=== PATIENT | female | born 1935 ===

== ENCOUNTER 2020-09-02 05:14 | Outpatient (REF) | payer MEDICARE, SELFPAY ==
[2020-09-02 05:39] LABS: Hematocrit 36.5 % (37-47); Mean Corpuscular HGB Conc 32.9 g/dl (31.0-35.0); Mean Corpuscular Hemoglobin 27.6 pg (27.0-33.0); Mean Corpuscular Volume 83.9 fL (80-98); Mean Platelet Volume 10.3 fL (9.4-12.3); Platelet Count 243 X10*3/uL (160-400); Red Blood Count 4.35 X10*6/uL (4.20-5.50); Red Cell Distribution Width 13.4 % (11.0-16.0); White Blood Count 8.1 X10*3/uL (4.8-10.8)
[2020-09-02 05:44] LABS: INTERNATIONAL NORM RATIO 0.9 (0.9-1.1); Prothrombin Time 11.2 SEC (10.8-13.0)
[2020-09-02 06:06] LABS: Alanine Aminotransferase 26 U/L (0-31); Albumin Level 4.1 g/dL (3.5-5.0); Alkaline Phosphatase 122 U/L (39-117); Anion Gap 15 (12-20); Aspartate Amino Transferase 25 U/L (5-31); Bilirubin Total 0.2 mg/dL (0.0-1.0); Blood Urea Nitrogen 28 mg/dL (9-16); Calcium 9.2 mg/dL (8.4-10.2); Carbon Dioxide 23 mmol/L (22-29); Chloride 104 mmol/L (96-108); Estimated Glomerular Filt Rate 33; Glucose Random 159 mg/dL (60-115); Sodium 137 mmol/L (135-145); Total Protein 7.1 g/dL (6.5-8.0)
== END 2020-09-02 05:15 | disposition home or self-care (01) ==
LOC: HO.MMNH1L 05:14
PROVIDERS: Visit Provider Family Medicine
DX: I48.91 Unspecified atrial fibrillation (principal); I25.10 Atherosclerotic heart disease of native coronary artery without angina pectoris; I21.4 Non-ST elevation (NSTEMI) myocardial infarction
CPT/HCPCS: 36415; 80053; 85027; 85610

== ENCOUNTER 2020-09-08 | Outpatient (REF) | payer MEDICARE, SELFPAY ==
[2020-09-08 06:01] LABS: Hematocrit 34.1 % (37-47); Hemoglobin 11.3 g/dl (12.0-16.0); Mean Corpuscular HGB Conc 33.1 g/dl (31.0-35.0); Mean Corpuscular Volume 84.4 fL (80-98); Mean Platelet Volume 10.7 fL (9.4-12.3); Platelet Count 241 X10*3/uL (160-400); Red Blood Count 4.04 X10*6/uL (4.20-5.50); Red Cell Distribution Width 13.5 % (11.0-16.0); White Blood Count 7.4 X10*3/uL (4.8-10.8)
[2020-09-08 06:15] LABS: Anion Gap 15 (12-20); Blood Urea Nitrogen 21 mg/dL (9-16); Calcium 9.3 mg/dL (8.4-10.2); Carbon Dioxide 24 mmol/L (22-29); Chloride 104 mmol/L (96-108); Estimated Glomerular Filt Rate 39; Glucose Random 148 mg/dL (60-115); Potassium 4.5 mmol/l (3.3-5.1); Sodium 138 mmol/L (135-145)
== END 2020-09-08 00:01 | disposition home or self-care (01) ==
LOC: HO.MMNH1L
PROVIDERS: Visit Provider Family Medicine
DX: I48.91 Unspecified atrial fibrillation (principal); I25.10 Atherosclerotic heart disease of native coronary artery without angina pectoris; I21.4 Non-ST elevation (NSTEMI) myocardial infarction
CPT/HCPCS: 36415; 80048; 85027

== ENCOUNTER → 2020-09-12 11:18 | Outpatient (BNVA) | payer MEDICARE, SELFPAY | PROVIDERS: PCP Family Medicine; Visit Provider Nurse Practitioner Family | DX: R07.9 Chest pain, unspecified (principal); I25.10 Atherosclerotic heart disease of native coronary artery without angina pectoris; I11.9 Hypertensive heart disease without heart failure; E78.5 Hyperlipidemia, unspecified; Z95.1 Presence of aortocoronary bypass graft; Z79.82 Long term (current) use of aspirin; Z79.899 Other long term (current) drug therapy | CPT/HCPCS: 99214 ==

== ENCOUNTER 2020-09-15 | Outpatient (REF) | payer MEDICARE, SELFPAY ==
[2020-09-15 08:41] LABS: Hematocrit 35.6 % (37-47); Hemoglobin 11.7 g/dl (12.0-16.0); Mean Corpuscular HGB Conc 32.9 g/dl (31.0-35.0); Mean Corpuscular Hemoglobin 27.7 pg (27.0-33.0); Mean Corpuscular Volume 84.4 fL (80-98); Mean Platelet Volume 10.7 fL (9.4-12.3); Platelet Count 223 X10*3/uL (160-400); Red Blood Count 4.22 X10*6/uL (4.20-5.50); Red Cell Distribution Width 13.5 % (11.0-16.0); White Blood Count 7.5 X10*3/uL (4.8-10.8)
[2020-09-15 10:00] LABS: Anion Gap 16 (12-20); Blood Urea Nitrogen 14 mg/dL (9-16); Calcium 8.9 mg/dL (8.4-10.2); Carbon Dioxide 20 mmol/L (22-29); Chloride 103 mmol/L (96-108); Estimated Glomerular Filt Rate 45; Glucose Random 78 mg/dL (60-115); Potassium 4.3 mmol/l (3.3-5.1); Sodium 135 mmol/L (135-145)
== END 2020-09-15 00:01 | disposition home or self-care (01) ==
LOC: HO.MMNH1L
PROVIDERS: Visit Provider Family Medicine
DX: I48.91 Unspecified atrial fibrillation (principal); I25.10 Atherosclerotic heart disease of native coronary artery without angina pectoris; I21.4 Non-ST elevation (NSTEMI) myocardial infarction
CPT/HCPCS: 36415; 80048; 85027

== ENCOUNTER 2020-09-22 | Outpatient (REF) | payer MEDICARE, SELFPAY ==
[2020-09-22 07:10] LABS: Hematocrit 34.8 % (37-47); Hemoglobin 11.5 g/dl (12.0-16.0); Mean Corpuscular Hemoglobin 28.1 pg (27.0-33.0); Mean Corpuscular Volume 85.1 fL (80-98); Mean Platelet Volume 10.2 fL (9.4-12.3); Platelet Count 218 X10*3/uL (160-400); Red Blood Count 4.09 X10*6/uL (4.20-5.50); Red Cell Distribution Width 13.3 % (11.0-16.0)
[2020-09-22 07:36] LABS: Anion Gap 17 (12-20); Blood Urea Nitrogen 18 mg/dL (9-16); Calcium 8.8 mg/dL (8.4-10.2); Carbon Dioxide 24 mmol/L (22-29); Chloride 104 mmol/L (96-108); Estimated Glomerular Filt Rate 35; Glucose Random 128 mg/dL (60-115); Potassium 4.6 mmol/l (3.3-5.1); Sodium 140 mmol/L (135-145)
== END 2020-09-22 00:01 | disposition home or self-care (01) ==
LOC: HO.MMNH1L
PROVIDERS: Visit Provider Family Medicine
DX: Z20.828 Contact with and (suspected) exposure to other viral communicable diseases (principal)
CPT/HCPCS: 36415; 80048; 85027; U0003

== ENCOUNTER → 2020-10-30 09:08 | Outpatient (BNVA) | payer MEDICARE, SELFPAY | PROVIDERS: PCP Family Medicine; Referring Provider Family Medicine; Visit Provider Nurse Practitioner | DX: K21.9 Gastro-esophageal reflux disease without esophagitis (principal); R19.7 Diarrhea, unspecified; Z79.4 Long term (current) use of insulin; Z79.891 Long term (current) use of opiate analgesic; Z79.899 Other long term (current) drug therapy | CPT/HCPCS: Q3014 ==

== ENCOUNTER → 2020-11-25 13:02 | Outpatient (REF) | payer MEDICARE, SELFPAY ==
--- NOTE | 2020-11-25 13:06 | CA_ITS ---
Transthoracic Echocardiogram Patient (Last, First, Middle): Talita Merino, Gender: Female Date of : 1935 Age: 85 Procedure Date: 11/25/2020 Procedure Type: Transthoracic Echocardiogram Location: OP Height: 157.48 cm Weight: 63.5 kg BSA: 1.64 m2 Heart Rate: bpm BP: 122 / 64 mmHg Freelance Graphic Designer: YANET Referring MD: Dona Bravo [facility] Symptoms: I25.10 - Atherosclerotic heart disease of [place] coronary artery without angina pectoris Study Quality: Fair ECG Rhythm: Sinus Conclusions: - The left ventricular systolic function is normal. The visually estimated ejection fraction is between 60-65%. - The basal inferior and basal inferolateral segments are hypokinetic. - There is moderately decreased right ventricular systolic function. - There is moderate calcification of the aortic valve. - There is mild mitral annular calcification. - There is mild dilatation of the ascending aorta measuring 4.00 cm. Findings Left Ventricle Normal left ventricular cavity size. There is moderately increased left ventricular wall thickness. The left ventricular systolic function is normal. The visually estimated ejection fraction is between 60-65%. E/E prime ratio is between 8 and 15 consistent with indeterminate filling pressures. Evidence suggests grade I (mild) diastolic dysfunction. Wall Motion Rest Echo Findings The basal inferior and basal inferolateral segments are hypokinetic. Right Ventricle Normal right ventricular cavity size. There is moderately decreased right ventricular systolic function. Atria The left atrium is normal in size. The right atrium is normal in size. Aortic Valve There is moderate calcification of the aortic valve. There is no aortic valve stenosis. There is no aortic valve regurgitation. Mitral Valve There is mild mitral annular calcification. There is trace mitral valve regurgitation. There is no mitral valve stenosis. Pulmonic Valve The pulmonic valve was not well visualized. Tricuspid Valve Normal tricuspid valve structure. There is mild tricuspid valve regurgitation. The pulmonary artery systolic pressure is normal. Great Vessels There is mild dilatation of the ascending aorta measuring 4.00 cm. Venous The inferior vena cava is normal in size and collapses greater than 50% with inspiration. Pericardium/Pleural There is no evidence of pericardial effusion. Prior Study Comparison Changes noted compared to prior study dated: 09/20/2017. Ascending aortic size is slightly larger. Measurements 2D Linear Measurements RVIDd: 2.92 RVIDd Index: 1.78 IVSd: 1.67 0.6-0.9/0.6-1.0 cm LVIDd: 3.50 3.9-5.3/4.2-5.9 cm LVIDd Index: 2.13 2.4-3.2/2.2-3.1 cm/m2 LVIDs: 2.53 2.0-3.6 cm LVPWd: 1.34 0.7-1.1 cm Ao Root: 3.20 2.1-3.5 cm LA Diam: 3.70 2.7-3.8/3.0-4.0 cm LAIDs Index: 2.26 1.5-2.3 cm/m2 LV Mass: 242.34 67-162/88-224 g LV Mass Index: 147.77 43-95/49-115 g/m2 LVOT Diam: 2.00 3.0+(-)1.3 cm 2D Systolic Function EF 4C: 68.80 >55% EF 2C: 59.00 >55% EF BiP: 64.50 >55% Mitral Valve MV Pk E: 0.58 MV PK A: 0.73 MV Decel Time: 285.00 E/A: 0.80 E'Lateral: 6.85 E'Medial: 4.03 E/E' Med: 14.30 E/E' Lat: 8.40 Aortic Valve AoV Pk Octaviano: 1.49 AoV Mn Octaviano: 1.07 AoV VTI: 0.27 AoV Pk Grad: 9.00 Aov Mn Grad: 5.00 DALTON Cont.VTI: 1.60 LVOT LVOT Pk Octav[place]: 0.76 LVOT Mn Octaviano: 0.43 LVOT VTI: 0.14 LVOT Pk Grad: 2.00 LVOT Mn Grad: 1.00 LVOT Diam: 2.00 LVOT Area: 3.14 Diastolic Function MV Pk E: 0.58 MV Pk A: 0.73 E/A: 0.80 E'Medial: 4.03 E/E' Med: 14.30 E' Laterial: 6.85 E/E' Lat: 8.40 Tricuspid Valve TR Pk Octaviano: 2.40 TR Pk Grad: 23.00 RA Press: 3.00 RVSP: 26.00 Great Vessels Aorta Ao Root-2D: 3.20 2.0-3.7 cm Ao Asc: 4.00 2.1-3.4 cm Updated in Other Vendor System with Status of Final Yg Rayo MD electronically signed on 11/25/2020 4:47:53 PM with status of Final
== END ==
LOC: HO.CARD 13:02
PROVIDERS: PCP Family Medicine; Visit Provider Nurse Practitioner Family
DX: I25.10 Atherosclerotic heart disease of native coronary artery without angina pectoris (principal)
CPT/HCPCS: 93306

== ENCOUNTER 2020-12-04 08:48 | Outpatient (REF) | payer MEDICARE, SELFPAY | END 2020-12-04 08:49 | disposition home or self-care (01) | LOC: HO.HOSX 08:48 | PROVIDERS: Visit Provider Orthopaedic Surgery | DX: Z13.89 Encounter for screening for other disorder (principal) ==

== ENCOUNTER → 2021-02-03 09:41 | Outpatient (BNVA) | payer MEDICARE, SELFPAY | PROVIDERS: PCP Family Medicine; Visit Provider Nurse Practitioner Gerontology | DX: Z13.89 Encounter for screening for other disorder (principal) | CPT/HCPCS: Q3014 ==

== ENCOUNTER 2021-02-28 17:36 | Emergency (ER) | payer MEDICARE, SELFPAY ==
--- NOTE | ~2021-02-28 | CT_ITS ---
EXAMINATION: CT ABDOMEN AND PELVIS WITHOUT CONTRAST CLINICAL INFORMATION: Abdominal pain nausea and vomiting COMPARISON: CT abdomen pelvis 09/17/2017 TECHNIQUE: Multidetector volumetric imaging was performed from the superior aspect of the liver through the pubic symphysis. Sagittal and coronal reformatted images were obtained on the technologist's workstation. This CT examination was performed using dose optimization techniques as appropriate, variously including the following: *Automated exposure control *Adjustment of mA and/or kV according to patient size (this includes techniques or standardized protocols for targeted exams where dose is matched to indication/reason for exam; i.e. extremities or head) *Use of iterative reconstruction technique DLP: 545 mGy-cm FINDINGS: LUNG BASES: Again seen is a prominent ascending aorta measuring about 4.3 cm. Extensive coronary calcifications are present. Peripheral honeycombing is again seen at the bases suggesting interstitial lung disease. Patient status post median sternotomy. LIVER, GALLBLADDER, AND BILIARY TREE: The liver is normal in size, shape, and attenuation. No focal hepatic lesion or biliary ductal dilatation is present. Status post cholecystectomy. PANCREAS: Unremarkable. SPLEEN: Unremarkable. ADRENAL GLANDS: Mild thickening of both adrenal glands is again seen, right greater than left. KIDNEYS AND URETERS: The kidneys are normal in size, shape, and attenuation. 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 No hydronephrosis, hydroureter, or calculi seen. No perinephric stranding. BLADDER: The bladder is markedly distended. No masses or stones are seen. Tiny foci of air is present within the wall of the bladder (series 3:69). Has this patient been catheterized? GASTROINTESTINAL TRACT: Some colonic diverticula are seen without diverticulitis The small and large bowel are otherwise unremarkable. The appendix is is not seen but there is no evidence of appendicitis. ABDOMINAL WALL: A supraumbilical ventral hernia is present slightly to the right of midline which is unchanged when compared to the 2017 study. Laxity of the lower abdominal/pelvic wall seen with protrusion of bowel loops and a portion of the anterior bladder without obstruction LYMPH NODES: No retroperitoneal lymphadenopathy. VASCULAR: Extensive vascular calcification atherosclerotic changes present. No aneurysms are seen. PELVIC VISCERA: An anteverted uterus is present containing calcifications which may be related to old fibroids. An abnormal adnexal mass or free intraperitoneal fluid is not seen OSSEOUS STRUCTURES: Marked degenerative changes present throughout the spine with scoliosis convex to right. CT/CT abdomen pelvis wo con IMPRESSION: A cause for the patient's acute abdominal pain nausea and vomiting has not been found. Incidental note is made once again of: 1. Dilated ascending aorta at 4.3 cm with extensive coronary disease 2. Cholecystectomy 3. Duplex bilateral renal collecting systems 4. Supraumbilical hernia containing only fat, unchanged with weakness in the lower anterior abdominal/pelvic wall with herniation of a portion of the bladder and bowel contents without evidence of obstruction. 5. Extensive calcific atherosclerotic disease. 6. Extensive degenerative changes in the spine with scoliosis.
--- NOTE | ~2021-02-28 | XR_ITS ---
EXAMINATION: XR CHEST CLINICAL INFORMATION: Nausea and vomiting. COMPARISON: Chest x-ray 09/06/2019 TECHNIQUE: Frontal view of the chest was obtained. FINDINGS: No significant abnormality is noted involving the heart, lungs, mediastinum, bony thorax or soft tissues. There are median sternotomy sutures and mediastinal hillary from previous CABG XR/XR chest 1V IMPRESSION: Unremarkable chest examination.
[2021-02-28 17:45] VITALS: BP 170/87; PULSE 70; RESP 14; TEMP 37; O2SAT 100; BMI 26.4
--- NOTE | 2021-02-28 17:56 | ECG_ITS ---
Test Reason : NAUSEA Blood Pressure : / mmHG Vent. Rate : 078 BPM Atrial Rate : 078 BPM P-R Int : 224 ms QRS Dur : 116 ms QT Int : 416 ms P-R-T Axes : 060 -59 085 degrees QTc Int : 474 ms Sinus rhythm with sinus arrhythmia with 1st degree A-V block Left axis deviation Abnormal ECG When compared with ECG of 07-SEP-2019 07:22, [place] interval has increased Referred By: Generic ED Physician Electronically Signed By:DELANO NASSAR
[2021-02-28 18:10] LABS: MANUAL DIFF FLAG NO
[2021-02-28 18:12] LABS: Basophils Absolute Auto 0.1 X10*3/uL (0.0-0.2); Basophils Percent Auto 0.7 % (0-2); Eosinophils Absolute Auto 0.4 X10*3/uL (0.0-0.4); Eosinophils Percent Auto 4.7 % (0-4); Hematocrit 37.8 % (37-47); Hemoglobin 12.8 g/dl (12.0-16.0); Imm Gran Abs Auto 0.04 X10*3/uL (0.00-0.03); Imm Gran Pct Auto 0.5 % (0.0-0.4); Lymphocytes Absolute Auto 1.6 X10*3/uL (1.2-4.9); Lymphocytes Percent Auto 18.5 % (20-40); Mean Corpuscular HGB Conc 33.9 g/dl (31.0-35.0); Mean Corpuscular Hemoglobin 28.3 pg (27.0-33.0); Mean Corpuscular Volume 83.4 fL (80-98); Mean Platelet Volume 9.6 fL (9.4-12.3); Monocytes Absolute Auto 0.5 X10*3/uL (0.1-1.2); Monocytes Percent Auto 5.9 % (2-11); Neutrophils Percent Auto 69.7 % (45-73); Platelet Count 244 X10*3/uL (160-400); Red Blood Count 4.53 X10*6/uL (4.20-5.50); White Blood Count 8.6 X10*3/uL (4.8-10.8)
[2021-02-28 18:34] LABS: Alanine Aminotransferase 38 U/L (0-31); Albumin Level 4.7 g/dL (3.5-5.0); Alkaline Phosphatase 110 U/L (39-117); Anion Gap 16 (12-20); Aspartate Amino Transferase 27 U/L (5-31); Bilirubin Direct 0.2 mg/dL (0.0-0.5); Bilirubin Total 0.4 mg/dL (0.0-1.0); Blood Urea Nitrogen 24 mg/dL (9-16); Calcium 9.5 mg/dL (8.4-10.2); Carbon Dioxide 23 mmol/L (22-29); Chloride 100 mmol/L (96-108); Creatinine Clr Calc Pharmacy 25.6; Estimated Glomerular Filt Rate 40; Glucose Random 206 mg/dL (60-115); Potassium 4.4 mmol/L (3.3-5.1); Sodium 135 mmol/L (135-145); Total Protein 8.3 g/dL (6.5-8.0)
--- NOTE | 2021-02-28 18:37 | ED_ITS ---
HPI - Nausea/Vomiting/Diarrhea General Chief complaint: Nausea/Vomiting/Diarrhea Stated complaint: N/V 3-4 DAYS Source: patient and EMS Mode of arrival: EMS Limitations: language barrier History of Present Illness HPI Narrative: 85-year-old female with past medical history of coronary artery disease, status post CABG x3, hypertension, hyperlipidemia, type 2 diabetes with polyneuropathy, asthma, history of NSTEMI, and GERD presents with several days of nausea, vomiting, and increased confusion per FINANCE ADMIN report. Patient states that abdominal pain started before nausea and vomiting, and after the nausea and vomiting started she became weak and dizzy for the past few days. Patient is a poor historian, is unable to tell me what medications she takes. She does know that she is in the hospital. MD elicited complaint: nausea, vomiting and abdominal pain Onset (ago): day(s) (4) Description of vomiting: watery Associated nausea: Yes Associated abdominal pain: Yes Location of pain: diffuse Pain consistency: constant Severity: moderate Quality: aching Exacerbating factors: vomiting Relieving factors: none Treatment prior to arrival: fluids and other (Zofran via EMS) Related Data Home Medications Medication Instructions Recorded Confirmed acetaminophen 2 tab PO Q8H PRN 02/28/21 02/28/21 alcohol swabs [Alcohol Prep Pads] 1 ea TOPICAL QID 02/28/21 02/28/21 amlodipine 1 tab PO DAILY 02/28/21 02/28/21 aspirin 1 tab PO DAILY 02/28/21 02/28/21 atorvastatin 1 tab PO DAILY 02/28/21 02/28/21 blood sugar diagnostic [FreeStyle 02/28/21 02/28/21 Lite Strips] blood-glucose meter [FreeStyle 02/28/21 02/28/21 [place] Lite] bupropion HCl 1 tab PO BEDTIME 02/28/21 02/28/21 cetirizine 1 tab PO QAM 02/28/21 02/28/21 docusate sodium [DOK] 1 cap PO BID 02/28/21 02/28/21 donepezil 1 tab PO DAILY 02/28/21 02/28/21 dulaglutide [Trulicity] 0.5 ml SUBCUT QWEEK 02/28/21 02/28/21 gabapentin 100 mg PO TID 02/28/21 02/28/21 insulin degludec [Tresiba 7 unit SUBCUT DAILY 02/28/21 02/28/21 FlexTouch U-100] levothyroxine 1 tab PO DAILY 02/28/21 02/28/21 losartan 1 tab PO DAILY 02/28/21 02/28/21 metformin 2 tab PO BID 02/28/21 02/28/21 metoprolol succinate 3 tab PO QAM 02/28/21 02/28/21 pen needle, diabetic [Pentips] 02/28/21 02/28/21 sennosides [senna] 2 tab PO DAILY 02/28/21 02/28/21 sertraline 1 tab PO QAM 02/28/21 02/28/21 tramadol 1 tab PO Q12H PRN 02/28/21 02/28/21 Allergies Allergy/AdvReac Type Severity Reaction Status Date / Time No Known Allergies Allergy Verified 02/03/21 10:24 [No Known Allergies*] Review of Systems Review of Systems: Constitutional: No Fever, No Chills ENT/Mouth: No sore throat Eyes: No Eye Pain, No Swelling, No Redness Cardiovascular: No Chest Pain, No SOB Respiratory: No Cough, No Sputum, No Wheezing Gastrointestinal: positive Nausea, positive Vomiting, No Diarrhea, positive abdominal pain Genitourinary: No Dysuria, no urinary frequency, no Hematuria, no Flank Pain, no hesitancy Musculoskeletal: No joint pain, No Myalgias Skin: No Skin Lesions, No rash Neuro: No Weakness, No Numbness, No Headache Psych: No Anxiety/Panic, No Depression Heme/Lymph: No Bruising, No Lymphadenopathy Endocrine: No Polyuria, No Polydipsia Yes all other systems are reviewed and are negative Gastrointestinal: Gastrointestinal: Reports nausea PMFSH Past Medical History Attestation statement: The following information was validated with the patient. Source: old records reviewed Medical History CAD (coronary artery disease) Chest pain Depression Diastolic dysfunction HLD (hyperlipidemia) HTN (hypertension) Hypothyroidism Peptic ulcer disease Postoperative atrial fibrillation Tubular adenoma Type 2 diabetes mellitus with polyneuropathy Surgical History History of esophagogastroduodenoscopy (EGD) Hx of colonoscopy S/P CABG x 3 (~09/2013) Family History Family History Father CVD (cardiovascular disease) Mother No problems noted. Social History Social History Household Members: Children Alcohol intake: unknown Smoking Status: Never smoker Smoked in Last 30 Days: No Use of substances other than those prescribed or required for medical reasons: No Advance Directives: No Advance Directives Information Provided: Yes Physical Exam Vital Signs: Vital Signs: Last Vital Signs Temp 97.5 F 02/28/21 20:13 Pulse 74 03/01/21 00:39 Resp 18 03/01/21 00:39 BP 133/71 03/01/21 00:39 Pulse Ox 96 03/01/21 00:39 Body Mass Index 26.4 Appearance: Alert. Oriented X2. No acute distress. Appears fatigued, frail. Eyes: Pupils equal, round and reactive to light. EOMI, sclera nonicteric ENT: Pharynx normal. Dry mucous membranes Neck: Normal inspection. Neck supple. No JVD CVS: Normal heart rate and rhythm. Pulses normal. Respiratory: No respiratory distress. Lung sounds clear to auscultation all lobes Abdomen: Soft and diffusely tender to palpation Skin: Skin warm and dry. Normal skin color. Normal skin turgor. Extremities: No lower extremity edema. Moves all extremities against resistance. Neuro: No motor deficit. No sensory deficit. Cranial nerves 2-12 intact. Course Course Course Narrative: 85-year-old female with past medical history of coronary artery disease, status post CABG x3, hypertension, hyperlipidemia, type 2 diabetes with polyneuropathy, asthma, history of NSTEMI, and GERD presents with several days of nausea, vomiting, and increased confusion per FINANCE ADMIN report. Plan of care to rule out ACS, CT scan of abdomen and pelvis, straight cath urinalysis, CBC, Chem 7, will resuscitate with 500 mL of fluid. 6:50 p.m. troponin elevated at 22.1 will repeat in 3 hours. 10:00 p.m. 2nd troponin 21.9, CT scan shows aortic dilation of 4.3 cm, review of prior CTs from 2017 do not show history of aortic dilation. Discussion with hospitalist, hospitalist states that patient has not get admitted until dilation is about 5 cm, patient can be followed up by outpatient Cardiology or vascular, considering her 2nd troponin is 21.9, and has no significant findings to lab values, she does not meet admission criteria. RN discussed plan with family, family does not feel comfortable taking her home at this time due to weakness. Plan is for Case Management, social media community manager, and PT evaluation. MDM - Nausea/Vomiting/Diarrhea Differential Diagnosis Differential diagnosis: Likely gastroenteritis and dehydration Medical Records Attestation: I reviewed the patient's medical records. Lab Data Attestation: I reviewed the patient's lab results. Result diagrams: 02/28/21 18:03 02/28/21 18:03 Labs: Lab Results 02/28/21 02/28/21 02/28/21 Range/Units 18:03 18:03 18:03 WBC 8.6 (4.8-10.8) X10*3/uL RBC 4.53 (4.20-5.50) X10*6/uL Hgb 12.8 (12.0-16.0) g/dl Hct 37.8 (37-47) % MCV 83.4 (80-98) fL MCH 28.3 (27.0-33.0) pg MCHC 33.9 (31.0-35.0) g/dl RDW 13.0 (11.0-16.0) % Plt Count 244 (160-400) X10*3/uL MPV 9.6 (9.4-12.3) fL Immature Gran % (Auto) 0.5 H (0.0-0.4) % Neut % (Auto) 69.7 (45-73) % Lymph % (Auto) 18.5 L (20-40) % [place] % (Auto) 5.9 (2-11) % Eos % (Auto) 4.7 H (0-4) % Baso % (Auto) 0.7 (0-2) % Lymph # (Auto) 1.6 (1.2-4.9) X10*3/uL [place] # (Auto) 0.5 (0.1-1.2) X10*3/uL Eos # (Auto) 0.4 (0.0-0.4) X10*3/uL Baso # (Auto) 0.1 (0.0-0.2) X10*3/uL Abs Immat Gran (auto) 0.04 H (0.00-0.03) X10*3/uL Absolute Neuts (auto) 6.0 (2.0-8.3) X10*3/uL Absolute Nucleated RBC 0.000 (0.0-0.012) X10*3/uL Nucleated RBC % (auto) 0.0 (0.0-0.2) /100WBC Hold Blue Top SEE NOTE Sodium 135 (135-145) mmol/L Potassium 4.4 (3.3-5.1) mmol/L Chloride 100 (96-108) mmol/L Carbon Dioxide 23 (22-29) mmol/L Anion Gap 16 (12-20) BUN 24 H (9-16) mg/dL Creatinine 1.26 (0.5-1.4) mg/dL Estim Creat Clear Calc 25.6 Estimated GFR 40 Random Glucose 206 H D (60-115) mg/dL Calcium 9.5 D (8.4-10.2) mg/dL Total Bilirubin 0.4 (0.0-1.0) mg/dL Direct Bilirubin 0.2 (0.0-0.5) mg/dL AST 27 (5-31) U/L ALT 38 H (0-31) U/L Alkaline Phosphatase 110 (39-117) U/L Troponin I High Sens (<3.5-17.0) ng/L Total Protein 8.3 H (6.5-8.0) g/dL Albumin 4.7 (3.5-5.0) g/dL Urine Color Urine Appearance Urine pH (5.0-8.0) Ur Specific [place] (1.005-1.025) Urine Protein (NEG-TRACE) MG/DL Urine Glucose (UA) (NEG) MG/DL Urine Ketones (NEG) MG/DL Urine Blood (NEG) Urine Nitrite (NEG) Ur Leukocyte Esterase (NEG) Coronavirus (PCR) (Negative) Influenza Type A (PCR) (Negative) Influenza Type B (PCR) (Negative) RSV RNA Qual (PCR) (Negative) 02/28/21 02/28/21 02/28/21 Range/Units 18:03 19:09 19:10 WBC (4.8-10.8) X10*3/uL RBC (4.20-5.50) X10*6/uL Hgb (12.0-16.0) g/dl Hct (37-47) % MCV (80-98) fL MCH (27.0-33.0) pg MCHC (31.0-35.0) g/dl RDW (11.0-16.0) % Plt Count (160-400) X10*3/uL MPV (9.4-12.3) fL Immature Gran % (Auto) (0.0-0.4) % Neut % (Auto) (45-73) % Lymph % (Auto) (20-40) % [place] % (Auto) (2-11) % Eos % (Auto) (0-4) % Baso % (Auto) (0-2) % Lymph # (Auto) (1.2-4.9) X10*3/uL [place] # (Auto) (0.1-1.2) X10*3/uL Eos # (Auto) (0.0-0.4) X10*3/uL Baso # (Auto) (0.0-0.2) X10*3/uL Abs Immat Gran (auto) (0.00-0.03) X10*3/uL Absolute Neuts (auto) (2.0-8.3) X10*3/uL Absolute Nucleated RBC (0.0-0.012) X10*3/uL Nucleated RBC % (auto) (0.0-0.2) /100WBC Hold Blue Top Sodium (135-145) mmol/L Potassium (3.3-5.1) mmol/L Chloride (96-108) mmol/L Carbon Dioxide (22-29) mmol/L Anion Gap (12-20) BUN (9-16) mg/dL Creatinine (0.5-1.4) mg/dL Estim Creat Clear Calc Estimated GFR Random Glucose (60-115) mg/dL Calcium (8.4-10.2) mg/dL Total Bilirubin (0.0-1.0) mg/dL Direct Bilirubin (0.0-0.5) mg/dL AST (5-31) U/L ALT (0-31) U/L Alkaline Phosphatase (39-117) U/L Troponin I High Sens 22.1 H (<3.5-17.0) ng/L Total Protein (6.5-8.0) g/dL Albumin (3.5-5.0) g/dL Urine Color STRAW Urine Appearance CLEAR Urine pH 6.5 (5.0-8.0) Ur Specific [place] 1.020 (1.005-1.025) Urine Protein NEG (NEG-TRACE) MG/DL Urine Glucose (UA) 100 H (NEG) MG/DL Urine Ketones NEG (NEG) MG/DL Urine Blood NEG (NEG) Urine Nitrite NEG (NEG) Ur Leukocyte Esterase NEG (NEG) Coronavirus (PCR) NEGATIVE (Negative) Influenza Type A (PCR) NEGATIVE (Negative) Influenza Type B (PCR) NEGATIVE (Negative) RSV RNA Qual (PCR) NEGATIVE (Negative) 02/28/21 03/01/21 Range/Units 20:51 01:44 WBC (4.8-10.8) X10*3/uL RBC (4.20-5.50) X10*6/uL Hgb (12.0-16.0) g/dl Hct (37-47) % MCV (80-98) fL MCH (27.0-33.0) pg MCHC (31.0-35.0) g/dl RDW (11.0-16.0) % Plt Count (160-400) X10*3/uL MPV (9.4-12.3) fL Immature Gran % (Auto) (0.0-0.4) % Neut % (Auto) (45-73) % Lymph % (Auto) (20-40) % [place] % (Auto) (2-11) % Eos % (Auto) (0-4) % Baso % (Auto) (0-2) % Lymph # (Auto) (1.2-4.9) X10*3/uL [place] # (Auto) (0.1-1.2) X10*3/uL Eos # (Auto) (0.0-0.4) X10*3/uL Baso # (Auto) (0.0-0.2) X10*3/uL Abs Immat Gran (auto) (0.00-0.03) X10*3/uL Absolute Neuts (auto) (2.0-8.3) X10*3/uL Absolute Nucleated RBC (0.0-0.012) X10*3/uL Nucleated RBC % (auto) (0.0-0.2) /100WBC Hold Blue Top Sodium (135-145) mmol/L Potassium (3.3-5.1) mmol/L Chloride (96-108) mmol/L Carbon Dioxide (22-29) mmol/L Anion Gap (12-20) BUN (9-16) mg/dL Creatinine (0.5-1.4) mg/dL Estim Creat Clear Calc Estimated GFR Random Glucose (60-115) mg/dL Calcium (8.4-10.2) mg/dL Total Bilirubin (0.0-1.0) mg/dL Direct Bilirubin (0.0-0.5) mg/dL AST (5-31) U/L ALT (0-31) U/L Alkaline Phosphatase (39-117) U/L Troponin I High Sens 21.9 H 21.8 H (<3.5-17.0) ng/L Total Protein (6.5-8.0) g/dL Albumin (3.5-5.0) g/dL Urine Color Urine Appearance Urine pH (5.0-8.0) Ur Specific [place] (1.005-1.025) Urine Protein (NEG-TRACE) MG/DL Urine Glucose (UA) (NEG) MG/DL Urine Ketones (NEG) MG/DL Urine Blood (NEG) Urine Nitrite (NEG) Ur Leukocyte Esterase (NEG) Coronavirus (PCR) (Negative) Influenza Type A (PCR) (Negative) Influenza Type B (PCR) (Negative) RSV RNA Qual (PCR) (Negative) Imaging Data Chest x-ray: Attestation: I personally reviewed and interpreted this imaging study as follows: Radiologist's impression: EXAMINATION: XR CHEST CLINICAL INFORMATION: Nausea and vomiting. COMPARISON: Chest x-ray 09/06/2019 TECHNIQUE: Frontal view of the chest was obtained. FINDINGS: No significant abnormality is noted involving the heart, lungs, mediastinum, bony thorax or soft tissues. There are median sternotomy sutures and mediastinal hillary from previous CABG XR/XR chest 1V IMPRESSION: Unremarkable chest examination. CT abdomen pelvis: Attestation: I personally reviewed and interpreted this imaging study as follows: Radiologist's impression: EXAMINATION: CT ABDOMEN AND PELVIS WITHOUT CONTRAST CLINICAL INFORMATION: Abdominal pain nausea and vomiting COMPARISON: CT abdomen pelvis 09/17/2017 TECHNIQUE: Multidetector volumetric imaging was performed from the superior aspect of the liver through the pubic symphysis. Sagittal and coronal reformatted images were obtained on the technologist's workstation. This CT examination was performed using dose optimization techniques as appropriate, variously including the following: *Automated exposure control *Adjustment of mA and/or kV according to patient size (this includes techniques or standardized protocols for targeted exams where dose is matched to indication/reason for exam; i.e. extremities or head) *Use of iterative reconstruction technique DLP: 545 mGy-cm FINDINGS: LUNG BASES: Again seen is a prominent ascending aorta measuring about 4.3 cm. Extensive coronary calcifications are present. Peripheral honeycombing is again seen at the bases suggesting interstitial lung disease. Patient status post median sternotomy. LIVER, GALLBLADDER, AND BILIARY TREE: The liver is normal in size, shape, and attenuation. No focal hepatic lesion or biliary ductal dilatation is present. Status post cholecystectomy. PANCREAS: Unremarkable. SPLEEN: Unremarkable. ADRENAL GLANDS: Mild thickening of both adrenal glands is again seen, right greater than left. KIDNEYS AND URETERS: The kidneys are normal in size, shape, and attenuation. 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 No hydronephrosis, hydroureter, or calculi seen. No perinephric stranding. BLADDER: The bladder is markedly distended. No masses or stones are seen. Tiny foci of air is present within the wall of the bladder (series 3:69). Has this patient been catheterized? GASTROINTESTINAL TRACT: Some colonic diverticula are seen without diverticulitis The small and large bowel are otherwise unremarkable. The appendix is is not seen but there is no evidence of appendicitis. ABDOMINAL WALL: A supraumbilical ventral hernia is present slightly to the right of midline which is unchanged when compared to the 2017 study. Laxity of the lower abdominal/pelvic wall seen with protrusion of bowel loops and a portion of the anterior bladder without obstruction LYMPH NODES: No retroperitoneal lymphadenopathy. VASCULAR: Extensive vascular calcification atherosclerotic changes present. No aneurysms are seen. PELVIC VISCERA: An anteverted uterus is present containing calcifications which may be related to old fibroids. An abnormal adnexal mass or free intraperitoneal fluid is not seen OSSEOUS STRUCTURES: Marked degenerative changes present throughout the spine with scoliosis convex to right. CT/CT abdomen pelvis wo con IMPRESSION: A cause for the patient's acute abdominal pain nausea and vomiting has not been found. Incidental note is made once again of: 1. Dilated ascending aorta at 4.3 cm with extensive coronary disease 2. Cholecystectomy 3. Duplex bilateral renal collecting systems 4. Supraumbilical hernia containing only fat, unchanged with weakness in the lower anterior abdominal/pelvic wall with herniation of a portion of the bladder and bowel contents without evidence of obstruction. 5. Extensive calcific atherosclerotic disease. 6. Extensive degenerative changes in the spine with scoliosis. ECG Data Attestation: I personally reviewed and interpreted this ECG as follows: ECG interpretation date: 02/28/21 ECG interpretation time: 18:41 Prior ECG tracings: available for review Interpretation: Vent. rate 78 BPM TX interval 224 ms QRS duration 116 ms QT/QTc 416/474 ms P-R-T axes 60 -59 85 Sinus rhythm with sinus arrhythmia with 1st de gree A-V block Left axis deviation Abnormal ECG When compared with ECG of 07-SEP-2019 07:22, [place] interval has increased Discharge Plan Discharge Clinical Impression: Weakness, Ascending aorta dilatation Prescriptions: No Action metformin 500 mg tablet 2 tab PO BID RF: 0 sennosides [senna] 8.6 mg tablet 2 tab PO DAILY RF: 0 acetaminophen 325 mg tablet 2 tab PO Q8H PRN (Reason: Pain) RF: 0 atorvastatin 20 mg tablet 1 tab PO DAILY RF: 0 cetirizine 10 mg tablet 1 tab PO QAM RF: 0 metoprolol succinate 50 mg tablet extended release 24 hr 3 tab PO QAM RF: 0 donepezil 10 mg tablet 1 tab PO DAILY RF: 0 (DME) FreeStyle Lite Strips Strip MISCELLANEOUS RF: 0 aspirin 81 mg tablet,delayed release (DR/EC) 1 tab PO DAILY RF: 0 tramadol 50 mg tablet 1 tab PO Q12H PRN (Reason: severe pain) RF: 0 (DME) blood-glucose meter [FreeStyle [place] Lite] Kit MISCELLANEOUS BID RF: 0 amlodipine 10 mg tablet 1 tab PO DAILY RF: 0 levothyroxine 150 mcg tablet 1 tab PO DAILY RF: 0 docusate sodium [DOK] 100 mg capsule 1 cap PO BID RF: 0 alcohol swabs [Alcohol Prep Pads] Pads, Medicated 1 ea topical QID RF: 0 gabapentin 100 mg capsule 100 mg PO TID RF: 0 losartan 100 mg tablet 1 tab PO DAILY RF: 0 sertraline 50 mg tablet 1 tab PO QAM RF: 0 bupropion HCl 300 mg tablet extended release 24 hr 1 tab PO BEDTIME RF: 0 (DME) pen needle, diabetic [Pentips] 32 gauge x 5/32 needle MISCELLANEOUS RF: 0 Tresiba FlexTouch U-100 100 unit/mL (3 mL) insulin pen 7 unit subcut DAILY RF: 0 Trulicity 1.5 mg/0.5 mL pen injector 0.5 ml subcut QWEEK RF: 0
[2021-02-28 18:55] LABS: Troponin-I High Sensitivity 22.1 ng/L (<3.5-17.0)
[2021-02-28 19:08] VITALS: RESP 18
[2021-02-28 19:25] LABS: Glucose Urine UA 100 MG/DL (NEG); Leukocyte Esterase Urine NEG (NEG); Nitrite Urine NEG (NEG); PH 6.5 (5.0-8.0); Urine Blood NEG (NEG); Urine Ketones NEG (NEG); Urine Protein NEG (NEG-TRACE)
[2021-02-28 19:26] LABS: Appearance Urine CLEAR; Color Urine STRAW
--- NOTE | 2021-02-28 19:29 | PC.NURSE ---
Unable to document IVF 500ml NS due to error in system. 500ml bolus given iv in rt 20ac
[2021-02-28 20:00] LABS: Influenza A PCR NEGATIVE (Negative); Influenza B PCR NEGATIVE (Negative); Resp Syncy Virus RNA Qual PCR NEGATIVE (Negative); SARS COV2 PCR INHOUSE NEGATIVE (Negative)
[2021-02-28 20:13] VITALS: BP 149/74; PULSE 69; RESP 18; TEMP 36.4; O2SAT 97
[2021-02-28 21:29] LABS: Troponin-I High Sensitivity 21.9 ng/L (<3.5-17.0)
--- NOTE | 2021-02-28 21:39 | PC.NURSE ---
contact made to kaela bourgeois and family .they are in agreement with plan to refer to pt case management.
[2021-03-01 00:39] VITALS: BP 133/71; PULSE 74; RESP 18; O2SAT 96
[2021-03-01] MEDS: Gabapentin 100 MG CAPSULE PO ×2 (00:41→09:06)
[2021-03-01] MEDS: Docusate Sodium 100 MG CAPSULE PO ×2 (00:41→09:05)
[2021-03-01] MEDS: buPROPion HCl XL 300 MG TAB.ER.24H PO (00:41)
[2021-03-01] MEDS: Donepezil HCl 10 MG TABLET PO (00:42)
[2021-03-01 02:21] LABS: Troponin-I High Sensitivity 21.8 ng/L (<3.5-17.0)
[2021-03-01 06:00] VITALS: RESP 16
[2021-03-01 07:16] VITALS: BP 141/94; PULSE 66; RESP 16; TEMP 36.6; O2SAT 95
[2021-03-01 07:18] LABS: Glucose, Whole Blood 148 mg/dL (60-115)
--- NOTE | 2021-03-01 07:18 | PC.NURSE ---
REPORT RECEIVED, VS UPDATED, POC 148, PT REQUESTING TO EAT. WAITING ON CASE MANAGEMENT CONSULT THIS MORNING.
[2021-03-01] MEDS: ondansetron HCL 4 MG/2 ML VIAL IVPUSH (07:56)
[2021-03-01] MEDS: Insulin Glargine,Hum.rec.anlog 100 UNIT/ML 10 ML VIAL SUBCUT (09:03)
[2021-03-01 09:04] VITALS: BP 141/80; PULSE 68
[2021-03-01] MEDS: Levothyroxine Sodium 150 MCG TABLET PO (09:04)
[2021-03-01] MEDS: Losartan Potassium 50 MG TABLET 100 MG PO (09:04)
[2021-03-01] MEDS: Metoprolol Succinate ER 50 MG TAB.ER.24H 150 MG PO (09:04)
[2021-03-01] MEDS: Atorvastatin Calcium 20 MG TABLET PO (09:05)
[2021-03-01] MEDS: Sennosides 8.6 MG TABLET 17.2 MG PO (09:05)
[2021-03-01] MEDS: Sertraline HCL 50 MG TABLET PO (09:05)
[2021-03-01 09:06] VITALS: BP 141/80; PULSE 68
[2021-03-01] MEDS: Aspirin Enteric Coated 81 MG TABLET.DR PO (09:06)
[2021-03-01] MEDS: Loratadine 10 MG TABLET PO (09:06)
[2021-03-01] MEDS: amLODIPine Besylate 10 MG TABLET PO (09:06)
--- NOTE | 2021-03-01 10:28 | PC.NURSE ---
PT AMBULATED IN ROOM WITH WALKER WHICH SHE USES AT BASELINE. SPOKE WITH ELECTRICITY TRADER. PT HAS HOME SERVICES, PLAN WILL BE D/C HOME. PT NO LONGER FEELING NAUSEOUS/VOMITING.
--- NOTE | 2021-03-01 11:10 | PC.NURSE ---
patient tolerating PO, no further vomiting.
--- NOTE | 2021-03-01 11:10 | PC.NURSE ---
per PA, no additional lab work needed for patient today.
--- NOTE | 2021-03-01 11:19 | MHC.CM.PN ---
Addendum entered by Eri Arguelles 03/01/21 16:24: Pt was d/c'd to home with existing CLEANER TOUCH UP WORKER and supportive family. Clemencia, pt's compensated CLEANER TOUCH UP WORKER, provided transportation. Original Note: Received ED consult for assessment of d/c needs: Pt presents to ED with c/o N/V/D for several days: review of EMR does not support admission. Pt treated with antiemetics and is reported improvement and tolerating po intake. Pt reports that she resides with her son, Ed and has a CLEANER TOUCH UP WORKER, Clemencia who assists with ADL's and transportation. Ed is present almost 13/06 and can assist pt if needed. Pt uses a walker, cane and w/c. Call placed to Clemencia to inquire on pt's functional ability: per Clemencia, pt has had some physical decline but is overall very functional. Pt has a hx of declining services - recently at [facility] last fall but left early because she felt she was healed Met with pt to discuss options: pt feels she is well managed at home: has several children in the area who visit/check in. Son Ed is helpful and available and Clemencia (compensated CLEANER TOUCH UP WORKER) assists her 4 hours per day with 2 hours at night 7 days/week. Declined needing skilled services or [facility]. ED RN to walk pt to ensure mobility. Clemencia can transport pt to home when she is d/c'd.
== END 2021-03-01 12:38 | disposition home or self-care (01) ==
PROVIDERS: Nurse Practitioner Family; Emergency Provider Internal Medicine; PCP Family Medicine
DX: I77.810 Thoracic aortic ectasia (principal); R11.2 Nausea with vomiting, unspecified; R53.1 Weakness; Z20.822 Contact with and (suspected) exposure to COVID-19; K43.9 Ventral hernia without obstruction or gangrene; I10 Essential (primary) hypertension; E78.5 Hyperlipidemia, unspecified; E11.9 Type 2 diabetes mellitus without complications; J45.909 Unspecified asthma, uncomplicated; Z79.899 Other long term (current) drug therapy
CPT/HCPCS: 0241U; 36415; 51701; 71045; 74176; 80053; 80076; 81003; 82248; 82947; 84484; 85025; 93005; 96361; 96374; 99284; 99285; J2405

== ENCOUNTER → 2021-05-12 09:21 | Outpatient (BNVA) | payer MEDICARE, SELFPAY | PROVIDERS: PCP Family Medicine; Visit Provider Nurse Practitioner Gerontology | CPT/HCPCS: Q3014 ==

== ENCOUNTER → 2021-05-19 11:03 | Outpatient (BNVA) | payer MEDICARE, SELFPAY | PROVIDERS: PCP Family Medicine; Visit Provider Internal Medicine ==

== ENCOUNTER 2021-05-21 10:40 | Outpatient (REF) | payer MEDICARE, SELFPAY ==
--- NOTE | ~2021-05-21 | XR_ITS ---
EXAMINATION: XR CERVICAL SPINE CLINICAL INFORMATION: Pain. COMPARISON: None TECHNIQUE: 6 views submitted. FINDINGS: Degeneration at all levels. Loss of disc height with bony spurring from C3-C4 to C6-C7. The posterior facets show moderate to marked facet arthropathy bilaterally. The oblique imaging demonstrating mild neural foraminal encroachment at C4-C5 and C5-C6 on the right. Moderate encroachment at C3-C4. On the left there is more moderate encroachment of the neural foramen at C3-C4 and C4-C5. XR/XR cervical spine min 6V IMPRESSION: Moderate to marked degenerative changes. There is however no listhesis or compression injury seen.
[2021-05-21 12:56] LABS: Hematocrit 34.6 % (37-47); Hemoglobin 11.5 g/dl (12.0-16.0); Mean Corpuscular HGB Conc 33.2 g/dl (31.0-35.0); Mean Corpuscular Hemoglobin 27.8 pg (27.0-33.0); Mean Corpuscular Volume 83.8 fL (80-98); Mean Platelet Volume 10.1 fL (9.4-12.3); Platelet Count 252 X10*3/uL (160-400); Red Blood Count 4.13 X10*6/uL (4.20-5.50); Red Cell Distribution Width 13.3 % (11.0-16.0); White Blood Count 7.2 X10*3/uL (4.8-10.8)
[2021-05-21 13:38] LABS: Alanine Aminotransferase 21 U/L (0-31); Alkaline Phosphatase 141 U/L (39-117); Anion Gap 14 (12-20); Aspartate Amino Transferase 20 U/L (5-31); Bilirubin Direct < 0.2 mg/dL (0.0-0.5); Bilirubin Total 0.3 mg/dL (0.0-1.0); Blood Urea Nitrogen 32 mg/dL (9-16); Calcium 9.5 mg/dL (8.4-10.2); Carbon Dioxide 21 mmol/L (22-29); Chloride 107 mmol/L (96-108); Cholesterol 200 mg/dL; Estimated Glomerular Filt Rate 31; Glucose Random 155 mg/dL (60-115); HDL Cholesterol 30 mg/dL; LDL Cholesterol Calculated 111 mg/dl; Potassium 5.3 mmol/L (3.3-5.1); Sodium 137 mmol/L (135-145); Total Protein 7.3 g/dL (6.5-8.0); Triglycerides 297 mg/dL
[2021-05-21 14:00] LABS: Free T4 (Free Thyroxine) 1.26 ng/dL (0.71-1.85); Thyroid Stimulating Hormone 1.25 uIU/mL (0.32-4.0); Vitamin D 25-OH Total 53.3 ng/mL (>30)
[2021-05-21 14:20] LABS: Creatinine Urine 88.09 mg/dL
[2021-05-21 14:36] LABS: Estimated Average Glucose 192 mg/dL; Hemoglobin A1c % 8.3 %
== END 2021-05-21 10:41 | disposition home or self-care (01) ==
LOC: HO.XRAY 10:40
PROVIDERS: Absent Provider Nurse Practitioner Gerontology; PCP Family Medicine; Referring Provider Family Medicine; Visit Provider Internal Medicine
DX: I25.10 Atherosclerotic heart disease of native coronary artery without angina pectoris (principal); I77.810 Thoracic aortic ectasia; E11.8 Type 2 diabetes mellitus with unspecified complications; I10 Essential (primary) hypertension; Z79.4 Long term (current) use of insulin; Z79.899 Other long term (current) drug therapy
CPT/HCPCS: 36415; 72052; 80048; 80061; 80076; 82043; 82306; 83036; 84439; 84443; 85027; 99212

== ENCOUNTER → 2021-05-29 08:25 | Outpatient (BNVA) | payer MEDICARE, SELFPAY | PROVIDERS: PCP Family Medicine; Visit Provider Nurse Practitioner | DX: K21.9 Gastro-esophageal reflux disease without esophagitis (principal) | CPT/HCPCS: Q3014 ==

== ENCOUNTER 2021-07-25 02:47 | Emergency (ER) | payer MEDICARE, SELFPAY ==
--- NOTE | 2021-07-25 | ECG_ITS ---
Test Reason : CHEST PAIN Blood Pressure : / mmHG Vent. Rate : 066 BPM Atrial Rate : 066 BPM P-R Int : 228 ms QRS Dur : 154 ms QT Int : 474 ms P-R-T Axes : 092 -81 048 degrees QTc Int : 496 ms Sinus rhythm with 1st degree A-V block Left axis deviation Right bundle branch block Abnormal ECG When compared with ECG of 28-FEB-2021 18:14, Right bundle branch block is now Present Referred By: Generic ED Physician Electronically Signed By:YUDI KAUFMAN
--- NOTE | ~2021-07-25 | XR_ITS ---
EXAMINATION: XR CHEST CLINICAL INFORMATION: Chest pain COMPARISON: Chest x-ray February 28, 2021 TECHNIQUE: Frontal portable view of the chest was obtained. 2:58 AM FINDINGS: Status post median sternotomy. Cardiac and mediastinal contours are normal. There are vascular calcifications of aorta. Lung volume is low. No acute airspace disease. There is no pleural effusion or pneumothorax. XR/XR chest 1V IMPRESSION: No acute abnormality of chest.
--- NOTE | 2021-07-25 03:01 | PC.NURSE ---
PATIENT CAME IN VIA [facility] ,PATIENT EKG WAS OBTAIN AND RED BY MD HENDRIX, PATIENT WAS FOCUSING MACHINE OPERATOR INTO HOSPITAL ATTIRE ,PAUL HERNÁNDEZ AT BEDSIDE TRIAGING PATIENT .
[2021-07-25 03:07] VITALS: BP 160/79; BP 90/62; PULSE 64; PULSE 75; RESP 18; TEMP 36.6; O2SAT 94; O2SAT 99; BMI 24.0
--- NOTE | 2021-07-25 03:27 | PC.NURSE ---
patient labs was obtain by this pct and send to the lab .
[2021-07-25 03:29] LABS: Basophils Absolute Auto 0.1 X10*3/uL (0.0-0.2); Basophils Percent Auto 0.6 % (0-2); Eosinophils Absolute Auto 0.5 X10*3/uL (0.0-0.4); Eosinophils Percent Auto 6.2 % (0-4); Hematocrit 36.9 % (37-47); Hemoglobin 12.6 g/dl (12.0-16.0); Imm Gran Abs Auto 0.05 X10*3/uL (0.00-0.03); Imm Gran Pct Auto 0.6 % (0.0-0.4); Lymphocytes Absolute Auto 2.7 X10*3/uL (1.2-4.9); Lymphocytes Percent Auto 34.7 % (20-40); MANUAL DIFF FLAG NO; Mean Corpuscular HGB Conc 34.1 g/dl (31.0-35.0); Mean Corpuscular Hemoglobin 27.7 pg (27.0-33.0); Mean Corpuscular Volume 81.1 fL (80-98); Mean Platelet Volume 9.7 fL (9.4-12.3); Monocytes Absolute Auto 0.5 X10*3/uL (0.1-1.2); Monocytes Percent Auto 6.3 % (2-11); Neutrophils Percent Auto 51.6 % (45-73); Platelet Count 255 X10*3/uL (160-400); Red Blood Count 4.55 X10*6/uL (4.20-5.50); Red Cell Distribution Width 12.9 % (11.0-16.0); White Blood Count 7.8 X10*3/uL (4.8-10.8)
[2021-07-25 03:41] LABS: Anion Gap 17 (12-20); Blood Urea Nitrogen 19 mg/dL (9-16); Calcium 9.6 mg/dL (8.4-10.2); Carbon Dioxide 23 mmol/L (22-29); Chloride 98 mmol/L (96-108); Creatinine Clr Calc Pharmacy 20.8; Estimated Glomerular Filt Rate 32; Glucose Random 349 mg/dL (60-115); Potassium 5.3 mmol/L (3.3-5.1); Sodium 133 mmol/L (135-145)
[2021-07-25 03:48] LABS: B Type Natriuretic Peptide 76 pg/mL (<100)
[2021-07-25 04:59] VITALS: BP 126/77; PULSE 63; RESP 16; TEMP 36.6; O2SAT 95
--- NOTE | 2021-07-25 05:36 | ED_ITS ---
HPI - Chest Pain General Chief Complaint: Chest Pain Stated Complaint: chest pain Time Seen by Provider: 07/25/21 05:26 Source: patient and EMS Mode of arrival: EMS Limitations: no limitations History of Present Illness HPI narrative: Patient comes emergency room complaining of left-sided chest pain for 3 days. EMS gave the patient nitro tablet prior to arrival. Patient states that she feels well, has no chest pain, no shortness of breath. Patient states that she came because her primary care physician recommended her to come to the emergency room. Patient denies coughing, no vomiting or diarrhea. Related Data Home Medications Medication Instructions Recorded Confirmed acetaminophen 325 mg tablet 2 tab PO Q8H PRN 02/28/21 05/21/21 alcohol swabs (Alcohol Prep Pads) 1 ea TOPICAL QID 02/28/21 05/21/21 blood sugar diagnostic (FreeStyle 02/28/21 05/21/21 Lite Strips) blood-glucose meter (FreeStyle 02/28/21 05/21/21 [place] Lite) bupropion HCl 300 mg 24 hr tablet, 1 tab PO BEDTIME 02/28/21 05/21/21 extended release cetirizine 10 mg tablet 1 tab PO QAM 02/28/21 05/21/21 docusate sodium 100 mg capsule 1 cap PO BID 02/28/21 05/21/21 (DOK) gabapentin 100 mg capsule 100 mg PO TID 02/28/21 05/21/21 insulin degludec 100 unit/mL (3 7 unit SUBCUT DAILY 02/28/21 05/21/21 mL) subcutaneous pen (Tresiba FlexTouch U-100 insulin) pen needle, diabetic 32 gauge x 02/28/21 05/21/21 5/32 (Pentips) sennosides 8.6 mg tablet (senna) 2 tab PO DAILY 02/28/21 05/21/21 amlodipine 10 mg tablet 10 mg PO DAILY 05/21/21 05/21/21 aspirin 81 mg tablet,delayed 81 mg PO DAILY 05/21/21 05/21/21 release atorvastatin 20 mg tablet 20 mg PO DAILY 05/21/21 05/21/21 donepezil 10 mg tablet 10 mg PO DAILY 05/21/21 05/21/21 levothyroxine 150 mcg tablet 150 mcg PO DAILY 05/21/21 05/21/21 metoprolol succinate 50 mg 150 mg PO QAM 05/21/21 05/21/21 tablet,extended release 24 hr sertraline 50 mg tablet 50 mg PO QAM 05/21/21 05/21/21 tramadol 50 mg tablet 50 mg PO Q12H PRN 05/21/21 05/21/21 Previous Rx's Medication Instructions Recorded ondansetron HCl 4 mg tablet 4 mg PO Q8H PRN #10 tab 03/01/21 (Zofran) losartan 100 mg tablet 100 mg PO DAILY 90 Days #90 tab 05/04/21 nitroglycerin 0.4 mg sublingual 0.4 mg SUBLINGUAL Q5M PRN 30 Days 05/07/21 tablet #25 tab dulaglutide 1.5 mg/0.5 mL 1.5 mg SUBCUT QWEEK #6 ml 05/12/21 subcutaneous pen injector (Trulicity) Allergies Allergy/AdvReac Type Severity Reaction Status Date / Time No Known Allergies Allergy Verified 05/29/21 08:28 [No Known Allergies*] Review of Systems Review of Systems: Constitutional : No Weight loss, No Fever, No Chills, No Night Sweats, No Fatigue, No Malaise ENT/Mouth : No Hearing loss, No Ear Pain, No Nasal Congestion, No Sinus Pain, No Hoarseness, No sore throat, No Rhinorrhea, No Swallowing Difficulty Eyes: No Eye Pain, No Swelling, No Redness, No Foreign Body, No Discharge, No Vision Changes Cardiovascular : Finding of Chest Pain, No SOB, No Dyspnea on Exertion, No Orthopnea, No Edema, No Palpitations Respiratory : No Cough, No Sputum, No Wheezing, No Smoke Exposure, No Dyspnea Gastrointestinal : No Nausea, No Vomiting, No Diarrhea, No Constipation, No abdominal Pain, No Hematochezia, No Melena Genitourinary : no irregular bleeding, No Dysuria, No Urinary Frequency, No Hematuria, No Urinary Incontinence, No Urgency, No Flank Pain, No Urinary Flow Changes, No Hesitancy Musculoskeletal : No joint pain, No Myalgias, No Joint Swelling Skin : No Skin Lesions, No rash Neuro : No Weakness, No Numbness, No Paresthesias, No Loss of Consciousness, No Dizziness, No Headache Psych : No Anxiety/Panic, No Depression, No SI/HI/AH/VH, No Social Issues, Heme/Lymph: No Bruising, No Bleeding,No Lymphadenopathy Endocrine : No Polyuria, No Polydipsia, No Temperature Intolerance [facility] Past Medical History Medical History CAD (coronary artery disease) Chest pain Depression Diastolic dysfunction HLD (hyperlipidemia) HTN (hypertension) Hypothyroidism Peptic ulcer disease Postoperative atrial fibrillation Tubular adenoma Type 2 diabetes mellitus with polyneuropathy Surgical History History of esophagogastroduodenoscopy (EGD) Hx of colonoscopy S/P CABG x 3 (~09/2013) Family History Family History Father CVD (cardiovascular disease) Mother No problems noted. Social History Social History Household Members: Children Alcohol intake: unknown Patient Tobacco Use Status: Never used Tobacco Advance Directives: No Advance Directives Information Provided: No Physical Exam Vital Signs: Vital Signs: Last Vital Signs Temp 97.8 F 07/25/21 05:46 Pulse 62 07/25/21 05:46 Resp 20 07/25/21 05:46 BP 129/72 07/25/21 05:46 Pulse Ox 97 07/25/21 05:46 Body Mass Index 24.0 Const: Other: Appearance: Alert. Oriented X3. No acute distress. Eyes: Pupils equal, round and reactive to light. ENT: Pharynx normal. Neck: Normal inspection. Neck supple. No lymph nodes noted. No crepitus CVS: Normal heart rate and rhythm. Pulses normal. Normal S1 and S2 Respiratory: No respiratory distress. Breath sounds normal. No Wheezing. No rales Abdomen: Soft and nontender. No rigidity. No distention. Skin: Skin warm and dry. Normal skin color. Normal skin turgor. Extremities: No lower extremity edema. No Lacerations. No Rash Neuro: Oriented X 3. No motor deficit. No sensory deficit. Moving all extermi ties. No slurred speech. Course Course Course Narrative: I discussed the labs with the patient, troponin is chronically elevated. I discussed with the patient that she should ideally stay for a tropo cornelius at 06:30 morning. Patient states that she does not want to wait until then for a 2nd troponin. However, she agrees to get a 2nd troponin now which is 05:50 patient states that she is asymptomatic, feeling at baseline and would like to be discharged after she gets her blood drawn Patient's troponin stable. Patient is asymptomatic, requesting to be discharged MDM - Chest Pain Lab Data Result diagrams: 07/25/21 03:24 07/25/21 03:24 Labs: Lab Results 07/25/21 07/25/21 07/25/21 Range/Units 03:24 03:24 03:24 WBC 7.8 (4.8-10.8) X10*3/uL RBC 4.55 (4.20-5.50) X10*6/uL Hgb 12.6 (12.0-16.0) g/dl Hct 36.9 L (37-47) % MCV 81.1 (80-98) fL MCH 27.7 (27.0-33.0) pg MCHC 34.1 (31.0-35.0) g/dl RDW 12.9 (11.0-16.0) % Plt Count 255 (160-400) X10*3/uL MPV 9.7 (9.4-12.3) fL Immature Gran % (Auto) 0.6 H (0.0-0.4) % Neut % (Auto) 51.6 (45-73) % Lymph % (Auto) 34.7 (20-40) % [place] % (Auto) 6.3 (2-11) % Eos % (Auto) 6.2 H (0-4) % Baso % (Auto) 0.6 (0-2) % Lymph # (Auto) 2.7 (1.2-4.9) X10*3/uL [place] # (Auto) 0.5 (0.1-1.2) X10*3/uL Eos # (Auto) 0.5 H (0.0-0.4) X10*3/uL Baso # (Auto) 0.1 (0.0-0.2) X10*3/uL Abs Immat Gran (auto) 0.05 H (0.00-0.03) X10*3/uL Absolute Neuts (auto) 4.0 (2.0-8.3) X10*3/uL Absolute Nucleated RBC 0.000 (0.0-0.012) X10*3/uL Nucleated RBC % (auto) 0.0 (0.0-0.2) /100WBC Sodium 133 L (135-145) mmol/L Potassium 5.3 H (3.3-5.1) mmol/L Chloride 98 (96-108) mmol/L Carbon Dioxide 23 (22-29) mmol/L Anion Gap 17 (12-20) BUN 19 H (9-16) mg/dL Creatinine 1.53 H (0.5-1.4) mg/dL Estim Creat Clear Calc 20.8 Estimated GFR 32 Random Glucose 349 H D (60-115) mg/dL Calcium 9.6 (8.4-10.2) mg/dL Troponin I High Sens 16.0 (<3.5-17.0) ng/L B-Natriuretic Peptide 76 (<100) pg/mL 07/25/21 Range/Units 05:50 WBC (4.8-10.8) X10*3/uL RBC (4.20-5.50) X10*6/uL Hgb (12.0-16.0) g/dl Hct (37-47) % MCV (80-98) fL MCH (27.0-33.0) pg MCHC (31.0-35.0) g/dl RDW (11.0-16.0) % Plt Count (160-400) X10*3/uL MPV (9.4-12.3) fL Immature Gran % (Auto) (0.0-0.4) % Neut % (Auto) (45-73) % Lymph % (Auto) (20-40) % [place] % (Auto) (2-11) % Eos % (Auto) (0-4) % Baso % (Auto) (0-2) % Lymph # (Auto) (1.2-4.9) X10*3/uL [place] # (Auto) (0.1-1.2) X10*3/uL Eos # (Auto) (0.0-0.4) X10*3/uL Baso # (Auto) (0.0-0.2) X10*3/uL Abs Immat Gran (auto) (0.00-0.03) X10*3/uL Absolute Neuts (auto) (2.0-8.3) X10*3/uL Absolute Nucleated RBC (0.0-0.012) X10*3/uL Nucleated RBC % (auto) (0.0-0.2) /100WBC Sodium (135-145) mmol/L Potassium (3.3-5.1) mmol/L Chloride (96-108) mmol/L Carbon Dioxide (22-29) mmol/L Anion Gap (12-20) BUN (9-16) mg/dL Creatinine (0.5-1.4) mg/dL Estim Creat Clear Calc Estimated GFR Random Glucose (60-115) mg/dL Calcium (8.4-10.2) mg/dL Troponin I High Sens 16.7 (<3.5-17.0) ng/L B-Natriuretic Peptide (<100) pg/mL Discharge Plan Discharge Clinical Impression: Atypical chest pain Patient Disposition: Home, Self-Care Instructions: Chest Pain (ED) Additional Instructions: Please follow-up with your primary care physician tomorrow. If you have any worsening or new symptoms, please return to the emergency room or call 911 Prescriptions: No [facility] losartan 100 mg tablet 100 mg PO DAILY 90 Days Qty: 90 RF: 1 nitroglycerin 0.4 mg tablet, sublingual 0.4 mg sublingual Q5M PRN (Reason: chest pain) 30 Days Qty: 25 RF: 1 sennosides [senna] 8.6 mg tablet 2 tab PO DAILY RF: 0 acetaminophen 325 mg tablet 2 tab PO Q8H PRN (Reason: Pain) RF: 0 cetirizine 10 mg tablet 1 tab PO QAM RF: 0 (DME) FreeStyle Lite Strips Strip MISCELLANEOUS RF: 0 (DME) blood-glucose meter [FreeStyle [place] Lite] Kit MISCELLANEOUS BID RF: 0 docusate sodium [DOK] 100 mg capsule 1 cap PO BID RF: 0 alcohol swabs [Alcohol Prep Pads] Pads, Medicated 1 ea topical QID RF: 0 gabapentin 100 mg capsule 100 mg PO TID RF: 0 bupropion HCl 300 mg tablet extended release 24 hr 1 tab PO BEDTIME RF: 0 (DME) pen needle, diabetic [Pentips] 32 gauge x 5/32 needle MISCELLANEOUS RF: 0 Tresiba FlexTouch U-100 100 unit/mL (3 mL) insulin pen 7 unit subcut DAILY RF: 0 ondansetron HCl [Zofran] 4 mg tablet 4 mg PO Q8H PRN (Reason: nausea and vomiting) Qty: 10 RF: 0 amlodipine 10 mg tablet 10 mg PO DAILY RF: 0 aspirin 81 mg tablet,delayed release (DR/EC) 81 mg PO DAILY RF: 0 atorvastatin 20 mg tablet 20 mg PO DAILY RF: 0 metoprolol succinate 50 mg tablet extended release 24 hr 150 mg PO QAM RF: 0 tramadol 50 mg tablet 50 mg PO Q12H PRN (Reason: severe pain) RF: 0 sertraline 50 mg tablet 50 mg PO QAM RF: 0 levothyroxine 150 mcg tablet 150 mcg PO DAILY RF: 0 donepezil 10 mg tablet 10 mg PO DAILY RF: 0 Trulicity 1.5 mg/0.5 mL pen injector 1.5 mg subcut QWEEK Qty: 6 RF: 3
[2021-07-25 05:46] VITALS: BP 129/72; PULSE 62; RESP 20; TEMP 36.6; O2SAT 97
--- NOTE | 2021-07-25 05:47 | PC.NURSE ---
PATIENT WAS ASSISTED TO USE BED [place]VED[place] BY THIS PCT .
[2021-07-25 06:19] LABS: Troponin-I High Sensitivity 16.7 ng/L (<3.5-17.0)
[2021-07-25 08:04] VITALS: BP 128/78; PULSE 88; RESP 16; TEMP 36.9; O2SAT 97
--- NOTE | 2021-07-25 08:05 | PC.NURSE ---
pt has called her TUBING TESTER to come get her from hospital. Pt dressed and ambulatory with assistance to wheelchair. She has been instructed to follow with her PCP for further eval if needed. She denies pain, denies dizziness or shortness of breath.
== END 2021-07-25 08:07 | disposition home or self-care (01) ==
PROVIDERS: Emergency Provider Emergency Medicine; PCP Family Medicine
DX: R07.89 Other chest pain (principal); I10 Essential (primary) hypertension; E11.9 Type 2 diabetes mellitus without complications; E78.5 Hyperlipidemia, unspecified; Z79.4 Long term (current) use of insulin; Z79.82 Long term (current) use of aspirin; Z79.899 Other long term (current) drug therapy
CPT/HCPCS: 36415; 71045; 80048; 83880; 84484; 85025; 93005; 99285

== ENCOUNTER → 2021-09-14 11:09 | Outpatient (BNVA) | payer MEDICARE, SELFPAY | PROVIDERS: PCP Family Medicine; Visit Provider Nurse Practitioner Gerontology | DX: E11.42 Type 2 diabetes mellitus with diabetic polyneuropathy (principal); E78.5 Hyperlipidemia, unspecified; I10 Essential (primary) hypertension | CPT/HCPCS: 82947; 83036; 99212 ==

== ENCOUNTER → 2021-09-29 13:41 | Outpatient (BNVA) | payer MEDICARE, SELFPAY | PROVIDERS: PCP Family Medicine; Visit Provider Nurse Practitioner Gerontology | DX: E11.42 Type 2 diabetes mellitus with diabetic polyneuropathy (principal); E78.5 Hyperlipidemia, unspecified; I10 Essential (primary) hypertension | CPT/HCPCS: 82947; 99212 ==

== ENCOUNTER → 2021-10-14 07:56 | Outpatient (BNVA) | payer MEDICARE, SELFPAY | PROVIDERS: PCP Family Medicine; Visit Provider Nurse Practitioner Gerontology | CPT/HCPCS: Q3014 ==

== ENCOUNTER 2021-10-22 11:51 | Emergency (ER) | payer MEDICARE, SELFPAY ==
--- NOTE | ~2021-10-22 | CT_ITS ---
EXAMINATION: CT ABDOMEN AND PELVIS WITHOUT CONTRAST CLINICAL INFORMATION: Abdominal pain COMPARISON: CT abdomen and pelvis 02/28/2021 TECHNIQUE: Multidetector volumetric imaging was performed from the superior aspect of the liver through the pubic symphysis. Sagittal and coronal reformatted images were obtained on the technologist's workstation. This CT examination was performed using dose optimization techniques as appropriate, variously including the following: *Automated exposure control *Adjustment of mA and/or kV according to patient size (this includes techniques or standardized protocols for targeted exams where dose is matched to indication/reason for exam; i.e. extremities or head) *Use of iterative reconstruction technique DLP: 446 mGy-cm. FINDINGS: LUNG BASES: There is bibasilar atelectasis. The heart size is normal. The borderline dilatation of ascending aorta measuring 4.4 x 4.3 cm on axial image 6/3. LIVER, GALLBLADDER, AND BILIARY TREE: The liver is normal in size, shape, and attenuation. No focal hepatic lesion or biliary ductal dilatation is present. The gallbladder has been surgically removed PANCREAS: Unremarkable. SPLEEN: There is dystrophic calcification in the seen in the spleen. The spleen is normal size. ADRENAL GLANDS: Unremarkable. KIDNEYS AND URETERS: The kidneys are normal size, shape and position. No radiopaque calculi or hydronephrosis seen. 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 BLADDER: Bladder is enlarged and irregular shaped. Question neurogenic bladder GASTROINTESTINAL TRACT: There is scattered stool and gas seen throughout the colon without distention. There are scattered diverticulum as well. No evidence of diverticulitis or obstruction. The small bowel loops are normal caliber. Appendix is normal caliber. No inflammatory process seen in the abdomen. ABDOMINAL WALL: No significant hernia is appreciated. LYMPH NODES: No abnormal lymph nodes seen. VASCULAR: There is mild atherosclerotic changes of the abdominal aorta without dilation. PELVIC VISCERA: The uterus is anteverted and appears unremarkable. OSSEOUS STRUCTURES: There are degenerative disc changes with vacuum disc phenomena and spondylosis lower dorsal and lumbar spine. No lytic process. CT/CT abdomen pelvis wo con IMPRESSION: No acute intra-abdominal process seen. Distended urinary bladder question neurogenic bladder. Similar findings were seen on the previous study. Colonic diverticulosis without diverticulitis. Disc changes there are degenerative disc changes with vacuum disc phenomena lower dorsal and upper lumbar spine with spondylosis. No major change compared to previous exam 02/28/2021
[2021-10-22 12:03] VITALS: BP 122/57; PULSE 68; RESP 18; TEMP 37.1; O2SAT 97; BMI 25.6
--- NOTE | 2021-10-22 12:08 | ECG_ITS ---
Test Reason : CHEST PAIN Blood Pressure : / mmHG Vent. Rate : 067 BPM Atrial Rate : 067 BPM P-R Int : 234 ms QRS Dur : 158 ms QT Int : 454 ms P-R-T Axes : 065 -76 026 degrees QTc Int : 479 ms Sinus rhythm with 1st degree A-V block Left axis deviation Right bundle branch block Abnormal ECG When compared with ECG of 25-JUL-2021 02:59, No significant change was found Referred By: Kitty Ho Electronically Signed By:DELANO NASSAR
--- NOTE | 2021-10-22 12:16 | ED_ITS ---
HPI - General Adult General Chief complaint: Abdominal Pain Stated complaint: CONSTIPATION Time Seen by Provider: 10/22/21 12:16 Source: patient, EMS and neurology manager Mode of arrival: ambulatory Limitations: language barrier History of Present Illness HPI narrative: 86-year-old female with past medical history of diabetes, atherosclerotic cardiovascular disease, GERD, hyperlipidemia, hypertension CAD, is here today for complaining of abdominal discomfort. Patient reports that she has not had a bowel movement in 5 days. Patient usually has diarrhea after she had cholecystectomy that is being treated with sucralfate. Patient has p.r.n. docusate sodium and she should be on Senokot, however she reports she has not moved her bowels in a few days. Patient denies nausea, vomiting, melena, hematochezia, unintentional weight loss or ribbon like stools. Patient denies dyspepsia, dysphagia or odynophagia. Related Data Home Medications Medication Instructions Recorded Confirmed acetaminophen 325 mg tablet 2 tab PO Q8H PRN 02/28/21 10/14/21 alcohol swabs (Alcohol Prep Pads) 1 ea TOPICAL QID 02/28/21 10/14/21 bupropion HCl 300 mg 24 hr tablet, 1 tab PO BEDTIME 02/28/21 10/14/21 extended release cetirizine 10 mg tablet 1 tab PO QAM 02/28/21 10/14/21 docusate sodium 100 mg capsule 1 cap PO BID 02/28/21 10/14/21 (DOK) gabapentin 100 mg capsule 100 mg PO TID 02/28/21 10/14/21 pen needle, diabetic 32 gauge x 02/28/21 10/14/21 5/32 (Pentips) sennosides 8.6 mg tablet (senna) 2 tab PO DAILY 02/28/21 10/14/21 amlodipine 10 mg tablet 10 mg PO DAILY 05/21/21 10/14/21 aspirin 81 mg tablet,delayed 81 mg PO DAILY 05/21/21 10/14/21 release atorvastatin 20 mg tablet 20 mg PO DAILY 05/21/21 10/14/21 donepezil 10 mg tablet 10 mg PO DAILY 05/21/21 10/14/21 levothyroxine 150 mcg tablet 150 mcg PO DAILY 05/21/21 10/14/21 metoprolol succinate 50 mg 150 mg PO QAM 05/21/21 10/14/21 tablet,extended release 24 hr sertraline 50 mg tablet 50 mg PO QAM 05/21/21 10/14/21 tramadol 50 mg tablet 50 mg PO Q12H PRN 05/21/21 10/14/21 blood sugar diagnostic (FreeStyle 09/14/21 10/14/21 Lite Strips) blood-glucose meter (FreeStyle 09/14/21 10/14/21 [place] Lite) Previous Rx's Medication Instructions Recorded ondansetron HCl 4 mg tablet 4 mg PO Q8H PRN #10 tab 03/01/21 (Zofran) nitroglycerin 0.4 mg sublingual 0.4 mg SUBLINGUAL Q5M PRN 30 Days 05/07/21 tablet #25 tab insulin degludec 100 unit/mL (3 15 unit (0.15 mL) SUBCUT DAILY #15 09/29/21 mL) subcutaneous pen (Tresiba ml FlexTouch U-100 insulin) dulaglutide 3 mg/0.5 mL 3 mg (0.5 mL) SUBCUT QWEEK 28 Days 10/14/21 subcutaneous pen injector #2 ml (Truliceasyfolio) docusate sodium 100 mg capsule 100 mg PO BID #60 cap 10/22/21 magnesium hydroxide 400 mg/5 mL 5 ml PO DAILY PRN #355 ml 10/22/21 oral suspension (Milk of Magnesia) sennosides 8.6 mg tablet (Senokot) 17.2 mg PO BEDTIME #60 tab 10/22/21 Allergies Allergy/AdvReac Type Severity Reaction Status Date / Time No Known Allergies Allergy Verified 10/22/21 12:03 [No Known Allergies*] [facility], [facility] Past Medical History Medical History CAD (coronary artery disease) Chest pain Depression Diastolic dysfunction HLD (hyperlipidemia) HTN (hypertension) Hypothyroidism Peptic ulcer disease Postoperative atrial fibrillation Tubular adenoma Type 2 diabetes mellitus with polyneuropathy Surgical History History of esophagogastroduodenoscopy (EGD) Hx of colonoscopy S/P CABG x 3 (~09/2013) Family History Family History Father CVD (cardiovascular disease) Mother No problems noted. Social History Social History Household Members: Children Alcohol intake: never Patient Tobacco Use Status: Never used Tobacco Use of substances other than those prescribed or required for medical reasons: No Advance Directives: No Advance Directives Information Provided: No Physical Exam Vital Signs: Vital Signs: Last Vital Signs Temp 98.7 F 10/22/21 12:03 Pulse 67 10/22/21 16:00 Resp 18 10/22/21 16:00 BP 114/81 10/22/21 16:00 Pulse Ox 96 10/22/21 16:00 BMI result Body Mass Index 25.6 Course Course Course Narrative: 86-year-old female with past medical history of GERD, diabetes, hyperlipidemia, CAD, hypertension is here today for complaining of abdominal discomfort. Patient reports that her abdomen feels like there is something calling EMS. Patient denies any nausea, vomiting, diarrhea, melena, hematochezia, unintentional weight loss or ribbon like stools. We will do a CT scan of abdomen, lab work. Patient has been seen by [facility] in GI for postprandial diarrhea and is on sucralfate. No BM for 5 days will give her milk of magnesia and Dulcolax suppository Reevaluation(s) Reevaluation #1: CT scan shows no acute intra-abdominal process, diverticulosis without diverticulitis, scattered stool and gas seen throughout the colon without distension. Patient had small affect from milk of magnesia and Dulcolax suppository. Will order Fleet enema. Reevaluation #2: Good results from Fleet enema patient will be sent home to follow-up with GI. Medical Decision Making Lab Data Result diagrams: 10/22/21 12:48 10/22/21 12:48 Labs: Lab Results 10/22/21 10/22/21 Range/Units 12:48 12:48 WBC 6.0 (4.8-10.8) X10*3/uL RBC 4.39 (4.20-5.50) X10*6/uL Hgb 12.0 (12.0-16.0) g/dl Hct 36.1 L (37.0-47.0) % MCV 82.2 (80.0-98.0) fL MCH 27.3 (27.0-33.0) pg MCHC 33.2 (31.0-35.0) g/dl RDW 13.2 (11.0-16.0) % Plt Count 215 (160-400) X10*3/uL MPV 9.4 (9.4-12.3) fL Immature Gran % (Auto) 0.3 (0.0-0.4) % Neut % (Auto) 48.8 (45-73) % Lymph % (Auto) 38.3 (20-40) % [place] % (Auto) 7.2 (2-11) % Eos % (Auto) 4.7 H (0-4) % Baso % (Auto) 0.7 (0-2) % Lymph # (Auto) 2.3 (1.2-4.9) X10*3/uL [place] # (Auto) 0.4 (0.1-1.2) X10*3/uL Eos # (Auto) 0.3 (0.0-0.4) X10*3/uL Baso # (Auto) 0.0 (0.0-0.2) X10*3/uL Abs Immat Gran (auto) 0.02 (0.00-0.03) X10*3/uL Absolute Neuts (auto) 2.9 (2.0-8.3) x10*3/uL Absolute Nucleated RBC 0.000 (0.0-0.012) X10*3/uL Nucleated RBC % (auto) 0.0 (0.0-0.2) /100WBC Sodium 137 (135-145) mmol/L Potassium 4.5 (3.3-5.1) mmol/L Chloride 105 (96-108) mmol/L Carbon Dioxide 24 (22-29) mmol/L Anion Gap 13 (12-20) BUN 25 H (9-16) mg/dL Creatinine 1.52 H (0.5-1.4) mg/dL Estim Creat Clear Calc 23.2 Estimated GFR 32 Random Glucose 159 H (60-115) mg/dL Calcium 9.5 (8.4-10.2) mg/dL Total Bilirubin 0.3 (0.0-1.0) mg/dL AST 44 H D (5-31) U/L ALT 51 H (0-31) U/L Alkaline Phosphatase 104 D (39-117) U/L Total Protein 6.9 (6.5-8.0) g/dL Albumin 3.8 (3.5-5.0) g/dL Imaging Data CT scan - abdomen: Attestation: I personally reviewed and interpreted this imaging study as follows: Radiologist's impression: FINDINGS: LUNG BASES: There is bibasilar atelectasis. The heart size is normal. The borderline dilatation of ascending aorta measuring 4.4 x 4.3 cm on axial image /.? LIVER, GALLBLADDER, AND BILIARY TREE: The liver is normal in size, shape, and attenuation. No focal hepatic lesion or biliary ductal dilatation is present. The gallbladder has been surgically removed? PANCREAS: Unremarkable.? SPLEEN: There is dystrophic calcification in the seen in the spleen. The spleen is normal size. ADRENAL GLANDS: Unremarkable.? KIDNEYS AND URETERS: The kidneys are normal size, shape and position. No radiopaque calculi or hydronephrosis seen. 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 BLADDER: Bladder is enlarged and irregular shaped. Question neurogenic bladder? GASTROINTESTINAL TRACT: There is scattered stool and gas seen throughout the colon without distention. There are scattered diverticulum as well. No evidence of diverticulitis or obstruction. The small bowel loops are normal caliber. Appendix is normal caliber. No inflammatory process seen in the abdomen. ABDOMINAL WALL: No significant hernia is appreciated.? LYMPH NODES: No abnormal lymph nodes seen. VASCULAR: There is mild atherosclerotic changes of the abdominal aorta without dilation. PELVIC VISCERA: The uterus is anteverted and appears unremarkable.? OSSEOUS STRUCTURES: There are degenerative disc changes with vacuum disc phenomena and spondylosis lower dorsal and lumbar spine. No lytic process.? Discharge Plan Discharge Clinical Impression: Constipation Qualifiers: Constipation type: drug induced constipation Qualified Code(s): K59.03 - Drug induced constipation Abdominal pain Qualifiers: Abdominal location: generalized Qualified Code(s): R10.84 - Generalized abdominal pain Patient Disposition: Home, Self-Care Instructions: Constipation (ED), Abdominal Pain (ED) Additional Instructions: Lo vieron aqu? hoy por dolor abdominal. Jaimes estado estre?aubrey raoul los ?ltimos d?as. La tomograf?a computarizada no mostr? chika?n proceso efren. Le dieron medicamentos para ayudarlo a evacuar. [place] comprimidos de Senokot todas las noches y c?psulas de docusato s?dic. Reyna un seguimiento con samson proveedor de atenci?n primaria y con samson gastroenter?logo. Puede regresar al departamento de emergencias si john s?ntomas empeoran o si experimenta alg?n s?ntoma adicional preocupante. Prescriptions: New docusate sodium 100 mg capsule 100 mg PO BID Qty: 60 RF: 0 sennosides [Senokot] 8.6 mg tablet 17.2 mg PO BEDTIME Qty: 60 RF: 0 magnesium hydroxide [Milk of Magnesia] 400 mg/5 mL suspension 5 ml PO DAILY PRN (Reason: constipation) Qty: 355 RF: 0 No Action nitroglycerin 0.4 mg tablet, sublingual 0.4 mg sublingual Q5M PRN (Reason: chest pain) 30 Days Qty: 25 RF: 1 sennosides [senna] 8.6 mg tablet 2 tab PO DAILY RF: 0 acetaminophen 325 mg tablet 2 tab PO Q8H PRN (Reason: Pain) RF: 0 cetirizine 10 mg tablet 1 tab PO QAM RF: 0 docusate sodium [DOK] 100 mg capsule 1 cap PO BID RF: 0 alcohol swabs [Alcohol Prep Pads] Pads, Medicated 1 ea topical QID RF: 0 gabapentin 100 mg capsule 100 mg PO TID RF: 0 bupropion HCl 300 mg tablet extended release 24 hr 1 tab PO BEDTIME RF: 0 (DME) pen needle, diabetic [Pentips] 32 gauge x 5/32 needle MISCELLANEOUS RF: 0 ondansetron HCl [Zofran] 4 mg tablet 4 mg PO Q8H PRN (Reason: nausea and vomiting) Qty: 10 RF: 0 amlodipine 10 mg tablet 10 mg PO DAILY RF: 0 aspirin 81 mg tablet,delayed release (DR/EC) 81 mg PO DAILY RF: 0 atorvastatin 20 mg tablet 20 mg PO DAILY RF: 0 metoprolol succinate 50 mg tablet extended release 24 hr 150 mg PO QAM RF: 0 tramadol 50 mg tablet 50 mg PO Q12H PRN (Reason: severe pain) RF: 0 sertraline 50 mg tablet 50 mg PO QAM RF: 0 levothyroxine 150 mcg tablet 150 mcg PO DAILY RF: 0 donepezil 10 mg tablet 10 mg PO DAILY RF: 0 (DME) FreeStyle Lite Strips Strip See Rx Instructions strip MISCELLANEOUS RF: 0 (DME) blood-glucose meter [FreeStyle [place] Lite] Kit See Rx Instructions ea MISCELLANEOUS BID RF: 0 Trulicity 3 mg/0.5 mL pen injector 3 mg subcut QWEEK 28 Days Qty: 2 RF: 6 Tresiba FlexTouch U-100 100 unit/mL (3 mL) insulin pen 15 unit subcut DAILY Qty: 15 RF: 5 Referrals: Cortney Cheatham ANP-C [Nurse Practitioner] - 2 weeks (Constipation) Nae Jackson DO [Primary Care Provider] - 2 days
[2021-10-22 12:54] LABS: Basophils Percent Auto 0.7 % (0-2); Eosinophils Absolute Auto 0.3 X10*3/uL (0.0-0.4); Eosinophils Percent Auto 4.7 % (0-4); Hematocrit 36.1 % (37.0-47.0); Imm Gran Abs Auto 0.02 X10*3/uL (0.00-0.03); Imm Gran Pct Auto 0.3 % (0.0-0.4); Lymphocytes Absolute Auto 2.3 X10*3/uL (1.2-4.9); Lymphocytes Percent Auto 38.3 % (20-40); MANUAL DIFF FLAG NO; Mean Corpuscular HGB Conc 33.2 g/dl (31.0-35.0); Mean Corpuscular Hemoglobin 27.3 pg (27.0-33.0); Mean Corpuscular Volume 82.2 fL (80.0-98.0); Mean Platelet Volume 9.4 fL (9.4-12.3); Monocytes Absolute Auto 0.4 X10*3/uL (0.1-1.2); Monocytes Percent Auto 7.2 % (2-11); Neutrophils Absolute Auto 2.9 x10*3/uL (2.0-8.3); Neutrophils Percent Auto 48.8 % (45-73); Platelet Count 215 X10*3/uL (160-400); Red Blood Count 4.39 X10*6/uL (4.20-5.50); Red Cell Distribution Width 13.2 % (11.0-16.0)
[2021-10-22 13:20] LABS: Alanine Aminotransferase 51 U/L (0-31); Albumin Level 3.8 g/dL (3.5-5.0); Alkaline Phosphatase 104 U/L (39-117); Anion Gap 13 (12-20); Aspartate Amino Transferase 44 U/L (5-31); Bilirubin Total 0.3 mg/dL (0.0-1.0); Blood Urea Nitrogen 25 mg/dL (9-16); Calcium 9.5 mg/dL (8.4-10.2); Carbon Dioxide 24 mmol/L (22-29); Chloride 105 mmol/L (96-108); Creatinine Clr Calc Pharmacy 23.2; Estimated Glomerular Filt Rate 32; Glucose Random 159 mg/dL (60-115); Potassium 4.5 mmol/L (3.3-5.1); Sodium 137 mmol/L (135-145); Total Protein 6.9 g/dL (6.5-8.0)
[2021-10-22] MEDS: bisacodyL 10 MG SUPP.RECT PR (13:30)
[2021-10-22] MEDS: Milk of Magnesia 30 ML ORAL.SUSP PO (13:30)
[2021-10-22 14:02] VITALS: BP 135/72; PULSE 65; RESP 19; O2SAT 94
--- NOTE | 2021-10-22 14:53 | PC.NURSE ---
pt does not want to get up to commode.
--- NOTE | 2021-10-22 15:36 | PC.NURSE ---
moderate amount of soft stool in commode. pt insists there is firm stool still. none noted during wiping. fleets held.
[2021-10-22 16:00] VITALS: BP 114/81; PULSE 67; RESP 18; O2SAT 96
--- NOTE | 2021-10-22 16:09 | PC.NURSE ---
pt insisting on fleets despite moderate soft BM.
== END 2021-10-22 18:17 | disposition home or self-care (01) ==
PROVIDERS: Nurse Practitioner Family; Emergency Provider Emergency Medicine Emergency Medical Services; PCP Family Medicine
DX: K59.03 Drug induced constipation (principal); R10.84 Generalized abdominal pain; E11.9 Type 2 diabetes mellitus without complications; E78.5 Hyperlipidemia, unspecified; I10 Essential (primary) hypertension; Z79.82 Long term (current) use of aspirin; Z79.02 Long term (current) use of antithrombotics/antiplatelets; Z79.899 Other long term (current) drug therapy; Z79.4 Long term (current) use of insulin
CPT/HCPCS: 36415; 74176; 80053; 85025; 93005; 99284

== ENCOUNTER 2021-11-19 09:58 | Emergency (ER) | payer MEDICARE, SELFPAY ==
--- NOTE | ~2021-11-19 | US_ITS ---
EXAMINATION: US VENOUS ULTRASOUND WITH DOPPLER LOWER EXTREMITY, LEFT CLINICAL INFORMATION: Engorged veins and swelling COMPARISON: None TECHNIQUE: Ultrasound of the deep veins is performed from the hip to the calf with compression sonography and color and pulse Doppler assessment. Spectral analysis with color-flow imaging is performed. FINDINGS: There is normal venous compression and respiratory variation and augmented flow. The visualized common femoral vein, superficial femoral vein, profunda femoral vein, popliteal vein, and the trifurcation region shows no evidence of deep venous thrombosis. There is no significant popliteal fossa cyst. If the patient's symptoms persist, followup ultrasound in 5 days 7 days might be of value to exclude proximal propagation from a non-visualized calf vein. US/US venous duplex LE LT IMPRESSION: No DVT demonstrated in the left lower extremity.
--- NOTE | ~2021-11-19 | XR_ITS ---
EXAMINATION: XR CHEST CLINICAL INFORMATION: Chest pain. COMPARISON: Chest radiograph dated from 07/25/2021. TECHNIQUE: AP view of the chest was obtained. FINDINGS: Unchanged appearance of the cardiomediastinal silhouette with sternotomy wires and mediastinal clips. Similar asymmetric elevation of the right hemidiaphragm with subsegmental atelectasis versus parenchymal scarring in the right greater than left lung bases. No new focal airspace opacities, pleural effusions or pneumothorax. No acute osseous abnormalities. XR/XR chest 1V IMPRESSION: No acute cardiopulmonary findings.
--- NOTE | 2021-11-19 10:06 | ECG_ITS ---
Test Reason : cp Blood Pressure : / mmHG Vent. Rate : 065 BPM Atrial Rate : 065 BPM P-R Int : 220 ms QRS Dur : 162 ms QT Int : 458 ms P-R-T Axes : 054 -69 005 degrees QTc Int : 476 ms Sinus rhythm with 1st degree A-V block Left axis deviation Right bundle branch block Abnormal ECG When compared with ECG of 22-OCT-2021 12:38, No significant change was found Referred By: Generic ED Physician Electronically Signed By:Mark Polanco
[2021-11-19 10:08] VITALS: BP 127/65; BP 148/70; PULSE 66; PULSE 69; RESP 18; TEMP 36.4; O2SAT 96; O2SAT 98; BMI 26.5
--- NOTE | 2021-11-19 10:08 | ED_ITS ---
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 Mode of arrival: EMS Limitations: no limitations History of Present Illness MD complaint: chest pain Pertinent past history: coronary artery disease, prior [place] and CABG Onset (ago): day(s) (yesterday then resolved with nitro, early this AM resolved with nitro) Timing of current episode: now resolved Prior episodes: Yes Onset: during rest Pain location: left chest Pain radiation: none Severity: moderate Quality: other ( pain ) Relieving factors: nitroglycerin Exacerbating factors: nothing Associated symptoms: other (denies any other symptoms) Treatment prior to arrival: aspirin Related Data Home Medications Medication Instructions Recorded Confirmed acetaminophen 325 mg tablet 2 tab PO Q8H PRN 02/28/21 10/14/21 alcohol swabs (Alcohol Prep Pads) 1 ea TOPICAL QID 02/28/21 10/14/21 bupropion HCl 300 mg 24 hr tablet, 1 tab PO BEDTIME 02/28/21 10/14/21 extended release cetirizine 10 mg tablet 1 tab PO QAM 02/28/21 10/14/21 docusate sodium 100 mg capsule 1 cap PO BID 02/28/21 10/14/21 (DOK) gabapentin 100 mg capsule 100 mg PO TID 02/28/21 10/14/21 pen needle, diabetic 32 gauge x 02/28/21 10/14/21 5/32 (Pentips) sennosides 8.6 mg tablet (senna) 2 tab PO DAILY 02/28/21 10/14/21 amlodipine 10 mg tablet 10 mg PO DAILY 05/21/21 10/14/21 aspirin 81 mg tablet,delayed 81 mg PO DAILY 05/21/21 10/14/21 release atorvastatin 20 mg tablet 20 mg PO DAILY 05/21/21 10/14/21 donepezil 10 mg tablet 10 mg PO DAILY 05/21/21 10/14/21 levothyroxine 150 mcg tablet 150 mcg PO DAILY 05/21/21 10/14/21 metoprolol succinate 50 mg 150 mg PO QAM 05/21/21 10/14/21 tablet,extended release 24 hr sertraline 50 mg tablet 50 mg PO QAM 05/21/21 10/14/21 tramadol 50 mg tablet 50 mg PO Q12H PRN 05/21/21 10/14/21 blood sugar diagnostic (FreeStyle 09/14/21 10/14/21 Lite Strips) blood-glucose meter (FreeStyle 09/14/21 10/14/21 [place] Lite) Previous Rx's Medication Instructions Recorded ondansetron HCl 4 mg tablet 4 mg PO Q8H PRN #10 tab 03/01/21 (Zofran) insulin degludec 100 unit/mL (3 15 unit (0.15 mL) SUBCUT DAILY #15 09/29/21 mL) subcutaneous pen (Tresiba ml FlexTouch U-100 insulin) dulaglutide 3 mg/0.5 mL 3 mg (0.5 mL) SUBCUT QWEEK 28 Days 10/14/21 subcutaneous pen injector #2 ml (Trulicity) docusate sodium 100 mg capsule 100 mg PO BID #60 cap 10/22/21 magnesium hydroxide 400 mg/5 mL 5 ml PO DAILY PRN #355 ml 10/22/21 oral suspension (Milk of Magnesia) sennosides 8.6 mg tablet (Senokot) 17.2 mg PO BEDTIME #60 tab 10/22/21 nitroglycerin 0.4 mg sublingual 0.4 mg SUBLINGUAL Q5M PRN 30 Days 11/02/21 tablet #25 tab Allergies Allergy/AdvReac Type Severity Reaction Status Date / Time No Known Allergies Allergy Verified 11/19/21 10:08 [No Known Allergies*] Review of Systems Review of Systems: Constitutional : No Weight loss, No Fever, No Chills ENT/Mouth : No sore throat, No Rhinorrhea Eyes: No Eye Pain, No Swelling Cardiovascular : pos Chest Pain, no SOB, no Dyspnea on Exertion, No Orthopnea, No Edema, No Palpitations Respiratory : No Cough, No Sputum Gastrointestinal : no Nausea, No Vomiting, No Diarrhea, No abdominal Pain, No Hematochezia, No Melena Genitourinary : No Dysuria, No Urinary Frequency Musculoskeletal : No joint pain, No Myalgias, No Joint Swelling Skin : No Skin Lesions, No rash Neuro : No Weakness, No Numbness, No Dizziness, No Headache Psych : No Anxiety/Panic, No Depression Heme/Lymph: No Bruising, No Lymphadenopathy Endocrine : No Polyuria, No Polydipsia All other systems reviewed and are negative PMFSH Past Medical History Medical History CAD (coronary artery disease) Chest pain Depression Diastolic dysfunction HLD (hyperlipidemia) HTN (hypertension) Hypothyroidism Peptic ulcer disease Postoperative atrial fibrillation Tubular adenoma Type 2 diabetes mellitus with polyneuropathy Surgical History History of esophagogastroduodenoscopy (EGD) Hx of colonoscopy S/P CABG x 3 (~09/2013) Family History Family History Father CVD (cardiovascular disease) Mother No problems noted. Social History Social History Household Members: Children Alcohol intake: never Patient Tobacco Use Status: Never used Tobacco Use of substances other than those prescribed or required for medical reasons: No Advance Directives: Yes Advance Directives Information Provided: Yes Advance Directives on File: No Physical Exam Vital Signs: Vital Signs: Last Vital Signs Temp 97.8 F 11/19/21 13:56 Pulse 69 11/19/21 13:56 Resp 18 11/19/21 13:56 BP 109/64 11/19/21 13:56 Pulse Ox 96 11/19/21 13:56 BMI result Body Mass Index 26.5 Appearance: Alert. Oriented X3. No acute distress. Eyes: Pupils equal, round and reactive to light. ENT: Pharynx normal. Neck: Normal inspection. Neck supple. CVS: Normal heart rate and rhythm. Pulses normal. Chest: ttp along L chest wall that reproduces pain Respiratory: No respiratory distress. Breath sounds normal. Abdomen: Soft and nontender. Skin: Skin warm and dry. Normal skin color. Normal skin turgor. Extremities: No lower extremity edema. L calf engorged veins noted mild swelling no erythema no ttp Neuro: Oriented X 3. No motor deficit. No sensory deficit. 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 Pain atypical and in no distress distal pulses intact doubt dissection Differential Diagnosis Differential diagnosis: Likely stable angina, atypical chest pain and chest pain Lab Data Result diagrams: 11/19/21 10:35 11/19/21 10:35 Labs: Lab Results 11/19/21 11/19/21 11/19/21 Range/Units 10:35 10:35 10:35 WBC 6.7 (4.8-10.8) X10*3/uL RBC 4.77 (4.20-5.50) X10*6/uL Hgb 12.8 (12.0-16.0) g/dl Hct 38.6 (37.0-47.0) % MCV 80.9 (80.0-98.0) fL MCH 26.8 L (27.0-33.0) pg MCHC 33.2 (31.0-35.0) g/dl RDW 13.5 (11.0-16.0) % Plt Count 219 (160-400) X10*3/uL MPV 9.6 (9.4-12.3) fL Immature Gran % (Auto) 0.4 (0.0-0.4) % Neut % (Auto) 46.4 (45-73) % Lymph % (Auto) 38.0 (20-40) % [place] % (Auto) 9.3 (2-11) % Eos % (Auto) 5.0 H (0-4) % Baso % (Auto) 0.9 (0-2) % Lymph # (Auto) 2.6 (1.2-4.9) X10*3/uL [place] # (Auto) 0.6 (0.1-1.2) X10*3/uL Eos # (Auto) 0.3 (0.0-0.4) X10*3/uL Baso # (Auto) 0.1 (0.0-0.2) X10*3/uL Abs Immat Gran (auto) 0.03 (0.00-0.03) X10*3/uL Absolute Neuts (auto) 3.1 (2.0-8.3) x10*3/uL Absolute Nucleated RBC 0.000 (0.0-0.012) X10*3/uL Nucleated RBC % (auto) 0.0 (0.0-0.2) /100WBC PT (9.9-13.0) SEC INR (0.9-1.1) APTT (24.1-38.0) SEC Sodium 135 (135-145) mmol/L Potassium 5.3 H (3.3-5.1) mmol/L Chloride 102 (96-108) mmol/L Carbon Dioxide 27 (22-29) mmol/L Anion Gap 11 L (12-20) BUN 23 H (9-16) mg/dL Creatinine 1.46 H (0.5-1.4) mg/dL Estim Creat Clear Calc 24.6 Estimated GFR 34 Random Glucose 92 (60-115) mg/dL Calcium 9.4 (8.4-10.2) mg/dL Magnesium 2.3 (1.6-2.6) mg/dL Total Bilirubin 0.5 (0.0-1.0) mg/dL Direct Bilirubin < 0.2 (0.0-0.5) mg/dL AST 31 (5-31) U/L ALT 36 H (0-31) U/L Alkaline Phosphatase 107 (39-117) U/L Troponin I High Sens (<3.5-17.0) ng/L Total Protein 7.5 (6.5-8.0) g/dL Albumin 4.0 (3.5-5.0) g/dL Lipase 21 (8-78) U/L COVID-19 (TEDDY) Negative (Negative) COVID-19 Clin Com See Note 11/19/21 11/19/21 11/19/21 Range/Units 10:35 10:35 13:54 WBC (4.8-10.8) X10*3/uL RBC (4.20-5.50) X10*6/uL Hgb (12.0-16.0) g/dl Hct (37.0-47.0) % MCV (80.0-98.0) fL MCH (27.0-33.0) pg MCHC (31.0-35.0) g/dl RDW (11.0-16.0) % Plt Count (160-400) X10*3/uL MPV (9.4-12.3) fL Immature Gran % (Auto) (0.0-0.4) % Neut % (Auto) (45-73) % Lymph % (Auto) (20-40) % [place] % (Auto) (2-11) % Eos % (Auto) (0-4) % Baso % (Auto) (0-2) % Lymph # (Auto) (1.2-4.9) X10*3/uL [place] # (Auto) (0.1-1.2) X10*3/uL Eos # (Auto) (0.0-0.4) X10*3/uL Baso # (Auto) (0.0-0.2) X10*3/uL Abs Immat Gran (auto) (0.00-0.03) X10*3/uL Absolute Neuts (auto) (2.0-8.3) x10*3/uL Absolute Nucleated RBC (0.0-0.012) X10*3/uL Nucleated RBC % (auto) (0.0-0.2) /100WBC PT 11.3 (9.9-13.0) SEC INR 1.0 (0.9-1.1) APTT 33.4 (24.1-38.0) SEC Sodium (135-145) mmol/L Potassium (3.3-5.1) mmol/L Chloride (96-108) mmol/L Carbon Dioxide (22-29) mmol/L Anion Gap (12-20) BUN (9-16) mg/dL Creatinine (0.5-1.4) mg/dL Estim Creat Clear Calc Estimated GFR Random Glucose (60-115) mg/dL Calcium (8.4-10.2) mg/dL Magnesium (1.6-2.6) mg/dL Total Bilirubin (0.0-1.0) mg/dL Direct Bilirubin (0.0-0.5) mg/dL AST (5-31) U/L ALT (0-31) U/L Alkaline Phosphatase (39-117) U/L Troponin I High Sens 22.7 H 22.8 H (<3.5-17.0) ng/L Total Protein (6.5-8.0) g/dL Albumin (3.5-5.0) g/dL Lipase (8-78) U/L COVID-19 (TEDDY) (Negative) COVID-19 Clin Com ECG Data ECG #1: Attestation: I personally reviewed and interpreted this ECG as follows: ECG interpretation date: 11/19/21 ECG interpretation time: 10:12 Interpretation: Rate: 65 Rhythm: NSR with 1st degree AVB [place]: left Normal P waves. 1st degree AVB RBBB ST T wave : nonspecific, no DELORIS qTC: normal prior studies: no change from prior The study has been interpreted contemporaneously by me. . 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 given your reports of chest pain Prescriptions: No Action nitroglycerin 0.4 mg tablet, sublingual 0.4 mg sublingual Q5M PRN (Reason: chest pain) 30 Days Qty: 25 RF: 1 sennosides [senna] 8.6 mg tablet 2 tab PO DAILY RF: 0 acetaminophen 325 mg tablet 2 tab PO Q8H PRN (Reason: Pain) RF: 0 cetirizine 10 mg tablet 1 tab PO QAM RF: 0 docusate sodium [DOK] 100 mg capsule 1 cap PO BID RF: 0 alcohol swabs [Alcohol Prep Pads] Pads, Medicated 1 ea topical QID RF: 0 gabapentin 100 mg capsule 100 mg PO TID RF: 0 bupropion HCl 300 mg tablet extended release 24 hr 1 tab PO BEDTIME RF: 0 (DME) pen needle, diabetic [Pentips] 32 gauge x 5/32 needle MISCELLANEOUS RF: 0 ondansetron HCl [Zofran] 4 mg tablet 4 mg PO Q8H PRN (Reason: nausea and vomiting) Qty: 10 RF: 0 amlodipine 10 mg tablet 10 mg PO DAILY RF: 0 aspirin 81 mg tablet,delayed release (DR/EC) 81 mg PO DAILY RF: 0 atorvastatin 20 mg tablet 20 mg PO DAILY RF: 0 metoprolol succinate 50 mg tablet extended release 24 hr 150 mg PO QAM RF: 0 tramadol 50 mg tablet 50 mg PO Q12H PRN (Reason: severe pain) RF: 0 sertraline 50 mg tablet 50 mg PO QAM RF: 0 levothyroxine 150 mcg tablet 150 mcg PO DAILY RF: 0 donepezil 10 mg tablet 10 mg PO DAILY RF: 0 (DME) FreeStyle Lite Strips Strip See Rx Instructions strip MISCELLANEOUS RF: 0 (DME) blood-glucose meter [FreeStyle [place] Lite] Kit See Rx Instructions ea MISCELLANEOUS BID RF: 0 docusate sodium 100 mg capsule 100 mg PO BID Qty: 60 RF: 0 sennosides [Senokot] 8.6 mg tablet 17.2 mg PO BEDTIME Qty: 60 RF: 0 magnesium hydroxide [Milk of Magnesia] 400 mg/5 mL suspension 5 ml PO DAILY PRN (Reason: constipation) Qty: 355 RF: 0 Trulicity 3 mg/0.5 mL pen injector 3 mg subcut QWEEK 28 Days Qty: 2 RF: 6 Tresiba FlexTouch U-100 100 unit/mL (3 mL) insulin pen 15 unit subcut DAILY Qty: 15 RF: 5 Print Language: Japanese
[2021-11-19 10:42] LABS: MANUAL DIFF FLAG NO
[2021-11-19 10:44] LABS: Basophils Absolute Auto 0.1 X10*3/uL (0.0-0.2); Basophils Percent Auto 0.9 % (0-2); Eosinophils Absolute Auto 0.3 X10*3/uL (0.0-0.4); Hematocrit 38.6 % (37.0-47.0); Hemoglobin 12.8 g/dl (12.0-16.0); Imm Gran Abs Auto 0.03 X10*3/uL (0.00-0.03); Imm Gran Pct Auto 0.4 % (0.0-0.4); Lymphocytes Absolute Auto 2.6 X10*3/uL (1.2-4.9); Mean Corpuscular HGB Conc 33.2 g/dl (31.0-35.0); Mean Corpuscular Hemoglobin 26.8 pg (27.0-33.0); Mean Corpuscular Volume 80.9 fL (80.0-98.0); Mean Platelet Volume 9.6 fL (9.4-12.3); Monocytes Absolute Auto 0.6 X10*3/uL (0.1-1.2); Monocytes Percent Auto 9.3 % (2-11); Neutrophils Absolute Auto 3.1 x10*3/uL (2.0-8.3); Neutrophils Percent Auto 46.4 % (45-73); Platelet Count 219 X10*3/uL (160-400); Red Blood Count 4.77 X10*6/uL (4.20-5.50); Red Cell Distribution Width 13.5 % (11.0-16.0); White Blood Count 6.7 X10*3/uL (4.8-10.8)
[2021-11-19 10:49] LABS: Prothrombin Time 11.3 SEC (9.9-13.0)
[2021-11-19 10:52] LABS: Partial Thromboplastin Time 33.4 SEC (24.1-38.0)
[2021-11-19 11:01] LABS: COVID-19 Test Negative (Negative)
[2021-11-19 11:06] LABS: Alanine Aminotransferase 36 U/L (0-31); Alkaline Phosphatase 107 U/L (39-117); Anion Gap 11 (12-20); Aspartate Amino Transferase 31 U/L (5-31); Bilirubin Direct < 0.2 mg/dL (0.0-0.5); Bilirubin Total 0.5 mg/dL (0.0-1.0); Blood Urea Nitrogen 23 mg/dL (9-16); Calcium 9.4 mg/dL (8.4-10.2); Carbon Dioxide 27 mmol/L (22-29); Chloride 102 mmol/L (96-108); Creatinine Clr Calc Pharmacy 24.6; Estimated Glomerular Filt Rate 34; Glucose Random 92 mg/dL (60-115); Lipase 21 U/L (8-78); Magnesium 2.3 mg/dL (1.6-2.6); Potassium 5.3 mmol/L (3.3-5.1); Sodium 135 mmol/L (135-145); Total Protein 7.5 g/dL (6.5-8.0); Troponin-I High Sensitivity 22.7 ng/L (<3.5-17.0)
--- NOTE | 2021-11-19 11:17 | PC.NURSE ---
no change in assessment. resting quietly. NAD.
[2021-11-19 11:41] VITALS: BP 152/74; PULSE 65; RESP 19; TEMP 36.4; O2SAT 95
[2021-11-19 13:26] VITALS: BP 143/71; PULSE 68; RESP 26; TEMP 36.4; O2SAT 96
[2021-11-19 13:56] VITALS: BP 109/64; PULSE 69; RESP 18; TEMP 36.6; O2SAT 96
[2021-11-19 14:18] LABS: Troponin-I High Sensitivity 22.8 ng/L (<3.5-17.0)
== END 2021-11-19 15:14 | disposition home or self-care (01) ==
PROVIDERS: Emergency Provider Emergency Medicine
DX: R07.9 Chest pain, unspecified (principal); R60.0 Localized edema; I25.10 Atherosclerotic heart disease of native coronary artery without angina pectoris; I10 Essential (primary) hypertension; E11.9 Type 2 diabetes mellitus without complications; Z20.822 Contact with and (suspected) exposure to COVID-19; Z79.899 Other long term (current) drug therapy
CPT/HCPCS: 36415; 71045; 80048; 80076; 83690; 83735; 84484; 85025; 85610; 85730; 87635; 93005; 93971; 99284

== ENCOUNTER 2021-12-08 10:39 | Emergency (ER) | payer MEDICARE, SELFPAY ==
--- NOTE | ~2021-12-08 | CT_ITS ---
EXAMINATION: CT HEAD WITHOUT CONTRAST CLINICAL INFORMATION: Acute mental status change COMPARISON: Head CT June 2013 and brain MRI October 2018 TECHNIQUE: Contiguous axial imaging was performed from the skull base to vertex without intravenous administration of contrast. This CT examination was performed using dose optimization techniques as appropriate, variously including the following: *Automated exposure control *Adjustment of mA and/or kV according to patient size (this includes techniques or standardized protocols for targeted exams where dose is matched to indication/reason for exam; i.e. extremities or head) *Use of iterative reconstruction technique DLP: 684 mGy-cm FINDINGS: There is no evidence of an extra-axial collection. There is no evidence of intra-axial or extra-axial hemorrhage. The ventricles and extra-axial CSF spaces are prominent suggestive of mild generalized atrophy. There is nonspecific periventricular white matter disease. There is question of a right basal ganglia lacunar infarct. No mass, mass effect or acute infarct is seen. There is evidence of atherosclerotic disease. Review of bone windows is normal. Visualized paranasal sinuses, mastoid air cells and middle ears are clear. CT/CT head/brain wo con IMPRESSION: No acute findings. Mild generalized atrophy and nonspecific periventricular white matter disease.
--- NOTE | ~2021-12-08 | XR_ITS ---
EXAMINATION: XR CHEST CLINICAL INFORMATION: Weakness COMPARISON: Previous chest x-ray most recent October 2021 TECHNIQUE: Frontal view of the chest was obtained. FINDINGS: The cardiac and mediastinal contours are stable. There are are post-CABG changes. There is slight elevation of the right hemidiaphragm. The lungs are clear. There is no pleural effusion or pneumothorax. There are degenerative changes of the spine. XR/XR chest 1V IMPRESSION: No evidence for acute disease in the chest.
[2021-12-08 10:58] VITALS: BP 127/77; PULSE 75; O2SAT 99
[2021-12-08 11:00] VITALS: BP 108/60; PULSE 70; RESP 15; TEMP 36.4; O2SAT 94; BMI 23.1
--- NOTE | 2021-12-08 11:07 | ECG_ITS ---
Test Reason : weakness Blood Pressure : / mmHG Vent. Rate : 068 BPM Atrial Rate : 081 BPM P-R Int : 304 ms QRS Dur : 110 ms QT Int : 418 ms P-R-T Axes : 036 -68 050 degrees QTc Int : 444 ms Sinus rhythm with 1st degree A-V block and intermittent RBBB Left axis deviation Minimal voltage criteria for LVH, may be normal variant ( [place]uleman product ) Abnormal ECG When compared with ECG of 19-NOV-2021 10:05, Intermittent RBBB present now Referred By: Dali Rodriguez Electronically Signed By:Mark Polanco
--- NOTE | 2021-12-08 11:08 | ED_ITS ---
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 Mode of arrival: EMS Limitations: other (confused) History of Present Illness MD Complaint: generalized weakness (shaking) Onset (ago): day(s) (states started this morning) Duration: intermittent Location: generalized Migration: none Severity: moderate Quality: dull Relieving factors: none Exacerbating factors: movement Context: other (?unsure states she was shaking this morning more than usual ) Associated symptoms: denies other symptoms Related Data Home Medications Medication Instructions Recorded Confirmed acetaminophen 325 mg tablet 2 tab PO Q8H PRN 02/28/21 10/14/21 alcohol swabs (Alcohol Prep Pads) 1 ea TOPICAL QID 02/28/21 10/14/21 bupropion HCl 300 mg 24 hr tablet, 1 tab PO BEDTIME 02/28/21 10/14/21 extended release cetirizine 10 mg tablet 1 tab PO QAM 02/28/21 10/14/21 docusate sodium 100 mg capsule 1 cap PO BID 02/28/21 10/14/21 (DOK) gabapentin 100 mg capsule 100 mg PO TID 02/28/21 10/14/21 pen needle, diabetic 32 gauge x 02/28/21 10/14/21 (Pentips) sennosides 8.6 mg tablet (senna) 2 tab PO DAILY 02/28/21 10/14/21 amlodipine 10 mg tablet 10 mg PO DAILY 05/21/21 10/14/21 aspirin 81 mg tablet,delayed 81 mg PO DAILY 05/21/21 10/14/21 release atorvastatin 20 mg tablet 20 mg PO DAILY 05/21/21 10/14/21 donepezil 10 mg tablet 10 mg PO DAILY 05/21/21 10/14/21 levothyroxine 150 mcg tablet 150 mcg PO DAILY 05/21/21 10/14/21 metoprolol succinate 50 mg 150 mg PO QAM 05/21/21 10/14/21 tablet,extended release 24 hr sertraline 50 mg tablet 50 mg PO QAM 05/21/21 10/14/21 tramadol 50 mg tablet 50 mg PO Q12H PRN 05/21/21 10/14/21 blood sugar diagnostic (FreeStyle 09/14/21 10/14/21 Lite Strips) blood-glucose meter (FreeStyle 09/14/21 10/14/21 [place] Lite) Previous Rx's Medication Instructions Recorded ondansetron HCl 4 mg tablet 4 mg PO Q8H PRN #10 tab 03/01/21 (Zofran) insulin degludec 100 unit/mL (3 15 unit (0.15 mL) SUBCUT DAILY #15 09/29/21 mL) subcutaneous pen (Tresiba ml FlexTouch U-100 insulin) dulaglutide 3 mg/0.5 mL 3 mg (0.5 mL) SUBCUT QWEEK 28 Days 10/14/21 subcutaneous pen injector #2 ml (Trulicity) docusate sodium 100 mg capsule 100 mg PO BID #60 cap 10/22/21 magnesium hydroxide 400 mg/5 mL 5 ml PO DAILY PRN #355 ml 10/22/21 oral suspension (Milk of Magnesia) sennosides 8.6 mg tablet (Senokot) 17.2 mg PO BEDTIME #60 tab 10/22/21 nitroglycerin 0.4 mg sublingual 0.4 mg SUBLINGUAL Q5M PRN 30 Days 11/02/21 tablet #25 tab Allergies Allergy/AdvReac Type Severity Reaction Status Date / Time No Known Allergies Allergy Verified 11/19/21 10:08 [No Known Allergies*] Review of Systems Review of Systems: Constitutional : No Weight loss, No Fever, No Chills, pos Fatigue, pos Malaise ENT/Mouth : No sore throat, No Rhinorrhea Eyes: No Eye Pain, No Swelling, No Redness Cardiovascular : No Chest Pain, No SOB, No Dyspnea on Exertion, No Orthopnea, No Edema, No Palpitations Respiratory : No Cough, No Sputum, No Wheezing Gastrointestinal : No Nausea, No Vomiting, No Diarrhea, No Constipation, No abdominal Pain, No Hematochezia, No Melena Genitourinary : No Dysuria, No Urinary Frequency, No Hematuria, Musculoskeletal : No joint pain, No Myalgias, No Joint Swelling Skin : No Skin Lesions, No rash Neuro : No Weakness, No Numbness, No Dizziness, No Headache, pos tremors Psych : No Anxiety/Panic, No Depression Heme/Lymph: No Bruising, No Bleeding,No Lymphadenopathy Endocrine : No Polyuria, No Polydipsia All other systems reviewed and are negative [facility] Past Medical History Attestation statement: The following information was validated with the patient. Medical History CAD (coronary artery disease) Chest pain Depression Diastolic dysfunction HLD (hyperlipidemia) HTN (hypertension) Hypothyroidism Peptic ulcer disease Postoperative atrial fibrillation Tubular adenoma Type 2 diabetes mellitus with polyneuropathy Surgical History History of esophagogastroduodenoscopy (EGD) Hx of colonoscopy S/P CABG x 3 (~09/2013) Family History Family History Father CVD (cardiovascular disease) Mother No problems noted. Social History Social History Household Members: Children Alcohol intake: never Patient Tobacco Use Status: Never used Tobacco Advance Directives: No Advance Directives Information Provided: No Physical Exam Vital Signs: Vital Signs: Last Vital Signs Temp 97.7 F 12/08/21 13:06 Pulse 69 12/08/21 16:21 Resp 20 12/08/21 16:21 BP 129/67 12/08/21 16:21 Pulse Ox 95 12/08/21 16:21 BMI result Body Mass Index 23.1 Appearance: Alert. Oriented X2 (place/person) No acute distress. Eyes: Pupils equal, round and reactive to light. ENT: Pharynx normal. Neck: Normal inspection. Neck supple. CVS: Normal heart rate and rhythm. Pulses normal. Respiratory: No respiratory distress. Breath sounds normal. Abdomen: Soft and non-tender. Skin: Skin warm and dry. Normal skin color. Normal skin turgor. Extremities: No lower extremity edema. No calf ttp Neuro: Oriented X 2. No motor deficit. No sensory deficit. Course Course Course Narrative: repeat trop flat has no CP, CM involved attempting to reach family as well patient otherwise no pneumonia no UTI unable to reach any family members we do not know the patient's baseline she is not oriented to time unsure if this is baseline she is on aricept attempts to reach son José Antonio [phone] son notes that she felt shaky and last night she had chills. has some mild baseline confusion at baseline. at this time patient at baseline. son feels she is safe for DC. discussed EKG findings with Cardiology - not cause of her shakiness, follow up outpatient MDM - Weakness MDM Narrative Medical decision making narrative: 86 yo female hx of CAD s/p CABG, aortic dilation, DM, HTN, GERD, HTN, HLD, on donepezil ?memory issues but no mention of cognitive impairment in notes - she is not oriented to time today she comes in to our ED with c/o body weakness and shaking she has no focal deficits at this time. Will obtain labs, CXR, UA and EKG to look for infection. Denies trauma or headache doubt stroke. Dispo per results and findings. Lab Data Result diagrams: 12/08/21 11:22 12/08/21 11:22 Labs: Lab Results 12/08/21 12/08/21 12/08/21 Range/Units 11:02 11:15 11:22 WBC 6.6 (4.8-10.8) X10*3/uL RBC 4.82 (4.20-5.50) X10*6/uL Hgb 12.9 (12.0-16.0) g/dl Hct 38.9 (37.0-47.0) % MCV 80.7 (80.0-98.0) fL MCH 26.8 L (27.0-33.0) pg MCHC 33.2 (31.0-35.0) g/dl RDW 13.4 (11.0-16.0) % Plt Count 269 (160-400) X10*3/uL MPV 9.3 L (9.4-12.3) fL Immature Gran % (Auto) 0.5 H (0.0-0.4) % Neut % (Auto) 52.4 (45-73) % Lymph % (Auto) 33.0 (20-40) % Gonzales % (Auto) 8.5 (2-11) % Eos % (Auto) 4.7 H (0-4) % Baso % (Auto) 0.9 (0-2) % Lymph # (Auto) 2.2 (1.2-4.9) X10*3/uL Gonzales # (Auto) 0.6 (0.1-1.2) X10*3/uL Eos # (Auto) 0.3 (0.0-0.4) X10*3/uL Baso # (Auto) 0.1 (0.0-0.2) X10*3/uL Abs Immat Gran (auto) 0.03 (0.00-0.03) X10*3/uL Absolute Neuts (auto) 3.5 (2.0-8.3) x10*3/uL Absolute Nucleated RBC 0.000 (0.0-0.012) X10*3/uL Nucleated RBC % (auto) 0.0 (0.0-0.2) /100WBC Sodium (135-145) mmol/L Potassium (3.3-5.1) mmol/L Chloride (96-108) mmol/L Carbon Dioxide (22-29) mmol/L Anion Gap (12-20) BUN (9-16) mg/dL Creatinine (0.5-1.4) mg/dL Estim Creat Clear Calc Estimated GFR POC Glucose 124 H (60-115) mg/dL Random Glucose (60-115) mg/dL Lactic Acid (0.5-2.0) mmol/L Calcium (8.4-10.2) mg/dL Magnesium (1.6-2.6) mg/dL Total Bilirubin (0.0-1.0) mg/dL Direct Bilirubin (0.0-0.5) mg/dL AST (5-31) U/L ALT (0-31) U/L Alkaline Phosphatase (39-117) U/L Troponin I High Sens (<3.5-17.0) ng/L Total Protein (6.5-8.0) g/dL Albumin (3.5-5.0) g/dL Lipase (8-78) U/L TSH (0.32-4.0) uIU/mL Urine Color Urine Appearance Urine pH (5.0-8.0) Ur Specific [place] (1.005-1.025) Urine Protein (NEG-TRACE) MG/DL Urine Glucose (UA) (NEG) MG/DL Urine Ketones (NEG) MG/DL Urine Blood (NEG) Urine Nitrite (NEG) Ur Leukocyte Esterase (NEG) COVID-19 (TEDDY) Negative (Negative) COVID-19 Clin Com See Note 01/12/08/21 12/08/21 Range/Units 11:22 11:22 11:22 WBC (4.8-10.8) X10*3/uL RBC (4.20-5.50) X10*6/uL Hgb (12.0-16.0) g/dl Hct (37.0-47.0) % MCV (80.0-98.0) fL MCH (27.0-33.0) pg MCHC (31.0-35.0) g/dl RDW (11.0-16.0) % Plt Count (160-400) X10*3/uL MPV (9.4-12.3) fL Immature Gran % (Auto) (0.0-0.4) % Neut % (Auto) (45-73) % Lymph % (Auto) (20-40) % Gonzales % (Auto) (2-11) % Eos % (Auto) (0-4) % Baso % (Auto) (0-2) % Lymph # (Auto) (1.2-4.9) X10*3/uL Gonzales # (Auto) (0.1-1.2) X10*3/uL Eos # (Auto) (0.0-0.4) X10*3/uL Baso # (Auto) (0.0-0.2) X10*3/uL Abs Immat Gran (auto) (0.00-0.03) X10*3/uL Absolute Neuts (auto) (2.0-8.3) x10*3/uL Absolute Nucleated RBC (0.0-0.012) X10*3/uL Nucleated RBC % (auto) (0.0-0.2) /100WBC Sodium 139 (135-145) mmol/L Potassium 4.5 (3.3-5.1) mmol/L Chloride 105 (96-108) mmol/L Carbon Dioxide 25 (22-29) mmol/L Anion Gap 14 (12-20) BUN 26 H (9-16) mg/dL Creatinine 1.34 (0.5-1.4) mg/dL Estim Creat Clear Calc 27.1 Estimated GFR 38 POC Glucose (60-115) mg/dL Random Glucose 141 H (60-115) mg/dL Lactic Acid 1.7 (0.5-2.0) mmol/L Calcium 9.8 (8.4-10.2) mg/dL Magnesium 1.9 (1.6-2.6) mg/dL Total Bilirubin 0.4 (0.0-1.0) mg/dL Direct Bilirubin 0.2 (0.0-0.5) mg/dL AST 30 (5-31) U/L ALT 35 H (0-31) U/L Alkaline Phosphatase 133 H D (39-117) U/L Troponin I High Sens 30.6 H (<3.5-17.0) ng/L Total Protein 7.2 (6.5-8.0) g/dL Albumin 3.8 (3.5-5.0) g/dL Lipase 25 (8-78) U/L TSH (0.32-4.0) uIU/mL Urine Color Urine Appearance Urine pH (5.0-8.0) Ur Specific [place] (1.005-1.025) Urine Protein (NEG-TRACE) MG/DL Urine Glucose (UA) (NEG) MG/DL Urine Ketones (NEG) MG/DL Urine Blood (NEG) Urine Nitrite (NEG) Ur Leukocyte Esterase (NEG) COVID-19 (TEDDY) (Negative) COVID-19 Clin Com 12/08/21 12/08/21 12/08/21 Range/Units 11:22 13:08 14:04 WBC (4.8-10.8) X10*3/uL RBC (4.20-5.50) X10*6/uL Hgb (12.0-16.0) g/dl Hct (37.0-47.0) % MCV (80.0-98.0) fL MCH (27.0-33.0) pg MCHC (31.0-35.0) g/dl RDW (11.0-16.0) % Plt Count (160-400) X10*3/uL MPV (9.4-12.3) fL Immature Gran % (Auto) (0.0-0.4) % Neut % (Auto) (45-73) % Lymph % (Auto) (20-40) % Gonzales % (Auto) (2-11) % Eos % (Auto) (0-4) % Baso % (Auto) (0-2) % Lymph # (Auto) (1.2-4.9) X10*3/uL [place] # (Auto) (0.1-1.2) X10*3/uL Eos # (Auto) (0.0-0.4) X10*3/uL Baso # (Auto) (0.0-0.2) X10*3/uL Abs Immat Gran (auto) (0.00-0.03) X10*3/uL Absolute Neuts (auto) (2.0-8.3) x10*3/uL Absolute Nucleated RBC (0.0-0.012) X10*3/uL Nucleated RBC % (auto) (0.0-0.2) /100WBC Sodium (135-145) mmol/L Potassium (3.3-5.1) mmol/L Chloride (96-108) mmol/L Carbon Dioxide (22-29) mmol/L Anion Gap (12-20) BUN (9-16) mg/dL Creatinine (0.5-1.4) mg/dL Estim Creat Clear Calc Estimated GFR POC Glucose (60-115) mg/dL Random Glucose (60-115) mg/dL Lactic Acid (0.5-2.0) mmol/L Calcium (8.4-10.2) mg/dL Magnesium (1.6-2.6) mg/dL Total Bilirubin (0.0-1.0) mg/dL Direct Bilirubin (0.0-0.5) mg/dL AST (5-31) U/L ALT (0-31) U/L Alkaline Phosphatase (39-117) U/L Troponin I High Sens 32.0 H (<3.5-17.0) ng/L Total Protein (6.5-8.0) g/dL Albumin (3.5-5.0) g/dL Lipase (8-78) U/L TSH 0.83 (0.32-4.0) uIU/mL Urine Color YELLOW Urine Appearance CLEAR Urine pH 5.5 (5.0-8.0) Ur Specific [place] 1.020 (1.005-1.025) Urine Protein NEG (NEG-TRACE) MG/DL Urine Glucose (UA) 250 H (NEG) MG/DL Urine Ketones NEG (NEG) MG/DL Urine Blood NEG (NEG) Urine Nitrite NEG (NEG) Ur Leukocyte Esterase NEG (NEG) COVID-19 (TEDDY) (Negative) COVID-19 Clin Com 12/08/21 Range/Units 16:57 WBC (4.8-10.8) X10*3/uL RBC (4.20-5.50) X10*6/uL Hgb (12.0-16.0) g/dl Hct (37.0-47.0) % MCV (80.0-98.0) fL MCH (27.0-33.0) pg MCHC (31.0-35.0) g/dl RDW (11.0-16.0) % Plt Count (160-400) X10*3/uL MPV (9.4-12.3) fL Immature Gran % (Auto) (0.0-0.4) % Neut % (Auto) (45-73) % Lymph % (Auto) (20-40) % Gonzales % (Auto) (2-11) % Eos % (Auto) (0-4) % Baso % (Auto) (0-2) % Lymph # (Auto) (1.2-4.9) X10*3/uL Gonzales # (Auto) (0.1-1.2) X10*3/uL Eos # (Auto) (0.0-0.4) X10*3/uL Baso # (Auto) (0.0-0.2) X10*3/uL Abs Immat Gran (auto) (0.00-0.03) X10*3/uL Absolute Neuts (auto) (2.0-8.3) x10*3/uL Absolute Nucleated RBC (0.0-0.012) X10*3/uL Nucleated RBC % (auto) (0.0-0.2) /100WBC Sodium (135-145) mmol/L Potassium (3.3-5.1) mmol/L Chloride (96-108) mmol/L Carbon Dioxide (22-29) mmol/L Anion Gap (12-20) BUN (9-16) mg/dL Creatinine (0.5-1.4) mg/dL Estim Creat Clear Calc Estimated GFR POC Glucose 106 (60-115) mg/dL Random Glucose (60-115) mg/dL Lactic Acid (0.5-2.0) mmol/L Calcium (8.4-10.2) mg/dL Magnesium (1.6-2.6) mg/dL Total Bilirubin (0.0-1.0) mg/dL Direct Bilirubin (0.0-0.5) mg/dL AST (5-31) U/L ALT (0-31) U/L Alkaline Phosphatase (39-117) U/L Troponin I High Sens (<3.5-17.0) ng/L Total Protein (6.5-8.0) g/dL Albumin (3.5-5.0) g/dL Lipase (8-78) U/L TSH (0.32-4.0) uIU/mL Urine Color Urine Appearance Urine pH (5.0-8.0) Ur Specific [place] (1.005-1.025) Urine Protein (NEG-TRACE) MG/DL Urine Glucose (UA) (NEG) MG/DL Urine Ketones (NEG) MG/DL Urine Blood (NEG) Urine Nitrite (NEG) Ur Leukocyte Esterase (NEG) COVID-19 (TEDDY) (Negative) COVID-19 Clin Com ECG Data Attestation: I personally reviewed and interpreted this ECG as follows: ECG interpretation date: 12/08/21 ECG interpretation time: 11:17 Interpretation: Rate:68 Rhythm: sinus wenkebach? varying erick [place]: left RBBB ST T wave : nonspecific, no DELORIS qTC: normal prior studies: prior was sinus with 1st degree AVB The study has been interpreted contemporaneously by me. . Discharge Plan Discharge Clinical Impression: Weakness, Wenckebach Patient Disposition: Home, Self-Care Instructions: Weakness (ED) Additional Instructions: return to ED for any worsening symptoms or concerns labs, urine, chest xray, EKG, CT of head all within normal limits EKG showed some issues with heart conduction this is not the cause of your symptoms - you need to follow up with your heart doctor, cardiology was spoken to while you were in the emergency department. Prescriptions: No Action nitroglycerin 0.4 mg tablet, sublingual 0.4 mg sublingual Q5M PRN (Reason: chest pain) 30 Days Qty: 25 RF: 1 sennosides [senna] 8.6 mg tablet 2 tab PO DAILY RF: 0 acetaminophen 325 mg tablet 2 tab PO Q8H PRN (Reason: Pain) RF: 0 cetirizine 10 mg tablet 1 tab PO QAM RF: 0 docusate sodium [DOK] 100 mg capsule 1 cap PO BID RF: 0 alcohol swabs [Alcohol Prep Pads] Pads, Medicated 1 ea topical QID RF: 0 gabapentin 100 mg capsule 100 mg PO TID RF: 0 bupropion HCl 300 mg tablet extended release 24 hr 1 tab PO BEDTIME RF: 0 (DME) pen needle, diabetic [Pentips] 32 gauge x 5/32 needle MISCELLANEOUS RF: 0 ondansetron HCl [Zofran] 4 mg tablet 4 mg PO Q8H PRN (Reason: nausea and vomiting) Qty: 10 RF: 0 amlodipine 10 mg tablet 10 mg PO DAILY RF: 0 aspirin 81 mg tablet,delayed release (DR/EC) 81 mg PO DAILY RF: 0 atorvastatin 20 mg tablet 20 mg PO DAILY RF: 0 metoprolol succinate 50 mg tablet extended release 24 hr 150 mg PO QAM RF: 0 tramadol 50 mg tablet 50 mg PO Q12H PRN (Reason: severe pain) RF: 0 sertraline 50 mg tablet 50 mg PO QAM RF: 0 levothyroxine 150 mcg tablet 150 mcg PO DAILY RF: 0 donepezil 10 mg tablet 10 mg PO DAILY RF: 0 (DME) FreeStyle Lite Strips Strip See Rx Instructions strip MISCELLANEOUS RF: 0 (DME) blood-glucose meter [FreeStyle [place] Lite] Kit See Rx Instructions ea MISCELLANEOUS BID RF: 0 docusate sodium 100 mg capsule 100 mg PO BID Qty: 60 RF: 0 sennosides [Senokot] 8.6 mg tablet 17.2 mg PO BEDTIME Qty: 60 RF: 0 magnesium hydroxide [Milk of Magnesia] 400 mg/5 mL suspension 5 ml PO DAILY PRN (Reason: constipation) Qty: 355 RF: 0 Trulicity 3 mg/0.5 mL pen injector 3 mg subcut QWEEK 28 Days Qty: 2 RF: 6 Tresiba FlexTouch U-100 100 unit/mL (3 mL) insulin pen 15 unit subcut DAILY Qty: 15 RF: 5 Referrals: Physician,Unknown J [Primary Care Provider] - 2 days (if not better) Print Language: Urdu
[2021-12-08 11:28] LABS: MANUAL DIFF FLAG NO
[2021-12-08 11:32] LABS: Basophils Absolute Auto 0.1 X10*3/uL (0.0-0.2); Basophils Percent Auto 0.9 % (0-2); Eosinophils Absolute Auto 0.3 X10*3/uL (0.0-0.4); Eosinophils Percent Auto 4.7 % (0-4); Hematocrit 38.9 % (37.0-47.0); Hemoglobin 12.9 g/dl (12.0-16.0); Imm Gran Abs Auto 0.03 X10*3/uL (0.00-0.03); Imm Gran Pct Auto 0.5 % (0.0-0.4); Lymphocytes Absolute Auto 2.2 X10*3/uL (1.2-4.9); Mean Corpuscular HGB Conc 33.2 g/dl (31.0-35.0); Mean Corpuscular Hemoglobin 26.8 pg (27.0-33.0); Mean Corpuscular Volume 80.7 fL (80.0-98.0); Mean Platelet Volume 9.3 fL (9.4-12.3); Monocytes Absolute Auto 0.6 X10*3/uL (0.1-1.2); Monocytes Percent Auto 8.5 % (2-11); Neutrophils Absolute Auto 3.5 x10*3/uL (2.0-8.3); Neutrophils Percent Auto 52.4 % (45-73); Platelet Count 269 X10*3/uL (160-400); Red Blood Count 4.82 X10*6/uL (4.20-5.50); Red Cell Distribution Width 13.4 % (11.0-16.0); White Blood Count 6.6 X10*3/uL (4.8-10.8)
[2021-12-08 11:42] LABS: Lactic Acid 1.7 mmol/L (0.5-2.0)
[2021-12-08 11:49] LABS: Alanine Aminotransferase 35 U/L (0-31); Albumin Level 3.8 g/dL (3.5-5.0); Alkaline Phosphatase 133 U/L (39-117); Anion Gap 14 (12-20); Aspartate Amino Transferase 30 U/L (5-31); Bilirubin Direct 0.2 mg/dL (0.0-0.5); Bilirubin Total 0.4 mg/dL (0.0-1.0); Blood Urea Nitrogen 26 mg/dL (9-16); Calcium 9.8 mg/dL (8.4-10.2); Carbon Dioxide 25 mmol/L (22-29); Chloride 105 mmol/L (96-108); Creatinine Clr Calc Pharmacy 27.1; Estimated Glomerular Filt Rate 38; Glucose Random 141 mg/dL (60-115); Lipase 25 U/L (8-78); Magnesium 1.9 mg/dL (1.6-2.6); Potassium 4.5 mmol/L (3.3-5.1); Sodium 139 mmol/L (135-145); Total Protein 7.2 g/dL (6.5-8.0)
[2021-12-08 11:52] LABS: Troponin-I High Sensitivity 30.6 ng/L (<3.5-17.0)
[2021-12-08 11:53] LABS: COVID-19 Test Negative (Negative)
[2021-12-08 12:06] LABS: TSH reflex Free T4 0.83 uIU/mL (0.32-4.0)
[2021-12-08 13:06] VITALS: BP 107/64; PULSE 68; RESP 16; TEMP 36.5; O2SAT 96
[2021-12-08 13:17] LABS: Appearance Urine CLEAR; Color Urine YELLOW; Glucose Urine UA 250 MG/DL (NEG); Leukocyte Esterase Urine NEG (NEG); Nitrite Urine NEG (NEG); PH 5.5 (5.0-8.0); Urine Blood NEG (NEG); Urine Ketones NEG (NEG); Urine Protein NEG (NEG-TRACE)
--- NOTE | 2021-12-08 15:06 | MHC.CM.ED ---
Received request from Dr Rodriguez to gather info on patient. Patient came to ER due to tremers from parkinsons . Patient has no documentation of history of Parkinson's disease. PCP is Nae Zaman. Copy of HCP and PCP note obtained. PCP has documentation of neuropathy but no Parkinsons. Patient is on Aricept but no mention of dementia in the chart. HCP is Shawna Cantrell. T/W attempted to contact her via telephone at [phone]. Left message requesting return telephone call. Patient is active with [facility]. T/W spoke with Cheryl at [facility]. Emergency contact with them listed as Bev Nicole. T/W attempted to reach her via telephone at [phone]. Left message requesting return telephone call. Dr Rodriguez aware. Continue to monitor for d/c needs.
[2021-12-08 16:21] VITALS: BP 129/67; PULSE 69; RESP 20; O2SAT 95
[2021-12-08 16:55] LABS: Glucose, Whole Blood 124 mg/dL (60-115)
[2021-12-08 17:14] LABS: Glucose, Whole Blood 106 mg/dL (60-115)
--- NOTE | 2021-12-08 18:23 | PHA.MEDREC ---
Pharmacy Consult ? Medication Reconciliation Pharmacy has completed the medication reconciliation.
== END 2021-12-08 19:10 | disposition home or self-care (01) ==
PROVIDERS: Emergency Provider Emergency Medicine; PCP Family Medicine
DX: R53.1 Weakness (principal); I44.1 Atrioventricular block, second degree; Z20.822 Contact with and (suspected) exposure to COVID-19; I11.0 Hypertensive heart disease with heart failure; I50.9 Heart failure, unspecified; E11.9 Type 2 diabetes mellitus without complications; E78.5 Hyperlipidemia, unspecified; Z79.82 Long term (current) use of aspirin; Z79.899 Other long term (current) drug therapy; Z79.02 Long term (current) use of antithrombotics/antiplatelets; Z79.4 Long term (current) use of insulin
CPT/HCPCS: 36415; 70450; 71045; 80048; 80076; 81003; 82947; 83605; 83690; 83735; 84443; 84484; 85025; 87040; 87635; 93005; 99284

== ENCOUNTER 2022-01-28 12:43 | Emergency (ER) | payer MEDICARE, SELFPAY ==
--- NOTE | ~2022-01-28 | CT_ITS ---
EXAMINATION: CT CHEST WITHOUT CONTRAST CLINICAL INFORMATION: Right posterior rib pain s/p fall COMPARISON: 12/08/2021 TECHNIQUE: Multidetector volumetric CT imaging of the chest was done. Axial MIP volume rendering provided. Sagittal and coronal reformatted images were obtained. This CT examination was performed using dose optimization techniques as appropriate, variously including the following: *Automated exposure control *Adjustment of mA and/or kV according to patient size (this includes techniques or standardized protocols for targeted exams where dose is matched to indication/reason for exam; i.e. extremities or head) *Use of iterative reconstruction technique DLP: 1327 mGy-cm in conjunction with head/C-spine CT . FINDINGS: LUNGS: The central airways are patent. Dependent atelectasis bilaterally. No dense consolidation. Linear atelectasis of the right middle lobe and lingula. Right upper lobe 0.5 cm pulmonary nodule on series 26 image 187. This is near the major fissure. Additional smaller nodules are seen in this area. Pneumothorax. MEDIASTINUM: Normal heart size. Coronary artery calcifications. No pericardial effusion. PLEURA: There is no pleural effusion. No pleural mass or thickening. AXILLA: No lymphadenopathy. UPPER ABDOMEN: Cholecystectomy. OSSEOUS STRUCTURES: Median sternotomy. No acute sternal fracture. Degenerative changes throughout the spine. Vertebral body height and alignment maintained. No acute rib fracture visualized. CT/CT chest wo con IMPRESSION: No acute traumatic finding of the chest. No rib fractures are seen. 0.5 cm right upper lobe pulmonary nodule. According to the UPDATED 2017 Fleischner Society recommendations, the advised follow-up imaging for solid nodules < 6 mm is: LOW RISK PATIENT: No routine follow-up. HIGH RISK PATIENT: Optional CT at 12 months. Fleischner guidelines were followed.
--- NOTE | ~2022-01-28 | CT_ITS ---
EXAMINATION: NONCONTRAST HEAD CT NONCONTRAST CERVICAL SPINE CT INDICATION INFORMATION: Posterior headache. Fall with head strike. COMPARISON: 12/08/2021 TECHNIQUE: Separate noncontrast CT examinations of the head and cervical spine were performed. Coronal and sagittal images were created for each examination at the technologist workstation. This CT examination was performed using dose optimization techniques as appropriate, variously including the following: *Automated exposure control *Adjustment of mA and/or kV according to patient size (this includes techniques or standardized protocols for targeted exams where dose is matched to indication/reason for exam; i.e. extremities or head) *Use of iterative reconstruction technique DLP: 1327 mGy-cm, in conjunction with chest CT. FINDINGS: Head: There is no evidence of acute intracranial hemorrhage or territorial infarction. No abnormal mass effect or midline shift is seen. Benjamin to white matter differentiation is well preserved. No extra-axial fluid collections are identified. No hydrocephalus. Proportional prominence of the ventricles and sulcal spaces is consistent with mild volume loss. Patchy periventricular and deep white matter hypoattenuation is consistent with mild small vessel ischemic changes. No acute osseous or soft tissue abnormality. The mastoid air cells and visualized portions of the paranasal sinuses are well aerated. Cervical spine: There is anatomic alignment of the vertebral bodies and posterior elements. The atlantoaxial and atlantooccipital articulations are intact. Vertebral body heights are maintained. There is multilevel intervertebral disc space narrowing with endplate osteophyte formation and facet arthropathy. Calcific pannus surrounds the dens. No evidence of acute fracture. No prevertebral soft tissue swelling. Visualized portions of the lung apices are unremarkable. The thyroid gland is unremarkable. CT/CT cervical spine wo con IMPRESSION: 1. No acute intracranial finding. Chronic volume loss with small vessel ischemic change. 2. No fracture or malalignment of the cervical spine. Moderate degenerative changes.
--- NOTE | ~2022-01-28 | CT_ITS ---
EXAMINATION: CT ABDOMEN AND PELVIS WITHOUT CONTRAST CLINICAL INFORMATION: Urinary retention and constipation. COMPARISON: Previous CT of the abdomen and pelvis October 2021 TECHNIQUE: Multidetector volumetric imaging was performed from the superior aspect of the liver through the pubic symphysis. Sagittal and coronal reformatted images were obtained on the technologist's workstation. This CT examination was performed using dose optimization techniques as appropriate, variously including the following: *Automated exposure control *Adjustment of mA and/or kV according to patient size (this includes techniques or standardized protocols for targeted exams where dose is matched to indication/reason for exam; i.e. extremities or head) *Use of iterative reconstruction technique DLP: 433 mGy-cm FINDINGS: LUNG BASES: There is coronary artery and aortic valve calcification. The visualized ascending thoracic aorta is not dilated measuring 4.4 cm. The lung bases are clear. LIVER, GALLBLADDER, AND BILIARY TREE: The liver is normal in size, shape, and attenuation. No focal hepatic lesion. The gallbladder has been removed. There is no intrahepatic biliary duct dilatation. There is mild dilatation of the common bile duct down to the head of the pancreas measuring up to 1.3 cm. This appears increased from previous exam October 2021. PANCREAS: There are atrophic changes of the pancreas. No pancreatic mass is appreciated. SPLEEN: Unremarkable. ADRENAL GLANDS: Unremarkable. KIDNEYS AND URETERS: The kidneys are normal in size, shape, and attenuation. No hydronephrosis, hydroureter, or calculi seen. No perinephric stranding. BLADDER: Unremarkable. GASTROINTESTINAL TRACT: There is diverticulosis of the colon. No evidence of diverticulitis is seen. Stool throughout the colon suggestive of constipation. Large hernia containing small and large bowel without evidence of obstruction. The small and large bowel are otherwise unremarkable. The appendix is unremarkable. ABDOMINAL WALL: There is a small upper midline 3 cm ventral hernia containing fat. There is a tiny hernia containing fat measuring less than 1 cm slightly to the right of midline. There is evidence of previous ventral hernia repair. There is a large broad-based abdominal wall hernia or bulge containing small and large bowel and bladder. There is no evidence of obstruction. There is a small esophageal hernia. LYMPH NODES: Normal. VASCULAR: There is evidence of atherosclerotic disease. No aneurysm is seen. PELVIC VISCERA: Unremarkable. OSSEOUS STRUCTURES: Degenerative changes of the spine and hip joints. Scoliosis. CT/CT abdomen pelvis wo con IMPRESSION: Diverticulosis. Constipation. Large abdominal wall hernia or broad-based bulge containing small and large bowel in some of the bladder. No evidence of obstruction. Small ventral hernias containing fat. Post cholecystectomy. Slightly dilated common bile duct down to the head of the pancreas increased from prior exam. Fleischner guidelines were followed.
[2022-01-28 12:50] VITALS: BP 132/72; BP 148/86; PULSE 73; PULSE 74; RESP 16; TEMP 36.6; O2SAT 97; BMI 24.0
--- NOTE | 2022-01-28 13:00 | ECG_ITS ---
Test Reason : FALL Blood Pressure : / mmHG Vent. Rate : 066 BPM Atrial Rate : 066 BPM P-R Int : 214 ms QRS Dur : 164 ms QT Int : 454 ms P-R-T Axes : 057 -78 028 degrees QTc Int : 475 ms Sinus rhythm with 1st degree A-V block Left axis deviation Right bundle branch block Abnormal ECG When compared with ECG of 08-DEC-2021 11:09, Right bundle branch block has replaced Incomplete right bundle branch block Borderline criteria for Lateral infarct are no longer Present Referred By: Elif Avila Electronically Signed By:HUSEYIN NG MD
--- NOTE | 2022-01-28 13:03 | ED.FALL ---
HPI - Fall General Chief Complaint: Fall Stated Complaint: RUIZ,CP,L HIP PAIN S/P FALL LAST NIGHT,+CCOLLAR Time Seen by Provider: 01/28/22 12:57 Source: patient, EMS and old records reviewed Mode of arrival: EMS Limitations: no limitations History of Present Illness HPI Narrative: 86 y/o female with history for HTN, DM2, GERD, HLD, CAD s/p CABG x3, HFpEF, who presents to the ER from home EMS with headache after she fell and hit her head last night at 10pm. She reports she was watching TV and got up with her walker to go to the bathroom when her walker got caught on the door frame and she was too weak to move it. She fell backward and hit her head on the door and then on the TV stand. She did not lose consciousness. She is not on anticoagulation. She states she was too weak to get up and she was on the floor for about an hour. Her son helped her get up into bed and she convinced him not call 911 last night. She not want to come to the hospital without getting cleaned up 1st. This morning she states her weakness continued. Her sister came over to give her a sponge bath and then she was in agreement to come to the ER for evaluation of her weakness. She states she has been in bed much of the last 3-4 days because she is too weak to get up. Denies fever, chills, N/V/D, abdominal pain or urinary symptoms. MD complaint: fall Onset (ago): hour(s) (15) Fall from: standing Fall witnessed: no Place fall occurred: home Loss of consciousness: none Prolonged down time: no Symptoms prior to fall: none Context: tripped/slipped Location of injury: head Severity: moderate Severity scale (1-10): 5 Quality: aching Associated symptoms (after fall): headache, weakness and unable to walk Related Data Home Medications Medication Instructions Recorded Confirmed bupropion HCl 300 mg 24 hr tablet, 1 tab PO BEDTIME 02/28/21 12/08/21 extended release cetirizine 10 mg tablet 1 tab PO DAILY 02/28/21 12/08/21 gabapentin 100 mg capsule 200 mg PO TID 02/28/21 12/08/21 pen needle, diabetic 32 gauge x 02/28/21 10/14/21 (Pentips) sennosides 8.6 mg tablet (senna) 1 tab PO DAILY 02/28/21 12/08/21 amlodipine 10 mg tablet 10 mg PO DAILY 05/21/21 12/08/21 aspirin 81 mg tablet,delayed 81 mg PO DAILY 05/21/21 12/08/21 release atorvastatin 20 mg tablet 20 mg PO DAILY 05/21/21 12/08/21 donepezil 10 mg tablet 10 mg PO DAILY 05/21/21 12/08/21 levothyroxine 150 mcg tablet 150 mcg PO DAILY 05/21/21 12/08/21 metoprolol succinate 50 mg 150 mg PO DAILY 05/21/21 12/08/21 tablet,extended release 24 hr sertraline 50 mg tablet 50 mg PO DAILY 05/21/21 12/08/21 tramadol 50 mg tablet 50 mg PO Q12H PRN 05/21/21 12/08/21 blood sugar diagnostic (FreeStyle 09/14/21 10/14/21 Lite Strips) blood-glucose meter (FreeStyle 09/14/21 10/14/21 [place] Lite) acetaminophen 650 mg 1 tab PO Q8H PRN 12/08/21 12/08/21 tablet,extended release (Pain Relief (acetaminophen)) amitriptyline 10 mg tablet 0.5 tab PO BEDTIME 12/08/21 12/08/21 cholecalciferol (vitamin D3) 50 1 tab PO DAILY 12/08/21 12/08/21 mcg (2,000 unit) tablet docusate sodium 100 mg capsule 100 mg PO BID PRN 12/08/21 12/08/21 dulaglutide 3 mg/0.5 mL 3 mg SUBCUT QWEEK 12/08/21 12/08/21 subcutaneous pen injector ([facility]) fluticasone propionate 50 2 spray INTRANASAL DAILY 12/08/21 12/08/21 mcg/actuation nasal spray,suspension Previous Rx's Medication Instructions Recorded insulin degludec 100 unit/mL (3 15 unit (0.15 mL) SUBCUT DAILY #15 09/29/21 mL) subcutaneous pen (Tresiba ml FlexTouch U-100 insulin) magnesium hydroxide 400 mg/5 mL 5 ml PO DAILY PRN #355 ml 10/22/21 oral suspension (Milk of Magnesia) nitroglycerin 0.4 mg sublingual 0.4 mg SUBLINGUAL Q5M PRN 30 Days 11/02/21 tablet #25 tab Allergies Allergy/AdvReac Type Severity Reaction Status Date / Time No Known Allergies Allergy Verified 11/19/21 10:08 [No Known Allergies*] Review of Systems Review of Systems: Constitutional: No Fever, No Chills ENT/Mouth: No sore throat, No Rhinorrhea, No Swallowing Difficulty Cardiovascular: No Chest Pain, No SOB, No Orthopnea, No Edema Respiratory: No Cough, No Sputum, No Wheezing, No dyspnea Gastrointestinal: No Nausea, No Vomiting, No Diarrhea, No abdominal Pain, No Hematochezia, No Melena Genitourinary: No Dysuria, No Urinary Frequency, No Hematuria Musculoskeletal: No joint pain, + Myalgias Skin: No Skin Lesions, No rash Neuro:+ Weakness, No Numbness, No Dizziness, + Headache Psych: No Anxiety/Panic, No Depression Heme/Lymph: No Bruising, No Lymphadenopathy Endocrine: No Polyuria, No Polydipsia PMFSH Past Medical History Medical History CAD (coronary artery disease) Chest pain Depression Diastolic dysfunction HLD (hyperlipidemia) HTN (hypertension) Hypothyroidism Peptic ulcer disease Postoperative atrial fibrillation Tubular adenoma Type 2 diabetes mellitus with polyneuropathy Surgical History History of esophagogastroduodenoscopy (EGD) Hx of colonoscopy S/P CABG x 3 (~09/2013) Family History Family History Father CVD (cardiovascular disease) Mother No problems noted. Social History Social History Household Members: Children Alcohol intake: never Patient Tobacco Use Status: Never used Tobacco Advance Directives: No Advance Directives Information Provided: Yes Physical Exam Vital Signs: Vital Signs: Last Vital Signs Temp 98.1 F 01/28/22 15:05 Pulse 68 01/28/22 15:05 Resp 16 01/28/22 15:05 BP 136/74 01/28/22 15:05 Pulse Ox 98 01/28/22 15:05 BMI result Body Mass Index 24.0 Appearance: Alert. Oriented X3. No acute distress. Head: normocephalic, small occipital hematoma palpable, tender, no palpable skull fracture. Eyes: Pupils equal, round and reactive to light. ENT: Pharynx normal. No dentition present Neck: Normal inspection. Neck supple. No midline tenderness. CVS: Normal heart rate and rhythm. Pulses normal. Respiratory: No respiratory distress. Breath sounds normal. Abdomen: Soft and nontender. +BS x4 Skin: Skin warm and dry. Normal skin color. Normal skin turgor. No rashes. Extremities: Atraumatic x4, nontender with normal passive ROM Neuro: Oriented X 3. No motor deficit. No sensory deficit. Generalized weakness noted, strength symmetrical and equal throughout. Course Course Course Narrative: 86 y/o female with history of HTN, HLD, heart failure with preserved EF, GERD, diabetes presents to the ER with generalized weakness for the last 3 or 4 days as well as a mechanical fall last night at 22:00. She fell and hit her head but did not lose consciousness. She was on the ground for about 1 hour. She refused transport to the ER at that time. Her weakness persisted so she came to the ER today. She denies any infectious complaints. She states her appetite has been poor. Will check CT head, cervical spine to look for traumatic injuries. She is alert and oriented with nonfocal neuro exam. Reevaluation(s) Reevaluation #1: Labs show no leukocytosis. Chemistry shows baseline CKD. Mild hyperglycemia. CT head and neck without any focal abnormalities or traumatic injuries. Cervical collar was removed. Troponin is mildly elevated at 23 but no shortness of breath or chest pain. Will trend. Urinalysis is still pending. Straight cath ordered. She may have a UTI which is contributing to global weakness. She is in agreement with such physical therapy evaluation, she does not feel safe going home given her inability to safely ambulate around due to her weakness. Reevaluation #2: Urinalysis is very weakly positive for urine tract infection with trace leukocyte esterase, 1-4 wbc's and 2+ bacteria. There is also trace squamous cells concerning for possible contamination. Given patient's generalized weakness however will empirically start treatment with oral Ceftin until urine culture is resulted. If negative will plan to stop abx. She is pending physical therapy evaluation and consult from case management for possible placement. Physician observation started at 16:32. Patient placed in physician observation because patient is awaiting [facility] evaluation for the possible need of inpatient psych admission. At the time observation was started patient's vital signs were stable. Patient is alert and oriented. Neuro exam is non-focal. CV: RRR and lungs are clear. Will continue to monitor. - Fall Lab Data Result diagrams: 01/28/22 13:31 01/28/22 13:31 Labs: Lab Results 01/28/22 01/28/22 01/28/22 Range/Units 13:23 13:31 13:31 WBC 7.7 (4.8-10.8) X10*3/uL RBC 4.62 (4.20-5.50) X10*6/uL Hgb 12.7 (12.0-16.0) g/dl Hct 37.8 (37.0-47.0) % MCV 81.8 (80.0-98.0) fL MCH 27.5 (27.0-33.0) pg MCHC 33.6 (31.0-35.0) g/dl RDW 13.9 (11.0-16.0) % Plt Count 244 (160-400) X10*3/uL MPV 10.0 (9.4-12.3) fL Immature Gran % (Auto) 0.3 (0.0-0.4) % Neut % (Auto) 62.7 (45-73) % Lymph % (Auto) 26.0 (20-40) % King % (Auto) 7.4 (2-11) % Eos % (Auto) 3.0 (0-4) % Baso % (Auto) 0.6 (0-2) % Lymph # (Auto) 2.0 (1.2-4.9) X10*3/uL King # (Auto) 0.6 (0.1-1.2) X10*3/uL Eos # (Auto) 0.2 (0.0-0.4) X10*3/uL Baso # (Auto) 0.1 (0.0-0.2) X10*3/uL Abs Immat Gran (auto) 0.02 (0.00-0.03) X10*3/uL Absolute Neuts (auto) 4.9 (2.0-8.3) x10*3/uL Absolute Nucleated RBC 0.000 (0.0-0.012) X10*3/uL Nucleated RBC % (auto) 0.0 (0.0-0.2) /100WBC PT 12.2 (9.9-13.0) SEC INR 1.1 (0.9-1.1) APTT 31.4 (24.1-38.0) SEC Sodium (135-145) mmol/L Potassium (3.3-5.1) mmol/L Chloride (96-108) mmol/L Carbon Dioxide (22-29) mmol/L Anion Gap (12-20) BUN (9-16) mg/dL Creatinine (0.5-1.4) mg/dL Estim Creat Clear Calc Estimated GFR Random Glucose (60-115) mg/dL Calcium (8.4-10.2) mg/dL Magnesium (1.6-2.6) mg/dL Total Bilirubin (0.0-1.0) mg/dL Direct Bilirubin (0.0-0.5) mg/dL AST (5-31) U/L ALT (0-31) U/L Alkaline Phosphatase (39-117) U/L Total Creatine Kinase (26-140) U/L Troponin I High Sens (<3.5-17.0) ng/L Total Protein (6.5-8.0) g/dL Albumin (3.5-5.0) g/dL TSH (0.32-4.0) uIU/mL Urine Color Urine Appearance Urine pH (5.0-8.0) Ur Specific [place] (1.005-1.025) Urine Protein (NEG-TRACE) MG/DL Urine Glucose (UA) (NEG) MG/DL Urine Ketones (NEG) MG/DL Urine Blood (NEG) Urine Nitrite (NEG) Ur Leukocyte Esterase (NEG) Urine RBC (0) /HPF Urine WBC (0-4) /HPF Ur Squamous Epith Cells /LPF Urine Bacteria /LPF COVID-19 (TEDDY) Negative (Negative) COVID-19 Clin Com See Note 01/28/22 01/28/22 01/28/22 Range/Units 13:31 13:31 13:31 WBC (4.8-10.8) X10*3/uL RBC (4.20-5.50) X10*6/uL Hgb (12.0-16.0) g/dl Hct (37.0-47.0) % MCV (80.0-98.0) fL MCH (27.0-33.0) pg MCHC (31.0-35.0) g/dl RDW (11.0-16.0) % Plt Count (160-400) X10*3/uL MPV (9.4-12.3) fL Immature Gran % (Auto) (0.0-0.4) % Neut % (Auto) (45-73) % Lymph % (Auto) (20-40) % King % (Auto) (2-11) % Eos % (Auto) (0-4) % Baso % (Auto) (0-2) % Lymph # (Auto) (1.2-4.9) X10*3/uL King # (Auto) (0.1-1.2) X10*3/uL Eos # (Auto) (0.0-0.4) X10*3/uL Baso # (Auto) (0.0-0.2) X10*3/uL Abs Immat Gran (auto) (0.00-0.03) X10*3/uL Absolute Neuts (auto) (2.0-8.3) x10*3/uL Absolute Nucleated RBC (0.0-0.012) X10*3/uL Nucleated RBC % (auto) (0.0-0.2) /100WBC PT (9.9-13.0) SEC INR (0.9-1.1) APTT (24.1-38.0) SEC Sodium 134 L (135-145) mmol/L Potassium 4.9 (3.3-5.1) mmol/L Chloride 98 (96-108) mmol/L Carbon Dioxide 27 (22-29) mmol/L Anion Gap 14 (12-20) BUN 24 H (9-16) mg/dL Creatinine 1.54 H (0.5-1.4) mg/dL Estim Creat Clear Calc 22.6 Estimated GFR 32 Random Glucose 281 H (60-115) mg/dL Calcium 10.0 (8.4-10.2) mg/dL Magnesium 2.0 (1.6-2.6) mg/dL Total Bilirubin 0.4 (0.0-1.0) mg/dL Direct Bilirubin < 0.2 (0.0-0.5) mg/dL AST 51 H (5-31) U/L ALT 52 H (0-31) U/L Alkaline Phosphatase 133 H (39-117) U/L Total Creatine Kinase 71 (26-140) U/L Troponin I High Sens 25.3 H (<3.5-17.0) ng/L Total Protein 7.6 (6.5-8.0) g/dL Albumin 4.1 (3.5-5.0) g/dL TSH 1.47 Cancelled (0.32-4.0) uIU/mL Urine Color Urine Appearance Urine pH (5.0-8.0) Ur Specific [place] (1.005-1.025) Urine Protein (NEG-TRACE) MG/DL Urine Glucose (UA) (NEG) MG/DL Urine Ketones (NEG) MG/DL Urine Blood (NEG) Urine Nitrite (NEG) Ur Leukocyte Esterase (NEG) Urine RBC (0) /HPF Urine WBC (0-4) /HPF Ur Squamous Epith Cells /LPF Urine Bacteria /LPF COVID-19 (TEDDY) (Negative) COVID-19 Clin Com 01/28/22 Range/Units 15:40 WBC (4.8-10.8) X10*3/uL RBC (4.20-5.50) X10*6/uL Hgb (12.0-16.0) g/dl Hct (37.0-47.0) % MCV (80.0-98.0) fL MCH (27.0-33.0) pg MCHC (31.0-35.0) g/dl RDW (11.0-16.0) % Plt Count (160-400) X10*3/uL MPV (9.4-12.3) fL Immature Gran % (Auto) (0.0-0.4) % Neut % (Auto) (45-73) % Lymph % (Auto) (20-40) % King % (Auto) (2-11) % Eos % (Auto) (0-4) % Baso % (Auto) (0-2) % Lymph # (Auto) (1.2-4.9) X10*3/uL King # (Auto) (0.1-1.2) X10*3/uL Eos # (Auto) (0.0-0.4) X10*3/uL Baso # (Auto) (0.0-0.2) X10*3/uL Abs Immat Gran (auto) (0.00-0.03) X10*3/uL Absolute Neuts (auto) (2.0-8.3) x10*3/uL Absolute Nucleated RBC (0.0-0.012) X10*3/uL Nucleated RBC % (auto) (0.0-0.2) /100WBC PT (9.9-13.0) SEC INR (0.9-1.1) APTT (24.1-38.0) SEC Sodium (135-145) mmol/L Potassium (3.3-5.1) mmol/L Chloride (96-108) mmol/L Carbon Dioxide (22-29) mmol/L Anion Gap (12-20) BUN (9-16) mg/dL Creatinine (0.5-1.4) mg/dL Estim Creat Clear Calc Estimated GFR Random Glucose (60-115) mg/dL Calcium (8.4-10.2) mg/dL Magnesium (1.6-2.6) mg/dL Total Bilirubin (0.0-1.0) mg/dL Direct Bilirubin (0.0-0.5) mg/dL AST (5-31) U/L ALT (0-31) U/L Alkaline Phosphatase (39-117) U/L Total Creatine Kinase (26-140) U/L Troponin I High Sens (<3.5-17.0) ng/L Total Protein (6.5-8.0) g/dL Albumin (3.5-5.0) g/dL TSH (0.32-4.0) uIU/mL Urine Color YELLOW Urine Appearance CLEAR Urine pH 6.0 (5.0-8.0) Ur Specific [place] 1.010 (1.005-1.025) Urine Protein NEG (NEG-TRACE) MG/DL Urine Glucose (UA) 250 H (NEG) MG/DL Urine Ketones NEG (NEG) MG/DL Urine Blood NEG (NEG) Urine Nitrite NEG (NEG) Ur Leukocyte Esterase TRACE H (NEG) Urine RBC 0-2 (0) /HPF Urine WBC 1-4 (0-4) /HPF Ur Squamous Epith Cells TRACE /LPF Urine Bacteria 2+ /LPF COVID-19 (TEDDY) (Negative) COVID-19 Clin Com Discharge Plan Discharge Clinical Impression: Generalized weakness, Fall Patient Disposition: Still a Patient Prescriptions: No Action nitroglycerin 0.4 mg tablet, sublingual 0.4 mg sublingual Q5M PRN (Reason: chest pain) 30 Days Qty: 25 1RF Rx Instructions: do not exceed 3 doses per episode sennosides [senna] 8.6 mg tablet 1 tab PO DAILY 0RF cetirizine 10 mg tablet 1 tab PO DAILY 0RF gabapentin 100 mg capsule 200 mg PO TID 0RF bupropion HCl 300 mg tablet extended release 24 hr 1 tab PO BEDTIME 0RF (DME) pen needle, diabetic [Pentips] 32 gauge x 5/32 needle MISCELLANEOUS 0RF amlodipine 10 mg tablet 10 mg PO DAILY 0RF aspirin 81 mg tablet,delayed release (DR/EC) 81 mg PO DAILY 0RF atorvastatin 20 mg tablet 20 mg PO DAILY 0RF metoprolol succinate 50 mg tablet extended release 24 hr 150 mg PO DAILY 0RF tramadol 50 mg tablet 50 mg PO Q12H PRN (Reason: severe pain) 0RF sertraline 50 mg tablet 50 mg PO DAILY 0RF levothyroxine 150 mcg tablet 150 mcg PO DAILY 0RF donepezil 10 mg tablet 10 mg PO DAILY 0RF (DME) FreeStyle Lite Strips Strip See Rx Instructions strip MISCELLANEOUS 0RF Rx Instructions: once daily (DME) blood-glucose meter [FreeStyle [place] Lite] Kit See Rx Instructions ea MISCELLANEOUS BID 0RF Rx Instructions: once daily acetaminophen [Pain Relief (acetaminophen)] 650 mg tablet extended release 1 tab PO Q8H PRN (Reason: fever) 0RF amitriptyline 10 mg tablet 0.5 tab PO BEDTIME 0RF fluticasone propionate 50 mcg/actuation spray,suspension 2 spray intranasal DAILY 0RF cholecalciferol (vitamin D3) 50 mcg (2,000 unit) tablet 1 tab PO DAILY 0RF Trulicity 3 mg/0.5 mL pen injector 3 mg subcut QWEEK 0RF docusate sodium 100 mg capsule 100 mg PO BID PRN (Reason: Constipation) 0RF magnesium hydroxide [Milk of Magnesia] 400 mg/5 mL suspension 5 ml PO DAILY PRN (Reason: constipation) Qty: 355 0RF Tresiba FlexTouch U-100 100 unit/mL (3 mL) insulin pen 15 unit subcut DAILY Qty: 15 5RF
[2022-01-28 13:34] LABS: MANUAL DIFF FLAG NO
[2022-01-28 13:37] LABS: Basophils Absolute Auto 0.1 X10*3/uL (0.0-0.2); Basophils Percent Auto 0.6 % (0-2); Eosinophils Absolute Auto 0.2 X10*3/uL (0.0-0.4); Hematocrit 37.8 % (37.0-47.0); Hemoglobin 12.7 g/dl (12.0-16.0); Imm Gran Abs Auto 0.02 X10*3/uL (0.00-0.03); Imm Gran Pct Auto 0.3 % (0.0-0.4); Mean Corpuscular HGB Conc 33.6 g/dl (31.0-35.0); Mean Corpuscular Hemoglobin 27.5 pg (27.0-33.0); Mean Corpuscular Volume 81.8 fL (80.0-98.0); Monocytes Absolute Auto 0.6 X10*3/uL (0.1-1.2); Monocytes Percent Auto 7.4 % (2-11); Neutrophils Absolute Auto 4.9 x10*3/uL (2.0-8.3); Neutrophils Percent Auto 62.7 % (45-73); Platelet Count 244 X10*3/uL (160-400); Red Blood Count 4.62 X10*6/uL (4.20-5.50); Red Cell Distribution Width 13.9 % (11.0-16.0); White Blood Count 7.7 X10*3/uL (4.8-10.8)
[2022-01-28 13:47] LABS: INTERNATIONAL NORM RATIO 1.1 (0.9-1.1); Prothrombin Time 12.2 SEC (9.9-13.0)
[2022-01-28 13:49] LABS: Partial Thromboplastin Time 31.4 SEC (24.1-38.0)
[2022-01-28 13:52] LABS: COVID-19 Test Negative (Negative); IDNOW Serial# 16C4AD1C
[2022-01-28 13:56] LABS: Alanine Aminotransferase 52 U/L (0-31); Albumin Level 4.1 g/dL (3.5-5.0); Alkaline Phosphatase 133 U/L (39-117); Anion Gap 14 (12-20); Aspartate Amino Transferase 51 U/L (5-31); Bilirubin Direct < 0.2 mg/dL (0.0-0.5); Bilirubin Total 0.4 mg/dL (0.0-1.0); Blood Urea Nitrogen 24 mg/dL (9-16); Carbon Dioxide 27 mmol/L (22-29); Chloride 98 mmol/L (96-108); Creatinine Clr Calc Pharmacy 22.6; Estimated Glomerular Filt Rate 32; Glucose Random 281 mg/dL (60-115); Potassium 4.9 mmol/L (3.3-5.1); Sodium 134 mmol/L (135-145); Total Protein 7.6 g/dL (6.5-8.0)
[2022-01-28 13:59] LABS: Troponin-I High Sensitivity 25.3 ng/L (<3.5-17.0)
[2022-01-28 14:16] LABS: TSH reflex Free T4 1.47 uIU/mL (0.32-4.0)
[2022-01-28 15:05] VITALS: BP 136/74; PULSE 68; RESP 16; TEMP 36.7; O2SAT 98
--- NOTE | 2022-01-28 15:41 | PC.NURSE ---
smalll skin breakdown and redness noted to pts L groin area. photograph sent via [employer] to Elif PIMENTEL
[2022-01-28 15:49] LABS: Appearance Urine CLEAR; Color Urine YELLOW; Glucose Urine UA 250 MG/DL (NEG); Leukocyte Esterase Urine TRACE (NEG); Nitrite Urine NEG (NEG); UACC Culture Trigger YES; Urine Blood NEG (NEG); Urine Ketones NEG (NEG); Urine Protein NEG (NEG-TRACE)
[2022-01-28 15:56] LABS: Bacteria Urine 2+ /LPF; RBC Urine 0-2 /HPF (0); Squamous Epithelial Cell Urine TRACE /LPF
--- NOTE | 2022-01-28 16:57 | PC.NURSE ---
Jori Merino ([facility] [facility]) [phone]
[2022-01-28 17:18] LABS: Troponin-I High Sensitivity 23.4 ng/L (<3.5-17.0)
--- NOTE | 2022-01-28 18:33 | PHA.MEDREC ---
Pharmacy Consult ? Medication Reconciliation Pharmacy has completed the medication reconciliation.
[2022-01-28 21:32] VITALS: BP 135/62; PULSE 76; RESP 16; TEMP 36.7; O2SAT 97
--- NOTE | 2022-01-28 21:35 | PC.NURSE ---
nystatin not available in the pyxis and pharmacy called and will bring.
[2022-01-28] MEDS: Nystatin Powder 15 GM BOTTLE 1 APPL TOPICAL (21:58)
[2022-01-29 00:15] VITALS: BP 132/62; PULSE 68; RESP 16; TEMP 36.7; O2SAT 96
[2022-01-29 07:38] LABS: Glucose, Whole Blood 150 mg/dL (60-115)
--- NOTE | 2022-01-29 08:31 | ED_ITS ---
HPI - Fall General Chief Complaint: Fall Stated Complaint: RUIZ,CP,L HIP PAIN S/P FALL LAST NIGHT,+CCOLLAR Time Seen by Provider: 01/28/22 12:57 Source: patient, EMS and old records reviewed Mode of arrival: EMS History of Present Illness Place fall occurred: home Context: tripped/slipped Associated symptoms (after fall): headache, weakness and unable to walk Related Data Home Medications Medication Instructions Recorded Confirmed bupropion HCl 300 mg 24 hr tablet, 1 tab PO DAILY 02/28/21 01/28/22 extended release cetirizine 10 mg tablet 1 tab PO DAILY 02/28/21 01/28/22 gabapentin 100 mg capsule 200 mg PO TID 02/28/21 01/28/22 pen needle, diabetic 32 gauge x 02/28/21 10/14/21 (Pentips) sennosides 8.6 mg tablet (senna) 2 tab PO BEDTIME 02/28/21 01/28/22 aspirin 81 mg tablet,delayed 81 mg PO DAILY 05/21/21 01/28/22 release atorvastatin 20 mg tablet 20 mg PO BEDTIME 05/21/21 01/28/22 donepezil 10 mg tablet 10 mg PO DAILY 05/21/21 01/28/22 levothyroxine 150 mcg tablet 150 mcg PO DAILY@0630 05/21/21 01/28/22 metoprolol succinate 50 mg 150 mg PO DAILY 05/21/21 01/28/22 tablet,extended release 24 hr sertraline 50 mg tablet 50 mg PO DAILY 05/21/21 01/28/22 tramadol 50 mg tablet 50 mg PO Q12H PRN 05/21/21 01/28/22 blood sugar diagnostic (FreeStyle 09/14/21 10/14/21 Lite Strips) blood-glucose meter (FreeStyle 09/14/21 10/14/21 Chantilly Lite) acetaminophen 650 mg 1 tab PO Q8H PRN 12/08/21 01/28/22 tablet,extended release (Pain Relief (acetaminophen)) amitriptyline 10 mg tablet 0.5 tab PO BEDTIME 12/08/21 01/28/22 cholecalciferol (vitamin D3) 50 1 tab PO DAILY 12/08/21 01/28/22 mcg (2,000 unit) tablet docusate sodium 100 mg capsule 100 mg PO BID PRN 12/08/21 01/28/22 dulaglutide 3 mg/0.5 mL 3 mg SUBCUT QWEEK 12/08/21 01/28/22 subcutaneous pen injector (Trulicity) fluticasone propionate 50 2 spray INTRANASAL DAILY 12/08/21 01/28/22 mcg/actuation nasal spray,suspension diclofenac sodium 1 % topical gel 1 ea TOPICAL BID PRN 01/28/22 01/28/22 Previous Rx's Medication Instructions Recorded insulin degludec 100 unit/mL (3 15 unit (0.15 mL) SUBCUT DAILY #15 09/29/21 mL) subcutaneous pen (Tresiba ml FlexTouch U-100 insulin) magnesium hydroxide 400 mg/5 mL 5 ml PO DAILY PRN #355 ml 10/22/21 oral suspension (Milk of Magnesia) nitroglycerin 0.4 mg sublingual 0.4 mg SUBLINGUAL Q5M PRN 30 Days 11/02/21 tablet #25 tab amlodipine 10 mg tablet 10 mg PO DAILY #90 tab 01/29/22 Allergies Allergy/AdvReac Type Severity Reaction Status Date / Time No Known Allergies Allergy Verified 11/19/21 10:08 [No Known Allergies*] [facility] Past Medical History Medical History CAD (coronary artery disease) Chest pain Depression Diastolic dysfunction HLD (hyperlipidemia) HTN (hypertension) Hypothyroidism Peptic ulcer disease Postoperative atrial fibrillation Tubular adenoma Type 2 diabetes mellitus with polyneuropathy Surgical History History of esophagogastroduodenoscopy (EGD) Hx of colonoscopy S/P CABG x 3 (~09/2013) Family History Family History Father CVD (cardiovascular disease) Mother No problems noted. Social History Social History Household Members: Children Alcohol intake: never Patient Tobacco Use Status: Never used Tobacco Advance Directives: Yes Advance Directives on File: Yes Advance Directives Date on File: 01/29/22 Physical Exam Vital Signs: Vital Signs: Last Vital Signs Temp 98.1 F 01/29/22 00:15 Pulse 74 01/29/22 12:00 Resp 17 01/29/22 12:00 BP 120/74 01/29/22 12:00 Pulse Ox 98 01/29/22 12:00 BMI result Body Mass Index 24.0 fall Lab Data Result diagrams: 01/28/22 13:31 01/28/22 13:31 Labs: Lab Results 01/28/22 01/28/22 01/28/22 Range/Units 13:23 13:31 13:31 WBC 7.7 (4.8-10.8) X10*3/uL RBC 4.62 (4.20-5.50) X10*6/uL Hgb 12.7 (12.0-16.0) g/dl Hct 37.8 (37.0-47.0) % MCV 81.8 (80.0-98.0) fL MCH 27.5 (27.0-33.0) pg MCHC 33.6 (31.0-35.0) g/dl RDW 13.9 (11.0-16.0) % Plt Count 244 (160-400) X10*3/uL MPV 10.0 (9.4-12.3) fL Immature Gran % (Auto) 0.3 (0.0-0.4) % Neut % (Auto) 62.7 (45-73) % Lymph % (Auto) 26.0 (20-40) % [place] % (Auto) 7.4 (2-11) % Eos % (Auto) 3.0 (0-4) % Baso % (Auto) 0.6 (0-2) % Lymph # (Auto) 2.0 (1.2-4.9) X10*3/uL [place] # (Auto) 0.6 (0.1-1.2) X10*3/uL Eos # (Auto) 0.2 (0.0-0.4) X10*3/uL Baso # (Auto) 0.1 (0.0-0.2) X10*3/uL Abs Immat Gran (auto) 0.02 (0.00-0.03) X10*3/uL Absolute Neuts (auto) 4.9 (2.0-8.3) x10*3/uL Absolute Nucleated RBC 0.000 (0.0-0.012) X10*3/uL Nucleated RBC % (auto) 0.0 (0.0-0.2) /100WBC PT 12.2 (9.9-13.0) SEC INR 1.1 (0.9-1.1) APTT 31.4 (24.1-38.0) SEC Sodium (135-145) mmol/L Potassium (3.3-5.1) mmol/L Chloride (96-108) mmol/L Carbon Dioxide (22-29) mmol/L Anion Gap (12-20) BUN (9-16) mg/dL Creatinine (0.5-1.4) mg/dL Estim Creat Clear Calc Estimated GFR POC Glucose (60-115) mg/dL Random Glucose (60-115) mg/dL Calcium (8.4-10.2) mg/dL Magnesium (1.6-2.6) mg/dL Total Bilirubin (0.0-1.0) mg/dL Direct Bilirubin (0.0-0.5) mg/dL AST (5-31) U/L ALT (0-31) U/L Alkaline Phosphatase (39-117) U/L Total Creatine Kinase (26-140) U/L Troponin I High Sens (<3.5-17.0) ng/L Total Protein (6.5-8.0) g/dL Albumin (3.5-5.0) g/dL TSH (0.32-4.0) uIU/mL Urine Color Urine Appearance Urine pH (5.0-8.0) Ur Specific [place] (1.005-1.025) Urine Protein (NEG-TRACE) MG/DL Urine Glucose (UA) (NEG) MG/DL Urine Ketones (NEG) MG/DL Urine Blood (NEG) Urine Nitrite (NEG) Ur Leukocyte Esterase (NEG) Urine RBC (0) /HPF Urine WBC (0-4) /HPF Ur Squamous Epith Cells /LPF Urine Bacteria /LPF COVID-19 (TEDDY) Negative (Negative) COVID-19 Clin Com See Note 01/28/22 01/28/22 01/28/22 Range/Units 13:31 13:31 13:31 WBC (4.8-10.8) X10*3/uL RBC (4.20-5.50) X10*6/uL Hgb (12.0-16.0) g/dl Hct (37.0-47.0) % MCV (80.0-98.0) fL MCH (27.0-33.0) pg MCHC (31.0-35.0) g/dl RDW (11.0-16.0) % Plt Count (160-400) X10*3/uL MPV (9.4-12.3) fL Immature Gran % (Auto) (0.0-0.4) % Neut % (Auto) (45-73) % Lymph % (Auto) (20-40) % [place] % (Auto) (2-11) % Eos % (Auto) (0-4) % Baso % (Auto) (0-2) % Lymph # (Auto) (1.2-4.9) X10*3/uL [place] # (Auto) (0.1-1.2) X10*3/uL Eos # (Auto) (0.0-0.4) X10*3/uL Baso # (Auto) (0.0-0.2) X10*3/uL Abs Immat Gran (auto) (0.00-0.03) X10*3/uL Absolute Neuts (auto) (2.0-8.3) x10*3/uL Absolute Nucleated RBC (0.0-0.012) X10*3/uL Nucleated RBC % (auto) (0.0-0.2) /100WBC PT (9.9-13.0) SEC INR (0.9-1.1) APTT (24.1-38.0) SEC Sodium 134 L (135-145) mmol/L Potassium 4.9 (3.3-5.1) mmol/L Chloride 98 (96-108) mmol/L Carbon Dioxide 27 (22-29) mmol/L Anion Gap 14 (12-20) BUN 24 H (9-16) mg/dL Creatinine 1.54 H (0.5-1.4) mg/dL Estim Creat Clear Calc 22.6 Estimated GFR 32 POC Glucose (60-115) mg/dL Random Glucose 281 H (60-115) mg/dL Calcium 10.0 (8.4-10.2) mg/dL Magnesium 2.0 (1.6-2.6) mg/dL Total Bilirubin 0.4 (0.0-1.0) mg/dL Direct Bilirubin < 0.2 (0.0-0.5) mg/dL AST 51 H (5-31) U/L ALT 52 H (0-31) U/L Alkaline Phosphatase 133 H (39-117) U/L Total Creatine Kinase 71 (26-140) U/L Troponin I High Sens 25.3 H (<3.5-17.0) ng/L Total Protein 7.6 (6.5-8.0) g/dL Albumin 4.1 (3.5-5.0) g/dL TSH 1.47 Cancelled (0.32-4.0) uIU/mL Urine Color Urine Appearance Urine pH (5.0-8.0) Ur Specific [place] (1.005-1.025) Urine Protein (NEG-TRACE) MG/DL Urine Glucose (UA) (NEG) MG/DL Urine Ketones (NEG) MG/DL Urine Blood (NEG) Urine Nitrite (NEG) Ur Leukocyte Esterase (NEG) Urine RBC (0) /HPF Urine WBC (0-4) /HPF Ur Squamous Epith Cells /LPF Urine Bacteria /LPF COVID-19 (TEDDY) (Negative) COVID-19 Clin Com 01/28/22 01/28/22 01/29/22 Range/Units 15:40 16:37 07:32 WBC (4.8-10.8) X10*3/uL RBC (4.20-5.50) X10*6/uL Hgb (12.0-16.0) g/dl Hct (37.0-47.0) % MCV (80.0-98.0) fL MCH (27.0-33.0) pg MCHC (31.0-35.0) g/dl RDW (11.0-16.0) % Plt Count (160-400) X10*3/uL MPV (9.4-12.3) fL Immature Gran % (Auto) (0.0-0.4) % Neut % (Auto) (45-73) % Lymph % (Auto) (20-40) % [place] % (Auto) (2-11) % Eos % (Auto) (0-4) % Baso % (Auto) (0-2) % Lymph # (Auto) (1.2-4.9) X10*3/uL [place] # (Auto) (0.1-1.2) X10*3/uL Eos # (Auto) (0.0-0.4) X10*3/uL Baso # (Auto) (0.0-0.2) X10*3/uL Abs Immat Gran (auto) (0.00-0.03) X10*3/uL Absolute Neuts (auto) (2.0-8.3) x10*3/uL Absolute Nucleated RBC (0.0-0.012) X10*3/uL Nucleated RBC % (auto) (0.0-0.2) /100WBC PT (9.9-13.0) SEC INR (0.9-1.1) APTT (24.1-38.0) SEC Sodium (135-145) mmol/L Potassium (3.3-5.1) mmol/L Chloride (96-108) mmol/L Carbon Dioxide (22-29) mmol/L Anion Gap (12-20) BUN (9-16) mg/dL Creatinine (0.5-1.4) mg/dL Estim Creat Clear Calc Estimated GFR POC Glucose 150 H (60-115) mg/dL Random Glucose (60-115) mg/dL Calcium (8.4-10.2) mg/dL Magnesium (1.6-2.6) mg/dL Total Bilirubin (0.0-1.0) mg/dL Direct Bilirubin (0.0-0.5) mg/dL AST (5-31) U/L ALT (0-31) U/L Alkaline Phosphatase (39-117) U/L Total Creatine Kinase (26-140) U/L Troponin I High Sens 23.4 H (<3.5-17.0) ng/L Total Protein (6.5-8.0) g/dL Albumin (3.5-5.0) g/dL TSH (0.32-4.0) uIU/mL Urine Color YELLOW Urine Appearance CLEAR Urine pH 6.0 (5.0-8.0) Ur Specific [place] 1.010 (1.005-1.025) Urine Protein NEG (NEG-TRACE) MG/DL Urine Glucose (UA) 250 H (NEG) MG/DL Urine Ketones NEG (NEG) MG/DL Urine Blood NEG (NEG) Urine Nitrite NEG (NEG) Ur Leukocyte Esterase TRACE H (NEG) Urine RBC 0-2 (0) /HPF Urine WBC 1-4 (0-4) /HPF Ur Squamous Epith Cells TRACE /LPF Urine Bacteria 2+ /LPF COVID-19 (TEDDY) (Negative) COVID-19 Clin Com 01/29/22 Range/Units 13:46 WBC (4.8-10.8) X10*3/uL RBC (4.20-5.50) X10*6/uL Hgb (12.0-16.0) g/dl Hct (37.0-47.0) % MCV (80.0-98.0) fL MCH (27.0-33.0) pg MCHC (31.0-35.0) g/dl RDW (11.0-16.0) % Plt Count (160-400) X10*3/uL MPV (9.4-12.3) fL Immature Gran % (Auto) (0.0-0.4) % Neut % (Auto) (45-73) % Lymph % (Auto) (20-40) % [place] % (Auto) (2-11) % Eos % (Auto) (0-4) % Baso % (Auto) (0-2) % Lymph # (Auto) (1.2-4.9) X10*3/uL [place] # (Auto) (0.1-1.2) X10*3/uL Eos # (Auto) (0.0-0.4) X10*3/uL Baso # (Auto) (0.0-0.2) X10*3/uL Abs Immat Gran (auto) (0.00-0.03) X10*3/uL Absolute Neuts (auto) (2.0-8.3) x10*3/uL Absolute Nucleated RBC (0.0-0.012) X10*3/uL Nucleated RBC % (auto) (0.0-0.2) /100WBC PT (9.9-13.0) SEC INR (0.9-1.1) APTT (24.1-38.0) SEC Sodium (135-145) mmol/L Potassium (3.3-5.1) mmol/L Chloride (96-108) mmol/L Carbon Dioxide (22-29) mmol/L Anion Gap (12-20) BUN (9-16) mg/dL Creatinine (0.5-1.4) mg/dL Estim Creat Clear Calc Estimated GFR POC Glucose 153 H (60-115) mg/dL Random Glucose (60-115) mg/dL Calcium (8.4-10.2) mg/dL Magnesium (1.6-2.6) mg/dL Total Bilirubin (0.0-1.0) mg/dL Direct Bilirubin (0.0-0.5) mg/dL AST (5-31) U/L ALT (0-31) U/L Alkaline Phosphatase (39-117) U/L Total Creatine Kinase (26-140) U/L Troponin I High Sens (<3.5-17.0) ng/L Total Protein (6.5-8.0) g/dL Albumin (3.5-5.0) g/dL TSH (0.32-4.0) uIU/mL Urine Color Urine Appearance Urine pH (5.0-8.0) Ur Specific [place] (1.005-1.025) Urine Protein (NEG-TRACE) MG/DL Urine Glucose (UA) (NEG) MG/DL Urine Ketones (NEG) MG/DL Urine Blood (NEG) Urine Nitrite (NEG) Ur Leukocyte Esterase (NEG) Urine RBC (0) /HPF Urine WBC (0-4) /HPF Ur Squamous Epith Cells /LPF Urine Bacteria /LPF COVID-19 (TEDDY) (Negative) COVID-19 Clin Com Discharge Plan Discharge Clinical Impression: Generalized weakness, Fall Patient Disposition: Home, Self-Care Prescriptions: No [facility] nitroglycerin 0.4 mg tablet, sublingual 0.4 mg sublingual Q5M PRN (Reason: chest pain) 30 Days Qty: 25 1RF Rx Instructions: do not exceed 3 doses per episode amlodipine 10 mg tablet 10 mg PO DAILY Qty: 90 0RF Rx Instructions: Must call cardiology for follow-up. sennosides [senna] 8.6 mg tablet 2 tab PO BEDTIME 0RF cetirizine 10 mg tablet 1 tab PO DAILY 0RF gabapentin 100 mg capsule 200 mg PO TID 0RF bupropion HCl 300 mg tablet extended release 24 hr 1 tab PO DAILY 0RF (DME) pen needle, diabetic [Pentips] 32 gauge x 5/32 needle MISCELLANEOUS 0RF aspirin 81 mg tablet,delayed release (DR/EC) 81 mg PO DAILY 0RF atorvastatin 20 mg tablet 20 mg PO BEDTIME 0RF metoprolol succinate 50 mg tablet extended release 24 hr 150 mg PO DAILY 0RF tramadol 50 mg tablet 50 mg PO Q12H PRN (Reason: severe pain) 0RF sertraline 50 mg tablet 50 mg PO DAILY 0RF levothyroxine 150 mcg tablet 150 mcg PO DAILY@0630 0RF donepezil 10 mg tablet 10 mg PO DAILY 0RF (DME) FreeStyle Lite Strips Strip See Rx Instructions strip MISCELLANEOUS 0RF Rx Instructions: once daily (DME) blood-glucose meter [FreeStyle Chantilly Lite] Kit See Rx Instructions ea MISCELLANEOUS BID 0RF Rx Instructions: once daily acetaminophen [Pain Relief (acetaminophen)] 650 mg tablet extended release 1 tab PO Q8H PRN (Reason: Pain) 0RF amitriptyline 10 mg tablet 0.5 tab PO BEDTIME 0RF fluticasone propionate 50 mcg/actuation spray,suspension 2 spray intranasal DAILY 0RF cholecalciferol (vitamin D3) 50 mcg (2,000 unit) tablet 1 tab PO DAILY 0RF Trulicity 3 mg/0.5 mL pen injector 3 mg subcut QWEEK 0RF docusate sodium 100 mg capsule 100 mg PO BID PRN (Reason: Constipation) 0RF magnesium hydroxide [Milk of Magnesia] 400 mg/5 mL suspension 5 ml PO DAILY PRN (Reason: constipation) Qty: 355 0RF diclofenac sodium 1 % gel 1 ea topical BID PRN (Reason: Pain (Scale Score 1-3)) 0RF Tresiba FlexTouch U-100 100 unit/mL (3 mL) insulin pen 15 unit subcut DAILY Qty: 15 5RF Referrals: [facility] [Outside] - 2 days Print Language: Romanian
[2022-01-29 08:56] VITALS: BP 132/62; PULSE 68; O2SAT 96
[2022-01-29] MEDS: Nystatin Powder 15 GM BOTTLE 1 APPL TOPICAL ×2 (09:02→21:05)
[2022-01-29 09:43] VITALS: BP 133/75; PULSE 90; O2SAT 97
[2022-01-29] MEDS: Gabapentin 100 MG CAPSULE 200 MG PO ×3 (09:44→21:02)
[2022-01-29] MEDS: Cholecalciferol (Vitamin D3) 25 MCG TABLET 50 MCG PO (09:44)
[2022-01-29] MEDS: Insulin Glargine,Hum.rec.anlog 100 UNIT/ML 10 ML VIAL 12 UNIT SUBCUT (09:44)
[2022-01-29] MEDS: Donepezil HCl 10 MG TABLET PO (09:45)
[2022-01-29] MEDS: Aspirin Enteric Coated 81 MG TABLET.DR PO (09:45)
[2022-01-29] MEDS: Sertraline HCL 50 MG TABLET PO (09:45)
[2022-01-29] MEDS: Loratadine 10 MG TABLET PO (09:45)
[2022-01-29] MEDS: amLODIPine Besylate 10 MG TABLET PO (09:45)
[2022-01-29] MEDS: Levothyroxine Sodium 150 MCG TABLET PO (09:45)
[2022-01-29] MEDS: Metoprolol Succinate ER 50 MG TAB.ER.24H PO (09:45)
[2022-01-29] MEDS: Fluticasone Propionate Nasal 16 GM SPRAY 2 SPRAY NOSTRIL-B (09:46)
[2022-01-29] MEDS: buPROPion HCl XL 300 MG TAB.ER.24H PO (09:48)
--- NOTE | 2022-01-29 09:58 | PC.NURSE ---
pt requesting to use bedpan. stayed on bed quinones for about 20 min per pts request. she reported not being able to urinate. reported pain in her lower abdomen. pt able to urinate a small amount in bedpan however still reporting bladder discomfort, LOREN Maza made aware, informed we will bladder scan. bladder scan >999. order for straight cath and CT abdomen to determine retention..
[2022-01-29] MEDS: Docusate Sodium 100 MG CAPSULE PO (10:00)
[2022-01-29] MEDS: Milk of Magnesia 30 ML ORAL.SUSP 5 ML PO (10:00)
[2022-01-29] MEDS: 0.9 % Sodium Chloride 1,000 ML 999 ML IVCONT (10:01)
--- NOTE | 2022-01-29 10:17 | PC.NURSE ---
straight cath removed with 900cc urine pt reports feeling relief at this time.
[2022-01-29 12:00] VITALS: BP 120/74; PULSE 74; RESP 17; O2SAT 98
--- NOTE | 2022-01-29 12:12 | MHC.CM.ED ---
Addendum entered by Senia Reyes 01/29/22 12:57: [facility] is able to offer a bed. Patient accepts bed. [facility] will go for ins auth. Original Note: Received case management consult from Elif PIMENTEL. Patient came to the ER after a fall. Work up essentially negative. Physical therapy eval compelted. Short term rehab is recommended. PCP verified. Patient received 2 Moderna vaccines. Patient has been to [facility] in the past and does not want to return there. Patient wants to stay local and requesting referral to [facility]. Referral made but facility doesn't have a bed at this time. Referral sent to [facility], [facility] and [facility]. [facility] does not have a bed.[facility] has a bed at their [facility]. Still waiting to hear from [facility]. Continue to monitor for d/c needs.
[2022-01-29 13:53] LABS: Glucose, Whole Blood 153 mg/dL (60-115)
--- NOTE | 2022-01-29 15:16 | MHC.CM.ED ---
Insurance auth has been obtained by [facility]. Patient can leave at 6pm. [facility] booked. Med nec with chart. Patient, Joann MILLER and Compa PIMENTEL aware. Continue to monitor for d/c needs.
--- NOTE | 2022-01-29 18:40 | PC.NURSE ---
report called to [facility]
[2022-01-29 19:59] VITALS: BP 147/73; PULSE 73; RESP 16; O2SAT 96
--- NOTE | 2022-01-29 20:08 | PC.NURSE ---
small abraision to posterior head noted. pt states no pain
[2022-01-29] MEDS: Atorvastatin Calcium 20 MG TABLET PO (21:02)
[2022-01-29] MEDS: Sennosides 8.6 MG TABLET 17.2 MG PO (21:02)
[2022-01-29 21:17] VITALS: BP 142/75; PULSE 73; RESP 16; TEMP 36.7; O2SAT 97
== END 2022-01-29 21:37 | disposition home or self-care (01) ==
PROVIDERS: Physician Assistant; Emergency Provider Emergency Medicine; PCP Family Medicine
DX: R53.1 Weakness (principal); E11.65 Type 2 diabetes mellitus with hyperglycemia; I11.0 Hypertensive heart disease with heart failure; I50.30 Unspecified diastolic (congestive) heart failure; Z91.81 History of falling; Z20.822 Contact with and (suspected) exposure to COVID-19
CPT/HCPCS: 36415; 70450; 71250; 72125; 74176; 80048; 80076; 81001; 82550; 82947; 83735; 84443; 84484; 85025; 85610; 85730; 87086; 87147; 87635; 93005; 96360; 97162; 99285

== ENCOUNTER 2022-02-26 10:18 | Emergency (ER) | payer OTHER, SELFPAY ==
[2022-02-26 10:28] VITALS: BP 138/72; BP 97/56; PULSE 70; PULSE 72; RESP 16; TEMP 36.9; O2SAT 95; O2SAT 96; BMI 234.6
--- NOTE | 2022-02-26 11:18 | ED_ITS ---
HPI - Female Genitourinary General Chief complaint: Urogenital-Female Stated complaint: ?uti Time Seen by Provider: 02/26/22 11:11 Source: patient Mode of arrival: ambulatory Limitations: no limitations History of Present Illness HPI Narrative: Patient comes to emergency room complaining of Woo catheter dysfunction. Patient states that her Woo catheter that was inserted 4 days ago, stop working yesterday. Patient states her abdomen in the suprapubic area is distended and painful. Patient denies hematuria, no flank pain, no fever chills Related Data Home Medications Medication Instructions Recorded Confirmed bupropion HCl 300 mg 24 hr tablet, 1 tab PO DAILY 02/28/21 01/28/22 extended release cetirizine 10 mg tablet 1 tab PO DAILY 02/28/21 01/28/22 gabapentin 100 mg capsule 200 mg PO TID 02/28/21 01/28/22 pen needle, diabetic 32 gauge x 02/28/21 10/14/21 5/32 (Pentips) sennosides 8.6 mg tablet (senna) 2 tab PO BEDTIME 02/28/21 01/28/22 aspirin 81 mg tablet,delayed 81 mg PO DAILY 05/21/21 01/28/22 release atorvastatin 20 mg tablet 20 mg PO BEDTIME 05/21/21 01/28/22 donepezil 10 mg tablet 10 mg PO DAILY 05/21/21 01/28/22 levothyroxine 150 mcg tablet 150 mcg PO DAILY@0630 05/21/21 01/28/22 metoprolol succinate 50 mg 150 mg PO DAILY 05/21/21 01/28/22 tablet,extended release 24 hr sertraline 50 mg tablet 50 mg PO DAILY 05/21/21 01/28/22 tramadol 50 mg tablet 50 mg PO Q12H PRN 05/21/21 01/28/22 blood sugar diagnostic (FreeStyle 09/14/21 10/14/21 Lite Strips) blood-glucose meter (FreeStyle 09/14/21 10/14/21 [place] Lite) acetaminophen 650 mg 1 tab PO Q8H PRN 12/08/21 01/28/22 tablet,extended release (Pain Relief (acetaminophen)) amitriptyline 10 mg tablet 0.5 tab PO BEDTIME 12/08/21 01/28/22 cholecalciferol (vitamin D3) 50 1 tab PO DAILY 12/08/21 01/28/22 mcg (2,000 unit) tablet docusate sodium 100 mg capsule 100 mg PO BID PRN 12/08/21 01/28/22 dulaglutide 3 mg/0.5 mL 3 mg SUBCUT QWEEK 12/08/21 01/28/22 subcutaneous pen injector (Trulicity) fluticasone propionate 50 2 spray INTRANASAL DAILY 12/08/21 01/28/22 mcg/actuation nasal spray,suspension diclofenac sodium 1 % topical gel 1 ea TOPICAL BID PRN 01/28/22 01/28/22 Previous Rx's Medication Instructions Recorded insulin degludec 100 unit/mL (3 15 unit (0.15 mL) SUBCUT DAILY #15 09/29/21 mL) subcutaneous pen (Tresiba ml FlexTouch U-100 insulin) magnesium hydroxide 400 mg/5 mL 5 ml PO DAILY PRN #355 ml 10/22/21 oral suspension (Milk of Magnesia) nitroglycerin 0.4 mg sublingual 0.4 mg SUBLINGUAL Q5M PRN 30 Days 11/02/21 tablet #25 tab amlodipine 10 mg tablet 10 mg PO DAILY #90 tab 01/29/22 cefuroxime axetil 250 mg tablet 250 mg PO BID 7 Days #14 tab 01/29/22 gabapentin 100 mg capsule 200 mg PO TID #60 cap 01/29/22 tramadol 50 mg tablet 50 mg PO Q12H PRN #60 tab 01/29/22 cefuroxime axetil 500 mg tablet 500 mg PO BID #14 tab 02/26/22 Allergies Allergy/AdvReac Type Severity Reaction Status Date / Time No Known Allergies Allergy Verified 11/19/21 10:08 [No Known Allergies*] Review of Systems Review of Systems: Constitutional : No Weight loss, No Fever, No Chills, No Night Sweats, No Fatigue, No Malaise ENT/Mouth : No Hearing loss, No Ear Pain, No Nasal Congestion, No Sinus Pain, No Hoarseness, No sore throat, No Rhinorrhea, No Swallowing Difficulty Eyes: No Eye Pain, No Swelling, No Redness, No Foreign Body, No Discharge, No Vision Changes Cardiovascular : No Chest Pain, No SOB, No Dyspnea on Exertion, No Orthopnea, No Edema, No Palpitations Respiratory : No Cough, No Sputum, No Wheezing, No Smoke Exposure, No Dyspnea Gastrointestinal : No Nausea, No Vomiting, No Diarrhea, No Constipation, No abdominal Pain, No Hematochezia, No Melena Genitourinary : Complaining of Woo catheter malfunction, not draining, complaining of suprapubic distension Musculoskeletal : No joint pain, No Myalgias, No Joint Swelling Skin : No Skin Lesions, No rash Neuro : No Weakness, No Numbness, No Paresthesias, No Loss of Consciousness, No Dizziness, No Headache Psych : No Anxiety/Panic, No Depression, No SI/HI/AH/VH, No Social Issues, Heme/Lymph: No Bruising, No Bleeding,No Lymphadenopathy Endocrine : No Polyuria, No Polydipsia, No Temperature Intolerance [facility] Past Medical History Medical History CAD (coronary artery disease) Chest pain Depression Diastolic dysfunction HLD (hyperlipidemia) HTN (hypertension) Hypothyroidism Peptic ulcer disease Postoperative atrial fibrillation Tubular adenoma Type 2 diabetes mellitus with polyneuropathy Surgical History History of esophagogastroduodenoscopy (EGD) Hx of colonoscopy S/P CABG x 3 (~09/2013) Family History Family History Father CVD (cardiovascular disease) Mother No problems noted. Social History Social History Household Members: Children Alcohol intake: never Patient Tobacco Use Status: Never used Tobacco Advance Directives: Yes Advance Directives on File: Yes Advance Directives Date on File: 01/29/22 Physical Exam Vital Signs: Vital Signs: Last Vital Signs Temp 98.5 F 02/26/22 10:28 Pulse 66 02/26/22 12:24 Resp 16 02/26/22 12:24 BP 133/64 02/26/22 12:24 Pulse Ox 97 02/26/22 12:24 BMI result Body Mass Index 234.6 Const: Other: Appearance: Alert. Oriented X3. No acute distress. Eyes: Pupils equal, round and reactive to light. ENT: Pharynx normal. Neck: Normal inspection. Neck supple. No lymph nodes noted. No crepitus CVS: Normal heart rate and rhythm. Pulses normal. Normal S1 and S2 Respiratory: No respiratory distress. Breath sounds normal. No Wheezing. No rales Abdomen: Soft , discomfort to palpation in suprapubic area, bladder scan shows over 900 mL of urine Skin: Skin warm and dry. Normal skin color. Normal skin turgor. Extremities: No lower extremity edema. No Lacerations. No Rash Neuro: Oriented X 3. No motor deficit. No sensory deficit. Moving all extremities. No slurred speech. CN 2 through 12 grossly intact Psych: calm, cooperative, normal affect Course Course Course Narrative: Bladder scan shows Rinne elham retention, greater than 900 mL of urine we will replace the Woo catheter. The Woo catheter was replaced, the urine drained. Patient states she feels much better. UA is positive for UTI. Patient does not have any flank pain, no longer having abdominal pain, no fever chills, vitals are stable. Patient was given 1 dose of IM ceftriaxone, patient will continue with p.o. cephalosporins MDM - Female Genitourinary Lab Data Labs: Lab Results 02/26/22 Range/Units 12:24 Urine Color YELLOW Urine Appearance CLOUDY Urine pH >= 9.0 H (5.0-8.0) Ur Specific [place] 1.010 (1.005-1.025) Urine Protein 1+ H (NEG-TRACE) MG/DL Urine Glucose (UA) NEG (NEG) MG/DL Urine Ketones NEG (NEG) MG/DL Urine Blood NEG (NEG) Urine Nitrite NEG (NEG) Ur Leukocyte Esterase 3+ H (NEG) Urine RBC 0 (0) /HPF Urine WBC 5-9 H (0-4) /HPF Ur Squamous Epith Cells NONE /LPF Triple Phos Crystals 1+ /LPF Amorphous Sediment 1+ /LPF Urine Bacteria 3+ /LPF Discharge Plan Discharge Clinical Impression: Acute urinary retention, Acute UTI Patient Disposition: Home, Self-Care Instructions: Woo Catheter Placement and Care (ED), Chronic Urinary Retention in Women (ED), Urinary Tract Infection in Older Adults (ED) Additional Instructions: Please follow-up with your primary care physician tomorrow. If you have any worsening or new symptoms, please return to the emergency room or call 911 Prescriptions: New cefuroxime axetil 500 mg tablet 500 mg PO BID Qty: 14 0RF No Action nitroglycerin 0.4 mg tablet, sublingual 0.4 mg sublingual Q5M PRN (Reason: chest pain) 30 Days Qty: 25 1RF Rx Instructions: do not exceed 3 doses per episode amlodipine 10 mg tablet 10 mg PO DAILY Qty: 90 0RF Rx Instructions: Must call cardiology for follow-up. sennosides [senna] 8.6 mg tablet 2 tab PO BEDTIME 0RF cetirizine 10 mg tablet 1 tab PO DAILY 0RF gabapentin 100 mg capsule 200 mg PO TID 0RF bupropion HCl 300 mg tablet extended release 24 hr 1 tab PO DAILY 0RF (DME) pen needle, diabetic [Pentips] 32 gauge x 5/32 needle MISCELLANEOUS 0RF aspirin 81 mg tablet,delayed release (DR/EC) 81 mg PO DAILY 0RF atorvastatin 20 mg tablet 20 mg PO BEDTIME 0RF metoprolol succinate 50 mg tablet extended release 24 hr 150 mg PO DAILY 0RF tramadol 50 mg tablet 50 mg PO Q12H PRN (Reason: severe pain) 0RF sertraline 50 mg tablet 50 mg PO DAILY 0RF levothyroxine 150 mcg tablet 150 mcg PO DAILY@0630 0RF donepezil 10 mg tablet 10 mg PO DAILY 0RF (DME) FreeStyle Lite Strips Strip See Rx Instructions strip MISCELLANEOUS 0RF Rx Instructions: once daily (DME) blood-glucose meter [FreeStyle [place] Lite] Kit See Rx Instructions ea MISCELLANEOUS BID 0RF Rx Instructions: once daily acetaminophen [Pain Relief (acetaminophen)] 650 mg tablet extended release 1 tab PO Q8H PRN (Reason: Pain) 0RF amitriptyline 10 mg tablet 0.5 tab PO BEDTIME 0RF fluticasone propionate 50 mcg/actuation spray,suspension 2 spray intranasal DAILY 0RF cholecalciferol (vitamin D3) 50 mcg (2,000 unit) tablet 1 tab PO DAILY 0RF Trulicity 3 mg/0.5 mL pen injector 3 mg subcut QWEEK 0RF docusate sodium 100 mg capsule 100 mg PO BID PRN (Reason: Constipation) 0RF magnesium hydroxide [Milk of Magnesia] 400 mg/5 mL suspension 5 ml PO DAILY PRN (Reason: constipation) Qty: 355 0RF diclofenac sodium 1 % gel 1 ea topical BID PRN (Reason: Pain (Scale Score 1-3)) 0RF cefuroxime axetil 250 mg tablet 250 mg PO BID 7 Days Qty: 14 0RF gabapentin 100 mg capsule 200 mg PO TID Qty: 60 0RF tramadol 50 mg tablet 50 mg PO Q12H PRN (Reason: pain) Qty: 60 0RF Tresiba FlexTouch U-100 100 unit/mL (3 mL) insulin pen 15 unit subcut DAILY Qty: 15 5RF
[2022-02-26 12:24] VITALS: BP 133/64; PULSE 66; RESP 16; O2SAT 97
[2022-02-26 12:39] LABS: Appearance Urine CLOUDY; Color Urine YELLOW; Glucose Urine UA NEG (NEG); Leukocyte Esterase Urine 3+ (NEG); Nitrite Urine NEG (NEG); PH >= 9.0 (5.0-8.0); UACC Culture Trigger YES; Urine Blood NEG (NEG); Urine Ketones NEG (NEG)
[2022-02-26 12:41] LABS: Urine Protein 1+ MG/DL (NEG-TRACE)
[2022-02-26 13:00] LABS: Bacteria Urine 3+ /LPF; RBC Urine 0 /HPF (0)
[2022-02-26 13:01] LABS: Amorphous Sediment Urine 1+ /LPF; Triple Phosphate Crystal Urine 1+ /LPF
[2022-02-26 14:43] VITALS: BP 142/66; PULSE 67; RESP 15; TEMP 36.4; O2SAT 96
== END 2022-02-26 15:35 | disposition home or self-care (01) ==
PROVIDERS: Emergency Provider Emergency Medicine; PCP Family Medicine
DX: R33.9 Retention of urine, unspecified (principal); N39.0 Urinary tract infection, site not specified; Z79.899 Other long term (current) drug therapy
CPT/HCPCS: 51798; 81001; 87086; 87088; 87186; 96372; 99284; J0696

== ENCOUNTER → 2022-03-12 10:38 | Outpatient (BNVA) | payer OTHER, SELFPAY | PROVIDERS: PCP Family Medicine; Visit Provider Urology | DX: R33.9 Retention of urine, unspecified (principal) | CPT/HCPCS: 51700; 51798 ==

== ENCOUNTER 2022-03-29 07:29 | Emergency (ER) | payer OTHER, SELFPAY ==
--- NOTE | ~2022-03-29 | XR_ITS ---
EXAMINATION: XR CHEST CLINICAL INFORMATION: Cough and change in mental status. COMPARISON: Chest done on 12/08/2021 and 10/28/2007. TECHNIQUE: Frontal view of the chest was obtained. FINDINGS: Asymmetric elevation of the right hemidiaphragm and low lung volume is noted within the right hemithorax, unchanged. The aerated lung [place]ol[place] bilaterally appear clear. Postop changes of sternotomy is noted. The heart size is within normal limits. No evidence of any pleural effusion or pneumothorax. Visualized upper abdomen is unremarkable. XR/XR chest 1V IMPRESSION: No radiographic evidence of any acute cardiopulmonary disease, unchanged since 12/08/2021.
[2022-03-29 07:37] VITALS: BP 130/70; BP 133/79; PULSE 80; PULSE 82; RESP 16; TEMP 36.4; O2SAT 95; O2SAT 96; BMI 24.5
[2022-03-29 07:56] VITALS: BP 136/70; PULSE 79; RESP 16; TEMP 37.8; O2SAT 93
[2022-03-29 08:06] LABS: Anion Gap 15 (12-20); Blood Urea Nitrogen 22 mg/dL (9-16); Calcium 9.4 mg/dL (8.4-10.2); Carbon Dioxide 22 mmol/L (22-29); Chloride 103 mmol/L (96-108); Creatinine Clr Calc Pharmacy 22.1; Estimated Glomerular Filt Rate 30; Glucose Random 208 mg/dL (60-115); Hematocrit 36.1 % (37.0-47.0); Hemoglobin 12.2 g/dl (12.0-16.0); Mean Corpuscular HGB Conc 33.8 g/dl (31.0-35.0); Mean Corpuscular Hemoglobin 27.9 pg (27.0-33.0); Mean Corpuscular Volume 82.6 fL (80.0-98.0); Mean Platelet Volume 9.8 fL (9.4-12.3); Platelet Count 200 X10*3/uL (160-400); Potassium 4.7 mmol/L (3.3-5.1); Red Blood Count 4.37 X10*6/uL (4.20-5.50); Red Cell Distribution Width 13.2 % (11.0-16.0); Sodium 135 mmol/L (135-145); White Blood Count 13.3 X10*3/uL (4.8-10.8)
--- NOTE | 2022-03-29 08:33 | ED_ITS ---
HPI - General Adult General Chief complaint: General Medical Stated complaint: ? UTI PER EMS Time Seen by Provider: 03/29/22 07:59 Source: patient, EMS and diplomatic interpreter Mode of arrival: EMS Limitations: no limitations History of Present Illness HPI narrative: 87 years old female came in for evaluation off possible UTI and increased visual hallucination. Patient with history of hypertension, diabetes type 2, CABG, coronary artery disease, HFpEF, patient brought in by ambulance for evaluation of possible UTI, patient has been having visual hallucination (sees spirits only on the dark talking to her telling her to do bad stuff) patient has been waking her son up for seen spirits, son called the ambulance to bring her to the hospital for further evaluation, patient in hospital is calm no visual hallucination now, patient declined any headache, no blurry vision, no chest pain, no abdominal pain, no urinary symptoms. Related Data Home Medications Medication Instructions Recorded Confirmed bupropion HCl 300 mg 24 hr tablet, 1 tab PO DAILY 02/28/21 01/28/22 extended release cetirizine 10 mg tablet 1 tab PO DAILY 02/28/21 01/28/22 gabapentin 100 mg capsule 200 mg PO TID 02/28/21 01/28/22 pen needle, diabetic 32 gauge x 02/28/21 10/14/21 5/32 (Pentips) sennosides 8.6 mg tablet (senna) 2 tab PO BEDTIME 02/28/21 01/28/22 aspirin 81 mg tablet,delayed 81 mg PO DAILY 05/21/21 01/28/22 release atorvastatin 20 mg tablet 20 mg PO BEDTIME 05/21/21 01/28/22 donepezil 10 mg tablet 10 mg PO DAILY 05/21/21 01/28/22 levothyroxine 150 mcg tablet 150 mcg PO DAILY@0630 05/21/21 01/28/22 metoprolol succinate 50 mg 150 mg PO DAILY 05/21/21 01/28/22 tablet,extended release 24 hr sertraline 50 mg tablet 50 mg PO DAILY 05/21/21 01/28/22 tramadol 50 mg tablet 50 mg PO Q12H PRN 05/21/21 01/28/22 blood sugar diagnostic (FreeStyle 09/14/21 10/14/21 Lite Strips) blood-glucose meter (FreeStyle 09/14/21 10/14/21 [place] Lite) acetaminophen 650 mg 1 tab PO Q8H PRN 12/08/21 01/28/22 tablet,extended release (Pain Relief (acetaminophen)) amitriptyline 10 mg tablet 0.5 tab PO BEDTIME 12/08/21 01/28/22 cholecalciferol (vitamin D3) 50 1 tab PO DAILY 12/08/21 01/28/22 mcg (2,000 unit) tablet docusate sodium 100 mg capsule 100 mg PO BID PRN 12/08/21 01/28/22 dulaglutide 3 mg/0.5 mL 3 mg SUBCUT QWEEK 12/08/21 01/28/22 subcutaneous pen injector (Trulicity) fluticasone propionate 50 2 spray INTRANASAL DAILY 12/08/21 01/28/22 mcg/actuation nasal spray,suspension diclofenac sodium 1 % topical gel 1 ea TOPICAL BID PRN 01/28/22 01/28/22 Previous Rx's Medication Instructions Recorded insulin degludec 100 unit/mL (3 15 unit (0.15 mL) SUBCUT DAILY #15 09/29/21 mL) subcutaneous pen (Tresiba ml FlexTouch U-100 insulin) magnesium hydroxide 400 mg/5 mL 5 ml PO DAILY PRN #355 ml 10/22/21 oral suspension (Milk of Magnesia) nitroglycerin 0.4 mg sublingual 0.4 mg SUBLINGUAL Q5M PRN 30 Days 11/02/21 tablet #25 tab amlodipine 10 mg tablet 10 mg PO DAILY #90 tab 01/29/22 cefuroxime axetil 250 mg tablet 250 mg PO BID 7 Days #14 tab 01/29/22 gabapentin 100 mg capsule 200 mg PO TID #60 cap 01/29/22 tramadol 50 mg tablet 50 mg PO Q12H PRN #60 tab 01/29/22 cefuroxime axetil 500 mg tablet 500 mg PO BID #14 tab 02/26/22 cefuroxime axetil 500 mg tablet 500 mg PO Q12H #14 tab 03/29/22 Allergies Allergy/AdvReac Type Severity Reaction Status Date / Time No Known Allergies Allergy Verified 11/19/21 10:08 [No Known Allergies*] Review of Systems Review of Systems: All other systems are reviewed and are negative Constitutional: Reports as per HPI and Reports no additional constitutional complaints Eyes: Reports as per HPI and Reports no additional eye complaints Reports system reviewed and no additional complaints, except as documented Cardiovascular: Reports as per HPI and Reports no additional cardiovascular complaints Respiratory: Reports as per HPI and Reports no additional respiratory complaints Gastrointestinal: Reports as per HPI and Reports no additional gastrointestinal complaints Genitourinary: Reports no additional female genitourinary complaints Musculoskeletal: Reports no additional musculoskeletal complaints Skin/Breast: Reports system reviewed and no additional complaints, except as docu Psychiatric: Reports no additional psychiatric complaints Endocrine: Reports no additional endocrine complaints Hematologic/Lymphatic: Reports no additional hematologic/lymphatic complaints Allergic/Immunologic: Reports no additional allergic/immunologic complaints Reports system reviewed and no additional complaints, except as documented and Reports Abnormal speech present [facility] Past Medical History Medical History CAD (coronary artery disease) Chest pain Depression Diastolic dysfunction HLD (hyperlipidemia) HTN (hypertension) Hypothyroidism Peptic ulcer disease Postoperative atrial fibrillation Tubular adenoma Type 2 diabetes mellitus with polyneuropathy Surgical History History of esophagogastroduodenoscopy (EGD) Hx of colonoscopy S/P CABG x 3 (~09/2013) Family History Family History Father CVD (cardiovascular disease) Mother No problems noted. Social History Social History Household Members: Children Alcohol intake: never Patient Tobacco Use Status: Never used Tobacco Advance Directives: Yes Advance Directives on File: Yes Advance Directives Date on File: 01/29/22 Physical Exam ED Vital Signs: Vital Signs - 24 hr 03/29/22 07:37 03/29/22 07:56 03/29/22 12:06 Temperature 97.5 F 100.0 F 98.7 F Pulse Rate 82 79 78 Respiratory Rate 16 16 15 Blood Pressure 133/79 136/70 133/69 Pulse Oximetry 95 93 95 BMI result Body Mass Index 24.5 Vital signs have been reviewed as appeared to be correct. Blood pressure normal. Heart rate normal. Respiration rate normal. Temperature normal. Oxygen saturation normal. Appearance: Alert. Oriented X3. No acute distress. Head: Normal external exam. Normocephalic. Atraumatic. No Lopez signs noted. No raccoon eyes noted Eyes: PERRLA. EOMI. Conjunctiva and sclera normal. Eyelids normal. ENT: TM's Normal. Pharynx normal. Uvula midline. Moist mucous membranes. No trismus noted. No drooling noted. No muffled voice noted. Neck: Normal inspection. Neck supple. FROM. No adenopathy. Thyroid Normal. No meningeal signs. No neck mass noted. CVS: Normal heart rate and rhythm. Heart sound normal. No murmurs noted. Pulses normal throughout. Respiratory: No respiratory distress. Painless inspiration. Breath sounds normal. No wheezes/rales/rhonchi noted. Chest nontender. No accessory muscle usage noted or decreased air movement noted. Abdomen: Soft and nontender. Bowel sounds normal in all 4 quadrants. No distention noted. No organomegaly noted. No visible injury noted. Back: No CVA tenderness. Full range of motion noted. Skin: Skin warm and dry. Normal skin color. Normal skin turgor. No rashes/lesions/lacerations noted. Extremities: No lower extremity edema. Extremities exhibit normal range of motion. Extremities nontender. Neuro: Oriented X 3. Cranial nerve exam: II-XII are grossly intact No motor deficit. No sensory deficit. Reflexes normal. Patient Orientation: Person, Place, Time and Situation Level of Consciousness: Awake, Appropriate and Alert Patient Behavior: Appropriate, Guarded, Cooperative and Anxious Mood Description: Constricted, Blunted and Apprehensive Affect Description: Constricted, Blunted and Apprehensive Patient Cognition Impaired: No Ability to Follow Directions: Good Speech Pattern: Clear, Appropriate and Spontaneous Speech Memory Description: Intact, Immediate Intact and Short Term Intact Hallucinations: None Delusions: Not Present Thought Process: Intact Thought Content: positive for Intact, positive for Logical, denies Suicidal Ideation and denies Homicidal Ideation. Depressive Symptoms: Feelings of Guilt (relating to incident at work) Judgement: Good Judgement and Insight: Intact Course Course Course Narrative: Assessment and plan. 87-year-old female came in from for increased visual hallucination, patient in the emergency department is calm, no signs of disorganized psychosis, patient declined SI or HI. UA revealed UTI will start the patient on cefuroxime, patient was seen and evaluated by care team patient do not need acute psych hospitalization. 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 Start the patient on cefuroxime. Medical Decision Making Lab Data Lab results reviewed: Yes I reviewed the patient's lab results. Result diagrams: 03/29/22 07:50 03/29/22 07:50 Labs: Lab Results 03/29/22 03/29/22 03/29/22 Range/Units 07:50 07:50 09:37 WBC 13.3 H (4.8-10.8) X10*3/uL RBC 4.37 (4.20-5.50) X10*6/uL Hgb 12.2 (12.0-16.0) g/dl Hct 36.1 L (37.0-47.0) % MCV 82.6 (80.0-98.0) fL MCH 27.9 (27.0-33.0) pg MCHC 33.8 (31.0-35.0) g/dl RDW 13.2 (11.0-16.0) % Plt Count 200 (160-400) X10*3/uL MPV 9.8 (9.4-12.3) fL Absolute Nucleated RBC 0.000 (0.0-0.012) X10*3/uL Nucleated RBC % (auto) 0.0 (0.0-0.2) /100WBC Sodium 135 (135-145) mmol/L Potassium 4.7 (3.3-5.1) mmol/L Chloride 103 (96-108) mmol/L Carbon Dioxide 22 (22-29) mmol/L Anion Gap 15 (12-20) BUN 22 H (9-16) mg/dL Creatinine 1.60 H (0.5-1.4) mg/dL Estim Creat Clear Calc 22.1 Estimated GFR 30 Random Glucose 208 H (60-115) mg/dL Calcium 9.4 (8.4-10.2) mg/dL Urine Color YELLOW Urine Appearance HAZY Urine pH 6.5 (5.0-8.0) Ur Specific [place] 1.010 (1.005-1.025) Urine Protein NEG (NEG-TRACE) MG/DL Urine Glucose (UA) 100 H (NEG) MG/DL Urine Ketones NEG (NEG) MG/DL Urine Blood NEG (NEG) Urine Nitrite NEG (NEG) Ur Leukocyte Esterase 3+ H (NEG) Urine RBC 0-2 (0) /HPF Urine WBC 30-49 H (0-4) /HPF Ur Squamous Epith Cells 2+ /LPF Urine Bacteria 1+ /LPF Imaging Data Chest x-ray: Attestation: I personally reviewed and interpreted this imaging study as follows: Radiologist's impression: No radiographic evidence of acute cardiopulmonary disease. Discharge Plan Discharge Clinical Impression: Acute UTI, Hallucinations Patient Disposition: Home, Self-Care Instructions: Urinary Tract Infection in Women (ED) Prescriptions: New cefuroxime axetil 500 mg tablet 500 mg PO Q12H Qty: 14 0RF No Action nitroglycerin 0.4 mg tablet, sublingual 0.4 mg sublingual Q5M PRN (Reason: chest pain) 30 Days Qty: 25 1RF Rx Instructions: do not exceed 3 doses per episode amlodipine 10 mg tablet 10 mg PO DAILY Qty: 90 0RF Rx Instructions: Must call cardiology for follow-up. sennosides [senna] 8.6 mg tablet 2 tab PO BEDTIME 0RF cetirizine 10 mg tablet 1 tab PO DAILY 0RF gabapentin 100 mg capsule 200 mg PO TID 0RF bupropion HCl 300 mg tablet extended release 24 hr 1 tab PO DAILY 0RF (DME) pen needle, diabetic [Pentips] 32 gauge x 5/32 needle MISCELLANEOUS 0RF aspirin 81 mg tablet,delayed release (DR/EC) 81 mg PO DAILY 0RF atorvastatin 20 mg tablet 20 mg PO BEDTIME 0RF metoprolol succinate 50 mg tablet extended release 24 hr 150 mg PO DAILY 0RF tramadol 50 mg tablet 50 mg PO Q12H PRN (Reason: severe pain) 0RF sertraline 50 mg tablet 50 mg PO DAILY 0RF levothyroxine 150 mcg tablet 150 mcg PO DAILY@0630 0RF donepezil 10 mg tablet 10 mg PO DAILY 0RF (DME) FreeStyle Lite Strips Strip See Rx Instructions strip MISCELLANEOUS 0RF Rx Instructions: once daily (DME) blood-glucose meter [FreeStyle [place]] Kit See Rx Instructions ea MISCELLANEOUS BID 0RF Rx Instructions: once daily acetaminophen [Pain Relief (acetaminophen)] 650 mg tablet extended release 1 tab PO Q8H PRN (Reason: Pain) 0RF amitriptyline 10 mg tablet 0.5 tab PO BEDTIME 0RF fluticasone propionate 50 mcg/actuation spray,suspension 2 spray intranasal DAILY 0RF cholecalciferol (vitamin D3) 50 mcg (2,000 unit) tablet 1 tab PO DAILY 0RF Trulicity 3 mg/0.5 mL pen injector 3 mg subcut QWEEK 0RF docusate sodium 100 mg capsule 100 mg PO BID PRN (Reason: Constipation) 0RF magnesium hydroxide [Milk of Magnesia] 400 mg/5 mL suspension 5 ml PO DAILY PRN (Reason: constipation) Qty: 355 0RF diclofenac sodium 1 % gel 1 ea topical BID PRN (Reason: Pain (Scale Score 1-3)) 0RF cefuroxime axetil 250 mg tablet 250 mg PO BID 7 Days Qty: 14 0RF gabapentin 100 mg capsule 200 mg PO TID Qty: 60 0RF tramadol 50 mg tablet 50 mg PO Q12H PRN (Reason: pain) Qty: 60 0RF cefuroxime axetil 500 mg tablet 500 mg PO BID Qty: 14 0RF Tresiba FlexTouch U-100 100 unit/mL (3 mL) insulin pen 15 unit subcut DAILY Qty: 15 5RF Referrals: Physician,Unknown J [Primary Care Provider] -
[2022-03-29 09:42] LABS: Appearance Urine HAZY; Color Urine YELLOW; Glucose Urine UA 100 MG/DL (NEG); Leukocyte Esterase Urine 3+ (NEG); Nitrite Urine NEG (NEG); PH 6.5 (5.0-8.0); UACC Culture Trigger YES; Urine Blood NEG (NEG); Urine Ketones NEG (NEG); Urine Protein NEG (NEG-TRACE)
[2022-03-29 09:54] LABS: RBC Urine 0-2 /HPF (0)
[2022-03-29 09:55] LABS: Bacteria Urine 1+ /LPF; Squamous Epithelial Cell Urine 2+ /LPF; WBC Urine 30-49 /HPF (0-4)
[2022-03-29 12:06] VITALS: BP 133/69; PULSE 78; RESP 15; TEMP 37.1; O2SAT 95
--- NOTE | 2022-03-29 12:07 | PC.NURSE ---
Smart sheet submitted to [facility].
--- NOTE | 2022-03-29 13:58 | MHC.CARE ---
Pt denies SI/HI. She reports that she has been experiencing AVH, but denies that this is new. She reports that she has been feeling happy and has been doing well. She reports that she is taking a psychiatric medication which has been helpful. She says that her hinduism has helped her a lot and that she hopes to resume going to christianity at least once a month now that it has resumed in person. Pt feels safe to return home. Pt's son, José Antonio, reports that though his mom has experienced AVH for some time, last night was the worst that he has ever witnessed because it continued for the entire night which prevented pt and her son from sleeping. He reports that he feels safe bringing her home with antibiotics at this time. CARE Team provided psychoeducation about how psychiatric symptoms can worsen/appear secondary to UTIs in older adults and encouraged pt's son to keep a close eye on pt for the next few days. Pt's son reports that he would like to know what options there are for additional support for pt in her home so pt will be referred to CM. CARE Team will follow up with pt and her son in a few days to check in.
--- NOTE | 2022-03-29 14:58 | MHC.CM.ED ---
Received case management consult from Dr Mckeon. Patient came to the ER due to hallucinations. Patient found to have an UTI. Patient cleared by care team. Family requested additional services at home. Patient is active with [facility]. Spoke with Hannah at [facility]. Patient is active with [facility] for long term. 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 [facility]ulk[facility]ir has been aware of ER visit. Patient will return home with same services. Action GURDEEP booked. Med [facility] with chart. Patient's son, Igor was made aware by PAUL Flores. Continue to monitor for d/c needs.
[2022-03-29 15:36] VITALS: BP 139/71; PULSE 78; RESP 16; TEMP 36.5; O2SAT 93
== END 2022-03-29 16:15 | disposition home or self-care (01) ==
PROVIDERS: Emergency Provider Emergency Medicine; PCP Family Medicine
DX: N39.0 Urinary tract infection, site not specified (principal); R44.1 Visual hallucinations; E11.9 Type 2 diabetes mellitus without complications; I11.0 Hypertensive heart disease with heart failure; I50.30 Unspecified diastolic (congestive) heart failure; I25.10 Atherosclerotic heart disease of native coronary artery without angina pectoris; Z95.1 Presence of aortocoronary bypass graft
CPT/HCPCS: 36415; 71045; 80048; 81001; 85027; 87086; 87088; 87186; 99284

== ENCOUNTER 2022-05-06 15:12 | Outpatient (REF) | payer OTHER, SELFPAY ==
--- NOTE | ~2022-05-06 | MR_ITS ---
EXAMINATION: MR BRAIN WITHOUT CONTRAST CLINICAL INFORMATION: Hallucinations. COMPARISON: Brain MRI dated 10/26/2018. TECHNIQUE: Multiplanar, multisequence imaging of the brain was performed without contrast. FINDINGS: No diffusion abnormalities are identified to suggest an acute infarct. No mass effect or midline shift is seen. Moderate diffuse parenchymal volume loss and concordant ex vacuo prominence of the ventricles is unchanged. Minimal chronic white matter microangiopathic changes are stable. No extra-axial fluid collections are seen. The cerebellum is normal. The gradient refocused acquisition is normal. The craniovertebral junction, marrow signal, and midline structures are normal. The major intracranial flow voids at the level of the [place] of [place] are preserved. The dural venous sinus flow voids are maintained. The mastoid air cells and paranasal sinuses are well aerated. MR/MR head/brain wo con IMPRESSION: No acute intracranial process. Moderate diffuse parenchymal volume loss and mild chronic white matter microangiopathy.
== END 2022-05-06 15:13 | disposition home or self-care (01) ==
LOC: HO.MRI 15:12
PROVIDERS: Visit Provider Family Medicine
DX: R44.3 Hallucinations, unspecified (principal)
CPT/HCPCS: 70551

== ENCOUNTER → 2022-06-10 11:04 | Outpatient (BNVA) | payer OTHER, SELFPAY | PROVIDERS: PCP Family Medicine | DX: R33.9 Retention of urine, unspecified (principal) | CPT/HCPCS: 99202 ==

== ENCOUNTER 2022-06-18 12:56 | Emergency (ER) | payer OTHER, SELFPAY ==
--- NOTE | ~2022-06-18 | CT_ITS ---
EXAMINATION: CT HEAD WITHOUT CONTRAST CLINICAL INFORMATION: Weakness COMPARISON: CT head 01/28/2022, selected images of the brain MRI of 05/06/2022 TECHNIQUE: Contiguous axial imaging was performed from the skull base to vertex without intravenous administration of contrast. This CT examination was performed using dose optimization techniques as appropriate, variously including the following: *Automated exposure control *Adjustment of mA and/or kV according to patient size (this includes techniques or standardized protocols for targeted exams where dose is matched to indication/reason for exam; i.e. extremities or head) *Use of iterative reconstruction technique DLP: 646 mGy-cm FINDINGS: There is no evidence of acute intracranial hemorrhage or territorial infarction. No abnormal mass effect or midline shift is seen. Benjamin to white matter differentiation is well preserved. No extra-axial fluid collections are identified. Moderate global volume loss with proportionate dilatation of the ventricles and cortical sulci. No significant abnormal parenchymal attenuation is noted. The osseous structures and soft tissues are normal. The mastoid air cells and visualized portions of the paranasal sinuses are well aerated. CT/CT head/brain wo con IMPRESSION: No acute intracranial pathology.
--- NOTE | ~2022-06-18 | CT_ITS ---
EXAMINATION: CT CHEST, ABDOMEN AND PELVIS WITHOUT CONTRAST CLINICAL INFORMATION: Evaluate for pneumonia or colitis COMPARISON: CT abdomen 01/29/2022, chest CT 01/28/2022 TECHNIQUE: Multidetector volumetric imaging was performed from the thoracic inlet through the pubic symphysis. Sagittal and coronal reformatted images were obtained on the technologist's workstation. Axial MIP volume rendering provided. This CT examination was performed using dose optimization techniques as appropriate, variously including the following: *Automated exposure control *Adjustment of mA and/or kV according to patient size (this includes techniques or standardized protocols for targeted exams where dose is matched to indication/reason for exam; i.e. extremities or head) *Use of iterative reconstruction technique DLP: 1006 mGy-cm FINDINGS: CHEST: Lungs: Mild bibasilar atelectasis right greater than left. Mild elevation right hemidiaphragm. No airspace consolidation. No pulmonary nodules identified. Previously reported 0.5 cm right upper lobe pulmonary nodule is not identified. Central airways are clear. Mediastinum: No cardiomegaly. Ascending thoracic aorta is mildly dilated measuring approximate 4.2 cm in AP diameter, unchanged. Mild calcifications of the aortic valve. Three-vessel coronary calcifications and/or stents. Status post median sternotomy and coronary artery bypass grafting. Nondilated central pulmonary trunk. No mediastinal or hilar lymphadenopathy. Pericardium/Pleura: There is no significant effusion. No pleural mass or thickening. Chest Wall/Axilla: Unremarkable. ABDOMEN/PELVIS: Liver, Gallbladder, Biliary Tree: Normal hepatic attenuation. No liver lesion. Status post cholecystectomy with surgical clips in the gallbladder fossa. Dilation of the extra hepatic bile duct up to approximately 1.5 cm, previously 1 cm. Slight prominence of right-sided intrahepatic bile duct, unchanged. Pancreas: Atrophic. No pancreatic lesion or peripancreatic inflammatory change. Spleen: Unremarkable. Adrenal Glands: Unremarkable. Kidneys and Ureters: Duplicated bilateral renal collecting systems. Mild to moderate bilateral hydroureteronephrosis, new since prior. Small subcentimeter exophytic cyst in the posterior left midpole. No other renal lesions. No renal calculi Bladder: Markedly dilated. No bladder wall thickening. Gastrointestinal Tract: No dilated bowel loops. No bowel wall thickening. Sigmoid diverticulosis. No evidence of acute diverticulitis. Normal appendix. Prominent duodenal diverticulum redemonstrated. No ascites or free air. Abdominal Wall: Fat-containing ventral upper abdominal wall hernia redemonstrated. Lymphovascular Structures: Lymph nodes: No lymphadenopathy. Vascular: Extensive vascular calcifications. Mildly tortuous normal caliber abdominal aorta. Pelvic Viscera: Prominent periuterine vascular calcifications. Gynecologic structures otherwise grossly unremarkable. No free pelvic fluid. OSSEOUS STRUCTURES: No acute fracture or suspicious osseous lesion. Advanced multilevel degenerative disc disease. Mild levoconvex curvature of the lumbar spine. Sacralized L5 vertebral body. Healed sternotomy. CT/CT abdomen pelvis wo con IMPRESSION: 1. No airspace consolidation to suggest pneumonia. No pleural effusions. 2. No evidence of acute colitis. 3. Markedly distended urinary bladder with mild to moderate bilateral hydroureteronephrosis, which may be on basis of vesicoureteral reflux as opposed to bilateral obstruction. If the patient is unable to void, consider Woo catheter decompression. 4. Status post cholecystectomy. Extra hepatic bile duct measures approximately 1.5 cm in diameter, previously 1 cm. No significant intrahepatic biliary ductal dilation. Correlate with LFTs for clinical significance. 5. Dilation of the ascending thoracic aorta measuring 4.2 cm, unchanged. 6. Multiple additional ancillary findings, as described.
[2022-06-18 13:00] VITALS: BP 122/68; PULSE 55; O2SAT 97
[2022-06-18 13:05] VITALS: BP 134/69; PULSE 72; RESP 16; TEMP 36.2; O2SAT 97; BMI 24.0
--- NOTE | 2022-06-18 13:41 | ECG_ITS ---
Test Reason : WEAKNESS Blood Pressure : / mmHG Vent. Rate : 075 BPM Atrial Rate : 075 BPM P-R Int : 266 ms QRS Dur : 168 ms QT Int : 462 ms P-R-T Axes : 051 -83 022 degrees QTc Int : 515 ms Artifact in tracing Sinus rhythm with 1st degree A-V block Left axis deviation Right bundle branch block Abnormal ECG When compared with ECG of 28-JAN-2022 13:13, No significant changes seen Referred By: Bob Davila Electronically Signed By:DELANO NASSAR
--- NOTE | 2022-06-18 13:53 | ED_ITS ---
HPI - General Adult General Chief complaint: General Medical <LOREN Mccray - Last Filed: 06/18/22 18:28> Stated complaint: lower body weakness <LOREN Mccray - Last Filed: 06/18/22 18:28> Time Seen by Provider: 06/18/22 13:02 <LOREN Mccray - Last Filed: 06/18/22 18:28> Source: patient <LOREN Mccray - Last Filed: 06/18/22 18:28> Mode of arrival: ambulatory <LOREN Mccray - Last Filed: 06/18/22 18:28> Limitations: no limitations <LOREN Mccray Last Filed: 06/18/22 18:28> History of Present Illness HPI narrative: 87 yold female with pmh of GERD, DM, HTN, CAD presents to the ED for weakness occurring for over multiple weaks days. Patient states getting weaker ( especially lower extremities) and not now being able to ambulate with walker. patient denies any slurred speech, facial droop, dizziness, nausea, headache, AMS, or any focal deficits. . <LOREN Mccray - Last Filed: 06/18/22 18:28> Related Data Home medications: Home Medications Medication Instructions Recorded Confirmed alcohol swabs (Alcohol Prep Pads) 1 tab PO TID PRN Wound Care 06/18/22 06/18/22 amlodipine 10 mg tablet 1 tab PO QAM 06/18/22 06/18/22 aspirin 81 mg tablet,delayed 1 tab PO DAILY 06/18/22 06/18/22 release atorvastatin 20 mg tablet 1 tab PO BEDTIME 06/18/22 06/18/22 blood sugar diagnostic (FreeStyle 06/18/22 06/18/22 Lite Strips) bupropion HCl 300 mg 24 hr tablet, 1 tab PO QAM 06/18/22 06/18/22 extended release cetirizine 10 mg tablet 1 tab PO QAM 06/18/22 06/18/22 cholecalciferol (vitamin D3) 50 1 tab PO QAM 06/18/22 06/18/22 mcg (2,000 unit) tablet donepezil 10 mg tablet 1 tab PO DAILY 06/18/22 06/18/22 dulaglutide 3 mg/0.5 mL 1 ea subcut QWEEK 06/18/22 06/18/22 [facility] fluticasone propionate 50 2 spray intranasal DAILY 06/18/22 06/18/22 mcg/actuation nasal spray,suspension gabapentin 100 mg capsule 2 cap PO TID 06/18/22 06/18/22 lancets 33 gauge (TRUEplus Lancets) 06/18/22 06/18/22 levothyroxine 150 mcg tablet 1 tab PO QAM 06/18/22 06/18/22 metoprolol succinate 50 mg 3 tab PO QAM 06/18/22 06/18/22 tablet,extended release 24 hr quetiapine 50 mg tablet 1 tab PO QPM 06/18/22 06/18/22 sertraline 50 mg tablet 1 tab PO QAM 06/18/22 06/18/22 <LOREN Mccray - Last Filed: 06/18/22 18:28> Allergies/adverse reactions: Allergies Allergy/AdvReac Type Severity Reaction Status Date / Time No Known Allergies Allergy Verified 06/10/22 11:13 [No Known Allergies*] <LOREN Mccray - Last Filed: 06/18/22 18:28> [facility] Past Medical History Medical History: Medical History CAD (coronary artery disease) Chest pain Depression Diastolic dysfunction HLD (hyperlipidemia) HTN (hypertension) Hypothyroidism Peptic ulcer disease Postoperative atrial fibrillation Tubular adenoma Type 2 diabetes mellitus with polyneuropathy <LOREN Mccray - Last Filed: 06/18/22 18:28> Surgical History: Surgical History History of esophagogastroduodenoscopy (EGD) Hx of colonoscopy S/P CABG x 3 (~09/2013) <LOREN Mccray - Last Filed: 06/18/22 18:28> Family History Family History: Family History Father CVD (cardiovascular disease) Mother No problems noted. <LOREN Mccray - Last Filed: 06/18/22 18:28> Social History Social History: Social History Household Members: Children Alcohol intake: never Patient Tobacco Use Status: Never used Tobacco Advance Directives: Yes Advance Directives on File: Yes Advance Directives Date on File: 01/29/22 <LOREN Mccray - Last Filed: 06/18/22 18:28> Physical Exam ED Vital Signs: Vital Signs - 24 hr 06/18/22 13:05 06/18/22 20:00 06/19/22 00:00 Temperature 97.2 F Pulse Rate 72 73 65 Respiratory Rate 16 13 Blood Pressure 134/69 119/83 159/78 H Pulse Oximetry 97 96 96 Oxygen Delivery Method Room Air Room Air Room Air BMI result Body Mass Index 24.0 <LOREN Mccray - Last Filed: 06/18/22 18:28> Vital Signs - 24 hr 06/18/22 13:05 06/18/22 20:00 06/19/22 00:00 Temperature 97.2 F Pulse Rate 72 73 65 Respiratory Rate 16 13 Blood Pressure 134/69 119/83 159/78 H Pulse Oximetry 97 96 96 Oxygen Delivery Method Room Air Room Air Room Air BMI result Body Mass Index 24.0 <LOREN Guerrero - Last Filed: 06/18/22 21:28> Vital Signs - 24 hr 06/18/22 13:05 06/18/22 20:00 06/19/22 00:00 Temperature 97.2 F Pulse Rate 72 73 65 Respiratory Rate 16 13 Blood Pressure 134/69 119/83 159/78 H Pulse Oximetry 97 96 96 Oxygen Delivery Method Room Air Room Air Room Air BMI result Body Mass Index 24.0 <Giacomo Cohen MD - Last Filed: 06/19/22 00:31> Const General: cooperative, healthy appearing, comfortable, no acute distress, well developed, alert and awake <LOREN Mccray Last Filed: 06/18/22 18:28> HENMT Head: Yes normal to inspection, Yes No palpable skull fracture present, Yes normocephalic, Yes atraumatic and No abrasion <LOREN Mccray Last Filed: 06/18/22 18:28> Eyes General: appearance normal, both eyes and all related structures <LOREN Mccray Last Filed: 06/18/22 18:28> Neck Neck: Yes normal visual inspection, Yes full ROM, Yes no lymphadenopathy, Yes no meningeal signs, Yes trachea midline, Yes supple, No anterior neck swelling and No tender <Bob Giovanni, PA Roberta Last Filed: 06/18/22 18:28> Chest Chest palpation & inspection: normal inspection of the chest and normal palpation of entire chest wall <Bob GiovanniLOREN Roberta Last Filed: 06/18/22 18:28> Resp Effort & Inspection: normal respiratory effort and able to speak in complete sentences <Bob Giovanni, PA Roberta Last Filed: 06/18/22 18:28> Auscultation: clear to auscultation bilaterally <Bob Giovanni, PA Roberta Last Filed: 06/18/22 18:28> Cardio Jugular venous distension: no JVD <Bob Giovanni, PA Roberta Last Filed: 06/18/22 18:28> Heart sounds: S1 normal heart sound present and S2 normal heart sound present <Bob Giovanni, PA Roberta Last Filed: 06/18/22 18:28> GI Inspection: Yes normal to inspection and No abdominal wall ecchymosis <Bob Giovanni, PA Roberta Last Filed: 06/18/22 18:28> Palpation (GI): Soft to palpation, not firm, nontender, no guarding and not rigid <Bob Giovanni, PA Roberta Last Filed: 06/18/22 18:28> General: No CVA tenderness and Yes no CVA tenderness <Bob Giovanni, PA Roberta Last Filed: 06/18/22 18:28> Back/Spine/Pelvis Back: no CVA tenderness, No CVA tenderness and No back tenderness <Bob Giovanni, PA Roberta Last Filed: 06/18/22 18:28> Skin General skin exam: no rashes or lesions noted and elasticity normal <Bob Giovanni, PA Roberta Last Filed: 06/18/22 18:28> Neuro Other: Negative facial droop, negative slurred speech. negative pronator drift. Upper extremties equal strenght 5+. Lower extremmities are equal strength 4+. Patiient able to move all extremities. rapid hand movement intact. Negative for any focal deficit <LOREN Mccray Roberta Last Filed: 06/18/22 18:28> General: no meningeal signs <LOREN Mccray Last Filed: 06/18/22 18:28> Extrem Other: Bilateral Lower extremities: motor, neuro, and vascular exam is intact <LOREN Mccray Last Filed: 06/18/22 18:28> General: Yes normal to inspection and Yes full ROM <LOREN Mccray - Last Filed: 06/18/22 18:28> Psych Appearance: grossly normal, well kempt and not disheveled <LOREN Mccray - Last Filed: 06/18/22 18:28> Course Course Course Narrative: Chronic weakness. Will have labs ordered. Head CT. EkG, UA. Will look for infection, metabolic defiency. If patient had a stroke she is out windowm all though weakness sound chronic. Patient states last time this occurred she was sent to [facility]. <LOREN Mccray - Last Filed: 06/18/22 18:28> Reevaluation(s) Reevaluation #1: EKG negative STEMI. First troponin elevated 1 trended patient has a history of elevated troponin due to kidney function. Spoke with son who states actually patient's weakness has been deteriorating since discharge from [facility] in February. Son states in March patient had some ambulation with walker but then eventually was not able to walk since April. He states patient was admitted before to nursing short-term rehab for weakness. Son states he can no longer take care of mother and due to weakness recommends mother be sent to short-term rehab or long-term skilled nursing placement. Son denies patient having any signs of any infection, neuro deficit, or any recent falls. labs are at [facility] [place]. UA shows leukocyte esterase but no white blood cells or bacteria. pending images. <LOREN Mccray - Last Filed: 06/18/22 18:28> Time: 17:45 <LOREN Mccray Last Filed: 06/18/22 18:28> Reevaluation #2: SIgned out to LOREN Rodriguez to follow images. PT and Case Management ordered <LOREN Mccray Last Filed: 06/18/22 18:28> Time: 18:26 <LOREN Mccray Last Filed: 06/18/22 18:28> Reevaluation #3: Patient had oates catheter placed secondary to urinary retention of >900ml. Patient's urine is pending. Patient will be a PT eval tomorrow. Signed out to Dr. Cohen. <LOREN Guerrero - Last Filed: 06/18/22 21:28> Time: 21:28 <LOREN Guerrero - Last Filed: 06/18/22 21:28> Additional Reevaluation(s): 0027: Start physician observation: I assumed care of this patient from my colleague, physician assistant editor Rosangela Arvizu'dianelys at 21:00 hours. Urinalysis was positive for glucose and 1+ leukocyte esterase. Microscopic revealed 0 RBCs, 1-4 WBCs, 1+ squamous cells and 1+ bacteria. This is not the source of the patient's weakness. The patient will be placed in physician observation. Patient's medications have been reconciled and they were ordered by me. The patient will be kept in the emergency department until she can have a physical therapy in case management evaluation. Her exam is unchanged. <Giacomo Cohen MD - Last Filed: 06/19/22 00:31> Medical Decision Making MDM Narrative Medical decision making narrative: Chronic lower extremity weakness. <LOREN Mccray - Last Filed: 06/18/22 18:28> Lab Data Result diagrams: : 06/18/22 14:40 06/18/22 14:40 <LOREN Mccray - Last Filed: 06/18/22 18:28> Labs: Lab Results 06/18/22 06/18/22 06/18/22 Range/Units 14:40 14:40 14:40 WBC 7.8 (4.8-10.8) X10*3/uL RBC 4.66 (4.20-5.50) X10*6/uL Hgb 12.7 (12.0-16.0) g/dl Hct 37.6 (37.0-47.0) % MCV 80.7 (80.0-98.0) fL MCH 27.3 (27.0-33.0) pg MCHC 33.8 (31.0-35.0) g/dl RDW 13.0 (11.0-16.0) % Plt Count 204 (160-400) X10*3/uL MPV 9.1 L (9.4-12.3) fL Immature Gran % (Auto) 0.4 (0.0-0.4) % Neut % (Auto) 55.4 (45-73) % Lymph % (Auto) 31.0 (20-40) % [place] % (Auto) 7.8 (2-11) % Eos % (Auto) 4.8 H (0-4) % Baso % (Auto) 0.6 (0-2) % Lymph # (Auto) 2.4 (1.2-4.9) X10*3/uL [place] # (Auto) 0.6 (0.1-1.2) X10*3/uL Eos # (Auto) 0.4 (0.0-0.4) X10*3/uL Baso # (Auto) 0.1 (0.0-0.2) X10*3/uL Abs Immat Gran (auto) 0.03 (0.00-0.03) X10*3/uL Absolute Neuts (auto) 4.3 (2.0-8.3) x10*3/uL Absolute Nucleated RBC 0.000 (0.0-0.012) X10*3/uL Nucleated RBC % (auto) 0.0 (0.0-0.2) /100WBC PT (10.0-13.1) SEC INR (0.9-1.1) APTT (26.0-36.4) SEC Sodium 138 (135-145) mmol/L Potassium 4.4 (3.3-5.1) mmol/L Chloride 101 (96-108) mmol/L Carbon Dioxide 26 (22-29) mmol/L Anion Gap 15 (12-20) BUN 26 H (9-16) mg/dL Creatinine 1.48 H (0.5-1.4) mg/dL Estim Creat Clear Calc 23.1 Estimated GFR 33 Random Glucose 200 H (60-115) mg/dL Calcium 9.7 (8.4-10.2) mg/dL Magnesium 1.9 (1.6-2.6) mg/dL Total Bilirubin 0.2 (0.0-1.0) mg/dL AST 58 H (5-31) U/L ALT 85 H (0-31) U/L Alkaline Phosphatase 137 H (39-117) U/L Total Creatine Kinase 67 (26-140) U/L Troponin I High Sens (<3.5-17.0) ng/L Total Protein 7.5 (6.5-8.0) g/dL Albumin 4.1 (3.5-5.0) g/dL Urine Color Urine Appearance Urine pH (5.0-8.0) Ur Specific [place] (1.005-1.025) Urine Protein (NEG-TRACE) MG/DL Urine Glucose (UA) (NEG) MG/DL Urine Ketones (NEG) MG/DL Urine Blood (NEG) Urine Nitrite (NEG) Ur Leukocyte Esterase (NEG) Urine RBC (0) /HPF Urine WBC (0-4) /HPF Ur Squamous Epith Cells /LPF Urine Bacteria /LPF COVID-19 (TEDDY) Negative (Negative) COVID-19 Clin Com See Note 06/18/22 06/18/22 06/18/22 Range/Units 14:40 14:40 16:50 WBC (4.8-10.8) X10*3/uL RBC (4.20-5.50) X10*6/uL Hgb (12.0-16.0) g/dl Hct (37.0-47.0) % MCV (80.0-98.0) fL MCH (27.0-33.0) pg MCHC (31.0-35.0) g/dl RDW (11.0-16.0) % Plt Count (160-400) X10*3/uL MPV (9.4-12.3) fL Immature Gran % (Auto) (0.0-0.4) % Neut % (Auto) (45-73) % Lymph % (Auto) (20-40) % [place] % (Auto) (2-11) % Eos % (Auto) (0-4) % Baso % (Auto) (0-2) % Lymph # (Auto) (1.2-4.9) X10*3/uL [place] # (Auto) (0.1-1.2) X10*3/uL Eos # (Auto) (0.0-0.4) X10*3/uL Baso # (Auto) (0.0-0.2) X10*3/uL Abs Immat Gran (auto) (0.00-0.03) X10*3/uL Absolute Neuts (auto) (2.0-8.3) x10*3/uL Absolute Nucleated RBC (0.0-0.012) X10*3/uL Nucleated RBC % (auto) (0.0-0.2) /100WBC PT 11.5 (10.0-13.1) SEC INR 1.0 (0.9-1.1) APTT 30.3 (26.0-36.4) SEC Sodium (135-145) mmol/L Potassium (3.3-5.1) mmol/L Chloride (96-108) mmol/L Carbon Dioxide (22-29) mmol/L Anion Gap (12-20) BUN (9-16) mg/dL Creatinine (0.5-1.4) mg/dL Estim Creat Clear Calc Estimated GFR Random Glucose (60-115) mg/dL Calcium (8.4-10.2) mg/dL Magnesium (1.6-2.6) mg/dL Total Bilirubin (0.0-1.0) mg/dL AST (5-31) U/L ALT (0-31) U/L Alkaline Phosphatase (39-117) U/L Total Creatine Kinase (26-140) U/L Troponin I High Sens 22.5 H (<3.5-17.0) ng/L Total Protein (6.5-8.0) g/dL Albumin (3.5-5.0) g/dL Urine Color YELLOW Urine Appearance HAZY Urine pH 6.0 (5.0-8.0) Ur Specific [place] 1.010 (1.005-1.025) Urine Protein NEG (NEG-TRACE) MG/DL Urine Glucose (UA) 250 H (NEG) MG/DL Urine Ketones NEG (NEG) MG/DL Urine Blood NEG (NEG) Urine Nitrite NEG (NEG) Ur Leukocyte Esterase 1+ H (NEG) Urine RBC 0 (0) /HPF Urine WBC 1-4 (0-4) /HPF Ur Squamous Epith Cells 1+ /LPF Urine Bacteria 1+ /LPF COVID-19 (TEDDY) (Negative) COVID-19 Clin Com 07/29/22 Range/Units 20:41 WBC (4.8-10.8) X10*3/uL RBC (4.20-5.50) X10*6/uL Hgb (12.0-16.0) g/dl Hct (37.0-47.0) % MCV (80.0-98.0) fL MCH (27.0-33.0) pg MCHC (31.0-35.0) g/dl RDW (11.0-16.0) % Plt Count (160-400) X10*3/uL MPV (9.4-12.3) fL Immature Gran % (Auto) (0.0-0.4) % Neut % (Auto) (45-73) % Lymph % (Auto) (20-40) % [place] % (Auto) (2-11) % Eos % (Auto) (0-4) % Baso % (Auto) (0-2) % Lymph # (Auto) (1.2-4.9) X10*3/uL [place] # (Auto) (0.1-1.2) X10*3/uL Eos # (Auto) (0.0-0.4) X10*3/uL Baso # (Auto) (0.0-0.2) X10*3/uL Abs Immat Gran (auto) (0.00-0.03) X10*3/uL Absolute Neuts (auto) (2.0-8.3) x10*3/uL Absolute Nucleated RBC (0.0-0.012) X10*3/uL Nucleated RBC % (auto) (0.0-0.2) /100WBC PT (10.0-13.1) SEC INR (0.9-1.1) APTT (26.0-36.4) SEC Sodium (135-145) mmol/L Potassium (3.3-5.1) mmol/L Chloride (96-108) mmol/L Carbon Dioxide (22-29) mmol/L Anion Gap (12-20) BUN (9-16) mg/dL Creatinine (0.5-1.4) mg/dL Estim Creat Clear Calc Estimated GFR Random Glucose (60-115) mg/dL Calcium (8.4-10.2) mg/dL Magnesium (1.6-2.6) mg/dL Total Bilirubin (0.0-1.0) mg/dL AST (5-31) U/L ALT (0-31) U/L Alkaline Phosphatase (39-117) U/L Total Creatine Kinase (26-140) U/L Troponin I High Sens 22.2 H (<3.5-17.0) ng/L Total Protein (6.5-8.0) g/dL Albumin (3.5-5.0) g/dL Urine Color Urine Appearance Urine pH (5.0-8.0) Ur Specific [place] (1.005-1.025) Urine Protein (NEG-TRACE) MG/DL Urine Glucose (UA) (NEG) MG/DL Urine Ketones (NEG) MG/DL Urine Blood (NEG) Urine Nitrite (NEG) Ur Leukocyte Esterase (NEG) Urine RBC (0) /HPF Urine WBC (0-4) /HPF Ur Squamous Epith Cells /LPF Urine Bacteria /LPF COVID-19 (TEDDY) (Negative) COVID-19 Clin Com <LOREN Mccray - Last Filed: 06/18/22 18:28> Lab Results 06/18/22 06/18/22 06/18/22 Range/Units 14:40 14:40 14:40 WBC 7.8 (4.8-10.8) X10*3/uL RBC 4.66 (4.20-5.50) X10*6/uL Hgb 12.7 (12.0-16.0) g/dl Hct 37.6 (37.0-47.0) % MCV 80.7 (80.0-98.0) fL MCH 27.3 (27.0-33.0) pg MCHC 33.8 (31.0-35.0) g/dl RDW 13.0 (11.0-16.0) % Plt Count 204 (160-400) X10*3/uL MPV 9.1 L (9.4-12.3) fL Immature Gran % (Auto) 0.4 (0.0-0.4) % Neut % (Auto) 55.4 (45-73) % Lymph % (Auto) 31.0 (20-40) % [place] % (Auto) 7.8 (2-11) % Eos % (Auto) 4.8 H (0-4) % Baso % (Auto) 0.6 (0-2) % Lymph # (Auto) 2.4 (1.2-4.9) X10*3/uL [place] # (Auto) 0.6 (0.1-1.2) X10*3/uL Eos # (Auto) 0.4 (0.0-0.4) X10*3/uL Baso # (Auto) 0.1 (0.0-0.2) X10*3/uL Abs Immat Gran (auto) 0.03 (0.00-0.03) X10*3/uL Absolute Neuts (auto) 4.3 (2.0-8.3) x10*3/uL Absolute Nucleated RBC 0.000 (0.0-0.012) X10*3/uL Nucleated RBC % (auto) 0.0 (0.0-0.2) /100WBC PT (10.0-13.1) SEC INR (0.9-1.1) APTT (26.0-36.4) SEC Sodium 138 (135-145) mmol/L Potassium 4.4 (3.3-5.1) mmol/L Chloride 101 (96-108) mmol/L Carbon Dioxide 26 (22-29) mmol/L Anion Gap 15 (12-20) BUN 26 H (9-16) mg/dL Creatinine 1.48 H (0.5-1.4) mg/dL Estim Creat Clear Calc 23.1 Estimated GFR 33 Random Glucose 200 H (60-115) mg/dL Calcium 9.7 (8.4-10.2) mg/dL Magnesium 1.9 (1.6-2.6) mg/dL Total Bilirubin 0.2 (0.0-1.0) mg/dL AST 58 H (5-31) U/L ALT 85 H (0-31) U/L Alkaline Phosphatase 137 H (39-117) U/L Total Creatine Kinase 67 (26-140) U/L Troponin I High Sens (<3.5-17.0) ng/L Total Protein 7.5 (6.5-8.0) g/dL Albumin 4.1 (3.5-5.0) g/dL Urine Color Urine Appearance Urine pH (5.0-8.0) Ur Specific [place] (1.005-1.025) Urine Protein (NEG-TRACE) MG/DL Urine Glucose (UA) (NEG) MG/DL Urine Ketones (NEG) MG/DL Urine Blood (NEG) Urine Nitrite (NEG) Ur Leukocyte Esterase (NEG) Urine RBC (0) /HPF Urine WBC (0-4) /HPF Ur Squamous Epith Cells /LPF Urine Bacteria /LPF COVID-19 (TEDDY) Negative (Negative) COVID-19 Clin Com See Note 06/18/22 06/18/22 06/18/22 Range/Units 14:40 14:40 16:50 WBC (4.8-10.8) X10*3/uL RBC (4.20-5.50) X10*6/uL Hgb (12.0-16.0) g/dl Hct (37.0-47.0) % MCV (80.0-98.0) fL MCH (27.0-33.0) pg MCHC (31.0-35.0) g/dl RDW (11.0-16.0) % Plt Count (160-400) X10*3/uL MPV (9.4-12.3) fL Immature Gran % (Auto) (0.0-0.4) % Neut % (Auto) (45-73) % Lymph % (Auto) (20-40) % [place] % (Auto) (2-11) % Eos % (Auto) (0-4) % Baso % (Auto) (0-2) % Lymph # (Auto) (1.2-4.9) X10*3/uL [place] # (Auto) (0.1-1.2) X10*3/uL Eos # (Auto) (0.0-0.4) X10*3/uL Baso # (Auto) (0.0-0.2) X10*3/uL Abs Immat Gran (auto) (0.00-0.03) X10*3/uL Absolute Neuts (auto) (2.0-8.3) x10*3/uL Absolute Nucleated RBC (0.0-0.012) X10*3/uL Nucleated RBC % (auto) (0.0-0.2) /100WBC PT 11.5 (10.0-13.1) SEC INR 1.0 (0.9-1.1) APTT 30.3 (26.0-36.4) SEC Sodium (135-145) mmol/L Potassium (3.3-5.1) mmol/L Chloride (96-108) mmol/L Carbon Dioxide (22-29) mmol/L Anion Gap (12-20) BUN (9-16) mg/dL Creatinine (0.5-1.4) mg/dL Estim Creat Clear Calc Estimated GFR Random Glucose (60-115) mg/dL Calcium (8.4-10.2) mg/dL Magnesium (1.6-2.6) mg/dL Total Bilirubin (0.0-1.0) mg/dL AST (5-31) U/L ALT (0-31) U/L Alkaline Phosphatase (39-117) U/L Total Creatine Kinase (26-140) U/L Troponin I High Sens 22.5 H (<3.5-17.0) ng/L Total Protein (6.5-8.0) g/dL Albumin (3.5-5.0) g/dL Urine Color YELLOW Urine Appearance HAZY Urine pH 6.0 (5.0-8.0) Ur Specific [place] 1.010 (1.005-1.025) Urine Protein NEG (NEG-TRACE) MG/DL Urine Glucose (UA) 250 H (NEG) MG/DL Urine Ketones NEG (NEG) MG/DL Urine Blood NEG (NEG) Urine Nitrite NEG (NEG) Ur Leukocyte Esterase 1+ H (NEG) Urine RBC 0 (0) /HPF Urine WBC 1-4 (0-4) /HPF Ur Squamous Epith Cells 1+ /LPF Urine Bacteria 1+ /LPF COVID-19 (TEDDY) (Negative) COVID-19 Clin Com 06/18/22 Range/Units 20:41 WBC (4.8-10.8) X10*3/uL RBC (4.20-5.50) X10*6/uL Hgb (12.0-16.0) g/dl Hct (37.0-47.0) % MCV (80.0-98.0) fL MCH (27.0-33.0) pg MCHC (31.0-35.0) g/dl RDW (11.0-16.0) % Plt Count (160-400) X10*3/uL MPV (9.4-12.3) fL Immature Gran % (Auto) (0.0-0.4) % Neut % (Auto) (45-73) % Lymph % (Auto) (20-40) % [place] % (Auto) (2-11) % Eos % (Auto) (0-4) % Baso % (Auto) (0-2) % Lymph # (Auto) (1.2-4.9) X10*3/uL [place] # (Auto) (0.1-1.2) X10*3/uL Eos # (Auto) (0.0-0.4) X10*3/uL Baso # (Auto) (0.0-0.2) X10*3/uL Abs Immat Gran (auto) (0.00-0.03) X10*3/uL Absolute Neuts (auto) (2.0-8.3) x10*3/uL Absolute Nucleated RBC (0.0-0.012) X10*3/uL Nucleated RBC % (auto) (0.0-0.2) /100WBC PT (10.0-13.1) SEC INR (0.9-1.1) APTT (26.0-36.4) SEC Sodium (135-145) mmol/L Potassium (3.3-5.1) mmol/L Chloride (96-108) mmol/L Carbon Dioxide (22-29) mmol/L Anion Gap (12-20) BUN (9-16) mg/dL Creatinine (0.5-1.4) mg/dL Estim Creat Clear Calc Estimated GFR Random Glucose (60-115) mg/dL Calcium (8.4-10.2) mg/dL Magnesium (1.6-2.6) mg/dL Total Bilirubin (0.0-1.0) mg/dL AST (5-31) U/L ALT (0-31) U/L Alkaline Phosphatase (39-117) U/L Total Creatine Kinase (26-140) U/L Troponin I High Sens 22.2 H (<3.5-17.0) ng/L Total Protein (6.5-8.0) g/dL Albumin (3.5-5.0) g/dL Urine Color Urine Appearance Urine pH (5.0-8.0) Ur Specific [place] (1.005-1.025) Urine Protein (NEG-TRACE) MG/DL Urine Glucose (UA) (NEG) MG/DL Urine Ketones (NEG) MG/DL Urine Blood (NEG) Urine Nitrite (NEG) Ur Leukocyte Esterase (NEG) Urine RBC (0) /HPF Urine WBC (0-4) /HPF Ur Squamous Epith Cells /LPF Urine Bacteria /LPF COVID-19 ([facility]) (Negative) COVID-19 Clin Com <LOREN Guerrero - Last Filed: 06/18/22 21:28> Lab Results 06/18/22 06/18/22 06/18/22 Range/Units 14:40 14:40 14:40 WBC 7.8 (4.8-10.8) X10*3/uL RBC 4.66 (4.20-5.50) X10*6/uL Hgb 12.7 (12.0-16.0) g/dl Hct 37.6 (37.0-47.0) % MCV 80.7 (80.0-98.0) fL MCH 27.3 (27.0-33.0) pg MCHC 33.8 (31.0-35.0) g/dl RDW 13.0 (11.0-16.0) % Plt Count 204 (160-400) X10*3/uL MPV 9.1 L (9.4-12.3) fL Immature Gran % (Auto) 0.4 (0.0-0.4) % Neut % (Auto) 55.4 (45-73) % Lymph % (Auto) 31.0 (20-40) % [place] % (Auto) 7.8 (2-11) % Eos % (Auto) 4.8 H (0-4) % Baso % (Auto) 0.6 (0-2) % Lymph # (Auto) 2.4 (1.2-4.9) X10*3/uL [place] # (Auto) 0.6 (0.1-1.2) X10*3/uL Eos # (Auto) 0.4 (0.0-0.4) X10*3/uL Baso # (Auto) 0.1 (0.0-0.2) X10*3/uL Abs Immat Gran (auto) 0.03 (0.00-0.03) X10*3/uL Absolute Neuts (auto) 4.3 (2.0-8.3) x10*3/uL Absolute Nucleated RBC 0.000 (0.0-0.012) X10*3/uL Nucleated RBC % (auto) 0.0 (0.0-0.2) /100WBC PT (10.0-13.1) SEC INR (0.9-1.1) APTT (26.0-36.4) SEC Sodium 138 (135-145) mmol/L Potassium 4.4 (3.3-5.1) mmol/L Chloride 101 (96-108) mmol/L Carbon Dioxide 26 (22-29) mmol/L Anion Gap 15 (12-20) BUN 26 H (9-16) mg/dL Creatinine 1.48 H (0.5-1.4) mg/dL Estim Creat Clear Calc 23.1 Estimated GFR 33 Random Glucose 200 H (60-115) mg/dL Calcium 9.7 (8.4-10.2) mg/dL Magnesium 1.9 (1.6-2.6) mg/dL Total Bilirubin 0.2 (0.0-1.0) mg/dL AST 58 H (5-31) U/L ALT 85 H (0-31) U/L Alkaline Phosphatase 137 H (39-117) U/L Total Creatine Kinase 67 (26-140) U/L Troponin I High Sens (<3.5-17.0) ng/L Total Protein 7.5 (6.5-8.0) g/dL Albumin 4.1 (3.5-5.0) g/dL Urine Color Urine Appearance Urine pH (5.0-8.0) Ur Specific [place] (1.005-1.025) Urine Protein (NEG-TRACE) MG/DL Urine Glucose (UA) (NEG) MG/DL Urine Ketones (NEG) MG/DL Urine Blood (NEG) Urine Nitrite (NEG) Ur Leukocyte Esterase (NEG) Urine RBC (0) /HPF Urine WBC (0-4) /HPF Ur Squamous Epith Cells /LPF Urine Bacteria /LPF COVID-19 ([facility]) Negative (Negative) COVID-19 Clin Com See Note 06/18/22 06/18/22 06/18/22 Range/Units 14:40 14:40 16:50 WBC (4.8-10.8) X10*3/uL RBC (4.20-5.50) X10*6/uL Hgb (12.0-16.0) g/dl Hct (37.0-47.0) % MCV (80.0-98.0) fL MCH (27.0-33.0) pg MCHC (31.0-35.0) g/dl RDW (11.0-16.0) % Plt Count (160-400) X10*3/uL MPV (9.4-12.3) fL Immature Gran % (Auto) (0.0-0.4) % Neut % (Auto) (45-73) % Lymph % (Auto) (20-40) % [place] % (Auto) (2-11) % Eos % (Auto) (0-4) % Baso % (Auto) (0-2) % Lymph # (Auto) (1.2-4.9) X10*3/uL [place] # (Auto) (0.1-1.2) X10*3/uL Eos # (Auto) (0.0-0.4) X10*3/uL Baso # (Auto) (0.0-0.2) X10*3/uL Abs Immat Gran (auto) (0.00-0.03) X10*3/uL Absolute Neuts (auto) (2.0-8.3) x10*3/uL Absolute Nucleated RBC (0.0-0.012) X10*3/uL Nucleated RBC % (auto) (0.0-0.2) /100WBC PT 11.5 (10.0-13.1) SEC INR 1.0 (0.9-1.1) APTT 30.3 (26.0-36.4) SEC Sodium (135-145) mmol/L Potassium (3.3-5.1) mmol/L Chloride (96-108) mmol/L Carbon Dioxide (22-29) mmol/L Anion Gap (12-20) BUN (9-16) mg/dL Creatinine (0.5-1.4) mg/dL Estim Creat Clear Calc Estimated GFR Random Glucose (60-115) mg/dL Calcium (8.4-10.2) mg/dL Magnesium (1.6-2.6) mg/dL Total Bilirubin (0.0-1.0) mg/dL AST (5-31) U/L ALT (0-31) U/L Alkaline Phosphatase (39-117) U/L Total Creatine Kinase (26-140) U/L Troponin I High Sens 22.5 H (<3.5-17.0) ng/L Total Protein (6.5-8.0) g/dL Albumin (3.5-5.0) g/dL Urine Color YELLOW Urine Appearance HAZY Urine pH 6.0 (5.0-8.0) Ur Specific [place] 1.010 (1.005-1.025) Urine Protein NEG (NEG-TRACE) MG/DL Urine Glucose (UA) 250 H (NEG) MG/DL Urine Ketones NEG (NEG) MG/DL Urine Blood NEG (NEG) Urine Nitrite NEG (NEG) Ur Leukocyte Esterase 1+ H (NEG) Urine RBC 0 (0) /HPF Urine WBC 1-4 (0-4) /HPF Ur Squamous Epith Cells 1+ /LPF Urine Bacteria 1+ /LPF COVID-19 (TEDDY) (Negative) COVID-19 Clin Com 06/18/22 Range/Units 20:41 WBC (4.8-10.8) X10*3/uL RBC (4.20-5.50) X10*6/uL Hgb (12.0-16.0) g/dl Hct (37.0-47.0) % MCV (80.0-98.0) fL MCH (27.0-33.0) pg MCHC (31.0-35.0) g/dl RDW (11.0-16.0) % Plt Count (160-400) X10*3/uL MPV (9.4-12.3) fL Immature Gran % (Auto) (0.0-0.4) % Neut % (Auto) (45-73) % Lymph % (Auto) (20-40) % [place] % (Auto) (2-11) % Eos % (Auto) (0-4) % Baso % (Auto) (0-2) % Lymph # (Auto) (1.2-4.9) X10*3/uL [place] # (Auto) (0.1-1.2) X10*3/uL Eos # (Auto) (0.0-0.4) X10*3/uL Baso # (Auto) (0.0-0.2) X10*3/uL Abs Immat Gran (auto) (0.00-0.03) X10*3/uL Absolute Neuts (auto) (2.0-8.3) x10*3/uL Absolute Nucleated RBC (0.0-0.012) X10*3/uL Nucleated RBC % (auto) (0.0-0.2) /100WBC PT (10.0-13.1) SEC INR (0.9-1.1) APTT (26.0-36.4) SEC Sodium (135-145) mmol/L Potassium (3.3-5.1) mmol/L Chloride (96-108) mmol/L Carbon Dioxide (22-29) mmol/L Anion Gap (12-20) BUN (9-16) mg/dL Creatinine (0.5-1.4) mg/dL Estim Creat Clear Calc Estimated GFR Random Glucose (60-115) mg/dL Calcium (8.4-10.2) mg/dL Magnesium (1.6-2.6) mg/dL Total Bilirubin (0.0-1.0) mg/dL AST (5-31) U/L ALT (0-31) U/L Alkaline Phosphatase (39-117) U/L Total Creatine Kinase (26-140) U/L Troponin I High Sens 22.2 H (<3.5-17.0) ng/L Total Protein (6.5-8.0) g/dL Albumin (3.5-5.0) g/dL Urine Color Urine Appearance Urine pH (5.0-8.0) Ur Specific [place] (1.005-1.025) Urine Protein (NEG-TRACE) MG/DL Urine Glucose (UA) (NEG) MG/DL Urine Ketones (NEG) MG/DL Urine Blood (NEG) Urine Nitrite (NEG) Ur Leukocyte Esterase (NEG) Urine RBC (0) /HPF Urine WBC (0-4) /HPF Ur Squamous Epith Cells /LPF Urine Bacteria /LPF COVID-19 (TEDDY) (Negative) COVID-19 Clin Com <Giacomo Cohen MD - Last Filed: 06/19/22 00:31> ECG Data Interpretation: reticular rate 75. Peer interval 266. Caris 168. QTC 515. Negative STEMI. <LOREN Mccray - Last Filed: 06/18/22 18:28> Discharge Plan Discharge Clinical Impression: Weakness <LOREN Mccray - Last Filed: 06/18/22 18:28> Patient Disposition: Still a Patient <LOREN Mccray - Last Filed: 06/18/22 18:28> Prescriptions: No Action atorvastatin 20 mg tablet 1 tab PO BEDTIME cetirizine 10 mg tablet 1 tab PO QAM metoprolol succinate 50 mg tablet extended release 24 hr 3 tab PO QAM donepezil 10 mg tablet 1 tab PO DAILY (DME) FreeStyle Lite Strips Strip MISCELLANEOUS TID aspirin 81 mg tablet,delayed release (DR/EC) 1 tab PO DAILY amlodipine 10 mg tablet 1 tab PO QAM levothyroxine 150 mcg tablet 1 tab PO QAM alcohol swabs [Alcohol Prep Pads] Pads, Medicated 1 tab PO TID PRN (Reason: Wound Care) gabapentin 100 mg capsule 2 cap PO TID fluticasone propionate 50 mcg/actuation spray,suspension 2 spray intranasal DAILY sertraline 50 mg tablet 1 tab PO QAM bupropion HCl 300 mg tablet extended release 24 hr 1 tab PO QAM quetiapine 50 mg tablet 1 tab PO QPM cholecalciferol (vitamin D3) 50 mcg (2,000 unit) tablet 1 tab PO QAM (DME) lancets [TRUEplus Lancets] 33 gauge misc MISCELLANEOUS TID Trulicity 3 mg/0.5 mL pen injector 1 ea subcut QWEEK <LOREN Mccray - Last Filed: 06/18/22 18:28>
[2022-06-18] MEDS: 0.9 % Sodium Chloride 1,000 ML 999 ML IV (14:55)
[2022-06-18 14:57] LABS: MANUAL DIFF FLAG NO
[2022-06-18 15:00] LABS: Appearance Urine HAZY; Color Urine YELLOW; Glucose Urine UA 250 MG/DL (NEG); Leukocyte Esterase Urine 1+ (NEG); Nitrite Urine NEG (NEG); UACC Culture Trigger YES; Urine Blood NEG (NEG); Urine Ketones NEG (NEG); Urine Protein NEG (NEG-TRACE)
[2022-06-18 15:03] LABS: Basophils Absolute Auto 0.1 X10*3/uL (0.0-0.2); Basophils Percent Auto 0.6 % (0-2); Eosinophils Absolute Auto 0.4 X10*3/uL (0.0-0.4); Eosinophils Percent Auto 4.8 % (0-4); Hematocrit 37.6 % (37.0-47.0); Hemoglobin 12.7 g/dl (12.0-16.0); Imm Gran Abs Auto 0.03 X10*3/uL (0.00-0.03); Imm Gran Pct Auto 0.4 % (0.0-0.4); Lymphocytes Absolute Auto 2.4 X10*3/uL (1.2-4.9); Mean Corpuscular HGB Conc 33.8 g/dl (31.0-35.0); Mean Corpuscular Hemoglobin 27.3 pg (27.0-33.0); Mean Corpuscular Volume 80.7 fL (80.0-98.0); Mean Platelet Volume 9.1 fL (9.4-12.3); Monocytes Absolute Auto 0.6 X10*3/uL (0.1-1.2); Monocytes Percent Auto 7.8 % (2-11); Neutrophils Absolute Auto 4.3 x10*3/uL (2.0-8.3); Neutrophils Percent Auto 55.4 % (45-73); Platelet Count 204 X10*3/uL (160-400); Red Blood Count 4.66 X10*6/uL (4.20-5.50); White Blood Count 7.8 X10*3/uL (4.8-10.8)
[2022-06-18 15:14] LABS: Alanine Aminotransferase 85 U/L (0-31); Albumin Level 4.1 g/dL (3.5-5.0); Alkaline Phosphatase 137 U/L (39-117); Anion Gap 15 (12-20); Aspartate Amino Transferase 58 U/L (5-31); Bacteria Urine 1+ /LPF; Bilirubin Total 0.2 mg/dL (0.0-1.0); Blood Urea Nitrogen 26 mg/dL (9-16); Calcium 9.7 mg/dL (8.4-10.2); Carbon Dioxide 26 mmol/L (22-29); Chloride 101 mmol/L (96-108); Creatinine Clr Calc Pharmacy 23.1; Estimated Glomerular Filt Rate 33; Glucose Random 200 mg/dL (60-115); Magnesium 1.9 mg/dL (1.6-2.6); Potassium 4.4 mmol/L (3.3-5.1); RBC Urine 0 /HPF (0); Sodium 138 mmol/L (135-145); Squamous Epithelial Cell Urine 1+ /LPF; Total Protein 7.5 g/dL (6.5-8.0)
[2022-06-18 15:17] LABS: COVID-19 Test Negative (Negative); IDNOW Serial# 16C4AD1C
[2022-06-18 15:23] LABS: Prothrombin Time 11.5 SEC (10.0-13.1)
[2022-06-18 15:26] LABS: Partial Thromboplastin Time 30.3 SEC (26.0-36.4)
[2022-06-18 17:38] LABS: Troponin-I High Sensitivity 22.5 ng/L (<3.5-17.0)
[2022-06-18 20:00] VITALS: BP 119/83; PULSE 73; O2SAT 96
[2022-06-18 21:09] LABS: Troponin-I High Sensitivity 22.2 ng/L (<3.5-17.0)
--- NOTE | 2022-06-18 22:02 | MHC.CM.ED ---
CM met with patient at request of provider. Pt is sl confused. 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 Pt also has 21 hours/wk/days [employer]PER[employer]. Pt does spend some time alone and son feels pt needs STR, as she cannot walk and might even need LTC. Pt uses a cane, walker and wheelchair, but hasn't walked much since April. Pt was at [facility] for rehab in February and initially did well when she got home, but has been failing. HCP is on file. Vax/Boosted/Moderna. PT pending in the am. Son requests [facility] as first choice for STR and then [facility] as second. Then local referrals that contract with [facility]. Referrals placed. Will upload PT when available. CM to follow for d/c needs.
[2022-06-19] VITALS (8 sets, daily range): BP systolic 110–159; BP diastolic 56–78; PULSE 63–69; RESP 12–18; TEMP 36.6–36.7; O2SAT 93–96
[2022-06-19 00:47] LABS: Appearance Urine CLEAR; Color Urine STRAW; Glucose Urine UA NEG (NEG); Leukocyte Esterase Urine NEG (NEG); Nitrite Urine NEG (NEG); Urine Blood NEG (NEG); Urine Ketones NEG (NEG); Urine Protein NEG (NEG-TRACE)
[2022-06-19] MEDS: QUEtiapine Fumarate 50 MG TABLET PO ×2 (01:51→20:19)
[2022-06-19] MEDS: Atorvastatin Calcium 20 MG TABLET PO ×2 (01:51→20:19)
[2022-06-19] MEDS: Gabapentin 100 MG CAPSULE 200 MG PO ×4 (01:52→20:19)
[2022-06-19] MEDS: Levothyroxine Sodium 150 MCG TABLET PO (06:18)
--- NOTE | 2022-06-19 07:13 | PC.NURSE ---
pt's son Jori Merino is requesting that pt is not sent to [facility] for rehab anywhere is fine. son also is reporting that pt is on Tresiba and tralicity insulin. poc this morning 123
[2022-06-19 07:16] LABS: Glucose, Whole Blood 125 mg/dL (60-115)
[2022-06-19] MEDS: buPROPion HCl XL 300 MG TAB.ER.24H PO (09:06)
[2022-06-19] MEDS: amLODIPine Besylate 10 MG TABLET PO (09:06)
[2022-06-19] MEDS: Loratadine 10 MG TABLET PO (09:07)
[2022-06-19] MEDS: Cholecalciferol (Vitamin D3) 25 MCG TABLET 50 MCG PO (09:07)
[2022-06-19] MEDS: Aspirin Enteric Coated 81 MG TABLET.DR PO (09:07)
[2022-06-19] MEDS: Sertraline HCL 50 MG TABLET PO (09:07)
[2022-06-19] MEDS: Metoprolol Succinate ER 50 MG TAB.ER.24H 150 MG PO (09:07)
--- NOTE | 2022-06-19 09:07 | PC.NURSE ---
pt sleeping but awakes to voice command, pt will answer that she is in a hospital, knows the month and year and knows her birthday but also appears slightly confused, respiration even and unlabored, pt denies pain but reports feeling tired, oates in place and draining yellow/clear urine, emptied 600ml of urine. vs stable pt awaiting sniff placement.
[2022-06-19] MEDS: Donepezil HCl 10 MG TABLET PO (09:41)
[2022-06-19] MEDS: Fluticasone Propionate Nasal 16 GM SPRAY 2 SPRAY NOSTRIL-B (09:41)
--- NOTE | 2022-06-19 11:09 | MHC.CM.PN ---
Addendum entered by Velia Noguera 06/19/22 14:18: Spoke with Son/HCP, Jori. DP discussed. He reports that [facility] is not 1st choice after researching facility. Jori agreed any bed offers would be presented for choice. [facility] has offered a bed. Confirmation of bed acceptance confirmed with Jori Facility contact info provided. The PT eval rec was for LTC. [facility] has obtained authorization from [facility]. Transportation has been booked to the main ER. Requested time 3pm not available. Anticipate 5-6PM transport. The facility and [facility] are aware. BLS will contact ER with updates. Original Note: Female 87 DX LE weakness The PT eval has been documented. The eval has been added to the referral. The recommendation is LTC. CM will follow for placement.
[2022-06-19 11:27] LABS: Glucose, Whole Blood 171 mg/dL (60-115)
[2022-06-19] MEDS: Insulin Lispro 100 UNIT/ML 3 ML VIAL SUBCUT ×2 (11:31→18:25)
--- NOTE | 2022-06-19 15:10 | PC.NURSE ---
PAUL Orellana informed me that pt will not be leaving today due to insurance reasons.
[2022-06-19] MEDS: polyethylene glycoL 3350 17 GM POWD.PACK PO (15:38)
[2022-06-19 18:26] LABS: Glucose, Whole Blood 177 mg/dL (60-115)
--- NOTE | 2022-06-19 18:38 | PC.NURSE ---
@ 1820 [facility] CALLED TO CHECK ON ETA, THE STATED TIME OF BETWEEN 5-6 PM HAS PASSED. TOBIAS ANSWERS AND SAYS SHE IS HOPING WITHIN THE HOUR, SHE GOES DOWN CREWS @ 7PM.
[2022-06-19 20:16] LABS: Glucose, Whole Blood 144 mg/dL (60-115)
[2022-06-19] MEDS: Docusate Sodium 100 MG CAPSULE PO (20:19)
--- NOTE | 2022-06-19 20:23 | PC.NURSE ---
call out to [facility] @1999 for an updated ETA on transport Marina from [facility] gave me the message of hopefully within the next hour or two.
--- NOTE | 2022-06-19 21:37 | PC.NURSE ---
savannah from [facility] called @2032 with an update, they are unsuccessful on finding an ambulance company to pass on transport
--- NOTE | 2022-06-19 23:38 | PC.NURSE ---
spoke to [facility] @ [phone] for and update for transport. after speaking to lost charge card clerk she agreed to book [facility] for 0900 on TuesdayJUNE 20.
--- NOTE | 2022-06-19 23:40 | PC.NURSE ---
This RN contacting [facility] to make them away of a delay in transport d/t no ambulances available. Transport booked for 9 am with [facility].
--- NOTE | 2022-06-20 04:36 | PC.NURSE ---
Patient moved her bowels into bedpan-large brown stool. Pt's F/C emptied- 550 mL of dark yellow, clear urine, no odor noted.
[2022-06-20] MEDS: Levothyroxine Sodium 150 MCG TABLET PO (06:03)
[2022-06-20 06:10] VITALS: BP 133/69; PULSE 79; RESP 16; TEMP 36.5; O2SAT 96
[2022-06-20 06:21] LABS: Glucose, Whole Blood 169 mg/dL (60-115)
[2022-06-20 07:34] LABS: Glucose, Whole Blood 160 mg/dL (60-115)
[2022-06-20] MEDS: Aspirin Enteric Coated 81 MG TABLET.DR PO (07:45)
[2022-06-20] MEDS: Gabapentin 100 MG CAPSULE 200 MG PO (07:45)
[2022-06-20] MEDS: polyethylene glycoL 3350 17 GM POWD.PACK PO (07:45)
[2022-06-20] MEDS: amLODIPine Besylate 10 MG TABLET PO (07:45)
[2022-06-20] MEDS: Cholecalciferol (Vitamin D3) 25 MCG TABLET 50 MCG PO (07:45)
[2022-06-20] MEDS: Sertraline HCL 50 MG TABLET PO (07:46)
[2022-06-20] MEDS: Fluticasone Propionate Nasal 16 GM SPRAY 2 SPRAY NOSTRIL-B (07:46)
[2022-06-20] MEDS: Insulin Lispro 100 UNIT/ML 3 ML VIAL SUBCUT (07:46)
[2022-06-20] MEDS: Loratadine 10 MG TABLET PO (07:46)
[2022-06-20] MEDS: Metoprolol Succinate ER 50 MG TAB.ER.24H 150 MG PO (07:46)
[2022-06-20] MEDS: Docusate Sodium 100 MG CAPSULE PO (07:46)
--- NOTE | 2022-06-20 07:48 | PC.NURSE ---
@ 8827 [facility] CALLED TO CONFIRM ETA. COLLADO ANSWERS AND GIVE AN ETA OF 8:30AM, NO LATER THAN 9AM, THE CREW COMES IN AT 8AM
[2022-06-20] MEDS: buPROPion HCl XL 300 MG TAB.ER.24H PO (07:51)
[2022-06-20 07:55] VITALS: BP 120/71; PULSE 75; RESP 18; O2SAT 95
[2022-06-20] MEDS: Donepezil HCl 10 MG TABLET PO (08:52)
--- NOTE | 2022-06-20 09:09 | PC.NURSE ---
report to Chivo Saini
== END 2022-06-20 09:12 | disposition skilled nursing facility (03) ==
PROVIDERS: Physician Assistant; Physician Assistant Medical; Emergency Provider Emergency Medicine Emergency Medical Services; PCP Family Medicine
DX: R53.1 Weakness (principal); E11.9 Type 2 diabetes mellitus without complications; I10 Essential (primary) hypertension; E78.5 Hyperlipidemia, unspecified; Z20.822 Contact with and (suspected) exposure to COVID-19; Z79.02 Long term (current) use of antithrombotics/antiplatelets; Z79.82 Long term (current) use of aspirin; Z79.4 Long term (current) use of insulin
CPT/HCPCS: 36415; 51701; 51702; 51798; 70450; 71250; 74176; 80053; 81001; 81003; 82550; 82947; 83735; 84484; 85025; 85610; 85730; 87086; 87635; 93005; 96361; 96374; 97161; 99285

== ENCOUNTER 2022-06-26 01:06 | Emergency (ER) | payer OTHER, SELFPAY ==
[2022-06-26] VITALS (7 sets, daily range): BP systolic 116–135; BP diastolic 57–72; PULSE 62–94; RESP 16–22; TEMP 36.6–36.7; O2SAT 92–96; BMI 24.0
--- NOTE | ~2022-06-26 | XR_ITS ---
EXAMINATION: XR CHEST CLINICAL INFORMATION: Chest pain COMPARISON: 03/29/2022 TECHNIQUE: Frontal view of the chest was obtained. FINDINGS: Normal symmetric lung volumes. No parenchymal consolidation. No pleural effusion. No pneumothorax. Cardiomediastinal silhouette and pulmonary vascularity are within normal limits. Aorta is atherosclerotic. Status post coronary artery bypass grafting. No acute osseous abnormalities. XR/XR chest 1V IMPRESSION: No acute findings.
--- NOTE | 2022-06-26 01:25 | ECG_ITS ---
Test Reason : cp Blood Pressure : / mmHG Vent. Rate : 061 BPM Atrial Rate : 061 BPM P-R Int : 242 ms QRS Dur : 116 ms QT Int : 432 ms P-R-T Axes : 036 -60 043 degrees QTc Int : 434 ms Sinus rhythm with 1st degree A-V block Left axis deviation Right bundle branch block Abnormal ECG When compared with ECG of 18-JUN-2022 15:55, No significant changes seen Referred By: Lay Quinonez Electronically Signed By:DELANO NASSAR
--- NOTE | 2022-06-26 01:35 | ED_ITS ---
HPI - Chest Pain General Chief Complaint: Chest Pain Stated Complaint: cp Time Seen by Provider: 06/26/22 01:25 Source: patient and EMS Mode of arrival: EMS Limitations: no limitations History of Present Illness HPI narrative: Patient comes to the emergency room complaining of chest pain. Patient states that 3 hours ago, patient was watching TV, had a sharp left-sided chest pain that lasted couple of seconds and then self resolved. Since then, patient has not had any chest pain. At this time, patient denies any symptoms, no shortness of breath, otherwise feeling well. Related Data Home Medications Medication Instructions Recorded Confirmed alcohol swabs (Alcohol Prep Pads) 1 tab PO TID PRN Wound Care 06/18/22 06/18/22 amlodipine 10 mg tablet 1 tab PO QAM 06/18/22 06/18/22 aspirin 81 mg tablet,delayed 1 tab PO DAILY 06/18/22 06/18/22 release atorvastatin 20 mg tablet 1 tab PO BEDTIME 06/18/22 06/18/22 blood sugar diagnostic (FreeStyle 06/18/22 06/18/22 Lite Strips) bupropion HCl 300 mg 24 hr tablet, 1 tab PO QAM 06/18/22 06/18/22 extended release cetirizine 10 mg tablet 1 tab PO QAM 06/18/22 06/18/22 cholecalciferol (vitamin D3) 50 1 tab PO QAM 06/18/22 06/18/22 mcg (2,000 unit) tablet donepezil 10 mg tablet 1 tab PO DAILY 06/18/22 06/18/22 dulaglutide 3 mg/0.5 mL 1 ea subcut QWEEK 06/18/22 06/18/22 subcutaneous pen injector (Trulicity) fluticasone propionate 50 2 spray intranasal DAILY 06/18/22 06/18/22 mcg/actuation nasal spray,suspension gabapentin 100 mg capsule 2 cap PO TID 06/18/22 06/18/22 lancets 33 gauge (TRUEplus Lancets) 06/18/22 06/18/22 levothyroxine 150 mcg tablet 1 tab PO QAM 06/18/22 06/18/22 metoprolol succinate 50 mg 3 tab PO QAM 06/18/22 06/18/22 tablet,extended release 24 hr quetiapine 50 mg tablet 1 tab PO QPM 06/18/22 06/18/22 sertraline 50 mg tablet 1 tab PO QAM 06/18/22 06/18/22 Allergies Allergy/AdvReac Type Severity Reaction Status Date / Time No Known Allergies Allergy Verified 06/10/22 11:13 [No Known Allergies*] Review of Systems Review of Systems: Constitutional : No Weight loss, No Fever, No Chills, No Night Sweats, No Fatigue, No Malaise ENT/Mouth : No Hearing loss, No Ear Pain, No Nasal Congestion, No Sinus Pain, No Hoarseness, No sore throat, No Rhinorrhea, No Swallowing Difficulty Eyes: No Eye Pain, No Swelling, No Redness, No Foreign Body, No Discharge, No Vision Changes Cardiovascular : Sharp left-sided chest pain lasting 1-2 seconds self- resolved., No SOB, No Dyspnea on Exertion, No Orthopnea, No Edema, No Palpitations Respiratory : No Cough, No Sputum, No Wheezing, No Smoke Exposure, No Dyspnea Gastrointestinal : No Nausea, No Vomiting, No Diarrhea, No Constipation, No abdominal Pain, No Hematochezia, No Melena Genitourinary : no irregular bleeding, No Dysuria, No Urinary Frequency, No Hematuria, No Urinary Incontinence, No Urgency, No Flank Pain, No Urinary Flow Changes, No Hesitancy Musculoskeletal : No joint pain, No Myalgias, No Joint Swelling Skin : No Skin Lesions, No rash Neuro : No Weakness, No Numbness, No Paresthesias, No Loss of Consciousness, No Dizziness, No Headache Psych : No Anxiety/Panic, No Depression, No SI/HI/AH/VH, No Social Issues, Heme/Lymph: No Bruising, No Bleeding,No Lymphadenopathy Endocrine : No Polyuria, No Polydipsia, No Temperature Intolerance [facility] Past Medical History Medical History CAD (coronary artery disease) Chest pain Depression Diastolic dysfunction HLD (hyperlipidemia) HTN (hypertension) Hypothyroidism Peptic ulcer disease Postoperative atrial fibrillation Tubular adenoma Type 2 diabetes mellitus with polyneuropathy Surgical History History of esophagogastroduodenoscopy (EGD) Hx of colonoscopy S/P CABG x 3 (~09/2013) Family History Family History Father CVD (cardiovascular disease) Mother No problems noted. Social History Social History Household Members: Children Alcohol intake: never Patient Tobacco Use Status: Never used Tobacco Advance Directives: Yes Advance Directives on File: Yes Advance Directives Date on File: 01/29/22 Physical Exam Vital Signs: Vital Signs: Last Vital Signs Temp 97.9 F 06/26/22 01:26 Pulse 66 06/26/22 04:13 Resp 22 H 06/26/22 04:13 BP 116/65 06/26/22 04:13 Pulse Ox 94 06/26/22 04:13 O2 Del Method 06/26/22 04:13 BMI result Body Mass Index 24.0 Const: Other: Appearance: Alert. Oriented X3. No acute distress. Well-appearing Eyes: Pupils equal, round and reactive to light. ENT: Pharynx normal. Neck: Normal inspection. Neck supple. No lymph nodes noted. No crepitus CVS: Normal heart rate and rhythm. Pulses normal. Normal S1 and S2 Respiratory: No respiratory distress. Breath sounds normal. No Wheezing. No rales Abdomen: Soft and nontender. No rigidity. No distention. Skin: Skin warm and dry. Normal skin color. Normal skin turgor. Extremities: No lower extremity edema. No Lacerations. No Rash Neuro: Oriented X 3. No motor deficit. No sensory deficit. Moving all extremities. No slurred speech. CN 2 through 12 grossly intact Psych: calm, cooperative, normal affect Course Course Course Narrative: Patient's labs , EKG and imaging pending. At this time, patient is asymptomatic Patient remains asymptomatic, 2nd troponin flat MDM - Chest Pain Lab Data Result diagrams: 06/26/22 01:39 06/26/22 01:39 Labs: Lab Results 06/26/22 06/26/22 06/26/22 Range/Units 01:39 01:39 01:39 WBC 6.8 (4.8-10.8) X10*3/uL RBC 4.74 (4.20-5.50) X10*6/uL Hgb 12.8 (12.0-16.0) g/dl Hct 37.6 (37.0-47.0) % MCV 79.3 L (80.0-98.0) fL MCH 27.0 (27.0-33.0) pg MCHC 34.0 (31.0-35.0) g/dl RDW 12.6 (11.0-16.0) % Plt Count 242 (160-400) X10*3/uL MPV 9.5 (9.4-12.3) fL Immature Gran % (Auto) 0.6 H (0.0-0.4) % Neut % (Auto) 40.9 L (45-73) % Lymph % (Auto) 42.1 H (20-40) % [place] % (Auto) 9.1 (2-11) % Eos % (Auto) 6.3 H (0-4) % Baso % (Auto) 1.0 (0-2) % Lymph # (Auto) 2.9 (1.2-4.9) X10*3/uL [place] # (Auto) 0.6 (0.1-1.2) X10*3/uL Eos # (Auto) 0.4 (0.0-0.4) X10*3/uL Baso # (Auto) 0.1 (0.0-0.2) X10*3/uL Abs Immat Gran (auto) 0.04 H (0.00-0.03) X10*3/uL Absolute Neuts (auto) 2.8 (2.0-8.3) x10*3/uL Absolute Nucleated RBC 0.000 (0.0-0.012) X10*3/uL Nucleated RBC % (auto) 0.0 (0.0-0.2) /100WBC Sodium 132 L (135-145) mmol/L Potassium 4.7 (3.3-5.1) mmol/L Chloride 98 (96-108) mmol/L Carbon Dioxide 23 (22-29) mmol/L Anion Gap 16 (12-20) BUN 36 H (9-16) mg/dL Creatinine 1.43 H (0.5-1.4) mg/dL Estim Creat Clear Calc 23.9 Estimated GFR 35 Random Glucose 289 H (60-115) mg/dL Calcium 9.4 (8.4-10.2) mg/dL Total Bilirubin 0.4 (0.0-1.0) mg/dL AST 30 D (5-31) U/L ALT 43 H (0-31) U/L Alkaline Phosphatase 176 H D (39-117) U/L Troponin I High Sens 20.5 H (<3.5-17.0) ng/L Total Protein 7.5 (6.5-8.0) g/dL Albumin 4.0 (3.5-5.0) g/dL Lipase 48 (8-78) U/L 06/26/22 Range/Units 04:12 WBC (4.8-10.8) X10*3/uL RBC (4.20-5.50) X10*6/uL Hgb (12.0-16.0) g/dl Hct (37.0-47.0) % MCV (80.0-98.0) fL MCH (27.0-33.0) pg MCHC (31.0-35.0) g/dl RDW (11.0-16.0) % Plt Count (160-400) X10*3/uL MPV (9.4-12.3) fL Immature Gran % (Auto) (0.0-0.4) % Neut % (Auto) (45-73) % Lymph % (Auto) (20-40) % [place] % (Auto) (2-11) % Eos % (Auto) (0-4) % Baso % (Auto) (0-2) % Lymph # (Auto) (1.2-4.9) X10*3/uL [place] # (Auto) (0.1-1.2) X10*3/uL Eos # (Auto) (0.0-0.4) X10*3/uL Baso # (Auto) (0.0-0.2) X10*3/uL Abs Immat Gran (auto) (0.00-0.03) X10*3/uL Absolute Neuts (auto) (2.0-8.3) x10*3/uL Absolute Nucleated RBC (0.0-0.012) X10*3/uL Nucleated RBC % (auto) (0.0-0.2) /100WBC Sodium (135-145) mmol/L Potassium (3.3-5.1) mmol/L Chloride (96-108) mmol/L Carbon Dioxide (22-29) mmol/L Anion Gap (12-20) BUN (9-16) mg/dL Creatinine (0.5-1.4) mg/dL Estim Creat Clear Calc Estimated GFR Random Glucose (60-115) mg/dL Calcium (8.4-10.2) mg/dL Total Bilirubin (0.0-1.0) mg/dL AST (5-31) U/L ALT (0-31) U/L Alkaline Phosphatase (39-117) U/L Troponin I High Sens 23.0 H (<3.5-17.0) ng/L Total Protein (6.5-8.0) g/dL Albumin (3.5-5.0) g/dL Lipase (8-78) U/L Discharge Plan Discharge Clinical Impression: Atypical chest pain Patient Disposition: Home, Self-Care Instructions: Chest Pain (ED) Additional Instructions: Please follow-up with your primary care physician tomorrow. If you have any worsening or new symptoms, please return to the emergency room or call 911 Prescriptions: No [facility] atorvastatin 20 mg tablet 1 tab PO BEDTIME cetirizine 10 mg tablet 1 tab PO QAM metoprolol succinate 50 mg tablet extended release 24 hr 3 tab PO QAM donepezil 10 mg tablet 1 tab PO DAILY (DME) FreeStyle Lite Strips Strip MISCELLANEOUS TID aspirin 81 mg tablet,delayed release (DR/EC) 1 tab PO DAILY amlodipine 10 mg tablet 1 tab PO QAM levothyroxine 150 mcg tablet 1 tab PO QAM alcohol swabs [Alcohol Prep Pads] Pads, Medicated 1 tab PO TID PRN (Reason: Wound Care) gabapentin 100 mg capsule 2 cap PO TID fluticasone propionate 50 mcg/actuation spray,suspension 2 spray intranasal DAILY sertraline 50 mg tablet 1 tab PO QAM bupropion HCl 300 mg tablet extended release 24 hr 1 tab PO QAM quetiapine 50 mg tablet 1 tab PO QPM cholecalciferol (vitamin D3) 50 mcg (2,000 unit) tablet 1 tab PO QAM (DME) lancets [TRUEplus Lancets] 33 gauge misc MISCELLANEOUS TID Trulicity 3 mg/0.5 mL pen injector 1 ea subcut QWEEK
[2022-06-26 01:44] LABS: Basophils Absolute Auto 0.1 X10*3/uL (0.0-0.2); Eosinophils Absolute Auto 0.4 X10*3/uL (0.0-0.4); Eosinophils Percent Auto 6.3 % (0-4); Hematocrit 37.6 % (37.0-47.0); Hemoglobin 12.8 g/dl (12.0-16.0); Imm Gran Abs Auto 0.04 X10*3/uL (0.00-0.03); Imm Gran Pct Auto 0.6 % (0.0-0.4); Lymphocytes Absolute Auto 2.9 X10*3/uL (1.2-4.9); Lymphocytes Percent Auto 42.1 % (20-40); MANUAL DIFF FLAG NO; Mean Corpuscular Volume 79.3 fL (80.0-98.0); Mean Platelet Volume 9.5 fL (9.4-12.3); Monocytes Absolute Auto 0.6 X10*3/uL (0.1-1.2); Monocytes Percent Auto 9.1 % (2-11); Neutrophils Absolute Auto 2.8 x10*3/uL (2.0-8.3); Neutrophils Percent Auto 40.9 % (45-73); Platelet Count 242 X10*3/uL (160-400); Red Blood Count 4.74 X10*6/uL (4.20-5.50); Red Cell Distribution Width 12.6 % (11.0-16.0); White Blood Count 6.8 X10*3/uL (4.8-10.8)
[2022-06-26 02:03] LABS: Troponin-I High Sensitivity 20.5 ng/L (<3.5-17.0)
[2022-06-26 02:04] LABS: Alanine Aminotransferase 43 U/L (0-31); Alkaline Phosphatase 176 U/L (39-117); Anion Gap 16 (12-20); Aspartate Amino Transferase 30 U/L (5-31); Bilirubin Total 0.4 mg/dL (0.0-1.0); Blood Urea Nitrogen 36 mg/dL (9-16); Calcium 9.4 mg/dL (8.4-10.2); Carbon Dioxide 23 mmol/L (22-29); Chloride 98 mmol/L (96-108); Creatinine Clr Calc Pharmacy 23.9; Estimated Glomerular Filt Rate 35; Glucose Random 289 mg/dL (60-115); Lipase 48 U/L (8-78); Potassium 4.7 mmol/L (3.3-5.1); Sodium 132 mmol/L (135-145); Total Protein 7.5 g/dL (6.5-8.0)
[2022-06-26] MEDS: Aspirin Enteric Coated 325 MG TABLET.DR PO (04:04)
--- NOTE | 2022-06-26 05:36 | PC.NURSE ---
This [facility] called [facility] at 05 to book a BLS transfer back to [facility] Per , Spoke to Robbie he stated no transport at this time. EMS booked for 9AM. RN and charger operator aware
== END 2022-06-26 11:47 | disposition home or self-care (01) ==
PROVIDERS: Student in an Organized Health Care Education/Training Program; Emergency Provider Emergency Medicine; PCP Family Medicine
DX: R07.89 Other chest pain (principal); I10 Essential (primary) hypertension; E11.9 Type 2 diabetes mellitus without complications; E78.5 Hyperlipidemia, unspecified; Z79.82 Long term (current) use of aspirin; Z79.02 Long term (current) use of antithrombotics/antiplatelets; Z79.899 Other long term (current) drug therapy; Z79.4 Long term (current) use of insulin
CPT/HCPCS: 36415; 71045; 80053; 83690; 84484; 85025; 93005; 99283; 99284

== ENCOUNTER 2022-08-08 21:42 | Inpatient (IN) | payer OTHER, SELFPAY ==
--- NOTE | ~2022-08-08 | XR_ITS ---
EXAMINATION: XR CHEST CLINICAL INFORMATION: Shortness of breath, bradycardia, rule out pneumothorax. COMPARISON: Chest radiograph dated from 06/26/2022. TECHNIQUE: Frontal view of the chest was obtained. FINDINGS: Stable prominence of the cardiomediastinal silhouette. Redemonstration of sternal wires and mediastinal surgical clips. EKG pads and wires overlie the chest. Right upper quadrant surgical clips are noted. Atherosclerotic disease of the thoracic aorta. Coronary calcifications. Linear-like opacities in the lower lobe seen favored to represent subsegmental atelectasis and a/or scarring. No focal infiltrate. No pleural effusion or pneumothorax. No acute osseous abnormalities. XR/XR chest 1V IMPRESSION: No acute cardiopulmonary findings. No radiographic evidence of pneumothorax.
--- NOTE | ~2022-08-08 | XR_ITS ---
EXAMINATION: XR HIP, LEFT CLINICAL INFORMATION: Left hip pain. COMPARISON: CT abdomen/pelvis 06/18/2022. TECHNIQUE: Two views of the left hip. FINDINGS: No acute fracture or malalignment. The femoral heads are well-seated in their respective acetabula. SI joints are symmetric. Moderate to severe multifocal osteoarthritis manifested by joint space narrowing, subcortical sclerosis and osteophytes. No significant soft tissue abnormality. Atherosclerotic disease. XR/XR hip LT w PEL1V IMPRESSION: No acute fracture or malalignment. Degenerative osteoarthritis.
--- NOTE | ~2022-08-08 | XR_ITS ---
EXAMINATION: XR CHEST CLINICAL INFORMATION: Tachypneic. COMPARISON: Chest radiograph dated from 08/09/2022. TECHNIQUE: Frontal view of the chest was obtained. FINDINGS: A right IJ CVC terminates projecting over the proximal right atrium, unchanged. Sternal wires and mediastinal surgical clips are again noted. EKG wires overlie the chest. Stable prominence of the cardiomediastinal silhouette. Redemonstration of asymmetric elevation of the right hemidiaphragm. There is increased interstitial thickening and new small lateral pleural effusions. No pneumothorax. No acute osseous abnormalities. There are soft tissue calcifications along the insertion site of the supraspinatus tendons bilaterally, indicative of calcific tendinosis. Degenerative osteoarthritis of the shoulders and acromioclavicular joints. XR/XR chest 1V IMPRESSION: Increased interstitial thickening with new small bilateral pleural effusions raising the possibility of pulmonary edema or atypical/viral infection.
--- NOTE | ~2022-08-08 | FL_ITS ---
EXAMINATION: FLUOROSCOPIC ASPIRATION LEFT ELBOW JOINT CLINICAL INFORMATION: Septic joint. COMPARISON: 10/11/2022. TECHNIQUE: Fluoroscopic-guided left elbow aspiration. FINDINGS: Informed consent was obtained from the patient prior to the procedure. During this process, the procedure and potential alternatives were explained, along with the intended outcome and benefits. The risks of the procedure, as well as the risk of not doing the procedure, were discussed. The patient was given the opportunity to ask questions regarding the procedure and appeared competent to make medical decisions. A signed consent form which documents this discussion was placed in the medical record. Using sterile technique and fluoroscopic guidance a 25-gauge hypodermic needle was placed into the left elbow joint. Attempt at aspiration performed with no fluid being aspirated. A small amount of contrast was administered demonstrating intra-articular positioning of the needle. Repeat aspiration gave approximately 1/8 of a CC of sanguinous fluid which did not clot and samples were sent for laboratory studies. FL/FL guided asp or inj med jt IMPRESSION: Aspiration left elbow joint as described. Fluoroscopy time: 1.1 minutes. Images: 4. Dose: 14.116 mGy. DAP: 0.602 garcia cm squared.
--- NOTE | ~2022-08-08 | XR_ITS ---
EXAMINATION: XR ELBOW, LEFT CLINICAL INFORMATION: Acute left elbow pain COMPARISON: None TECHNIQUE: AP, lateral, and oblique views of the left elbow. FINDINGS: There is mild loss of radioulnar joint space with slight irregularity along the articulating humeral surface. There is bilateral medial and lateral elbow calcification. There is small bone fragment lateral elbow likely old injury. Mild joint effusion is suspected. XR/XR elbow LT 2V IMPRESSION: No acute fracture or dislocation. Mild joint effusion. Degenerative arthritic changes radioulnar joint.
--- NOTE | ~2022-08-08 | XR_ITS ---
EXAMINATION: XR CHEST CLINICAL INFORMATION: Right IJ triple-lumen central line placement. COMPARISON: 08/08/2022 TECHNIQUE: Frontal view of the chest was obtained. FINDINGS: Right internal jugular central venous catheter terminates near the cavoatrial junction. Lung volumes are low. No consolidation, edema, or effusion. No pneumothorax. The cardiomediastinal silhouette is within normal limits. Median sternotomy wires appear intact. Cardiac leads overlie the chest. XR/XR chest 1V IMPRESSION: Right internal jugular central venous catheter terminates near the cavoatrial junction. No pneumothorax.
--- NOTE | ~2022-08-08 | CT_ITS ---
EXAMINATION: CT ABDOMEN AND PELVIS WITHOUT CONTRAST CLINICAL INFORMATION: Left lower abdominal pain. Left hip pain. COMPARISON: 06/18/2022 TECHNIQUE: Multidetector volumetric imaging was performed from the superior aspect of the liver through the pubic symphysis. Sagittal and coronal reformatted images were obtained on the technologist's workstation. This CT examination was performed using dose optimization techniques as appropriate, variously including the following: *Automated exposure control *Adjustment of mA and/or kV according to patient size (this includes techniques or standardized protocols for targeted exams where dose is matched to indication/reason for exam; i.e. extremities or head) *Use of iterative reconstruction technique DLP: 621 mGy-cm FINDINGS: LUNG BASES: Bibasilar atelectasis. Enlarged heart with coronary artery calcifications. LIVER, GALLBLADDER, AND BILIARY TREE: The liver is normal in size, shape, and attenuation. No focal hepatic lesion or intrahepatic biliary ductal dilatation is present. Cholecystectomy. Dilatation of the common bile duct without filling defect. PANCREAS: Diffuse pancreatic atrophy with no focal abnormality. SPLEEN: Unremarkable. ADRENAL GLANDS: Unremarkable. KIDNEYS AND URETERS: The kidneys are normal in size, shape, and attenuation. No hydronephrosis, hydroureter, or calculi seen. No perinephric stranding. BLADDER: Significantly distended bladder without wall thickening. GASTROINTESTINAL TRACT: Small hiatal hernia. The stomach is otherwise unremarkable. Normal caliber of the small bowel. No obstruction. Diffuse colonic diverticulosis which is greatest at the sigmoid colon. No diverticulitis. Normal appendix. No free air or free fluid. ABDOMINAL WALL: There is rectus diastases with prominent eventration of the abdominal wall. Fat-containing supraumbilical ventral abdominal wall hernia noted. This is unchanged. LYMPH NODES: Normal. VASCULAR: Normal caliber aorta with moderate atherosclerotic calcification. PELVIC VISCERA: The uterus and adnexa are unremarkable. OSSEOUS STRUCTURES: No acute or suspicious osseous abnormality. Degenerative changes of the spine and hips. CT/CT abdomen pelvis wo IV con IMPRESSION: No acute findings of the abdomen or pelvis. Diffuse vascular calcifications. Significantly distended bladder, though there are no inflammatory changes. Colonic diverticulosis without diverticulitis. Mild degenerative changes of the hips. Fleischner guidelines were followed.
[2022-08-08 21:54] VITALS: BP 98/44; BP 99/48; PULSE 40; PULSE 44; RESP 16; TEMP 36.4; O2SAT 97; O2SAT 98; BMI 20.1; BMI 21.9
--- NOTE | 2022-08-08 21:54 | ECG_ITS ---
Test Reason : BRADYCARDIA Blood Pressure : / mmHG Vent. Rate : 043 BPM Atrial Rate : 000 BPM P-R Int : 000 ms QRS Dur : 098 ms QT Int : 522 ms P-R-T Axes : 000 -59 010 degrees QTc Int : 441 ms Junctional bradycardia Left axis deviation Abnormal ECG When compared with ECG of 26-JUN-2022 01:25, Junctional rhythm has replaced Sinus rhythm Right bundle branch block is no longer Present Criteria for Septal infarct are no longer Present Referred By: Generic ED Physician Electronically Signed By:YUDI KAUFMAN
--- NOTE | 2022-08-08 22:25 | ED_ITS ---
HPI - Arrhythmia/Palpitations General Chief Complaint: Weakness Stated Complaint: weakness pain low heart rate Time Seen by Provider: 08/08/22 21:55 Source: patient, EMS and RN notes reviewed Mode of arrival: EMS Limitations: language barrier ( Patient's 1st language is Albanian, she does speak some Greek.) History of Present Illness HPI narrative: 87-year-old female sent to the emergency department from her [place] [facility] facility, [facility] for evaluation of low heart rate, not eating for 3 days, back pain and left hip pain. The patient states that she has not been able to eat for 3 days secondary to abdominal pain, she states however at this time she has no abdominal pain. She states that she is feeling short of breath and weak. She did have a headache which is resolved. She is complaining of pain in her left hip area that radiates to her left knee. She denies any fall or injury. The patient was noted to have a heart rate in the 30 beats per minute range and an ambulance was called and she was transported to the emergency department. The patient was given atropine by the paramedics with no improvement of her heart rate. In reviewing the patient's medications, she is on metoprolol succinate ER 50 mg 3 tablets by mouth 1 time a day for blood pressure transfer paperwork listed the patient's son , Jori Merino as the patient's primary contact, I called this number and left a message on the voicemail. Related Data Home Medications Medication Instructions Recorded Confirmed alcohol swabs (Alcohol Prep Pads) 1 tab PO TID PRN Wound Care 06/18/22 06/18/22 aspirin 81 mg tablet,delayed 1 tab PO DAILY 06/18/22 06/18/22 release atorvastatin 20 mg tablet 1 tab PO BEDTIME 06/18/22 06/18/22 blood sugar diagnostic (FreeStyle 06/18/22 06/18/22 Lite Strips) bupropion HCl 300 mg 24 hr tablet, 1 tab PO QAM 06/18/22 06/18/22 extended release cetirizine 10 mg tablet 1 tab PO QAM 06/18/22 06/18/22 cholecalciferol (vitamin D3) 50 1 tab PO QAM 06/18/22 06/18/22 mcg (2,000 unit) tablet donepezil 10 mg tablet 1 tab PO DAILY 06/18/22 06/18/22 dulaglutide 3 mg/0.5 mL 1 ea subcut QWEEK 06/18/22 06/18/22 subcutaneous [facility] fluticasone propionate 50 2 spray intranasal DAILY 06/18/22 06/18/22 mcg/actuation nasal spray,suspension gabapentin 100 mg capsule 2 cap PO TID 06/18/22 06/18/22 lancets 33 gauge (TRUEplus Lancets) 06/18/22 06/18/22 levothyroxine 150 mcg tablet 1 tab PO QAM 06/18/22 06/18/22 metoprolol succinate 50 mg 3 tab PO QAM 06/18/22 06/18/22 tablet,extended release 24 hr quetiapine 50 mg tablet 1 tab PO QPM 06/18/22 06/18/22 sertraline 50 mg tablet 1 tab PO QAM 06/18/22 06/18/22 Previous Rx's Medication Instructions Recorded amlodipine 10 mg tablet 10 mg PO QAM 90 days #90 tabs 07/06/22 Allergies Allergy/AdvReac Type Severity Reaction Status Date / Time No Known Allergies Allergy Verified 06/10/22 11:13 [No Known Allergies*] Review of Systems Review of Systems: Yes all other systems are reviewed and are negative [facility] Past Medical History [facility] Narrative: Social history: She denies tobacco, alcohol and drug use. Medical History CAD (coronary artery disease) Chest pain Depression Diastolic dysfunction HLD (hyperlipidemia) HTN (hypertension) Hypothyroidism Peptic ulcer disease Postoperative atrial fibrillation Tubular adenoma Type 2 diabetes mellitus with polyneuropathy Surgical History History of esophagogastroduodenoscopy (EGD) Hx of colonoscopy S/P CABG x 3 (~09/2013) Family History Family History Father CVD (cardiovascular disease) Mother No problems noted. Social History Social History Household Members: Children Alcohol intake: never Patient Tobacco Use Status: Never used Tobacco Use of substances other than those prescribed or required for medical reasons: No Advance Directives: Yes Advance Directives on File: Yes Advance Directives Date on File: 01/29/22 Physical Exam Vital Signs: Vital Signs: Last Vital Signs Temp 97.5 F 08/08/22 21:54 Pulse 42 L 08/09/22 00:10 Resp 20 08/09/22 00:10 BP 91/40 L 08/09/22 00:10 Pulse Ox 97 08/09/22 00:10 O2 Del Method 08/09/22 00:10 BMI result Body Mass Index 20.1 Const: Other: Awake, alert, female patient, she appears to be in distress secondary to her left leg pain, answers questions appropriately in Albanian with the parts interpreter Orientation/consciousness: oriented to person HEENT: Head: Yes normal to inspection, Yes normocephalic and Yes atraumatic Ears: external ears normal General nose exam: Normal external nose present Face and sinus: Yes normal facial exam Mouth: Normal oral and palatal mucosa present Throat: Yes posterior oropharynx normal Eyes: General: appearance normal, both eyes and all related structures Neck: Neck: Yes normal visual inspection, Yes no lymphadenopathy, Yes trachea midline and Yes supple Chest: Chest palpation & inspection: normal inspection of the chest and normal palpation of entire chest wall Resp: Effort & Inspection: normal respiratory effort and able to speak in complete sentences Auscultation: clear to auscultation bilaterally Cardio: Rate: bradycardic Rhythm: regular rhythm Heart sounds: S1 normal heart sound present, S2 normal heart sound present and no murmurs GI: Inspection: Yes normal to inspection Palpation (GI): Soft to palpation, nontender and no guarding Auscultation: normal bowel sounds : General: Yes no CVA tenderness Back/Spine/Pelvis: Back: no CVA tenderness Skin: General skin exam: no rashes or lesions noted Neuro: General: oriented to person Cranial nerves: Yes CN's II-XII intact bilaterally Cognition (Neuro): normal cognition Extrem: Other: the patient does have pain with palpation over her left hip joint and with minimal movement of her left hip, there is no tenderness palpation over her left knee or left femur Psych: Appearance: grossly normal Mental Status: mental status grossly normal Course Course Course Narrative: 87-year-old female who was sent to the emergency department for evaluation weakness, bradycardia, shortness of breath and left lower extremity pain. The patient has not been eating for 3 days. In route to the hospital the patient was given atropine 1 dose for bradycardia with no change in her rate. The she also received normal saline 500 cc bolus. Blood pressure in the ED was 98/44 with a pulse of 44. Patient had no abdominal tenderness but does have pain with movement of her left hip. I ordered a CBC, CMP, troponin, TSH, PT /INR, PTT, l ipase, COVID-19, urinalysis and EKG. I obtain a chest x-ray and left hip/ pelvis x-ray. Patient also ordered to get Toradol 15 mg IV for her left hip pain and a 500 cc lactated Ringer's bolus. 2153: EKG Junctional bradycardia with a rate of [address] segment elevation, no ST segment depression. In reviewing the patient's medications she does take metoprolol succinate ER 150 mg daily. 0124: Patient was treated with atropine 0.5 mg IV x2, glucagon 2 mg IV x2 without any improvement in her bradycardia. The patient did receive 500 cc of lactated Ringer bolus with improvement of her blood pressure. Patient's laboratory evaluation did reveal an elevated glucose of 395 and an elevated t roponin of 49.9 Repeat will be obtained now. CT scan of the abdomen pelvis did not reveal a clear cause for the patient's pain. X-ray of the patient's left hip and pelvis revealed no acute fracture I did discuss patient's presentation with the covering public information specialist, Dr. Osorio and he felt that the patient bradycardia could be secondary to sick sinus syndrome or secondary to metoprolol. He recommended the patient be admitted to [facility] and observed for at least 24 to 48 hours to see if the bradycardia resolves, if not, the patient may require a pacemaker. I will discuss admission with the covering hospitalist. MDM - Arrhythmia/Palpitations Lab Data Result diagrams: 08/08/22 22:38 08/08/22 22:38 Labs: Lab Results 08/08/22 08/08/22 08/08/22 Range/Units 22:20 22:38 22:38 WBC 8.7 (4.8-10.8) X10*3/uL RBC 4.33 (4.20-5.50) X10*6/uL Hgb 11.9 L (12.0-16.0) g/dl Hct 35.4 L (37.0-47.0) % MCV 81.8 (80.0-98.0) fL MCH 27.5 (27.0-33.0) pg MCHC 33.6 (31.0-35.0) g/dl RDW 13.3 (11.0-16.0) % Plt Count 220 (160-400) X10*3/uL MPV 10.0 (9.4-12.3) fL Immature Gran % (Auto) 0.6 H (0.0-0.4) % Neut % (Auto) 66.4 (45-73) % Lymph % (Auto) 22.1 (20-40) % Daniels % (Auto) 8.0 (2-11) % Eos % (Auto) 2.2 (0-4) % Baso % (Auto) 0.7 (0-2) % Lymph # (Auto) 1.9 (1.2-4.9) X10*3/uL Daniels # (Auto) 0.7 (0.1-1.2) X10*3/uL Eos # (Auto) 0.2 (0.0-0.4) X10*3/uL Baso # (Auto) 0.1 (0.0-0.2) X10*3/uL Abs Immat Gran (auto) 0.05 H (0.00-0.03) X10*3/uL Absolute Neuts (auto) 5.8 (2.0-8.3) x10*3/uL Absolute Nucleated RBC 0.000 (0.0-0.012) X10*3/uL Nucleated RBC % (auto) 0.0 (0.0-0.2) /100WBC PT 12.1 (10.0-13.1) SEC INR 1.1 (0.9-1.1) APTT 30.4 (26.0-36.4) SEC Sodium (135-145) mmol/L Potassium (3.3-5.1) mmol/L Chloride (96-108) mmol/L Carbon Dioxide (22-29) mmol/L Anion Gap (12-20) BUN (9-16) mg/dL Creatinine (0.5-1.4) mg/dL Estim Creat Clear Calc Estimated GFR Random Glucose (60-115) mg/dL Lactic Acid (0.5-2.0) mmol/L Calcium (8.4-10.2) mg/dL Total Bilirubin (0.0-1.0) mg/dL AST (5-31) U/L ALT (0-31) U/L Alkaline Phosphatase (39-117) U/L Total Creatine Kinase (26-140) U/L Troponin I High Sens (<3.5-17.0) ng/L Total Protein (6.5-8.0) g/dL Albumin (3.5-5.0) g/dL Lipase (8-78) U/L TSH (0.32-4.0) uIU/mL Ethyl Alcohol mg/dL COVID-19 ([facility]) Negative (Negative) COVID-19 Clin Com See Note 08/08/22 08/08/22 08/08/22 Range/Units 22:38 22:38 22:38 WBC (4.8-10.8) X10*3/uL RBC (4.20-5.50) X10*6/uL Hgb (12.0-16.0) g/dl Hct (37.0-47.0) % MCV (80.0-98.0) fL MCH (27.0-33.0) pg MCHC (31.0-35.0) g/dl RDW (11.0-16.0) % Plt Count (160-400) X10*3/uL MPV (9.4-12.3) fL Immature Gran % (Auto) (0.0-0.4) % Neut % (Auto) (45-73) % Lymph % (Auto) (20-40) % Daniels % (Auto) (2-11) % Eos % (Auto) (0-4) % Baso % (Auto) (0-2) % Lymph # (Auto) (1.2-4.9) X10*3/uL Daniels # (Auto) (0.1-1.2) X10*3/uL Eos # (Auto) (0.0-0.4) X10*3/uL Baso # (Auto) (0.0-0.2) X10*3/uL Abs Immat Gran (auto) (0.00-0.03) X10*3/uL Absolute Neuts (auto) (2.0-8.3) x10*3/uL Absolute Nucleated RBC (0.0-0.012) X10*3/uL Nucleated RBC % (auto) (0.0-0.2) /100WBC PT (10.0-13.1) SEC INR (0.9-1.1) APTT (26.0-36.4) SEC Sodium 134 L (135-145) mmol/L Potassium 5.1 (3.3-5.1) mmol/L Chloride 103 (96-108) mmol/L Carbon Dioxide 18 L (22-29) mmol/L Anion Gap 18 (12-20) BUN 42 H (9-16) mg/dL Creatinine 2.16 H (0.5-1.4) mg/dL Estim Creat Clear Calc 14.5 Estimated GFR 22 Random Glucose 395 H* (60-115) mg/dL Lactic Acid 2.4 H* (0.5-2.0) mmol/L Calcium 8.9 (8.4-10.2) mg/dL Total Bilirubin 0.5 (0.0-1.0) mg/dL AST 17 D (5-31) U/L ALT 20 (0-31) U/L Alkaline Phosphatase 91 D (39-117) U/L Total Creatine Kinase 34 D (26-140) U/L Troponin I High Sens 49.9 H D (<3.5-17.0) ng/L Total Protein 6.6 (6.5-8.0) g/dL Albumin 3.7 (3.5-5.0) g/dL Lipase 37 (8-78) U/L TSH 1.06 (0.32-4.0) uIU/mL Ethyl Alcohol < 10 mg/dL COVID-19 ([facility]) (Negative) COVID-19 Clin Com Discharge Plan Discharge Prescriptions: No Action amlodipine 10 mg tablet 10 mg PO QAM 90 Days Qty: 90 3RF atorvastatin 20 mg tablet 1 tab PO BEDTIME cetirizine 10 mg tablet 1 tab PO QAM metoprolol succinate 50 mg tablet extended release 24 hr 3 tab PO QAM donepezil 10 mg tablet 1 tab PO DAILY (DME) FreeStyle Lite Strips Strip MISCELLANEOUS TID aspirin 81 mg tablet,delayed release (DR/EC) 1 tab PO DAILY levothyroxine 150 mcg tablet 1 tab PO QAM alcohol swabs [Alcohol Prep Pads] Pads, Medicated 1 tab PO TID PRN (Reason: Wound Care) gabapentin 100 mg capsule 2 cap PO TID fluticasone propionate 50 mcg/actuation spray,suspension 2 spray intranasal DAILY sertraline 50 mg tablet 1 tab PO QAM bupropion HCl 300 mg tablet extended release 24 hr 1 tab PO QAM quetiapine 50 mg tablet 1 tab PO QPM cholecalciferol (vitamin D3) 50 mcg (2,000 unit) tablet 1 tab PO QAM (DME) lancets [TRUEplus Lancets] 33 gauge misc MISCELLANEOUS TID Trulicity 3 mg/0.5 mL pen injector 1 ea subcut QWEEK
[2022-08-08] MEDS: Ketorolac Tromethamine 15 MG/ML VIAL IVPUSH (22:30)
[2022-08-08] MEDS: Lactated Ringers 500 ML 1000 ML IV (22:33)
[2022-08-08 22:34] VITALS: PULSE 40
--- NOTE | 2022-08-08 22:36 | PC.NURSE ---
Pt is on [employer] rep, in bradycardia 40. Pacer in place, blood drawn and medicated for pain.
[2022-08-08 22:37] VITALS: BP 97/51; PULSE 41; RESP 26; O2SAT 97
[2022-08-08] MEDS: Atropine Sulfate 1 MG/10 ML SYRINGE 0.5 MG IVPUSH ×2 (22:42→22:48)
[2022-08-08 22:46] LABS: MANUAL DIFF FLAG NO
[2022-08-08 22:47] LABS: Basophils Absolute Auto 0.1 X10*3/uL (0.0-0.2); Basophils Percent Auto 0.7 % (0-2); Eosinophils Absolute Auto 0.2 X10*3/uL (0.0-0.4); Eosinophils Percent Auto 2.2 % (0-4); Hematocrit 35.4 % (37.0-47.0); Hemoglobin 11.9 g/dl (12.0-16.0); Imm Gran Abs Auto 0.05 X10*3/uL (0.00-0.03); Imm Gran Pct Auto 0.6 % (0.0-0.4); Lymphocytes Absolute Auto 1.9 X10*3/uL (1.2-4.9); Lymphocytes Percent Auto 22.1 % (20-40); Mean Corpuscular HGB Conc 33.6 g/dl (31.0-35.0); Mean Corpuscular Hemoglobin 27.5 pg (27.0-33.0); Mean Corpuscular Volume 81.8 fL (80.0-98.0); Monocytes Absolute Auto 0.7 X10*3/uL (0.1-1.2); Neutrophils Absolute Auto 5.8 x10*3/uL (2.0-8.3); Neutrophils Percent Auto 66.4 % (45-73); Platelet Count 220 X10*3/uL (160-400); Red Blood Count 4.33 X10*6/uL (4.20-5.50); Red Cell Distribution Width 13.3 % (11.0-16.0); White Blood Count 8.7 X10*3/uL (4.8-10.8)
[2022-08-08 22:48] VITALS: BP 92/43; PULSE 44; RESP 18
[2022-08-08 22:52] LABS: COVID-19 Test Negative (Negative)
[2022-08-08 22:55] LABS: INTERNATIONAL NORM RATIO 1.1 (0.9-1.1); Prothrombin Time 12.1 SEC (10.0-13.1)
[2022-08-08 22:58] LABS: Partial Thromboplastin Time 30.4 SEC (26.0-36.4)
[2022-08-08 23:03] LABS: Lactic Acid 2.4 mmol/L (0.5-2.0)
[2022-08-08 23:08] LABS: Alanine Aminotransferase 20 U/L (0-31); Albumin Level 3.7 g/dL (3.5-5.0); Alkaline Phosphatase 91 U/L (39-117); Anion Gap 18 (12-20); Aspartate Amino Transferase 17 U/L (5-31); Bilirubin Total 0.5 mg/dL (0.0-1.0); Blood Urea Nitrogen 42 mg/dL (9-16); Calcium 8.9 mg/dL (8.4-10.2); Carbon Dioxide 18 mmol/L (22-29); Chloride 103 mmol/L (96-108); Creatinine Clr Calc Pharmacy 14.5; Estimated Glomerular Filt Rate 22; Ethanol < 10 mg/dL; Glucose Random 395 mg/dL (60-115); Lipase 37 U/L (8-78); Potassium 5.1 mmol/L (3.3-5.1); Sodium 134 mmol/L (135-145); Total Protein 6.6 g/dL (6.5-8.0)
[2022-08-08 23:09] LABS: Troponin-I High Sensitivity 49.9 ng/L (<3.5-17.0)
[2022-08-08 23:25] LABS: TSH reflex Free T4 1.06 uIU/mL (0.32-4.0)
[2022-08-08] MEDS: fentaNYL citrate/PF 100 MCG/2 ML VIAL 12.5 MCG IVPUSH (23:35)
[2022-08-09] VITALS (27 sets, daily range): BP systolic 63–152; BP diastolic 28–80; PULSE 37–74; RESP 14–73; TEMP 36.5–38.2; O2SAT 90–97
[2022-08-09 00:44] LABS: Reflex Lactate? Lactic Acid Added
[2022-08-09 02:13] LABS: ~Lactic Acid-LAB USE ONLY 5.5 mmol/L (0.5-2.0)
[2022-08-09 02:21] LABS: Troponin-I High Sensitivity 51.3 ng/L (<3.5-17.0)
[2022-08-09] MEDS: 0.9 % Sodium Chloride 1,000 ML 999 ML IV (02:25)
[2022-08-09 03:33] LABS: Reflex Lactate? 2 Y
[2022-08-09] MEDS: 0.9 % Sodium Chloride 1,000 ML 50 ML IVCONT (04:04)
[2022-08-09] MEDS: DOPamine HCL/D5W 400 MG/250 ML PLAST..BAG IVCONT (04:04)
--- NOTE | 2022-08-09 04:50 | W.PM.CCCN ---
History of Present Illness Data of Consult Service Date: 08/09/22 Requesting physician: Juancho Cruz Primary Care Provider: Unknown Physician HPI Reason for consult: INTRACTABLE BRADYCARDIA AND HYPOTENSION HPI: ?87-year-old female patient comes from [facility] with complaints of low heart rate, patient has a history of coronary disease post CABG, diastolic dysfunction and CHF, hypertension, hyperlipidemia, hypothyroidism, peptic ulcer disease, postoperative atrial fibrillation, tubular adenoma, type 2 diabetes with polyneuropathy, the patient was reported not to be eating for the past 3 days and complaining of back pain and left hip pain.? According to the ER physician the patient told him that she had abdominal pain this reason which she was not eating however she did not have pain at the time of evaluation.? She reported to feel weak and short of breath, have had a headache but had improved and had complained of pain the left hip radiating into had left knee without any injury or fall reported. ?During my evaluation, the patient is not able to give me the history above obtained, she seems to be confused, somnolent however is cooperative and is aware of her name. ? In the ER, the patient was noted to have a heart rate in the 30s which was also noted by EMS personnel who administered 1 mg of atropine without any improvement of heart rate.? She had received 500 cc of normal saline, her initial blood pressure was 98 over for fee for an initial heart rate of 44.? She was given 2 mg of IV glucagon and given 1 more mg of atropine in 2 different doses of 0.5 mg each along with extra 500 cc of LR.? Her initial EKG shows junctional bradycardia with heart rate 44 beats per minute. ?No ST elevations, noticed depressions. Laboratory workup revealed white count 5.7, hemoglobin 11.9, hematocrit 35.4, platelets 220, sodium 134, potassium 5.1, chloride 103, carbon dioxide 18, BUN 42, creatinine 2.16) her previous baseline 1.5.? Blood sugar 395.? COVID negative.? Initial chest x-ray negative, left hip x-ray shows osteoarthritis, no fracture.? CT abdomen pelvis without contrast shows no acute pathology of the abdomen, diffuse vascular calcifications, significantly distended bladder to without inflammatory changes.? Colonic diverticulosis without diverticulitis.? Mild degenerative changes of the hips. At this point in given the ongoing bradycardia, we were consulted for comanagement of the patient and or possible admission to the ICU. ? ROS:? Unable to obtain ? Past Medical History:? As above ? Past Surgical History: EGD Colonoscopy CABG in 2013 ? Family history:? Father had coronary disease ? Social History:? Patient lives half-way facility, there is no history of tobacco use ever, no alcohol or drugs.? She is full code and the main contact is her son Jori Merino [phone] ? CODE STATUS: FULL CODE ? Allergies: NKDA ? Home Medications: See Med Rec ? PHYSICAL EXAM: VS: ?62/32, 34, 16, 96% 3 L NASAL CANNULA. General:? Alert oriented to person no acute distress.? Speaking full sentences.? Speech is well articulated, thought process is not coherent.? Following basic commands. Skin:? Intact, no lesions, edema, erythema, clubbing or cyanosis.? No ulcers. HEENT:? Head is normocephalic, atraumatic, pupils equal round reactive to light accommodation bilaterally.? Extraocular movements appear intact.? Buccal mucosa isdry., Neck is supple without lymphadenopathy. Cardiac:? Bradicardic 30 to 35 bpm, no m/r/g Pulmonary:? Clear to auscultation, no wheezes, rales or rhonchi. Abdomen:? Protuberant, positive bowel sounds in all 4 quadrants.? Soft, there is no tenderness to percussion, no tenderness to light palpation, there is some tenderness on the bilateral lower quadrants with deep palpation but there is no rebound tenderness or involuntary guarding.? No CVA tenderness. Musculoskeletal:? Moving all 4 extremities upon request a major joints, there is no crepitus or tenderness.? The strength is 5/5 bilaterally and throughout all 4 extremities.? There is no leg edema , no calf tenderness , no leg asymmetry.? Gait not assessed at this point. Neurologic:? As above, No focal deficits noted. Motor strength as above.? Vascular:? 2+ pulses upper and lower extremities distally. ? SIGNIFICANT LABORATORY DATA:? As above ? REVIEW OF IMAGES: ?As above ? EKG REVIEW:? As above ? ASSESSMENT : 1. Intractable junctional bradycardia this could be due to pure beta-deandra toxicity or retention in the setting of acute kidney injury, however the synergistic effect between metoprolol , bupropion and donepezil can also cause significant hypotension, bradycardia and AV blockage; otherwise it could be related to structural disease, sick sinus syndrome, unlikely RCA MS, unlikely infiltrative cardiac disease such as amyloid, sarcoid or hemochromatosis. 2. Hypotension likely due to poor cardiac output 3. Lactic acidosis likely due to bowel ischemia in the setting of poor perfusion 4. Acute kidney injury on chronic kidney disease 5. Clinical dehydration 6. Urinary retention rule out UTI versus chronic issue 7. Normocytic anemia rule out iron deficiency versus microscopic bleeding 8. Hypo smaller hypovolemic hyponatremia 9. Slight troponin abnormality unlikely to represent acute coronary syndrome, likely in the setting of 1. And number 4. 10. Uncontrolled diabetes mellitus type 2 11. Acute hyperkalemia likely due to BEATRIS ? PLAN OF CARE: 1. Not sure if the patient will be placed in the ICU at this time due to logistical issues, for now the patient has been started on dopamine at 2 mcg per kg, will increases by 1 mg every 15 minutes until we reached an adequate heart rate and blood pressure. ?Central line will be placed for administration of vasopressors. 2. I will give the patient 250 cc of fluid gently to avoid CHF.? Will repeat full set of laboratories including lactic acid and troponin, have ordered a UA and folic catheter given the patient's retention as she has approximately 600 cc in the bladder after bladder scanning her. 3. She will need gentle hydration for she did receive Toradol for pain and this should be avoided in patients with renal insufficiency. 4. I discussed on the patient's current clinical scenario with the patient's son Jori Merino who is aware and reiterates the fact the patient is full code, he will be here in the morning to see her. Patient has felt slightly nauseous, will give for renally adjusted Reglan. 5. I have ordered 10 mg of IV insulin, will suggest an insulin sliding scale. 6. I will give her 1 dose of Rocephin given that her urine does have leukocyte esterase and bacteria, urinary retention; her blood sugar was not treated in the ER, ordered 10 units of IV push regular insulin which will help with the potassium and shift into the cells, I have also order a 10 mg albuterol treatment, will order labs to be repeated in [address] Roy will be in to evaluate the patient, patient may need a temporary pacing wire while we await for these to either resolved or continue in which case if it does not improve she will need a permanent pacemaker. 8.After placing her on dopamine her most recent blood pressure is 96/67, heart rate 66, respirations 14, O2 sat 92% on 3 L nasal cannula. ? GI PROPHYLAXIS: ?Head of the bed 30 degree angle, Protonix DVT PROPHYLAXIS: Pneumatic stockings while in bed ? Critical care time used for critical evaluation of this patient, diagnosis, treatment and coordination of care, review her records and documentation TOTAL CRITICAL CARE TIME?90?MIN . discussion and coordination with consultants, completely separate from any procedures performed. Patient's care was discussed in detail with Dr. Roy.? He is aware of all the above as well as the plan of care for this patient. [facility] Past Medical History Medical History CAD (coronary artery disease) Chest pain Depression Diastolic dysfunction HLD (hyperlipidemia) HTN (hypertension) Hypothyroidism Peptic ulcer disease Postoperative atrial fibrillation Tubular adenoma Type 2 diabetes mellitus with polyneuropathy Family History Family History Father CVD (cardiovascular disease) Mother No problems noted. Surgical History Surgical History History of esophagogastroduodenoscopy (EGD) Hx of colonoscopy S/P CABG x 3 (~09/2013) Social History Social History Household Members: Children Housing: Assisted Living Facility Unable to assess alcohol history related to: Unable to respond Alcohol intake: never Patient Tobacco Use Status: Never used Tobacco Use of substances other than those prescribed or required for medical reasons: Unknown Currently Displaying Signs/Symptoms of Drug Intoxication Withdrawal: No Advance Directives: Yes Advance Directives on File: Yes Advance Directives Date on File: 01/29/22 Recently lost weight without trying: Unsure Patient : No : No Poor oral hygiene: No service: No Current occupational status: disabled Meds Allergies Allergy/AdvReac Type Severity Reaction Status Date / Time No Known Allergies Allergy Verified 06/10/22 11:13 [No Known Allergies*] Active Medications: Current Medications Sodium Chloride (Ns) 1,000 mls @ 50 mls/hr IVCONT .Q20H [facility] Last Admin: 08/09/22 04:04 Dose: 50 mls/hr Dopamine HCl/Dextrose (Dopamine Hcl/D5w) 400 mg in 250 mls @ 0 mls/hr IVCONT .Q0M [facility]; Protocol Last Admin: 08/09/22 04:04 Dose: 2 mcg/kg/min, 3.74 mls/hr Home Medications Medication Instructions Recorded Confirmed Last Taken Type aspirin 81 mg tablet,delayed 1 tab PO DAILY 06/18/22 08/09/22 Unknown History release atorvastatin 20 mg tablet 1 tab PO BEDTIME 06/18/22 08/09/22 Unknown History blood sugar diagnostic (FreeStyle 06/18/22 06/18/22 Unknown History Lite Strips) bupropion HCl 300 mg 24 hr tablet, 1 tab PO QAM 06/18/22 08/09/22 Unknown History extended release cetirizine 10 mg tablet 1 tab PO QAM 06/18/22 08/09/22 Unknown History cholecalciferol (vitamin D3) 50 1 tab PO QAM 06/18/22 08/09/22 Unknown History mcg (2,000 unit) tablet donepezil 10 mg tablet 1 tab PO DAILY 06/18/22 08/09/22 Unknown History fluticasone propionate 50 2 spray intranasal DAILY 06/18/22 08/09/22 Unknown History mcg/actuation nasal spray,suspension gabapentin 100 mg capsule 2 cap PO TID 06/18/22 08/09/22 Unknown History lancets 33 gauge (TRUEplus Lancets) 06/18/22 06/18/22 Unknown History levothyroxine 150 mcg tablet 1 tab PO QAM 06/18/22 08/09/22 Unknown History metoprolol succinate 50 mg 150 mg PO DAILY 06/18/22 08/09/22 Unknown History tablet,extended release 24 hr quetiapine 50 mg tablet 1 tab PO QPM 06/18/22 08/09/22 Unknown History sertraline 50 mg tablet 1 tab PO QAM 06/18/22 08/09/22 Unknown History insulin lispro 100 unit/mL 1 sliding scale dose subcut 08/09/22 08/09/22 Unknown History subcutaneous solution (Humalog USEASDIRECTD U-100 Insulin) metformin 500 mg tablet 500 mg PO BID 08/09/22 08/09/22 Unknown History Physical Exam Vital Signs: Vital Signs: Last Vital Signs Temp 97.5 F 08/08/22 21:54 Pulse 37 L 08/09/22 04:34 Resp 16 08/09/22 04:34 BP 63/37 L 08/09/22 04:34 Pulse Ox 96 08/09/22 04:34 O2 Del Method 08/09/22 04:34 O2 Flow Rate 2 08/09/22 04:34 BMI result Body Mass Index 20.1 Results Labs CBC & Chem 7: 08/10/22 08:01 08/10/22 05:08 Labs: Short CBC 08/08/22 Range/Units 22:38 WBC 8.7 (4.8-10.8) X10*3/uL Hgb 11.9 L (12.0-16.0) g/dl Hct 35.4 L (37.0-47.0) % Plt Count 220 (160-400) X10*3/uL BMP 08/08/22 22:38 Sodium 134 L Potassium 5.1 Chloride 103 Carbon Dioxide 18 L BUN 42 H Creatinine 2.16 H Calcium 8.9 Cardiac Enzymes 08/08/22 Range/Units 22:38 Total Creatine Kinase 34 D (26-140) U/L Liver Function 08/08/22 Range/Units 22:38 Total Bilirubin 0.5 (0.0-1.0) mg/dL AST 17 D (5-31) U/L ALT 20 (0-31) U/L Alkaline Phosphatase 91 D (39-117) U/L Albumin 3.7 (3.5-5.0) g/dL Assessment and Plan (1) Symptomatic bradycardia: Status: Acute (2) Cardiogenic shock: Status: Acute (3) Junctional bradycardia: Status: Acute (4) Abdominal pain: Status: Acute (5) Essential hypertension: Status: Acute (6) Type 2 diabetes mellitus with unspecified complications: Status: Acute (7) Atherosclerotic cardiovascular disease: Status: Acute (8) Ascending aorta dilatation: Status: Chronic (9) S/P CABG x 3: Status: Acute (10) Acute renal failure: Status: Acute (11) Lactic acidosis: Status: Acute
--- NOTE | 2022-08-09 04:50 | W.PM.CCHP ---
Procedures Date of Service Date of Service: 08/09/22 Central Line Placement Right IJ: Central Line Comments: Verbal consent was obtained from the patient's son over the phone Jori Merino A quick time-out was made for clarification and proper patient identification, patient was positioned, landmarks were identified, US used to locate a large compressible IJ. The right neck was widely prepped and draped in a full sterile fashion. Ultrasound was used to locate again the right IJ, the vein was cannulated on the 1st pass with an 18 gauge thin needle, dark nonpulsatile blood return was obtained. The wire was threaded, a small incision was made at its base and dilator inserted. A 16cm triple-lumen central venous catheter was advanced into the vein up to the hub without problems, wired was removed. Ports had good blood return and flushed x3. The catheter was secured with 3 sutures at 3 sites, a Biopatch and dry sterile dressing were applied. Post procedure chest x-ray showed the line to be in good position without pneumothorax. No bleeding or complications noted.
[2022-08-09 04:54] LABS: Basophils Percent Auto 0.4 % (0-2); Eosinophils Absolute Auto 0.1 X10*3/uL (0.0-0.4); Eosinophils Percent Auto 0.9 % (0-4); Hematocrit 32.6 % (37.0-47.0); Imm Gran Abs Auto 0.05 X10*3/uL (0.00-0.03); Imm Gran Pct Auto 0.5 % (0.0-0.4); Lymphocytes Absolute Auto 2.7 X10*3/uL (1.2-4.9); MANUAL DIFF FLAG NO; Mean Corpuscular HGB Conc 33.7 g/dl (31.0-35.0); Mean Corpuscular Hemoglobin 27.8 pg (27.0-33.0); Mean Corpuscular Volume 82.5 fL (80.0-98.0); Mean Platelet Volume 10.5 fL (9.4-12.3); Monocytes Absolute Auto 0.8 X10*3/uL (0.1-1.2); Monocytes Percent Auto 7.6 % (2-11); Neutrophils Absolute Auto 6.4 x10*3/uL (2.0-8.3); Neutrophils Percent Auto 63.6 % (45-73); Platelet Count 211 X10*3/uL (160-400); Red Blood Count 3.95 X10*6/uL (4.20-5.50); Red Cell Distribution Width 13.6 % (11.0-16.0); White Blood Count 10.1 X10*3/uL (4.8-10.8)
[2022-08-09 04:55] LABS: Appearance Urine Clear; Color Urine Yellow; Glucose Urine UA 250 mg/dL (Negative); Leukocyte Esterase Urine Small (1+) (Negative); Nitrite Urine Negative (Negative); PH 5.5 (5.0-9.0); Specific Gravity - Urine 1.015 (1.005-1.025); UMIC TRIGGER UACC YES; Urine Blood Negative (Negative); Urine Ketones Negative (Negative); Urine Protein Trace mg/dL (Neg-Trace)
[2022-08-09] MEDS: Piperacillin Sodium/Tazobactam 3.375 GM in 0.9 % Sodium Chloride 50 ML IV (04:57)
--- NOTE | 2022-08-09 05:01 | PC.NURSE ---
I assumed nursing care of Talita at 2300. At that time she was resting in stretcher with a HR in the mid 30's, junctional and a BP of 70-80's/30's-40's. MD Cohen was aware of these vital signs. I obtained additional IV access for a total of 2 large bore peripheral IV S. pt was also placed on pacer pads/Zoll. pt remains alert, intermittently confused to place and time but oriented to person. Pt was given NS and glucagon without change in her vital signs. The decision was made by it applications developer to place a triple lumen central line (placed in R EJ) and initiate a dopamine infusion. Myself and two ER techs assisted Lazaro PIMENTEL to place the central line. After placement it was confirmed by chest x ray and permission was given to use the central line. A 250cc NS bolus was administered and the pt is now getting NS at 50ml/hr as well as Dopamine. The dopamine was initiated at 1mcg/kg/min and is now infusing at a rate of 6mcg/kg/min (estimated weight per Lazaro PIMENTEL is 160lbs). Following TLC placement Woo catheter was placed with clear yellow urine draining at this time. urine spec sent to lab. HR remains 44, junctional. BP is now 88/64. Will continue to monitor.
[2022-08-09 05:04] LABS: Bacteria Urine 1+ (None Seen); Hyaline Casts Urine 0-2 /LPF (0-2); Squamous Epithelial Cell Urine 0-2 /HPF (0-2); UACC Culture Trigger YES; WBC Urine 0-5 /HPF (0-5)
[2022-08-09 05:21] LABS: Glucose, Whole Blood 369 mg/dL (60-115)
[2022-08-09 05:26] LABS: B Type Natriuretic Peptide 360 pg/mL (<100); Lactic Acid 3.6 mmol/L (0.5-2.0); Troponin-I High Sensitivity 88.7 ng/L (<3.5-17.0)
[2022-08-09 05:28] LABS: Alanine Aminotransferase 40 U/L (0-31); Albumin Level 3.2 g/dL (3.5-5.0); Alkaline Phosphatase 82 U/L (39-117); Anion Gap 21 (12-20); Aspartate Amino Transferase 48 U/L (5-31); Bilirubin Total 0.4 mg/dL (0.0-1.0); Blood Urea Nitrogen 46 mg/dL (9-16); Carbon Dioxide 11 mmol/L (22-29); Chloride 105 mmol/L (96-108); Creatinine Clr Calc Pharmacy 11.9; Estimated Glomerular Filt Rate 17; Glucose Random 436 mg/dL (60-115); Magnesium 1.8 mg/dL (1.6-2.6); Phosphorus 5.4 mg/dL (2.7-4.5); Potassium 6.4 mmol/L (3.3-5.1); Sodium 131 mmol/L (135-145); Total Protein 6.1 g/dL (6.5-8.0)
--- NOTE | 2022-08-09 05:31 | PC.NURSE ---
Critical labs reported to Claudia William of k 6.4, glucose of 436, trop of 88.7m Lactic of 3.6. Remi provider notified. Will continue to monitor.
[2022-08-09] MEDS: Insulin Regular, Human 100 UNIT/ML 3 ML VIAL 10 UNIT IVPUSH (05:32)
[2022-08-09] MEDS: Pantoprazole Sodium 40 MG/10 ML VIAL IVPUSH (05:35)
[2022-08-09] MEDS: Albuterol Sulfate 7.5 MG, Albuterol Sulfate (0.083%) 2.5 MG 10 MG INHALE (05:38)
[2022-08-09 06:51] LABS: Reflex Lactate? Lactic Acid Added
[2022-08-09 07:00] LABS: Glucose, Whole Blood 302 mg/dL (60-115)
--- NOTE | 2022-08-09 07:00 | CA_ITS ---
Transthoracic Echocardiogram Patient (Last, First, Middle): Talita Merino, Gender: Female Date of : 1935 Age: 87 Procedure Date: 08/09/2022 Procedure Type: Transthoracic Echocardiogram Location: ICU Height: 157.48 cm Weight: 49.9 kg BSA: 1.48 m2 Heart Rate: bpm BP: 140 / 76 mmHg Lang Interpreter: JUNE Referring MD: Robert Roy MD Symptoms: /CHF Study Quality: Technically Difficult ECG Rhythm: Undetermined Conclusions: - The left ventricular systolic function is hyperdynamic. The visually estimated ejection fraction is between 65-70%. 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 - There is mild dilatation of the ascending aorta measuring 4.20 cm. Findings Left Ventricle Normal left ventricular cavity size. There is mildly increased left ventricular wall thickness. The left ventricular systolic function is hyperdynamic. The visually estimated ejection fraction is between 65-70%. Regional wall motion abnormalities can not be excluded due to suboptimal endocardial definition. Diastolic function is indeterminate on the basis of available data. Right Ventricle The right ventricle was not well visualized. Mildly increased right ventricular cavity size. There is moderately decreased right ventricular systolic function. Atria Severe biatrial enlargement. Aortic Valve The aortic valve was not well visualized. There is moderate calcification of the aortic valve. The mean gradient is 5 mmHg. The aortic valve area is 1.15 cm2. There is no aortic valve regurgitation. Dimensionless index 0.29. Stroke volume index 26ml/m2. 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 Mitral Valve The mitral valve appears normal. There is mild mitral annular calcification. There is trace mitral valve regurgitation. There is no mitral valve stenosis. Pulmonic Valve The pulmonic valve is likely normal. Tricuspid Valve There is mild tricuspid valve regurgitation. There is no evidence of pulmonary hypertension. Great Vessels There is mild dilatation of the ascending aorta measuring 4.20 cm. Venous The inferior vena cava is dilated and collapses less than 50% with inspiration. Pericardium/Pleural There is no evidence of pericardial effusion. Prior Study Comparison Changes noted compared to prior study dated: 11/25/2020. See comments on aortic valve. Measurements 2D Linear Measurements IVSd: 1.19 0.6-0.9/0.6-1.0 cm LVIDd: 3.66 3.9-5.3/4.2-5.9 cm LVIDd Index: 2.47 2.4-3.2/2.2-3.1 cm/m2 LVIDs: 2.16 2.0-3.6 cm LVPWd: 1.29 0.7-1.1 cm LA Diam: 3.30 2.7-3.8/3.0-4.0 cm LAIDs Index: 2.23 1.5-2.3 cm/m2 LV Mass: 189.75 67-162/88-224 g LV Mass Index: 128.21 43-95/49-115 g/m2 LVOT Diam: 2.20 3.0+(-)1.3 cm Mitral Valve MV Pk E: 0.85 MV PK A: 0.34 MV Decel Time: 342.00 E/A: 2.50 E'Lateral: 7.35 E'Medial: 4.95 E/E' Med: 17.10 E/E' Lat: 11.50 PHT: 81.00 MVA PHT: 2.72 Decel Furnas: 3.29 Aortic Valve AoV Pk Octaviano: 1.78 AoV Mn Octaviano: 0.98 AoV VTI: 0.33 AoV Pk Grad: 13.00 Aov Mn Grad: 5.00 DALTON Cont.VTI: 1.15 LVOT LVOT Pk Octaviano: 0.53 LVOT Mn Octaviano: 0.37 LVOT VTI: 0.10 LVOT Pk Grad: 1.00 LVOT Mn Grad: 1.00 LVOT Diam: 2.20 LVOT Area: 3.80 Diastolic Function MV Pk E: 0.85 MV Pk A: 0.34 E/A: 2.50 E'Medial: 4.95 E/E' Med: 17.10 E' Laterial: 7.35 E/E' Lat: 11.50 Tricuspid Valve TR Pk Octaviano: 2.50 TR Pk Grad: 25.00 RA Press: 15.00 RVSP: 40.00 Great Vessels Aorta Sinus of Valsalva: 3.44 2.0-3.[address] Ridge: 2.87 1.7-3.4 cm Ao Asc: 4.20 2.1-3.4 cm Updated in Other Vendor System with Status of Final Yg Rayo MD electronically signed on 08/09/2022 4:44:10 PM with status of Final
[2022-08-09 09:12] LABS: Alanine Aminotransferase 45 U/L (0-31); Albumin Level 3.5 g/dL (3.5-5.0); Alkaline Phosphatase 85 U/L (39-117); Anion Gap 22 (12-20); Aspartate Amino Transferase 54 U/L (5-31); Bilirubin Total 0.5 mg/dL (0.0-1.0); Blood Urea Nitrogen 49 mg/dL (9-16); Calcium 8.4 mg/dL (8.4-10.2); Carbon Dioxide 11 mmol/L (22-29); Chloride 106 mmol/L (96-108); Creatinine Clr Calc Pharmacy 11.4; Estimated Glomerular Filt Rate 16; Glucose Random 393 mg/dL (60-115); Potassium 4.8 mmol/L (3.3-5.1); Sodium 134 mmol/L (135-145); Total Protein 6.4 g/dL (6.5-8.0)
--- NOTE | 2022-08-09 09:19 | PM.CCPN ---
Subjective Subjective Date of Service: 08/09/22 Interval History: 87-year-old female brought in because of altered mental status although at has a bladder it degree of chronic dementia but also because of increased weakness noted to be hypotensive and bradycardic what appears to be either slow atrial fibrillation with rates in the low the 40s verses a junctional escape mechanism and she does take for hypertension metoprolol at 150 mg daily as well as thyroid replacement she had progressively climbing lactic acid intractable hypotension was given for some fluid boluses in the emergency room with no benefit and Woo catheter was placed she clearly had a call periphery and it sounds like the no unequivocally a low-flow state with acute on chronic renal failure as well at this point the concern was for at least a contribution from the metoprolol and symptomatic bradycardia and for that and we treated the elevated beta deandra affect with IV insulin and dextrose I even added Intralipid and it we attempted small dose of glucagon which did not change anything ultimately placed a central line and started on dopamine which at this point this at 5 micrograms/kilogram per minute heart rate did come up to approximately 50 and again there was no evidence of a sinus mechanism and my bedside echo revealed concentric left ventricular hypertrophy with 60% ejection fraction no segmental wall motion abnormality except for the very base of the posterior wall but there is a moderately calcified trileaflet aortic valve and might peak velocities with 2.5 m/sec so I do believe that it is a noncritical stenosis but at least in the moderate to moderately severe range and were awaiting official echo Critical Care Time (minutes): 60 Physical Exam Vital Signs: Vital Signs: Last Vital Signs Temp 97.5 F 08/08/22 21:54 Pulse 45 L 08/09/22 09:06 Resp 20 08/09/22 07:34 BP 85/45 L 08/09/22 09:06 Pulse Ox 93 08/09/22 07:34 O2 Del Method 08/09/22 07:34 O2 Flow Rate 4 08/09/22 07:34 BMI result Body Mass Index 20.1 she is awake can converse but there is an element of some confusion as discussed with the family at the bedside nonfocal neurologic she can only ambulate with assistance and with a walker but does require help for all of her care at the nursing facility abdomen soft no organomegaly chest clear without adventitious sounds skin is cool but there is no livedo no acrocyanosis Objective Data Labs CBC & Chem 7: 08/09/22 09:39 08/09/22 09:39 Labs: Laboratory Results - last 24 hr 08/08/22 08/08/22 08/08/22 22:20 22:38 22:38 WBC 8.7 RBC 4.33 Hgb 11.9 L Hct 35.4 L MCV 81.8 MCH 27.5 MCHC 33.6 RDW 13.3 Plt Count 220 MPV 10.0 Immature Gran % (Auto) 0.6 H Neut % (Auto) 66.4 Lymph % (Auto) 22.1 Wall[place] % (Auto) 8.0 Eos % (Auto) 2.2 Baso % (Auto) 0.7 Lymph # (Auto) 1.9 [place] # (Auto) 0.7 Eos # (Auto) 0.2 Baso # (Auto) 0.1 Abs Immat Gran (auto) 0.05 H Absolute Neuts (auto) 5.8 Absolute Nucleated RBC 0.000 Nucleated RBC % (auto) 0.0 PT 12.1 INR 1.1 APTT 30.4 Sodium Potassium Chloride Carbon Dioxide Anion Gap BUN Creatinine Estim Creat Clear Calc Estimated GFR POC Glucose Random Glucose Lactic Acid Lactic Acid F/U @ 2Hr Calcium Phosphorus Magnesium Total Bilirubin AST ALT Alkaline Phosphatase Total Creatine Kinase Troponin I High Sens B-Natriuretic Peptide Total Protein Albumin Lipase TSH Urine Color Urine Appearance Urine pH Ur Specific [place] Urine Protein Urine Glucose (UA) Urine Ketones Urine Blood Urine Nitrite Ur Leukocyte Esterase Urine RBC Urine WBC Ur Squamous Epith Cells Urine Bacteria Hyaline Casts Ethyl Alcohol COVID-19 ([facility]) Negative COVID-19 Clin Com See Note 08/08/22 08/08/22 08/08/22 22:38 22:38 22:38 WBC RBC Hgb Hct MCV MCH MCHC RDW Plt Count MPV Immature Gran % (Auto) Neut % (Auto) Lymph % (Auto) [place] % (Auto) Eos % (Auto) Baso % (Auto) Lymph # (Auto) [place] # (Auto) Eos # (Auto) Baso # (Auto) Abs Immat Gran (auto) Absolute Neuts (auto) Absolute Nucleated RBC Nucleated RBC % (auto) PT INR APTT Sodium 134 L Potassium 5.1 Chloride 103 Carbon Dioxide 18 L Anion Gap 18 BUN 42 H Creatinine 2.16 H Estim Creat Clear Calc 14.5 Estimated GFR 22 POC Glucose Random Glucose 395 H* Lactic Acid 2.4 H* Lactic Acid F/U @ 2Hr Calcium 8.9 Phosphorus Magnesium Total Bilirubin 0.5 AST 17 D ALT 20 Alkaline Phosphatase 91 D Total Creatine Kinase 34 D Troponin I High Sens 49.9 H D B-Natriuretic Peptide Total Protein 6.6 Albumin 3.7 Lipase 37 TSH 1.06 Urine Color Urine Appearance Urine pH Ur Specific [place] Urine Protein Urine Glucose (UA) Urine Ketones Urine Blood Urine Nitrite Ur Leukocyte Esterase Urine RBC Urine WBC Ur Squamous Epith Cells Urine Bacteria Hyaline Casts Ethyl Alcohol < 10 COVID-19 ([facility]) COVID-19 Clin Com 08/09/22 08/09/22 08/09/22 01:30 01:48 04:45 WBC 10.1 RBC 3.95 L Hgb 11.0 L Hct 32.6 L MCV 82.5 MCH 27.8 MCHC 33.7 RDW 13.6 Plt Count 211 MPV 10.5 Immature Gran % (Auto) 0.5 H Neut % (Auto) 63.6 Lymph % (Auto) 27.0 [place] % (Auto) 7.6 Eos % (Auto) 0.9 Baso % (Auto) 0.4 Lymph # (Auto) 2.7 [place] # (Auto) 0.8 Eos # (Auto) 0.1 Baso # (Auto) 0.0 Abs Immat Gran (auto) 0.05 H Absolute Neuts (auto) 6.4 Absolute Nucleated RBC 0.000 Nucleated RBC % (auto) 0.0 PT INR APTT Sodium Potassium Chloride Carbon Dioxide Anion Gap BUN Creatinine Estim Creat Clear Calc Estimated GFR POC Glucose Random Glucose Lactic Acid Lactic Acid F/U @ 2Hr 5.5 H* Calcium Phosphorus Magnesium Total Bilirubin AST ALT Alkaline Phosphatase Total Creatine Kinase Troponin I High Sens 51.3 H* B-Natriuretic Peptide Total Protein Albumin Lipase TSH Urine Color Urine Appearance Urine pH Ur Specific [place] Urine Protein Urine Glucose (UA) Urine Ketones Urine Blood Urine Nitrite Ur Leukocyte Esterase Urine RBC Urine WBC Ur Squamous Epith Cells Urine Bacteria Hyaline Casts Ethyl Alcohol COVID-19 ([facility]) COVID-19 Clin Com 08/09/22 08/09/22 08/09/22 04:45 04:45 04:45 WBC RBC Hgb Hct MCV MCH MCHC RDW Plt Count MPV Immature Gran % (Auto) Neut % (Auto) Lymph % (Auto) [place] % (Auto) Eos % (Auto) Baso % (Auto) Lymph # (Auto) [place] # (Auto) Eos # (Auto) Baso # (Auto) Abs Immat Gran (auto) Absolute Neuts (auto) Absolute Nucleated RBC Nucleated RBC % (auto) PT INR APTT Sodium 131 L Potassium 6.4 H* D Chloride 105 Carbon Dioxide 11 L Anion Gap 21 H BUN 46 H Creatinine 2.62 H Estim Creat Clear Calc 11.9 Estimated GFR 17 POC Glucose Random Glucose 436 H* Lactic Acid 3.6 H* Lactic Acid F/U @ 2Hr Calcium 8.0 L D Phosphorus 5.4 H Magnesium 1.8 Total Bilirubin 0.4 AST 48 H D ALT 40 H Alkaline Phosphatase 82 Total Creatine Kinase Troponin I High Sens 88.7 H* D B-Natriuretic Peptide 360 H Total Protein 6.1 L Albumin 3.2 L Lipase TSH Urine Color Urine Appearance Urine pH Ur Specific [place] Urine Protein Urine Glucose (UA) Urine Ketones Urine Blood Urine Nitrite Ur Leukocyte Esterase Urine RBC Urine WBC Ur Squamous Epith Cells Urine Bacteria Hyaline Casts Ethyl Alcohol COVID-19 ([facility]) COVID-19 [employer] 08/09/22 08/09/22 08/09/22 04:45 05:13 06:56 WBC RBC Hgb Hct MCV MCH MCHC RDW Plt Count MPV Immature Gran % (Auto) Neut % (Auto) Lymph % (Auto) [place] % (Auto) Eos % (Auto) Baso % (Auto) Lymph # (Auto) [place] # (Auto) Eos # (Auto) Baso # (Auto) Abs Immat Gran (auto) Absolute Neuts (auto) Absolute Nucleated RBC Nucleated RBC % (auto) PT INR APTT Sodium Potassium Chloride Carbon Dioxide Anion Gap BUN Creatinine Estim Creat Clear Calc Estimated GFR POC Glucose 369 H* 302 H Random Glucose Lactic Acid Lactic Acid F/U @ 2Hr Calcium Phosphorus Magnesium Total Bilirubin AST ALT Alkaline Phosphatase Total Creatine Kinase Troponin I High Sens B-Natriuretic Peptide Total Protein Albumin Lipase TSH Urine Color Yellow Urine Appearance Clear Urine pH 5.5 Ur Specific [place] 1.015 Urine Protein Trace Urine Glucose (UA) 250 H Urine Ketones Negative Urine Blood Negative Urine Nitrite Negative Ur Leukocyte Esterase Small (1+) H Urine RBC 3-5 H Urine WBC 0-5 Ur Squamous Epith Cells 0-2 Urine Bacteria 1+ Hyaline Casts 0-2 Ethyl Alcohol COVID-19 ([facility]) COVID-19 [employer] 08/09/22 08/09/22 08:27 08:27 WBC RBC Hgb Hct MCV MCH MCHC RDW Plt Count MPV Immature Gran % (Auto) Neut % (Auto) Lymph % (Auto) [place] % (Auto) Eos % (Auto) Baso % (Auto) Lymph # (Auto) [place] # (Auto) Eos # (Auto) Baso # (Auto) Abs Immat Gran (auto) Absolute Neuts (auto) Absolute Nucleated RBC Nucleated RBC % (auto) PT INR APTT Sodium 134 L Potassium 4.8 D Chloride 106 Carbon Dioxide 11 L Anion Gap 22 H BUN 49 H Creatinine 2.73 H Estim Creat Clear Calc 11.4 Estimated GFR 16 POC Glucose Random Glucose 393 H* Lactic Acid Lactic Acid F/U @ 2Hr 3.0 H* Calcium 8.4 Phosphorus Magnesium Total Bilirubin 0.5 AST 54 H ALT 45 H Alkaline Phosphatase 85 Total Creatine Kinase Troponin I High Sens B-Natriuretic Peptide Total Protein 6.4 L Albumin 3.5 Lipase TSH Urine Color Urine Appearance Urine pH Ur Specific [place] Urine Protein Urine Glucose (UA) Urine Ketones Urine Blood Urine Nitrite Ur Leukocyte Esterase Urine RBC Urine WBC Ur Squamous Epith Cells Urine Bacteria Hyaline Casts Ethyl Alcohol COVID-19 ([facility]) COVID-19 Clin Com Progress Note: A&P Assessment and plan (1) Junctional bradycardia: Status: Acute (2) Abdominal pain: Status: Acute (3) Acute pain of left hip: Status: Acute (4) Urinary retention with incomplete bladder emptying: Status: Acute (5) Essential hypertension: Status: Acute (6) Type 2 diabetes mellitus with unspecified complications: Status: Acute (7) Atherosclerotic cardiovascular disease: Status: Acute (8) Ascending aorta dilatation: Status: Chronic (9) Diarrhea: Status: Acute (10) GERD (gastroesophageal reflux disease): Status: Acute (11) S/P CABG x 3: Status: Acute (12) CAD (coronary artery disease): Status: Acute (13) Cardiogenic shock: Status: Acute (14) Symptomatic bradycardia: Status: Acute Plan the plan is to continue on the dopamine for now and see if over the next 24-48 hours this some reversal of this rhythm issue and have already pre discussed the possibility of permanent pacing with the family for them to decide based on her life quality and as I am dictating on beginning to notice some yazdanism I believe of a sinus mechanism Quality Stroke Does the patient have a stroke diagnosis?: No VTE Prior VTE?: No VTE Risk Level:: Medical - moderate - high VTE Device Contraindication: N/A - Device Ordered VTE Drug Contraindication: N/A - Med Ordered
[2022-08-09 09:51] LABS: MANUAL DIFF FLAG NO
[2022-08-09 09:56] LABS: Basophils Percent Auto 0.2 % (0-2); Eosinophils Percent Auto 0.1 % (0-4); Hemoglobin 10.8 g/dl (12.0-16.0); Imm Gran Abs Auto 0.07 X10*3/uL (0.00-0.03); Imm Gran Pct Auto 0.6 % (0.0-0.4); Lymphocytes Absolute Auto 1.3 X10*3/uL (1.2-4.9); Lymphocytes Percent Auto 11.3 % (20-40); Mean Corpuscular HGB Conc 33.8 g/dl (31.0-35.0); Mean Corpuscular Hemoglobin 27.6 pg (27.0-33.0); Mean Corpuscular Volume 81.8 fL (80.0-98.0); Monocytes Percent Auto 8.5 % (2-11); Neutrophils Absolute Auto 9.4 x10*3/uL (2.0-8.3); Neutrophils Percent Auto 79.3 % (45-73); Platelet Count 188 X10*3/uL (160-400); Red Blood Count 3.91 X10*6/uL (4.20-5.50); Red Cell Distribution Width 13.4 % (11.0-16.0); White Blood Count 11.8 X10*3/uL (4.8-10.8)
[2022-08-09 10:02] LABS: INTERNATIONAL NORM RATIO 1.1 (0.9-1.1); Prothrombin Time 13.2 SEC (10.0-13.1)
[2022-08-09 10:07] LABS: Anion Gap 20 (12-20); Blood Urea Nitrogen 51 mg/dL (9-16); Calcium 8.4 mg/dL (8.4-10.2); Carbon Dioxide 14 mmol/L (22-29); Chloride 105 mmol/L (96-108); Creatinine Clr Calc Pharmacy 10.9; Estimated Glomerular Filt Rate 16; Magnesium 1.6 mg/dL (1.6-2.6); Sodium 134 mmol/L (135-145); Triglycerides 125 mg/dL
[2022-08-09] MEDS: Fat Emulsions 20% 250 ML 40 ML IV (10:15)
[2022-08-09] MEDS: Heparin Sodium,Porcine 5,000 UNIT/ML VIAL 5000 UNIT SUBCUT ×2 (10:15→23:22)
[2022-08-09] MEDS: cefTRIAXone sodium 1 GM in 0.9 % Sodium Chloride 50 ML IV (10:16)
[2022-08-09 10:31] LABS: Reflex Lactate? 2 Y
[2022-08-09 10:37] LABS: Glucose, Whole Blood 358 mg/dL (60-115)
[2022-08-09] MEDS: Insulin Regular/NS 100 UNIT/100 ML PLAST..BAG IVCONT ×2 (10:46→23:17)
[2022-08-09 10:59] LABS: ~Lactic Acid-LAB USE ONLY 1.9 mmol/L (0.5-2.0)
--- NOTE | 2022-08-09 11:26 | PHA.MEDREC ---
Pharmacy Consult ? Medication Reconciliation Pharmacy has completed the medication reconciliation. ORDER SUMMARY FROM [facility]
--- NOTE | 2022-08-09 12:05 | PC.NURSE ---
Spoke with daughter esau for update on patient's plan.
[2022-08-09 12:16] LABS: Glucose, Whole Blood 343 mg/dL (60-115)
[2022-08-09 14:12] LABS: Glucose, Whole Blood 263 mg/dL (60-115)
[2022-08-09 14:22] LABS: Glucose, Whole Blood 322 mg/dL (60-115)
[2022-08-09 15:22] LABS: Glucose, Whole Blood 243 mg/dL (60-115)
[2022-08-09] MEDS: DOPamine HCL/D5W 400 MG/250 ML PLAST..BAG 22.45 MG IVCONT (15:39)
[2022-08-09 16:32] LABS: Glucose, Whole Blood 197 mg/dL (60-115)
[2022-08-09 17:13] LABS: Glucose, Whole Blood 175 mg/dL (60-115)
[2022-08-09] MEDS: Magnesium Sulfate/D5W 1 GM/100 ML PIGGYBACK IV (17:25)
[2022-08-09 18:12] LABS: Anion Gap 25 (12-20); Blood Urea Nitrogen 48 mg/dL (9-16); Calcium 8.3 mg/dL (8.4-10.2); Carbon Dioxide 9 mmol/L (22-29); Chloride 105 mmol/L (96-108); Creatinine Clr Calc Pharmacy 11.5; Estimated Glomerular Filt Rate 17; Glucose Random 201 mg/dL (60-115); Potassium 4.4 mmol/L (3.3-5.1); Sodium 135 mmol/L (135-145)
[2022-08-09 18:19] LABS: Glucose, Whole Blood 200 mg/dL (60-115)
[2022-08-09 18:20] LABS: Appearance Urine Turbid; Color Urine Yellow; Glucose Urine UA 100 mg/dL (Negative); Leukocyte Esterase Urine Large (3+) (Negative); Nitrite Urine Negative (Negative); Specific Gravity - Urine 1.025 (1.005-1.025); UMIC TRIGGER UACC YES; Urine Blood Negative (Negative); Urine Ketones Trace mg/dL (Negative); Urine Protein 30 (1+) mg/dL (Neg-Trace)
[2022-08-09 18:43] LABS: Bacteria Urine 1+ (None Seen); Squamous Epithelial Cell Urine >20 /HPF (0-2); UACC Culture Trigger YES; WBC Urine >50 /HPF (0-5)
[2022-08-09 18:56] LABS: Venous Blood Gas Refer to POC result
[2022-08-09 18:57] LABS: VBG Base Excess -13.3 mmol/L; VBG HCO3 11 mmol/L (22-26); VBG pCO2 23 mmHg; VBG pH 7.28 (7.32-7.43); VBG pO2 64 mmHg
[2022-08-09 19:08] LABS: Lactic Acid 3.6 mmol/L (0.5-2.0)
[2022-08-09 20:30] LABS: Glucose, Whole Blood 164 mg/dL (60-115)
[2022-08-09 20:45] LABS: Reflex Lactate? Lactic Acid Added
[2022-08-09 22:08] LABS: MANUAL DIFF FLAG NO
[2022-08-09 22:10] LABS: Basophils Absolute Auto 0.1 X10*3/uL (0.0-0.2); Basophils Percent Auto 0.5 % (0-2); Eosinophils Percent Auto 0.1 % (0-4); Hematocrit 34.7 % (37.0-47.0); Imm Gran Abs Auto 0.09 X10*3/uL (0.00-0.03); Imm Gran Pct Auto 0.7 % (0.0-0.4); Lymphocytes Absolute Auto 2.1 X10*3/uL (1.2-4.9); Lymphocytes Percent Auto 16.3 % (20-40); Mean Corpuscular HGB Conc 34.6 g/dl (31.0-35.0); Mean Corpuscular Hemoglobin 27.5 pg (27.0-33.0); Mean Corpuscular Volume 79.4 fL (80.0-98.0); Mean Platelet Volume 10.2 fL (9.4-12.3); Monocytes Absolute Auto 1.2 X10*3/uL (0.1-1.2); Monocytes Percent Auto 9.3 % (2-11); Neutrophils Absolute Auto 9.4 x10*3/uL (2.0-8.3); Neutrophils Percent Auto 73.1 % (45-73); Platelet Count 214 X10*3/uL (160-400); Red Blood Count 4.37 X10*6/uL (4.20-5.50); Red Cell Distribution Width 13.4 % (11.0-16.0); White Blood Count 12.8 X10*3/uL (4.8-10.8)
[2022-08-09 22:11] LABS: Venous Blood Gas Refer to POC result
[2022-08-09 22:13] LABS: VBG Base Excess -9.5 mmol/L; VBG HCO3 14 mmol/L (22-26); VBG pCO2 24 mmHg; VBG pH 7.35 (7.32-7.43); VBG pO2 56 mmHg
[2022-08-09 22:23] LABS: Anion Gap 19 (12-20); Blood Urea Nitrogen 46 mg/dL (9-16); Calcium 8.6 mg/dL (8.4-10.2); Carbon Dioxide 13 mmol/L (22-29); Chloride 107 mmol/L (96-108); Creatinine Clr Calc Pharmacy 12.6; Estimated Glomerular Filt Rate 18; Glucose Random 159 mg/dL (60-115); Magnesium 1.9 mg/dL (1.6-2.6); Phosphorus 3.9 mg/dL (2.7-4.5); Potassium 4.3 mmol/L (3.3-5.1); Sodium 135 mmol/L (135-145); ~Lactic Acid-LAB USE ONLY 2.6 mmol/L (0.5-2.0)
[2022-08-09] MEDS: 0.9 % Sodium Chloride 1,000 ML 25 ML IVCONT (23:24)
[2022-08-09 23:31] LABS: Glucose, Whole Blood 115 mg/dL (60-115)
[2022-08-10] VITALS (27 sets, daily range): BP systolic 102–146; BP diastolic 33–77; PULSE 63–118; RESP 16–30; TEMP 37.3–38; O2SAT 91–99; BMI 24.5
--- NOTE | 2022-08-10 | ECG_ITS ---
Test Reason : new EKG change Blood Pressure : / mmHG Vent. Rate : 072 BPM Atrial Rate : 072 BPM P-R Int : 210 ms QRS Dur : 110 ms QT Int : 440 ms P-R-T Axes : 116 228 120 degrees QTc Int : 481 ms Suspect limb lead reversal, interpretation assumes no reversal Sinus rhythm with 1st degree A-V block Lateral infarct , age undetermined Abnormal ECG When compared with ECG of 10-AUG-2022 06:01, Sinus rhythm has replaced Ectopic atrial rhythm Right bundle branch block is no longer Present Lateral infarct is now Present Referred By: Robert Roy Electronically Signed By:
--- NOTE | 2022-08-10 | ECG_ITS ---
Test Reason : elevated trop Blood Pressure : / mmHG Vent. Rate : 080 BPM Atrial Rate : 080 BPM P-R Int : 128 ms QRS Dur : 164 ms QT Int : 448 ms P-R-T Axes : -46 -64 055 degrees QTc Int : 516 ms Unusual P axis, possible ectopic atrial rhythm Left axis deviation Right bundle branch block Abnormal ECG When compared with ECG of 08-AUG-2022 21:53, Ectopic atrial rhythm has replaced Junctional rhythm Vent. rate has increased BY 37 BPM Right bundle branch block is now Present Referred By: Gema Franks Electronically Signed By:YUDI KAUFMAN
[2022-08-10 00:06] LABS: Reflex Lactate? 2 Y
[2022-08-10 00:54] LABS: ~Lactic Acid-LAB USE ONLY 1.6 mmol/L (0.5-2.0)
[2022-08-10] MEDS: Dextrose 50 % 25 GM/50 ML SYRINGE IVPUSH (03:40)
[2022-08-10 03:41] LABS: Glucose, Whole Blood 63 mg/dL (60-115)
[2022-08-10] MEDS: DOPamine HCL/D5W 400 MG/250 ML PLAST..BAG 18.71 MG IVCONT (04:48)
[2022-08-10 05:21] LABS: VBG Base Excess -8.3 mmol/L; VBG HCO3 14 mmol/L (22-26); VBG pCO2 23 mmHg; VBG pH 7.39 (7.32-7.43); VBG pO2 38 mmHg
[2022-08-10] MEDS: HYDROmorphone HCl 0.5 MG/0.5 ML SYRINGE 0.25 MG IVPUSH (05:27)
[2022-08-10 05:33] LABS: MANUAL DIFF FLAG NO
[2022-08-10 05:35] LABS: Basophils Percent Auto 0.3 % (0-2); Eosinophils Absolute Auto 0.1 X10*3/uL (0.0-0.4); Eosinophils Percent Auto 0.4 % (0-4); Hematocrit 32.2 % (37.0-47.0); Hemoglobin 11.1 g/dl (12.0-16.0); Imm Gran Abs Auto 0.09 X10*3/uL (0.00-0.03); Imm Gran Pct Auto 0.7 % (0.0-0.4); Lymphocytes Absolute Auto 2.9 X10*3/uL (1.2-4.9); Mean Corpuscular HGB Conc 34.5 g/dl (31.0-35.0); Mean Corpuscular Hemoglobin 27.4 pg (27.0-33.0); Mean Corpuscular Volume 79.5 fL (80.0-98.0); Mean Platelet Volume 10.3 fL (9.4-12.3); Monocytes Absolute Auto 1.4 X10*3/uL (0.1-1.2); Monocytes Percent Auto 10.6 % (2-11); Neutrophils Absolute Auto 9.1 x10*3/uL (2.0-8.3); Platelet Count 207 X10*3/uL (160-400); Red Blood Count 4.05 X10*6/uL (4.20-5.50); Red Cell Distribution Width 13.4 % (11.0-16.0); White Blood Count 13.6 X10*3/uL (4.8-10.8)
[2022-08-10 05:57] LABS: Anion Gap 19 (12-20); Blood Urea Nitrogen 38 mg/dL (9-16); Calcium 8.3 mg/dL (8.4-10.2); Carbon Dioxide 15 mmol/L (22-29); Chloride 107 mmol/L (96-108); Creatinine Clr Calc Pharmacy 15.9; Estimated Glomerular Filt Rate 24; Magnesium 1.8 mg/dL (1.6-2.6); Phosphorus 3.7 mg/dL (2.7-4.5); Potassium 3.7 mmol/L (3.3-5.1); Sodium 137 mmol/L (135-145)
[2022-08-10 05:58] LABS: B Type Natriuretic Peptide 637 pg/mL (<100); Troponin-I High Sensitivity 3422.9 ng/L (<3.5-17.0)
[2022-08-10 06:02] LABS: Alanine Aminotransferase 50 U/L (0-31); Albumin Level 3.6 g/dL (3.5-5.0); Alkaline Phosphatase 77 U/L (39-117); Anion Gap 18 (12-20); Aspartate Amino Transferase 51 U/L (5-31); Bilirubin Total 0.3 mg/dL (0.0-1.0); Blood Urea Nitrogen 38 mg/dL (9-16); Calcium 8.4 mg/dL (8.4-10.2); Carbon Dioxide 15 mmol/L (22-29); Chloride 107 mmol/L (96-108); Creatinine Clr Calc Pharmacy 15.9; Estimated Glomerular Filt Rate 24; Glucose Random 215 mg/dL (60-115); Magnesium 1.8 mg/dL (1.6-2.6); Phosphorus 3.7 mg/dL (2.7-4.5); Potassium 3.6 mmol/L (3.3-5.1); Sodium 136 mmol/L (135-145); Total Protein 6.4 g/dL (6.5-8.0)
[2022-08-10 06:42] LABS: Venous Blood Gas Refer to POC result
[2022-08-10 07:26] LABS: Glucose, Whole Blood 250 mg/dL (60-115)
[2022-08-10] MEDS: Pantoprazole Sodium 40 MG/10 ML VIAL IVPUSH (07:45)
[2022-08-10] MEDS: Aspirin 81 MG TAB.CHEW PO (07:45)
[2022-08-10] MEDS: Insulin Lispro 100 UNIT/ML 3 ML VIAL SUBCUT ×4 (07:45→21:08)
[2022-08-10] MEDS: Levothyroxine Sodium 100 MCG/5 ML VIAL 75 MCG IVPUSH (07:45)
[2022-08-10] MEDS: Heparin Sodium,Porcine 5,000 UNIT/ML VIAL 4900 UNIT IVPUSH (08:00)
[2022-08-10] MEDS: Heparin Sodium,Porcine/1/2NS 25,000 UNIT/250 ML IV.SOLN 8.54 UNIT IVCONT (08:00)
--- NOTE | 2022-08-10 08:36 | P.CDIC_ITS ---
CDI Concurrent Query Documentation Clarification: PHYSICIAN'S DOCUMENTATION REQUEST Date of Query: 08/10/22 0836 Patient Name: Talita Merino Admit Date: 08/09/22 Dear Doctor, A review of the medical record indicates additional documentation may be needed. Please review below and update the documentation accordingly. Clinical Indicators: Risk Factors/Clinical Indicators/Treatments altered mental status, confused, chronic Dementia, somnolent per critical care notes 08/09/22 Based on the above, could you clarify in the Progress Notes which, if any of the following, is the most likely etiology of the confusion/altered mental status? * Encephalopathy - indicate type such as metabolic, toxic, septic, alcoholic, hypertensive, etc. * Dementia - indicate type of dementia, such as Alzheimer's, senile, vascular, Lewy body, etc. * Other etiology (please specify) * Unable to determine Use of terms such as suspected, likely, concern for, or probable (associated with a specific diagnosis that is being evaluated, monitored, or treated as if it exists) are acceptable and can be coded in the inpatient setting, when documented at the time of discharge. Thank you, Radha Gary RN Extension: [phone] Please use your independent medical judgment in providing your response. THIS QUERY IS PART OF THE PERMANENT MEDICAL RECORD
--- NOTE | 2022-08-10 08:44 | P.CDIC_ITS ---
CDI Concurrent Query Documentation Clarification: PHYSICIAN'S DOCUMENTATION REQUEST Date of Query: 08/10/22 0845 Patient Name: Talita Merino Admit Date: 08/09/22 Dear Doctor, A review of the medical record indicates additional documentation may be needed. Please review below and update the documentation accordingly. Clinical Indicators: The following clinical information was noted in the record: Risk Factors/Clinical Indicators/Treatments BUN 42 Creatinine 2.16 Est GFR 22 MD note 08/09/22: BEATRIS/CKD Please clarify which of the following accurately represents the patient's renal status: * Acute renal failure with suspected ATN * Acute renal failure with other pathology (medullary, papillary, or cortical ne crosis) * Acute renal failure (with type, appropriate) on Chronic Kidney Disease (CKD) - see criteria * CKD, please provide stage - see criteria * Other (please specify) * Unable to determine Criteria for BEATRIS* Stages of Chronic Kidney Disease* 1. Increase in serum creatinine by ? 0.3 mg/dL Level Description GFR (?26.5 micromol/L) within 48 hours, or G1 Normal or High > 90 2. Increase in serum creatinine to ?1.5 times baseline, G2 Mildly decreased 60 ? 89 which is known or presumed to have occurred within 7 days, or G3a Mildly to moderately decreased 45 ? 59 3. Urine volume <0.5 mL/kg/hour for six hours G3b Moderately to severely decreased 30 - 44 G4 Severely decreased 15 ? 29 G5 Kidney failure < 15 *Source: Kidney Disease: Improving Global Outcomes (KDIGO) 2012 Use of terms such as suspected, likely, concern for, or probable (associated with a specific diagnosis that is being evaluated, monitored, or treated as if it exists) are acceptable and can be coded in the inpatient setting, when documented at the time of discharge. Thank you, Radha Gary RN Extension: [phone] Please use your independent medical judgment in providing your response. THIS QUERY IS PART OF THE PERMANENT MEDICAL RECORD
[2022-08-10] MEDS: Clopidogrel Bisulfate 300 MG TABLET PO (08:47)
--- NOTE | 2022-08-10 08:51 | P.CDIC_ITS ---
CDI Concurrent Query Documentation Clarification: PHYSICIAN'S DOCUMENTATION REQUEST Date of Query: 08/10/22 0852 Patient Name: Talita Merino Admit Date: 08/09/22 Dear Doctor, A review of the medical record indicates additional documentation may be needed. Please review below and update the documentation accordingly. Clinical Indicators: Risk Factors/Clinical Indicators/Treatments Blood sugar 08/09/22: 369, 302, 358, 343, 322 PMH: DM Please clarify the following regarding Diabetes Mellitus (DM): Complications of DM: * Hyperglycemia * No complications of DM * Other complication ? please specify * Unable to determine Use of terms such as suspected, likely, concern for, or probable (associated with a specific diagnosis that is being evaluated, monitored, or treated as if it exists) are acceptable and can be coded in the inpatient setting, when documented at the time of discharge. Thank you, Radha Gary RN Extension: [phone] Please use your independent medical judgment in providing your response. THIS QUERY IS PART OF THE PERMANENT MEDICAL RECORD
[2022-08-10 08:57] LABS: Hematocrit 31.3 % (37.0-47.0); Hemoglobin 10.7 g/dl (12.0-16.0); Mean Corpuscular HGB Conc 34.2 g/dl (31.0-35.0); Mean Corpuscular Hemoglobin 27.5 pg (27.0-33.0); Mean Corpuscular Volume 80.5 fL (80.0-98.0); Mean Platelet Volume 10.4 fL (9.4-12.3); Platelet Count 193 X10*3/uL (160-400); Red Blood Count 3.89 X10*6/uL (4.20-5.50); Red Cell Distribution Width 13.4 % (11.0-16.0); White Blood Count 12.2 X10*3/uL (4.8-10.8)
[2022-08-10 09:06] LABS: PTT Heparin Drip 29.1 SEC (53-77.9)
[2022-08-10 09:34] LABS: Troponin-I High Sensitivity 3311.2 ng/L (<3.5-17.0)
[2022-08-10 11:01] LABS: Glucose, Whole Blood 189 mg/dL (60-115)
[2022-08-10 11:38] LABS: Troponin-I High Sensitivity 3005.6 ng/L (<3.5-17.0)
--- NOTE | 2022-08-10 14:30 | MHC.CM.PN ---
Pt receiving care in ICU: not a reliable historian: Information obtained from EMR and phone conversation w/son/HCP Igor. Pt is a resident of [facility] and will return when medically stable. She is mostly dependent on staff for ADL completion and is Mexican speaking primarily. Pt will need BLS transport. [facility] x 2. CM to follow for finalization of d/c plans
--- NOTE | 2022-08-10 14:30 | PM.CCPN ---
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 developed left-sided chest discomfort with a a new right bundle branch block that waxed and then waned afterwards so we might have reversed the no and active ischemia and the may still be more territory that is in jeopardy but we heparinized him and and started aspirin and Plavix including low loading dose and became pain-free Critical Care Time (minutes): 60 Physical Exam Vital Signs: Vital Signs: Last Vital Signs Temp 99.3 F 08/10/22 13:00 Pulse 63 08/10/22 14:00 Resp 30 H 08/10/22 14:00 BP 128/58 L 08/10/22 14:00 Pulse Ox 97 08/10/22 14:00 O2 Del Method 08/10/22 14:00 O2 Flow Rate 4 08/09/22 22:00 BMI result Body Mass Index 24.5 By exam and she is nonfocal Lungs are clear bilaterally Bedside echo during pain and at the time the new right bundle branch block waxed and waned did show relative hypocontractility of the inferior 0 posterior wall and in addition has noncritical aortic stenosis Abdomen soft no organomegaly No peripheral edema no acrocyanosis Objective Data Labs CBC & Chem 7: 08/10/22 08:01 08/10/22 05:08 Labs: Laboratory Results - last 24 hr 08/09/22 08/09/22 08/09/22 15:14 16:29 16:44 WBC RBC Hgb Hct MCV MCH MCHC RDW Plt Count MPV Immature Gran % (Auto) Neut % (Auto) Lymph % (Auto) [place] % (Auto) Eos % (Auto) Baso % (Auto) Lymph # (Auto) [place] # (Auto) Eos # (Auto) Baso # (Auto) Abs Immat Gran (auto) Absolute Neuts (auto) Absolute Nucleated RBC Nucleated RBC % (auto) aPTT Heparin Protocol VBG pH VBG pCO2 VBG pO2 VBG HCO3 VBG O2 Saturation VBG Base Excess Sodium 135 Potassium 4.4 Chloride 105 Carbon Dioxide 9 L* D Anion Gap 25 H BUN 48 H Creatinine 2.71 H Estim Creat Clear Calc 11.5 Estimated GFR 17 POC Glucose 243 H 197 H Random Glucose 201 H Lactic Acid Lactic Acid F/U @ 2Hr Lactic Acid F/U @ 4Hr Calcium 8.3 L Phosphorus Magnesium Total Bilirubin AST ALT Alkaline Phosphatase Troponin I High Sens B-Natriuretic Peptide Total Protein Albumin Urine Color Urine Appearance Urine pH Ur Specific [place] Urine Protein Urine Glucose (UA) Urine Ketones Urine Blood Urine Nitrite Ur Leukocyte Esterase Urine RBC Urine WBC Ur Squamous Epith Cells Urine Bacteria Hyaline Casts 08/09/22 08/09/22 08/09/22 17:07 18:07 18:16 WBC RBC Hgb Hct MCV MCH MCHC RDW Plt Count MPV Immature Gran % (Auto) Neut % (Auto) Lymph % (Auto) [place] % (Auto) Eos % (Auto) Baso % (Auto) Lymph # (Auto) [place] # (Auto) Eos # (Auto) Baso # (Auto) Abs Immat Gran (auto) Absolute Neuts (auto) Absolute Nucleated RBC Nucleated RBC % (auto) aPTT Heparin Protocol VBG pH VBG pCO2 VBG pO2 VBG HCO3 VBG O2 Saturation VBG Base Excess Sodium Potassium Chloride Carbon Dioxide Anion Gap BUN Creatinine Estim Creat Clear Calc Estimated GFR POC Glucose 175 H 200 H Random Glucose Lactic Acid Lactic Acid F/U @ 2Hr Lactic Acid F/U @ 4Hr Calcium Phosphorus Magnesium Total Bilirubin AST ALT Alkaline Phosphatase Troponin I High Sens B-Natriuretic Peptide Total Protein Albumin Urine Color Yellow Urine Appearance Turbid Urine pH 5.0 Ur Specific [place] 1.025 Urine Protein 30 (1+) H Urine Glucose (UA) 100 H Urine Ketones Trace Urine Blood Negative Urine Nitrite Negative Ur Leukocyte Esterase Large (3+) H Urine RBC 3-5 H Urine WBC >50 H Ur Squamous Epith Cells >20 Urine Bacteria 1+ Hyaline Casts 3-5 08/09/22 08/09/22 08/09/22 18:41 18:52 20:26 WBC RBC Hgb Hct MCV MCH MCHC RDW Plt Count MPV Immature Gran % (Auto) Neut % (Auto) Lymph % (Auto) [place] % (Auto) Eos % (Auto) Baso % (Auto) Lymph # (Auto) [place] # (Auto) Eos # (Auto) Baso # (Auto) Abs Immat Gran (auto) Absolute Neuts (auto) Absolute Nucleated RBC Nucleated RBC % (auto) aPTT Heparin Protocol VBG pH 7.28 L VBG pCO2 23 VBG pO2 64 VBG HCO3 11 L VBG O2 Saturation 87.0 VBG Base Excess -13.3 Sodium Potassium Chloride Carbon Dioxide Anion Gap BUN Creatinine Estim Creat Clear Calc Estimated GFR POC Glucose 164 H Random Glucose Lactic Acid 3.6 H* Lactic Acid F/U @ 2Hr Lactic Acid F/U @ 4Hr Calcium Phosphorus Magnesium Total Bilirubin AST ALT Alkaline Phosphatase Troponin I High Sens B-Natriuretic Peptide Total Protein Albumin Urine Color Urine Appearance Urine pH Ur Specific [place] Urine Protein Urine Glucose (UA) Urine Ketones Urine Blood Urine Nitrite Ur Leukocyte Esterase Urine RBC Urine WBC Ur Squamous Epith Cells Urine Bacteria Hyaline Casts 08/09/22 08/09/22 08/09/22 22:02 22:02 22:02 WBC 12.8 H RBC 4.37 Hgb 12.0 Hct 34.7 L MCV 79.4 L MCH 27.5 MCHC 34.6 RDW 13.4 Plt Count 214 MPV 10.2 Immature Gran % (Auto) 0.7 H Neut % (Auto) 73.1 H Lymph % (Auto) 16.3 L [place] % (Auto) 9.3 Eos % (Auto) 0.1 Baso % (Auto) 0.5 Lymph # (Auto) 2.1 [place] # (Auto) 1.2 Eos # (Auto) 0.0 Baso # (Auto) 0.1 Abs Immat Gran (auto) 0.09 H Absolute Neuts (auto) 9.4 H Absolute Nucleated RBC 0.000 Nucleated RBC % (auto) 0.0 aPTT Heparin Protocol VBG pH VBG pCO2 VBG pO2 VBG HCO3 VBG O2 Saturation VBG Base Excess Sodium 135 Potassium 4.3 Chloride 107 Carbon Dioxide 13 L Anion Gap 19 BUN 46 H Creatinine 2.48 H Estim Creat Clear Calc 12.6 Estimated GFR 18 POC Glucose Random Glucose 159 H Lactic Acid Lactic Acid F/U @ 2Hr 2.6 H* Lactic Acid F/U @ 4Hr Calcium 8.6 Phosphorus 3.9 Magnesium 1.9 Total Bilirubin AST ALT Alkaline Phosphatase Troponin I High Sens B-Natriuretic Peptide Total Protein Albumin Urine Color Urine Appearance Urine pH Ur Specific [place] Urine Protein Urine Glucose (UA) Urine Ketones Urine Blood Urine Nitrite Ur Leukocyte Esterase Urine RBC Urine WBC Ur Squamous Epith Cells Urine Bacteria Hyaline Casts 08/09/22 08/09/22 08/10/22 22:07 23:27 00:31 WBC RBC Hgb Hct MCV MCH MCHC RDW Plt Count MPV Immature Gran % (Auto) Neut % (Auto) Lymph % (Auto) [place] % (Auto) Eos % (Auto) Baso % (Auto) Lymph # (Auto) [place] # (Auto) Eos # (Auto) Baso # (Auto) Abs Immat Gran (auto) Absolute Neuts (auto) Absolute Nucleated RBC Nucleated RBC % (auto) aPTT Heparin Protocol VBG pH 7.35 VBG pCO2 24 VBG pO2 56 VBG HCO3 14 L VBG O2 Saturation 85.0 VBG Base Excess -9.5 Sodium Potassium Chloride Carbon Dioxide Anion Gap BUN Creatinine Estim Creat Clear Calc Estimated GFR POC Glucose 115 Random Glucose Lactic Acid Lactic Acid F/U @ 2Hr Lactic Acid F/U @ 4Hr 1.6 Calcium Phosphorus Magnesium Total Bilirubin AST ALT Alkaline Phosphatase Troponin I High Sens B-Natriuretic Peptide Total Protein Albumin Urine Color Urine Appearance Urine pH Ur Specific [place] Urine Protein Urine Glucose (UA) Urine Ketones Urine Blood Urine Nitrite Ur Leukocyte Esterase Urine RBC Urine WBC Ur Squamous Epith Cells Urine Bacteria Hyaline Casts 08/10/22 08/10/22 08/10/22 03:36 05:08 05:08 WBC 13.6 H RBC 4.05 L Hgb 11.1 L Hct 32.2 L MCV 79.5 L MCH 27.4 MCHC 34.5 RDW 13.4 Plt Count 207 MPV 10.3 Immature Gran % (Auto) 0.7 H Neut % (Auto) 67.0 Lymph % (Auto) 21.0 [place] % (Auto) 10.6 Eos % (Auto) 0.4 Baso % (Auto) 0.3 Lymph # (Auto) 2.9 [place] # (Auto) 1.4 H Eos # (Auto) 0.1 Baso # (Auto) 0.0 Abs Immat Gran (auto) 0.09 H Absolute Neuts (auto) 9.1 H Absolute Nucleated RBC 0.000 Nucleated RBC % (auto) 0.0 aPTT Heparin Protocol VBG pH VBG pCO2 VBG pO2 VBG HCO3 VBG O2 Saturation VBG Base Excess Sodium 137 Potassium 3.7 Chloride 107 Carbon Dioxide 15 L Anion Gap 19 BUN 38 H Creatinine 1.96 H Estim Creat Clear Calc 15.9 Estimated GFR 24 POC Glucose 63 Random Glucose Lactic Acid Lactic Acid F/U @ 2Hr Lactic Acid F/U @ 4Hr Calcium 8.3 L Phosphorus 3.7 Magnesium 1.8 Total Bilirubin AST ALT Alkaline Phosphatase Troponin I High Sens B-Natriuretic Peptide Total Protein Albumin Urine Color Urine Appearance Urine pH Ur Specific [place] Urine Protein Urine Glucose (UA) Urine Ketones Urine Blood Urine Nitrite Ur Leukocyte Esterase Urine RBC Urine WBC Ur Squamous Epith Cells Urine Bacteria Hyaline Casts 08/10/22 08/10/22 08/10/22 05:08 05:08 05:11 WBC RBC Hgb Hct MCV MCH MCHC RDW Plt Count MPV Immature Gran % (Auto) Neut % (Auto) Lymph % (Auto) [place] % (Auto) Eos % (Auto) Baso % (Auto) Lymph # (Auto) [place] # (Auto) Eos # (Auto) Baso # (Auto) Abs Immat Gran (auto) Absolute Neuts (auto) Absolute Nucleated RBC Nucleated RBC % (auto) aPTT Heparin Protocol VBG pH 7.39 VBG pCO2 23 VBG pO2 38 VBG HCO3 14 L VBG O2 Saturation 65.0 VBG Base Excess -8.3 Sodium 136 Potassium 3.6 Chloride 107 Carbon Dioxide 15 L Anion Gap 18 BUN 38 H Creatinine 1.96 H Estim Creat Clear Calc 15.9 Estimated GFR 24 POC Glucose Random Glucose 215 H Lactic Acid Lactic Acid F/U @ 2Hr Lactic Acid F/U @ 4Hr Calcium 8.4 Phosphorus 3.7 Magnesium 1.8 Total Bilirubin 0.3 AST 51 H ALT 50 H Alkaline Phosphatase 77 Troponin I High Sens 3422.9 H* D B-Natriuretic Peptide 637 H Total Protein 6.4 L Albumin 3.6 Urine Color Urine Appearance Urine pH Ur Specific [place] Urine Protein Urine Glucose (UA) Urine Ketones Urine Blood Urine Nitrite Ur Leukocyte Esterase Urine RBC Urine WBC Ur Squamous Epith Cells Urine Bacteria Hyaline Casts 08/10/22 08/10/22 08/10/22 07:12 08:01 08:01 WBC RBC Hgb Hct MCV MCH MCHC RDW Plt Count MPV Immature Gran % (Auto) Neut % (Auto) Lymph % (Auto) [place] % (Auto) Eos % (Auto) Baso % (Auto) Lymph # (Auto) [place] # (Auto) Eos # (Auto) Baso # (Auto) Abs Immat Gran (auto) Absolute Neuts (auto) Absolute Nucleated RBC Nucleated RBC % (auto) aPTT Heparin Protocol 29.1 L VBG pH VBG pCO2 VBG pO2 VBG HCO3 VBG O2 Saturation VBG Base Excess Sodium Potassium Chloride Carbon Dioxide Anion Gap BUN Creatinine Estim Creat Clear Calc Estimated GFR POC Glucose 250 H Random Glucose Lactic Acid Lactic Acid F/U @ 2Hr Lactic Acid F/U @ 4Hr Calcium Phosphorus Magnesium Total Bilirubin AST ALT Alkaline Phosphatase Troponin I High Sens 3311.2 H* B-Natriuretic Peptide Total Protein Albumin Urine Color Urine Appearance Urine pH Ur Specific [place] Urine Protein Urine Glucose (UA) Urine Ketones Urine Blood Urine Nitrite Ur Leukocyte Esterase Urine RBC Urine WBC Ur Squamous Epith Cells Urine Bacteria Hyaline Casts 08/10/22 08/10/22 08/10/22 08:01 10:57 10:58 WBC 12.2 H RBC 3.89 L Hgb 10.7 L Hct 31.3 L MCV 80.5 MCH 27.5 MCHC 34.2 RDW 13.4 Plt Count 193 MPV 10.4 Immature Gran % (Auto) Neut % (Auto) Lymph % (Auto) [place] % (Auto) Eos % (Auto) Baso % (Auto) Lymph # (Auto) [place] # (Auto) Eos # (Auto) Baso # (Auto) Abs Immat Gran (auto) Absolute Neuts (auto) Absolute Nucleated RBC 0.000 Nucleated RBC % (auto) 0.0 aPTT Heparin Protocol VBG pH VBG pCO2 VBG pO2 VBG HCO3 VBG O2 Saturation VBG Base Excess Sodium Potassium Chloride Carbon Dioxide Anion Gap BUN Creatinine Estim Creat Clear Calc Estimated GFR POC Glucose 189 H Random Glucose Lactic Acid Lactic Acid F/U @ 2Hr Lactic Acid F/U @ 4Hr Calcium Phosphorus Magnesium Total Bilirubin AST ALT Alkaline Phosphatase Troponin I High Sens 3005.6 H* B-Natriuretic Peptide Total Protein Albumin Urine Color Urine Appearance Urine pH Ur Specific [place] Urine Protein Urine Glucose (UA) Urine Ketones Urine Blood Urine Nitrite Ur Leukocyte Esterase Urine RBC Urine WBC Ur Squamous Epith Cells Urine Bacteria Hyaline Casts Microbiology Microbiology Results: Microbiology 08/09/22 03:23 Blood - Venous Blood Culture - Preliminary Prelim: GPC Gram Stain only 08/09/22 Unknown Urine Catheterized - Woo Catheter Urine Culture - Final No growth. 08/09/22 03:23 Blood - Venous Blood Culture - Preliminary No growth after 24 hours. Progress Note: A&P Assessment and plan (1) Symptomatic bradycardia: Status: Acute (2) Cardiogenic shock: Status: Acute (3) Junctional bradycardia: Status: Acute (4) Abdominal pain: Status: Acute (5) Acute pain of left hip: Status: Acute (6) Urinary retention with incomplete bladder emptying: Status: Acute (7) Essential hypertension: Status: Acute (8) Type 2 diabetes mellitus with unspecified complications: Status: Acute (9) Atherosclerotic cardiovascular disease: Status: Acute (10) Ascending aorta dilatation: Status: Chronic (11) Diarrhea: Status: Acute (12) GERD (gastroesophageal reflux disease): Status: Acute (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: Status: Acute (14) HLD (hyperlipidemia): Status: Acute (15) HTN (hypertension): Status: Acute (16) Chest pain: Status: Acute (17) Diastolic dysfunction: Status: Acute (18) S/P CABG x 3: Status: Acute (19) CAD (coronary artery disease): Status: Acute Plan So at this point she had a positive troponin of 3000 and even through the peak 6 hours later remain flat at 3000 so will watch further in time to CV descends in the pattern of somebody who had acute coronary syndrome but in the meantime the combined anticoagulants and antiplatelet drugs will remain on board explaining the significance of this to the family and were going to try to slowly wean the dopamine which is down to 5 mics per kilos per minute Quality Stroke Does the patient have a stroke diagnosis?: No VTE Prior VTE?: No VTE Risk Level:: Medical - moderate - high VTE Device Contraindication: N/A - Device Ordered VTE Drug Contraindication: N/A - Med Ordered
[2022-08-10 14:32] LABS: PTT Heparin Drip > 200.0 SEC (53-77.9)
[2022-08-10 15:46] LABS: PTT Heparin Drip 159.6 SEC (53-77.9)
[2022-08-10 16:31] LABS: Glucose, Whole Blood 254 mg/dL (60-115)
[2022-08-10 16:32] LABS: PTT Heparin Drip 92.5 SEC (53-77.9)
[2022-08-10 20:58] LABS: Troponin-I High Sensitivity 2815.3 ng/L (<3.5-17.0)
[2022-08-10 21:01] LABS: Glucose, Whole Blood 230 mg/dL (60-115)
[2022-08-10] MEDS: bisacodyL 5 MG TABLET.DR PO (21:07)
[2022-08-10 22:18] LABS: PTT Heparin Drip 69.3 SEC (53-77.9)
[2022-08-10] MEDS: DOPamine HCL/D5W 400 MG/250 ML PLAST..BAG 11.43 MG IVCONT (22:33)
[2022-08-10] MEDS: 0.9 % Sodium Chloride 1,000 ML 25 ML IVCONT (22:56)
[2022-08-11] VITALS (26 sets, daily range): BP systolic 104–145; BP diastolic 41–76; PULSE 66–91; RESP 18–33; TEMP 37.3–37.7; O2SAT 91–100; BMI 23.9
--- NOTE | 2022-08-11 | ECG_ITS ---
Test Reason : chest pain Blood Pressure : / mmHG Vent. Rate : 085 BPM Atrial Rate : 000 BPM P-R Int : 000 ms QRS Dur : 102 ms QT Int : 372 ms P-R-T Axes : 000 -45 094 degrees QTc Int : 442 ms Atrial fibrillation with premature ventricular or aberrantly conducted complexes Left axis deviation Nonspecific ST and T wave abnormality Abnormal ECG When compared with ECG of 11-AUG-2022 14:49, Premature ventricular complexes are now Present Referred By: Gema Franks Electronically Signed By:YUDI KAUFMAN
[2022-08-11 04:26] LABS: PTT Heparin Drip 63.1 SEC (53-77.9)
[2022-08-11 05:16] LABS: VBG Base Excess -6.6 mmol/L; VBG HCO3 16 mmol/L (22-26); VBG pCO2 25 mmHg; VBG pH 7.41 (7.32-7.43); VBG pO2 40 mmHg
[2022-08-11 05:21] LABS: Venous Blood Gas Refer to POC result
[2022-08-11 05:26] LABS: MANUAL DIFF FLAG NO
[2022-08-11 05:34] LABS: Hemoglobin 10.6 g/dl (12.0-16.0); Mean Corpuscular HGB Conc 34.2 g/dl (31.0-35.0); Mean Corpuscular Hemoglobin 27.2 pg (27.0-33.0); Mean Corpuscular Volume 79.7 fL (80.0-98.0); Mean Platelet Volume 10.3 fL (9.4-12.3); Platelet Count 196 X10*3/uL (160-400); Red Blood Count 3.89 X10*6/uL (4.20-5.50); Red Cell Distribution Width 13.8 % (11.0-16.0); White Blood Count 9.1 X10*3/uL (4.8-10.8)
[2022-08-11 05:35] LABS: Basophils Absolute Auto 0.1 X10*3/uL (0.0-0.2); Basophils Percent Auto 0.6 % (0-2); Eosinophils Absolute Auto 0.4 X10*3/uL (0.0-0.4); Eosinophils Percent Auto 4.6 % (0-4); Hematocrit 30.5 % (37.0-47.0); Hemoglobin 10.8 g/dl (12.0-16.0); Imm Gran Abs Auto 0.04 X10*3/uL (0.00-0.03); Imm Gran Pct Auto 0.4 % (0.0-0.4); Lymphocytes Absolute Auto 2.2 X10*3/uL (1.2-4.9); Lymphocytes Percent Auto 24.8 % (20-40); Mean Corpuscular HGB Conc 35.4 g/dl (31.0-35.0); Mean Corpuscular Hemoglobin 28.1 pg (27.0-33.0); Mean Corpuscular Volume 79.4 fL (80.0-98.0); Mean Platelet Volume 10.3 fL (9.4-12.3); Monocytes Absolute Auto 0.7 X10*3/uL (0.1-1.2); Monocytes Percent Auto 7.9 % (2-11); Neutrophils Absolute Auto 5.6 x10*3/uL (2.0-8.3); Neutrophils Percent Auto 61.7 % (45-73); Platelet Count 187 X10*3/uL (160-400); Red Blood Count 3.84 X10*6/uL (4.20-5.50); Red Cell Distribution Width 13.6 % (11.0-16.0)
[2022-08-11 05:49] LABS: B Type Natriuretic Peptide 305 pg/mL (<100)
[2022-08-11 05:50] LABS: Alanine Aminotransferase 56 U/L (0-31); Albumin Level 3.5 g/dL (3.5-5.0); Alkaline Phosphatase 71 U/L (39-117); Anion Gap 17 (12-20); Aspartate Amino Transferase 44 U/L (5-31); Bilirubin Total 0.5 mg/dL (0.0-1.0); Blood Urea Nitrogen 20 mg/dL (9-16); Calcium 8.5 mg/dL (8.4-10.2); Carbon Dioxide 16 mmol/L (22-29); Chloride 110 mmol/L (96-108); Creatinine Clr Calc Pharmacy 27.9; Estimated Glomerular Filt Rate 42; Glucose Random 236 mg/dL (60-115); Magnesium 1.4 mg/dL (1.6-2.6); Phosphorus 2.3 mg/dL (2.7-4.5); Potassium 3.3 mmol/L (3.3-5.1); Sodium 140 mmol/L (135-145); Total Protein 6.3 g/dL (6.5-8.0)
[2022-08-11] MEDS: Magnesium Sulfate/D5W 1 GM/100 ML PIGGYBACK IV (06:17)
[2022-08-11 07:07] LABS: Glucose, Whole Blood 233 mg/dL (60-115)
[2022-08-11] MEDS: Aspirin 81 MG TAB.CHEW PO (07:55)
[2022-08-11] MEDS: Potassium Chloride Packet 20 MEQ PACKET PO (08:03)
[2022-08-11] MEDS: Pantoprazole Sodium 40 MG/10 ML VIAL IVPUSH (08:05)
[2022-08-11] MEDS: Heparin Sodium,Porcine/1/2NS 25,000 UNIT/250 ML IV.SOLN 6.1 UNIT IVCONT (08:37)
[2022-08-11] MEDS: Levothyroxine Sodium 150 MCG TABLET PO (09:06)
[2022-08-11] MEDS: Clopidogrel Bisulfate 75 MG TABLET PO (09:06)
[2022-08-11] MEDS: Insulin Lispro 100 UNIT/ML 3 ML VIAL SUBCUT ×3 (09:09→21:50)
--- NOTE | 2022-08-11 09:46 | PM.CCPN ---
Subjective Subjective Date of Service: 08/11/22 Interval History: 87-year-old female who presented with metoprolol induced junctional bradycardia with symptomatic bradycardia manifested as cardiogenic shock and from prolonged hypotension she had acute kidney injury which is now repairing so she is diuresing as her creatinine comes down and we recent cured normal sinus mechanism with big improvement in blood pressure she did have a clinical non ST elevation infarct 24 hours ago looking like an inferior wall wall motion abnormality but clearly there was reversal following anticoagulation with heparin and Plavix and aspirin and she did have a waxing waning new right bundle branch block so at this point we continue to wean the dopamine 1 mcg at a time currently down to 3 micrograms/kilogram per minute and blood pressure is still 120 heart rate sinus rhythm 75 per minute oxygen saturation 99% she is now up to eating full liquids no longer complaining of any pain so hopefully will get through conservatively and wean her off the dopamine and that will be the last piece before getting her home and then with the advice of following up with her primary hospital insurance clerk Critical Care Time (minutes): 45 Physical Exam Vital Signs: Vital Signs: Last Vital Signs Temp 99.5 F 08/11/22 08:00 Pulse 84 08/11/22 09:00 Resp 24 H 08/11/22 09:00 BP 114/54 L 08/11/22 09:00 Pulse Ox 99 08/11/22 09:00 O2 Del Method 08/11/22 09:00 O2 Flow Rate 4 08/09/22 22:00 BMI result Body Mass Index 23.9 Doing beautifully eating excellent vital signs and nonfocal neurologically Good bilateral carotid upstrokes and no neck vein distension CVP is 0 so were giving a mild fluid bolus and weaning dopamine Chest is clear no adventitious sounds Abdomen benign no organomegaly Objective Data Labs CBC & Chem 7: 08/11/22 05:08 08/11/22 05:08 Labs: Laboratory Results - last 24 hr 08/10/22 08/10/22 08/10/22 10:57 10:58 14:03 WBC RBC Hgb Hct MCV MCH MCHC RDW Plt Count MPV Immature Gran % (Auto) Neut % (Auto) Lymph % (Auto) [place] % (Auto) Eos % (Auto) Baso % (Auto) Lymph # (Auto) [place] # (Auto) Eos # (Auto) Baso # (Auto) Abs Immat Gran (auto) Absolute Neuts (auto) Absolute Nucleated RBC Nucleated RBC % (auto) aPTT Heparin Protocol > 200.0 H* D VBG pH VBG pCO2 VBG pO2 VBG HCO3 VBG O2 Saturation VBG Base Excess Sodium Potassium Chloride Carbon Dioxide Anion Gap BUN Creatinine Estim Creat Clear Calc Estimated GFR POC Glucose 189 H Random Glucose Calcium Phosphorus Magnesium Total Bilirubin AST ALT Alkaline Phosphatase Troponin I High Sens 3005.6 H* B-Natriuretic Peptide Total Protein Albumin 08/10/22 08/10/22 08/10/22 15:05 16:10 16:27 WBC RBC Hgb Hct MCV MCH MCHC RDW Plt Count MPV Immature Gran % (Auto) Neut % (Auto) Lymph % (Auto) [place] % (Auto) Eos % (Auto) Baso % (Auto) Lymph # (Auto) [place] # (Auto) Eos # (Auto) Baso # (Auto) Abs Immat Gran (auto) Absolute Neuts (auto) Absolute Nucleated RBC Nucleated RBC % (auto) aPTT Heparin Protocol 159.6 H* D 92.5 H D VBG pH VBG pCO2 VBG pO2 VBG HCO3 VBG O2 Saturation VBG Base Excess Sodium Potassium Chloride Carbon Dioxide Anion Gap BUN Creatinine Estim Creat Clear Calc Estimated GFR POC Glucose 254 H Random Glucose Calcium Phosphorus Magnesium Total Bilirubin AST ALT Alkaline Phosphatase Troponin I High Sens B-Natriuretic Peptide Total Protein Albumin 08/10/22 08/10/22 08/10/22 20:01 20:57 22:02 WBC RBC Hgb Hct MCV MCH MCHC RDW Plt Count MPV Immature Gran % (Auto) Neut % (Auto) Lymph % (Auto) [place] % (Auto) Eos % (Auto) Baso % (Auto) Lymph # (Auto) [place] # (Auto) Eos # (Auto) Baso # (Auto) Abs Immat Gran (auto) Absolute Neuts (auto) Absolute Nucleated RBC Nucleated RBC % (auto) aPTT Heparin Protocol 69.3 D VBG pH VBG pCO2 VBG pO2 VBG HCO3 VBG O2 Saturation VBG Base Excess Sodium Potassium Chloride Carbon Dioxide Anion Gap BUN Creatinine Estim Creat Clear Calc Estimated GFR POC Glucose 230 H Random Glucose Calcium Phosphorus Magnesium Total Bilirubin AST ALT Alkaline Phosphatase Troponin I High Sens 2815.3 H* B-Natriuretic Peptide Total Protein Albumin 08/11/22 08/11/22 08/11/22 04:00 05:08 05:08 WBC 9.0 RBC 3.84 L Hgb 10.8 L Hct 30.5 L MCV 79.4 L MCH 28.1 MCHC 35.4 H RDW 13.6 Plt Count 187 MPV 10.3 Immature Gran % (Auto) 0.4 Neut % (Auto) 61.7 Lymph % (Auto) 24.8 [place] % (Auto) 7.9 Eos % (Auto) 4.6 H Baso % (Auto) 0.6 Lymph # (Auto) 2.2 [place] # (Auto) 0.7 Eos # (Auto) 0.4 Baso # (Auto) 0.1 Abs Immat Gran (auto) 0.04 H Absolute Neuts (auto) 5.6 Absolute Nucleated RBC 0.000 Nucleated RBC % (auto) 0.0 aPTT Heparin Protocol 63.1 VBG pH VBG pCO2 VBG pO2 VBG HCO3 VBG O2 Saturation VBG Base Excess Sodium 140 Potassium 3.3 Chloride 110 H Carbon Dioxide 16 L Anion Gap 17 BUN 20 H Creatinine 1.22 Estim Creat Clear Calc 27.9 Estimated GFR 42 POC Glucose Random Glucose 236 H Calcium 8.5 Phosphorus 2.3 L Magnesium 1.4 L* Total Bilirubin 0.5 AST 44 H ALT 56 H Alkaline Phosphatase 71 Troponin I High Sens B-Natriuretic Peptide Total Protein 6.3 L Albumin 3.5 08/11/22 08/11/22 08/11/22 05:08 05:08 05:10 WBC 9.1 RBC 3.89 L Hgb 10.6 L Hct 31.0 L MCV 79.7 L MCH 27.2 MCHC 34.2 RDW 13.8 Plt Count 196 MPV 10.3 Immature Gran % (Auto) Neut % (Auto) Lymph % (Auto) [place] % (Auto) Eos % (Auto) Baso % (Auto) Lymph # (Auto) [place] # (Auto) Eos # (Auto) Baso # (Auto) Abs Immat Gran (auto) Absolute Neuts (auto) Absolute Nucleated RBC 0.000 Nucleated RBC % (auto) 0.0 aPTT Heparin Protocol VBG pH 7.41 VBG pCO2 25 VBG pO2 40 VBG HCO3 16 L VBG O2 Saturation 69.0 VBG Base Excess -6.6 Sodium Potassium Chloride Carbon Dioxide Anion Gap BUN Creatinine Estim Creat Clear Calc Estimated GFR POC Glucose Random Glucose Calcium Phosphorus Magnesium Total Bilirubin AST ALT Alkaline Phosphatase Troponin I High Sens B-Natriuretic Peptide 305 H Total Protein Albumin 08/11/22 07:04 WBC RBC Hgb Hct MCV MCH MCHC RDW Plt Count MPV Immature Gran % (Auto) Neut % (Auto) Lymph % (Auto) [place] % (Auto) Eos % (Auto) Baso % (Auto) Lymph # (Auto) [place] # (Auto) Eos # (Auto) Baso # (Auto) Abs Immat Gran (auto) Absolute Neuts (auto) Absolute Nucleated RBC Nucleated RBC % (auto) aPTT Heparin Protocol VBG pH VBG pCO2 VBG pO2 VBG HCO3 VBG O2 Saturation VBG Base Excess Sodium Potassium Chloride Carbon Dioxide Anion Gap BUN Creatinine Estim Creat Clear Calc Estimated GFR POC Glucose 233 H Random Glucose Calcium Phosphorus Magnesium Total Bilirubin AST ALT Alkaline Phosphatase Troponin I High Sens B-Natriuretic Peptide Total Protein Albumin Microbiology Microbiology Results: Microbiology 08/09/22 03:23 Blood - Venous Blood Culture - Preliminary No growth after 48 hours. 08/09/22 03:23 Blood - Venous Blood Culture - Preliminary Prelim: GPC Gram Stain only 08/09/22 Unknown Urine Catheterized - Woo Catheter Urine Culture - Final No growth. Progress Note: A&P Assessment and plan (1) Lactic acidosis: Status: Acute (2) Acute renal failure: Status: Acute (3) Symptomatic bradycardia: Status: Acute (4) Cardiogenic shock: Status: Acute (5) Junctional bradycardia: Status: Acute (6) Abdominal pain: Status: Acute (7) Acute pain of left hip: Status: Acute (8) Urinary retention with incomplete bladder emptying: Status: Acute (9) Essential hypertension: Status: Acute (10) Type 2 diabetes mellitus with unspecified complications: Status: Acute (11) Atherosclerotic cardiovascular disease: Status: Acute (12) Ascending aorta dilatation: Status: Chronic (13) Diarrhea: Status: Acute (14) GERD (gastroesophageal reflux disease): Status: Acute (15) Type 2 diabetes mellitus with polyneuropathy: Status: Acute (16) HLD (hyperlipidemia): Status: Acute (17) HTN (hypertension): Status: Acute (18) Chest pain: Status: Acute (19) Diastolic dysfunction: Status: Acute (20) CAD (coronary artery disease): Status: Acute (21) S/P CABG x 3: Status: Acute Plan Therefore at this point she does have probable recurrence of ischemic heart disease now that she is 9 years status post coronary bypass grafting currently stable and also has underlying sick sinus syndrome as extubated by metoprolol so she is off the metoprolol at some point in the future she might tolerate a low doses prophylaxis and currently were treating her with anticoagulants including antiplatelet therapy for the ischemia and once we wean her off dopamine she is probably a candidate for discharge Quality Stroke Does the patient have a stroke diagnosis?: No VTE Prior VTE?: No VTE Risk Level:: Medical - moderate - high VTE Device Contraindication: N/A - Device Ordered VTE Drug Contraindication: N/A - Med Ordered
[2022-08-11] MEDS: HYDROmorphone HCl 0.5 MG/0.5 ML SYRINGE 0.25 MG IVPUSH ×3 (10:29→23:36)
[2022-08-11 10:43] LABS: PTT Heparin Drip 55.4 SEC (53-77.9)
[2022-08-11 10:52] LABS: OBS Int Ctl Valid YES; OBS1 POSITIVE (NEGATIVE)
[2022-08-11 11:35] LABS: Glucose, Whole Blood 183 mg/dL (60-115)
[2022-08-11] MEDS: Ketorolac Tromethamine 15 MG/ML VIAL IVPUSH (12:19)
--- NOTE | 2022-08-11 14:52 | ECG_ITS ---
Test Reason : rhythm changed Blood Pressure : / mmHG Vent. Rate : 094 BPM Atrial Rate : 000 BPM P-R Int : 000 ms QRS Dur : 100 ms QT Int : 404 ms P-R-T Axes : 000 -40 080 degrees QTc Int : 505 ms Atrial fibrillation Left axis deviation Intermittent Right bundle branch block Prolonged QT Abnormal ECG When compared with ECG of 10-AUG-2022 08:02, Atrial fibrillation has replaced Sinus rhythm Intermittent Right bundle branch block is now Present QT has lengthened Referred By: Robert Roy Electronically Signed By:YUDI KAUFMAN
[2022-08-11 16:38] LABS: Glucose, Whole Blood 229 mg/dL (60-115)
[2022-08-11] MEDS: 0.9 % Sodium Chloride 500 ML IV (17:09)
[2022-08-11 18:08] LABS: Troponin-I High Sensitivity 1586.8 ng/L (<3.5-17.0)
[2022-08-11] MEDS: traMADoL HCL 50 MG TABLET 25 MG PO ×2 (19:56→23:37)
[2022-08-11] MEDS: Nystatin Powder 15 GM BOTTLE 1 APPL TOPICAL (19:56)
[2022-08-11 19:58] LABS: Erythrocyte Sedimentation Rate 23 MM/HR (0-20)
[2022-08-11 21:40] LABS: Glucose, Whole Blood 316 mg/dL (60-115)
[2022-08-11] MEDS: QUEtiapine Fumarate 50 MG TABLET PO (23:38)
[2022-08-11 23:47] LABS: Alanine Aminotransferase 40 U/L (0-31); Albumin Level 3.4 g/dL (3.5-5.0); Alkaline Phosphatase 68 U/L (39-117); Anion Gap 15 (12-20); Aspartate Amino Transferase 23 U/L (5-31); Bilirubin Total 0.6 mg/dL (0.0-1.0); Blood Urea Nitrogen 15 mg/dL (9-16); Calcium 8.3 mg/dL (8.4-10.2); Carbon Dioxide 17 mmol/L (22-29); Chloride 109 mmol/L (96-108); Creatinine Clr Calc Pharmacy 28.5; Estimated Glomerular Filt Rate 47; Glucose Random 280 mg/dL (60-115); Magnesium 1.5 mg/dL (1.6-2.6); Phosphorus 1.6 mg/dL (2.7-4.5); Potassium 3.4 mmol/L (3.3-5.1); Sodium 138 mmol/L (135-145); Total Protein 6.1 g/dL (6.5-8.0)
[2022-08-12] VITALS (29 sets, daily range): BP systolic 84–131; BP diastolic 42–72; PULSE 70–107; RESP 16–46; TEMP 36.4–38.3; O2SAT 92–99; BMI 24.6
--- NOTE | 2022-08-12 00:15 | PC.NURSE ---
Addendum entered by Geremias Castano RN 08/12/22 00:27: Plan to have family meeting in AM, son, George to attend; shift superintendent caustic cresylate aware that HCP needs to be notified. Original Note: Assumed care at 07:00. Patient assessed with paraprofessional interpreter, but also communicated with in Nepalese and Azeri. Patient is Alert/Vague/disoriented to time, but otherwise oriented to place, self, and situation. Patient moves all extremities, PERRLA, Breathing easily on room air. Lung sounds with dim bases. Denied chest pain, denied chest pressure, denied dyspnea. Did endorse palpitations this evening, PA aware, denied chest pain. Patient with left upper arm pain, severe, 10/10, worse with ROM, limited ROM, slight bruising on left elbow, MD aware, xray of elbow showed joint effusion, no fracture, arthritis; follow-up ESR checked, was 24. Patient afebrile, no leukocytosis today. Patient with troponins elevated but trended down from 2815 to 1586, PA aware. Patient continues on heparin gtt; her PttHD came back as 55.4, which was the third no change, and is due to be checked at 6 am on 08/12; also on Plavix and ASA, and patient copious gelatinous green-hued stool, and MD aware, and OB stool ordered and positive, and PA aware and ordering followup Hgb. BP stable, on 1 of dopamine gtt, this was titrated down by MD. Bolused IV normal saline per MD. continuous NS discontinued. telemetry rhythm A-flutter to A-fib, and rate controlled, and EKG orderd and reviewed by MD. Patient had pain at 11:15, unable to vocalize type of pain, motioned with hand to chest, PA aware, EKG taken again and reviewed, new troponins ordered, IV dilaudid given per eMar. Diabetic with poor PO intake poor appetite ongoing, started full liquid diet this AM, minimal PO, still covered POC except lunchtime when 0% of lunch was eaten. Lispro orders had to be re-ordered with MD and then with pharmacy this afternoon, MD aware. Patient with oates catheter, good urine output pale yellow and about 60-70 cc/hour. Patient with CVP very low today, checked with MD, about 0-1. Skin check with skin rounds today found unstageable on right heel, photographed, foam applied, pressure boots applied.
[2022-08-12] MEDS: Potassium Phosphate/NS 15 MMOL/250 ML PLAST..BAG 62.5 MMOL IV (00:39)
[2022-08-12] MEDS: Magnesium Sulfate/H2O 2 GM/50 ML PIGGYBACK IV (00:41)
[2022-08-12 00:50] LABS: MANUAL DIFF FLAG NO
[2022-08-12 00:58] LABS: Basophils Percent Auto 0.2 % (0-2); Eosinophils Absolute Auto 0.2 X10*3/uL (0.0-0.4); Eosinophils Percent Auto 2.7 % (0-4); Hematocrit 28.3 % (37.0-47.0); Hemoglobin 9.9 g/dl (12.0-16.0); Imm Gran Abs Auto 0.03 X10*3/uL (0.00-0.03); Imm Gran Pct Auto 0.4 % (0.0-0.4); Lymphocytes Percent Auto 24.5 % (20-40); Mean Corpuscular Hemoglobin 27.9 pg (27.0-33.0); Mean Corpuscular Volume 79.7 fL (80.0-98.0); Mean Platelet Volume 9.8 fL (9.4-12.3); Monocytes Absolute Auto 0.9 X10*3/uL (0.1-1.2); Monocytes Percent Auto 11.3 % (2-11); Neutrophils Percent Auto 60.9 % (45-73); Platelet Count 178 X10*3/uL (160-400); Red Blood Count 3.55 X10*6/uL (4.20-5.50); Red Cell Distribution Width 13.7 % (11.0-16.0); White Blood Count 8.2 X10*3/uL (4.8-10.8)
[2022-08-12] MEDS: DOPamine HCL/D5W 400 MG/250 ML PLAST..BAG 11.44 MG IVCONT (04:00)
[2022-08-12 05:15] LABS: VBG Base Excess -6.7 mmol/L; VBG HCO3 16 mmol/L (22-26); VBG pCO2 26 mmHg; VBG pO2 35 mmHg
[2022-08-12 05:22] LABS: MANUAL DIFF FLAG NO
[2022-08-12 05:23] LABS: Basophils Percent Auto 0.4 % (0-2); Eosinophils Absolute Auto 0.3 X10*3/uL (0.0-0.4); Eosinophils Percent Auto 3.4 % (0-4); Hematocrit 28.3 % (37.0-47.0); Hemoglobin 9.7 g/dl (12.0-16.0); Imm Gran Abs Auto 0.03 X10*3/uL (0.00-0.03); Imm Gran Pct Auto 0.4 % (0.0-0.4); Lymphocytes Absolute Auto 2.3 X10*3/uL (1.2-4.9); Lymphocytes Percent Auto 27.3 % (20-40); Mean Corpuscular HGB Conc 34.3 g/dl (31.0-35.0); Mean Corpuscular Volume 81.6 fL (80.0-98.0); Mean Platelet Volume 9.9 fL (9.4-12.3); Monocytes Absolute Auto 0.9 X10*3/uL (0.1-1.2); Monocytes Percent Auto 10.5 % (2-11); Neutrophils Absolute Auto 4.9 x10*3/uL (2.0-8.3); Platelet Count 175 X10*3/uL (160-400); Red Blood Count 3.47 X10*6/uL (4.20-5.50); White Blood Count 8.4 X10*3/uL (4.8-10.8)
[2022-08-12 05:31] LABS: PTT Heparin Drip 48.4 SEC (53-77.9)
[2022-08-12 05:43] LABS: Venous Blood Gas Refer to POC result
[2022-08-12 05:47] LABS: Alanine Aminotransferase 39 U/L (0-31); Albumin Level 3.3 g/dL (3.5-5.0); Alkaline Phosphatase 64 U/L (39-117); Anion Gap 17 (12-20); Aspartate Amino Transferase 21 U/L (5-31); B Type Natriuretic Peptide 494 pg/mL (<100); Bilirubin Total 0.6 mg/dL (0.0-1.0); Blood Urea Nitrogen 13 mg/dL (9-16); Calcium 8.4 mg/dL (8.4-10.2); Carbon Dioxide 17 mmol/L (22-29); Chloride 108 mmol/L (96-108); Creatinine Clr Calc Pharmacy 33.7; Estimated Glomerular Filt Rate 52; Glucose Random 245 mg/dL (60-115); Magnesium 1.8 mg/dL (1.6-2.6); Phosphorus 3.6 mg/dL (2.7-4.5); Potassium 3.8 mmol/L (3.3-5.1); Sodium 138 mmol/L (135-145)
[2022-08-12] MEDS: Heparin Sodium,Porcine 5,000 UNIT/ML VIAL 2400 UNIT IVPUSH (06:01)
--- NOTE | 2022-08-12 07:29 | PM.CCPN ---
Subjective Subjective Date of Service: 08/12/22 Interval History: 87-year-old female with symptomatic bradycardia and paroxysmal atrial flutter persistent need for dopamine support continued monoarticular arthritis of the left elbow probably pending fluid aspiration by IR who was currently in an out of sinus rhythm alternating with atrial flutter and wound with the probable placement of permanent dual chamber pacer in the morning followed by a amiodarone loading and cardioversion Critical Care Time (minutes): 45 Physical Exam Vital Signs: Vital Signs: Last Vital Signs Temp 100.2 F 08/12/22 07:00 Pulse 90 08/12/22 07:00 Resp 46 H 08/12/22 07:00 BP 131/65 08/12/22 07:00 Pulse Ox 97 08/12/22 07:00 O2 Del Method 08/12/22 07:00 O2 Flow Rate 3 08/12/22 06:00 BMI result Body Mass Index 24.6 She is awake alert and appropriate and nonfocal Bedside echo good wall motion with ejection fraction exceeding 60% Lungs clear Abdomen benign No peripheral edema no acrocyanosis Objective Data Labs CBC & Chem 7: 08/13/22 05:45 08/13/22 05:45 Labs: Laboratory Results - last 24 hr 08/11/22 08/11/22 08/11/22 10:19 10:36 11:32 WBC RBC Hgb Hct MCV MCH MCHC RDW Plt Count MPV Immature Gran % (Auto) Neut % (Auto) Lymph % (Auto) [place] % (Auto) Eos % (Auto) Baso % (Auto) Lymph # (Auto) [place] # (Auto) Eos # (Auto) Baso # (Auto) Abs Immat Gran (auto) Absolute Neuts (auto) Absolute Nucleated RBC Nucleated RBC % (auto) ESR aPTT Heparin Protocol 55.4 VBG pH VBG pCO2 VBG pO2 VBG HCO3 VBG O2 Saturation VBG Base Excess Sodium Potassium Chloride Carbon Dioxide Anion Gap BUN Creatinine Estim Creat Clear Calc Estimated GFR POC Glucose 183 H Random Glucose Calcium Phosphorus Magnesium Total Bilirubin AST ALT Alkaline Phosphatase Troponin I High Sens B-Natriuretic Peptide Total Protein Albumin Stool Occult Blood POSITIVE 08/11/22 08/11/22 08/11/22 16:35 17:25 17:25 WBC RBC Hgb Hct MCV MCH MCHC RDW Plt Count MPV Immature Gran % (Auto) Neut % (Auto) Lymph % (Auto) [place] % (Auto) Eos % (Auto) Baso % (Auto) Lymph # (Auto) [place] # (Auto) Eos # (Auto) Baso # (Auto) Abs Immat Gran (auto) Absolute Neuts (auto) Absolute Nucleated RBC Nucleated RBC % (auto) ESR 23 H aPTT Heparin Protocol VBG pH VBG pCO2 VBG pO2 VBG HCO3 VBG O2 Saturation VBG Base Excess Sodium Potassium Chloride Carbon Dioxide Anion Gap BUN Creatinine Estim Creat Clear Calc Estimated GFR POC Glucose 229 H Random Glucose Calcium Phosphorus Magnesium Total Bilirubin AST ALT Alkaline Phosphatase Troponin I High Sens 1586.8 H* B-Natriuretic Peptide Total Protein Albumin Stool Occult Blood 08/11/22 08/11/22 08/11/22 21:37 23:15 23:55 WBC RBC Hgb Hct MCV MCH MCHC RDW Plt Count MPV Immature Gran % (Auto) Neut % (Auto) Lymph % (Auto) [place] % (Auto) Eos % (Auto) Baso % (Auto) Lymph # (Auto) [place] # (Auto) Eos # (Auto) Baso # (Auto) Abs Immat Gran (auto) Absolute Neuts (auto) Absolute Nucleated RBC Nucleated RBC % (auto) ESR aPTT Heparin Protocol VBG pH VBG pCO2 VBG pO2 VBG HCO3 VBG O2 Saturation VBG Base Excess Sodium 138 Potassium 3.4 Chloride 109 H Carbon Dioxide 17 L Anion Gap 15 BUN 15 Creatinine 1.10 Estim Creat Clear Calc 28.5 Estimated GFR 47 POC Glucose 316 H Random Glucose 280 H Calcium 8.3 L Phosphorus 1.6 L Magnesium 1.5 L Total Bilirubin 0.6 AST 23 D ALT 40 H Alkaline Phosphatase 68 Troponin I High Sens 1139.0 H* B-Natriuretic Peptide Total Protein 6.1 L Albumin 3.4 L Stool Occult Blood 08/12/22 08/12/22 08/12/22 00:45 05:08 05:08 WBC 8.2 8.4 RBC 3.55 L 3.47 L Hgb 9.9 L 9.7 L Hct 28.3 L 28.3 L MCV 79.7 L 81.6 MCH 27.9 28.0 MCHC 35.0 34.3 RDW 13.7 14.0 Plt Count 178 175 MPV 9.8 9.9 Immature Gran % (Auto) 0.4 0.4 Neut % (Auto) 60.9 58.0 Lymph % (Auto) 24.5 27.3 [place] % (Auto) 11.3 H 10.5 Eos % (Auto) 2.7 3.4 Baso % (Auto) 0.2 0.4 Lymph # (Auto) 2.0 2.3 [place] # (Auto) 0.9 0.9 Eos # (Auto) 0.2 0.3 Baso # (Auto) 0.0 0.0 Abs Immat Gran (auto) 0.03 0.03 Absolute Neuts (auto) 5.0 4.9 Absolute Nucleated RBC 0.000 0.000 Nucleated RBC % (auto) 0.0 0.0 ESR aPTT Heparin Protocol 48.4 L VBG pH VBG pCO2 VBG pO2 VBG HCO3 VBG O2 Saturation VBG Base Excess Sodium Potassium Chloride Carbon Dioxide Anion Gap BUN Creatinine Estim Creat Clear Calc Estimated GFR POC Glucose Random Glucose Calcium Phosphorus Magnesium Total Bilirubin AST ALT Alkaline Phosphatase Troponin I High Sens B-Natriuretic Peptide Total Protein Albumin Stool Occult Blood 08/12/22 08/12/22 08/12/22 05:08 05:08 05:10 WBC RBC Hgb Hct MCV MCH MCHC RDW Plt Count MPV Immature Gran % (Auto) Neut % (Auto) Lymph % (Auto) [place] % (Auto) Eos % (Auto) Baso % (Auto) Lymph # (Auto) [place] # (Auto) Eos # (Auto) Baso # (Auto) Abs Immat Gran (auto) Absolute Neuts (auto) Absolute Nucleated RBC Nucleated RBC % (auto) ESR aPTT Heparin Protocol VBG pH 7.40 VBG pCO2 26 VBG pO2 35 VBG HCO3 16 L VBG O2 Saturation 59.0 VBG Base Excess -6.7 Sodium 138 Potassium 3.8 Chloride 108 Carbon Dioxide 17 L Anion Gap 17 BUN 13 Creatinine 1.01 Estim Creat Clear Calc 33.7 Estimated GFR 52 POC Glucose Random Glucose 245 H Calcium 8.4 Phosphorus 3.6 Magnesium 1.8 Total Bilirubin 0.6 AST 21 ALT 39 H Alkaline Phosphatase 64 Troponin I High Sens B-Natriuretic Peptide 494 H Total Protein 6.0 L Albumin 3.3 L Stool Occult Blood Microbiology Microbiology Results: Microbiology 08/09/22 03:23 Blood - Venous Blood Culture - Final Coag negative Staphylococcus 08/09/22 03:23 Blood - Venous Blood Culture - Preliminary No growth after 48 hours. 08/09/22 Unknown Urine Catheterized - Woo Catheter Urine Culture - Final No growth. Progress Note: A&P Assessment and plan (1) Monoarticular arthritis: Status: Acute (2) Sick sinus syndrome: Status: Acute (3) Non-ST elevation (NSTEMI) myocardial infarction: Status: Acute (4) Paroxysmal atrial flutter: Status: Acute (5) Blister of heel: Status: Acute (6) Lactic acidosis: Status: Acute (7) Acute renal failure: Status: Acute (8) Symptomatic bradycardia: Status: Acute (9) Cardiogenic shock: Status: Acute (10) Junctional bradycardia: Status: Acute (11) Abdominal pain: Status: Acute (12) Acute pain of left hip: Status: Acute (13) Urinary retention with incomplete bladder emptying: Status: Acute (14) Essential hypertension: Status: Acute (15) Type 2 diabetes mellitus with unspecified complications: Status: Acute (16) Atherosclerotic cardiovascular disease: Status: Acute (17) Ascending aorta dilatation: Status: Chronic (18) Diarrhea: Status: Acute (19) GERD (gastroesophageal reflux disease): Status: Acute (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: Status: Acute (21) HLD (hyperlipidemia): Status: Acute (22) HTN (hypertension): Status: Acute (23) Chest pain: Status: Acute (24) Diastolic dysfunction: Status: Acute (25) S/P CABG x 3: Status: Acute (26) CAD (coronary artery disease): Status: Acute Plan And the plan is to proceed with pacing and cardioversion and unless she were to have another unstable ischemic episode or breakthrough fever spike which would create a delay in that plan Quality Stroke Does the patient have a stroke diagnosis?: No VTE Prior VTE?: No VTE Risk Level:: Medical - moderate - high VTE Device Contraindication: N/A - Device Ordered VTE Drug Contraindication: N/A - Med Ordered
[2022-08-12 07:31] LABS: Glucose, Whole Blood 234 mg/dL (60-115)
[2022-08-12] MEDS: Clopidogrel Bisulfate 75 MG TABLET PO (08:16)
[2022-08-12] MEDS: Aspirin 81 MG TAB.CHEW PO (08:17)
[2022-08-12] MEDS: Insulin Lispro 100 UNIT/ML 3 ML VIAL SUBCUT ×4 (08:17→20:39)
[2022-08-12] MEDS: HYDROmorphone HCl 0.5 MG/0.5 ML SYRINGE 0.25 MG IVPUSH ×3 (08:36→18:47)
[2022-08-12] MEDS: Ketorolac Tromethamine 15 MG/ML VIAL IVPUSH ×2 (09:06→20:38)
--- NOTE | 2022-08-12 09:10 | PC.NURSE ---
production machine tender at bedside for assessment w/ this RN and MD. pt stated she is having severe L elbow pain, b/l LE pain and periodical chest pain. MD also informed of pt's temp. PRN pain meds administered w/ + effect. L elbow noted to be slighly discolored and swollen.
[2022-08-12 10:35] LABS: Procalcitonin 0.68 ng/mL
[2022-08-12 11:57] LABS: Glucose, Whole Blood 167 mg/dL (60-115)
--- NOTE | 2022-08-12 12:25 | HO.WOUNDCONS ---
History of Present Illness Data of Consult Service Date: 08/12/22 Requesting physician: Robert Roy Primary Care Provider: DO ELBERT Whitmore Reason for consult: Left heel eschar 87-year-old female admitted for treatment of cardiogenic shock. The Wound Care Service was asked to evaluate because of a finding of left heel eschar. She has no complaints of pain related to the left heel. Her only complaint at the time of my visit was of left arm pain which she reported has been on going. No history of left heel injury. 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 Surgical History History of esophagogastroduodenoscopy (EGD) Hx of colonoscopy S/P CABG x 3 (~09/2013) Social History Household Members: Children Housing: Assisted Living Facility Unable to assess alcohol history related to: Unable to respond Alcohol intake: never Patient Tobacco Use Status: Never used Tobacco Use of substances other than those prescribed or required for medical reasons: Unknown Currently Displaying Signs/Symptoms of Drug Intoxication Withdrawal: No Advance Directives: Yes Advance Directives on File: Yes Advance Directives Date on File: 01/29/22 Recently lost weight without trying: Unsure Patient : No : No Poor oral hygiene: No service: No Current occupational status: disabled Meds Allergies Allergy/AdvReac Type Severity Reaction Status Date / Time No Known Allergies Allergy Verified 06/10/22 11:13 [No Known Allergies*] Active Medications: Current Medications Aspirin (Aspirin 81 Mg Tab.Chew) 81 mg PO DAILY [facility] Last Admin: 08/12/22 08:17 Dose: 81 mg Clopidogrel Bisulfate (Clopidogrel Bisulfate 75 Mg Tablet) 75 mg PO DAILY [facility] Last Admin: 08/12/22 08:16 Dose: 75 mg Dextrose (Dextrose 50 % 25 Gm/50 Ml Syringe) 25 gm IVPUSH Q15M PRN; Protocol PRN Reason: per Hypoglycemia Standing Ord. Glucose (Glucose Gel 15 Gm Gel..Gram.) 15 gm PO Q15M PRN; Protocol PRN Reason: per Hypoglycemia Standing Ord. Heparin Sodium (Porcine) (Heparin Sodium,Porcine 5,000 Unit/Ml Vial) 2,400 unit 40 unit/kg (2400 unit) IVPUSH PROTOCOL BOLUS PRN; Protocol PRN Reason: 40 unit/kg - Heparin Protocol Last Admin: 08/12/22 06:01 Dose: 2,400 unit Heparin Sodium (Porcine) (Heparin Sodium,Porcine 5,000 Unit/Ml Vial) 4,900 unit 80 unit/kg (4900 unit) IVPUSH PROTOCOL BOLUS PRN; Protocol PRN Reason: 80 unit/kg - Heparin Protocol Hydromorphone HCl (Hydromorphone Hcl 0.5 Mg/0.5 Ml Syringe) 0.25 mg IVPUSH Q4H PRN; Protocol PRN Reason: Pain, Severe (Pain Scale 7-10) Last Admin: 08/12/22 08:36 Dose: 0.25 mg Dopamine HCl/Dextrose (Dopamine Hcl/D5w) 400 mg in 250 mls @ 0 mls/hr IVCONT .Q0M [facility]; Protocol Last Titration: 08/12/22 10:30 Dose: 3 mcg/kg/min, 6.86 mls/hr Heparin Sodium/Sodium Chloride (Heparin Sodium,Porcine/1/2ns) 25,000 unit in 250 mls @ 0 mls/hr IVCONT .Q0M [facility]; Protocol Last Titration: 08/12/22 06:03 Dose: 12 units/kg/hr, 7.32 mls/hr Insulin Human Lispro (Insulin Lispro 100 Unit/Ml 3 Ml Vial) 0 unit SUBCUT QIDACHS [facility]; Protocol Last Admin: 08/12/22 08:17 Dose: 4 unit Nystatin (Nystatin Powder 15 Gm Bottle) 1 appl TOPICAL BID [facility]; Protocol Last Admin: 08/12/22 09:09 Dose: Not Given Home Medications Medication Instructions Recorded Confirmed Last Taken Type aspirin 81 mg tablet,delayed 1 tab PO DAILY 06/18/22 08/09/22 Unknown History release atorvastatin 20 mg tablet 1 tab PO BEDTIME 06/18/22 08/09/22 Unknown History blood sugar diagnostic (FreeStyle 06/18/22 06/18/22 Unknown History Lite Strips) bupropion HCl 300 mg 24 hr tablet, 1 tab PO QAM 06/18/22 08/09/22 Unknown History extended release cetirizine 10 mg tablet 1 tab PO QAM 06/18/22 08/09/22 Unknown History cholecalciferol (vitamin D3) 50 1 tab PO QAM 06/18/22 08/09/22 Unknown History mcg (2,000 unit) tablet donepezil 10 mg tablet 1 tab PO DAILY 06/18/22 08/09/22 Unknown History fluticasone propionate 50 2 spray intranasal DAILY 06/18/22 08/09/22 Unknown History mcg/actuation nasal spray,suspension gabapentin 100 mg capsule 2 cap PO TID 06/18/22 08/09/22 Unknown History lancets 33 gauge (TRUEplus Lancets) 06/18/22 06/18/22 Unknown History levothyroxine 150 mcg tablet 1 tab PO QAM 06/18/22 08/09/22 Unknown History metoprolol succinate 50 mg 150 mg PO DAILY 06/18/22 08/09/22 Unknown History tablet,extended release 24 hr quetiapine 50 mg tablet 1 tab PO QPM 06/18/22 08/09/22 Unknown History sertraline 50 mg tablet 1 tab PO QAM 06/18/22 08/09/22 Unknown History insulin lispro 100 unit/mL 1 sliding scale dose subcut 08/09/22 08/09/22 Unknown History subcutaneous solution (Humalog USEASDIRECTD U-100 Insulin) metformin 500 mg tablet 500 mg PO BID 08/09/22 08/09/22 Unknown History Physical Exam Vital Signs and Narrative: Vital Signs: Last Vital Signs Temp 99.5 F 08/12/22 12:00 Pulse 78 08/12/22 12:00 Resp 17 08/12/22 12:00 BP 85/60 L 08/12/22 12:00 Pulse Ox 94 08/12/22 12:00 O2 Del Method 08/12/22 12:00 O2 Flow Rate 3 08/12/22 06:00 BMI result Body Mass Index 24.6 Alert elderly female who appears uncomfortable but is not in acute distress. Extrem: Other: A lower extremities and feet are warm. No edema noted. Pedal pulses are not palpable. There is a small, well-circumscribed scab on the posterior aspect of the left calcaneus 0.7 x 1 cm without surrounding erythema or tenderness. Results Labs CBC and Chem 7: 08/12/22 05:08 08/12/22 05:08 Labs: Laboratory Results - last 24 hr 08/11/22 08/11/22 08/11/22 16:35 17:25 21:37 MCV MCH MCHC RDW Plt Count MPV Immature Gran % (Auto) Neut % (Auto) Lymph % (Auto) [place] % (Auto) Eos % (Auto) Baso % (Auto) Lymph # (Auto) [place] # (Auto) Eos # (Auto) Baso # (Auto) Abs Immat Gran (auto) Absolute Neuts (auto) Absolute Nucleated RBC Nucleated RBC % (auto) ESR 23 H aPTT Heparin Protocol VBG pH VBG pCO2 VBG pO2 VBG HCO3 VBG O2 Saturation VBG Base Excess Anion Gap Estim Creat Clear Calc Estimated GFR POC Glucose 229 H 316 H Random Glucose Calcium Phosphorus Magnesium Total Bilirubin AST ALT Alkaline Phosphatase B-Natriuretic Peptide Total Protein Albumin Procalcitonin 08/11/22 08/12/22 08/12/22 23:15 00:45 05:08 MCV 79.7 L MCH 27.9 MCHC 35.0 RDW 13.7 Plt Count 178 MPV 9.8 Immature Gran % (Auto) 0.4 Neut % (Auto) 60.9 Lymph % (Auto) 24.5 [place] % (Auto) 11.3 H Eos % (Auto) 2.7 Baso % (Auto) 0.2 Lymph # (Auto) 2.0 [place] # (Auto) 0.9 Eos # (Auto) 0.2 Baso # (Auto) 0.0 Abs Immat Gran (auto) 0.03 Absolute Neuts (auto) 5.0 Absolute Nucleated RBC 0.000 Nucleated RBC % (auto) 0.0 ESR aPTT Heparin Protocol 48.4 L VBG pH VBG pCO2 VBG pO2 VBG HCO3 VBG O2 Saturation VBG Base Excess Anion Gap 15 Estim Creat Clear Calc 28.5 Estimated GFR 47 POC Glucose Random Glucose 280 H Calcium 8.3 L Phosphorus 1.6 L Magnesium 1.5 L Total Bilirubin 0.6 AST 23 D ALT 40 H Alkaline Phosphatase 68 B-Natriuretic Peptide Total Protein 6.1 L Albumin 3.4 L Procalcitonin 08/12/22 08/12/22 08/12/22 05:08 05:08 05:08 MCV 81.6 MCH 28.0 MCHC 34.3 RDW 14.0 Plt Count 175 MPV 9.9 Immature Gran % (Auto) 0.4 Neut % (Auto) 58.0 Lymph % (Auto) 27.3 [place] % (Auto) 10.5 Eos % (Auto) 3.4 Baso % (Auto) 0.4 Lymph # (Auto) 2.3 [place] # (Auto) 0.9 Eos # (Auto) 0.3 Baso # (Auto) 0.0 Abs Immat Gran (auto) 0.03 Absolute Neuts (auto) 4.9 Absolute Nucleated RBC 0.000 Nucleated RBC % (auto) 0.0 ESR aPTT Heparin Protocol VBG pH VBG pCO2 VBG pO2 VBG HCO3 VBG O2 Saturation VBG Base Excess Anion Gap 17 Estim Creat Clear Calc 33.7 Estimated GFR 52 POC Glucose Random Glucose 245 H Calcium 8.4 Phosphorus 3.6 Magnesium 1.8 Total Bilirubin 0.6 AST 21 ALT 39 H Alkaline Phosphatase 64 B-Natriuretic Peptide 494 H Total Protein 6.0 L Albumin 3.3 L Procalcitonin 08/12/22 08/12/22 08/12/22 05:10 07:27 09:21 MCV MCH MCHC RDW Plt Count MPV Immature Gran % (Auto) Neut % (Auto) Lymph % (Auto) [place] % (Auto) Eos % (Auto) Baso % (Auto) Lymph # (Auto) [place] # (Auto) Eos # (Auto) Baso # (Auto) Abs Immat Gran (auto) Absolute Neuts (auto) Absolute Nucleated RBC Nucleated RBC % (auto) ESR aPTT Heparin Protocol VBG pH 7.40 VBG pCO2 26 VBG pO2 35 VBG HCO3 16 L VBG O2 Saturation 59.0 VBG Base Excess -6.7 Anion Gap Estim Creat Clear Calc Estimated GFR POC Glucose 234 H Random Glucose Calcium Phosphorus Magnesium Total Bilirubin AST ALT Alkaline Phosphatase B-Natriuretic Peptide Total Protein Albumin Procalcitonin 0.68 08/12/22 11:50 MCV MCH MCHC RDW Plt Count MPV Immature Gran % (Auto) Neut % (Auto) Lymph % (Auto) [place] % (Auto) Eos % (Auto) Baso % (Auto) Lymph # (Auto) [place] # (Auto) Eos # (Auto) Baso # (Auto) Abs Immat Gran (auto) Absolute Neuts (auto) Absolute Nucleated RBC Nucleated RBC % (auto) ESR aPTT Heparin Protocol VBG pH VBG pCO2 VBG pO2 VBG HCO3 VBG O2 Saturation VBG Base Excess Anion Gap Estim Creat Clear Calc Estimated GFR POC Glucose 167 H Random Glucose Calcium Phosphorus Magnesium Total Bilirubin AST ALT Alkaline Phosphatase B-Natriuretic Peptide Total Protein Albumin Procalcitonin Imaging Radiologist's Impressions: Impressions Elbow X-Ray 08/11/22 11:57 IMPRESSION: No acute fracture or dislocation. Mild joint effusion. Degenerative arthritic changes radioulnar joint. Assessment and Plan (1) Blister of heel: Status: Acute Plan 87-year-old female with a small well-circumscribed scab or eschar of the left posterior heel. Findings are more consistent with a scab. Recommend heel elevation for pressure relief, protective skin cream and dressing such as Alevyn foam. Thank risk in the Wound Care Service to participate in her care. We will sign off. Please call if needed.
[2022-08-12 12:49] LABS: PTT Heparin Drip 68.7 SEC (53-77.9)
[2022-08-12] MEDS: 0.9 % Sodium Chloride 250 ML 500 ML IV (12:55)
[2022-08-12] MEDS: vancomycin HCL 1,500 MG in 0.9 % Sodium Chloride 500 ML 333.33 MG IV (14:20)
[2022-08-12 16:18] LABS: Glucose, Whole Blood 224 mg/dL (60-115)
[2022-08-12 18:56] LABS: PTT Heparin Drip 63.8 SEC (53-77.9)
[2022-08-12] MEDS: Heparin Sodium,Porcine/1/2NS 25,000 UNIT/250 ML IV.SOLN 7.32 UNIT IVCONT (19:47)
[2022-08-12 20:09] LABS: Glucose, Whole Blood 272 mg/dL (60-115)
[2022-08-12] MEDS: Acetaminophen 325 MG TABLET 975 MG PO (20:39)
[2022-08-12] MEDS: Nystatin Powder 15 GM BOTTLE 1 APPL TOPICAL (20:50)
[2022-08-12 21:37] LABS: Lactic Acid 2.1 mmol/L (0.5-2.0)
[2022-08-12 21:53] LABS: Appearance Urine Clear; Color Urine Yellow; Glucose Urine UA >=1000 mg/dL (Negative); Leukocyte Esterase Urine Negative (Negative); Nitrite Urine Negative (Negative); PH 5.5 (5.0-9.0); UMIC TRIGGER UA YES; Urine Blood Negative (Negative); Urine Ketones 15 mg/dL (Negative); Urine Protein Trace mg/dL (Neg-Trace)
[2022-08-12 22:10] LABS: Bacteria Urine None Seen (None Seen); RBC Urine 0-2 /HPF (0-2); Squamous Epithelial Cell Urine 0-2 /HPF (0-2)
[2022-08-12 23:14] LABS: Reflex Lactate? Lactic Acid Added
[2022-08-12 23:52] LABS: ~Lactic Acid-LAB USE ONLY 1.3 mmol/L (0.5-2.0)
[2022-08-13] VITALS (16 sets, daily range): BP systolic 88–129; BP diastolic 38–75; PULSE 87–119; RESP 14–38; TEMP 37.9–38.5; O2SAT 92–100; BMI 26.0
--- NOTE | 2022-08-13 | ECG_ITS ---
Test Reason : stat for new WMA posterior Blood Pressure : / mmHG Vent. Rate : 104 BPM Atrial Rate : 000 BPM P-R Int : 000 ms QRS Dur : 146 ms QT Int : 400 ms P-R-T Axes : 000 219 037 degrees QTc Int : 526 ms Atrial fibrillation with rapid ventricular response Right bundle branch block ST depression, consider subendocardial injury Anterolateral leads Abnormal ECG When compared with ECG of 11-AUG-2022 23:26, Heart rate has increased Right bundle branch block is now Present ST now depressed in Anterolateral leads QT has lengthened Referred By: Robert Roy Electronically Signed By:YUDI KAUFMAN
[2022-08-13] MEDS: HYDROmorphone HCl 0.5 MG/0.5 ML SYRINGE 0.25 MG IVPUSH (01:41)
--- NOTE | 2022-08-13 02:24 | MHC.PIE ---
Shift eval 11p-3a - Patient alert, oriented, NPO after midnight - preop pacemaker. Patient educated about diet. Patient on dopamine drip & heparin drip - no bleeding noted. HR 80's-90's, SR, frequent PAC's, occasional PVC's, and frequent runs of widened complex rhythm - increased bundle. Irasema C PA aware / viewed rhythm. BP maintaining > 65 map. Patient c/o left arm pain. Guarding / holding arm with right hand. No swelling noted - patient report pain in elbow specifically. Patient medicated w/ PRN dilaudid with some effect. When patient left alone, patient starts to relax.
[2022-08-13] MEDS: DOPamine HCL/D5W 400 MG/250 ML PLAST..BAG 11.44 MG IVCONT (05:17)
[2022-08-13 05:53] LABS: VBG Base Excess -5.8 mmol/L; VBG HCO3 16 mmol/L (22-26); VBG pCO2 24 mmHg; VBG pH 7.43 (7.32-7.43); VBG pO2 36 mmHg
[2022-08-13 05:53] LABS: MANUAL DIFF FLAG NO
[2022-08-13 06:02] LABS: Basophils Percent Auto 0.4 % (0-2); Eosinophils Absolute Auto 0.2 X10*3/uL (0.0-0.4); Hematocrit 26.9 % (37.0-47.0); Hemoglobin 9.3 g/dl (12.0-16.0); Imm Gran Abs Auto 0.09 X10*3/uL (0.00-0.03); Imm Gran Pct Auto 0.9 % (0.0-0.4); Lymphocytes Absolute Auto 1.5 X10*3/uL (1.2-4.9); Lymphocytes Percent Auto 14.5 % (20-40); Mean Corpuscular HGB Conc 34.6 g/dl (31.0-35.0); Mean Corpuscular Hemoglobin 27.9 pg (27.0-33.0); Mean Corpuscular Volume 80.8 fL (80.0-98.0); Mean Platelet Volume 10.4 fL (9.4-12.3); Neutrophils Absolute Auto 7.5 x10*3/uL (2.0-8.3); Neutrophils Percent Auto 72.2 % (45-73); Platelet Count 206 X10*3/uL (160-400); Red Blood Count 3.33 X10*6/uL (4.20-5.50); Red Cell Distribution Width 13.8 % (11.0-16.0); White Blood Count 10.4 X10*3/uL (4.8-10.8)
[2022-08-13 06:09] LABS: PTT Heparin Drip 50.6 SEC (53-77.9)
[2022-08-13 06:19] LABS: B Type Natriuretic Peptide 427 pg/mL (<100)
[2022-08-13 06:27] LABS: Alanine Aminotransferase 27 U/L (0-31); Albumin Level 3.1 g/dL (3.5-5.0); Alkaline Phosphatase 68 U/L (39-117); Anion Gap 18 (12-20); Aspartate Amino Transferase 17 U/L (5-31); Bilirubin Total 0.6 mg/dL (0.0-1.0); Blood Urea Nitrogen 12 mg/dL (9-16); Calcium 8.4 mg/dL (8.4-10.2); Carbon Dioxide 16 mmol/L (22-29); Chloride 105 mmol/L (96-108); Creatinine Clr Calc Pharmacy 32.7; Estimated Glomerular Filt Rate 50; Glucose Random 306 mg/dL (60-115); Magnesium 1.5 mg/dL (1.6-2.6); Phosphorus 2.8 mg/dL (2.7-4.5); Potassium 3.7 mmol/L (3.3-5.1); Sodium 135 mmol/L (135-145); Total Protein 5.8 g/dL (6.5-8.0)
[2022-08-13] MEDS: Amiodarone/Dextrose 150 MG/100 ML PLAST..BAG 200 MG IV (06:32)
[2022-08-13 07:35] LABS: Glucose, Whole Blood 291 mg/dL (60-115)
--- NOTE | 2022-08-13 07:50 | CA_ITS ---
Transthoracic Echocardiogram Patient (Last, First, Middle): Talita Merino, Gender: Female Date of : 1935 Age: 87 Procedure Date: 08/13/2022 Procedure Type: Transthoracic Echocardiogram Location: ICU Height: 157.48 cm Weight: 64.41 kg BSA: 1.65 m2 Heart Rate: 105 bpm BP: 117 / 70 mmHg Tire Bladder Maker: SB Referring MD: Robert Roy MD Symptoms: new WMA post Study Quality: Fair w contrast ECG Rhythm: Undetermined Conclusions: - The left ventricular systolic function is normal. The visually estimated ejection fraction is between 65-70%. - Even with contrast, difficult to assess wall motion. Possible hypokinesis in the basal inferior/inferoseptal wall. Findings Procedure Information Contrast agent, definity, is being given per protocol without apparent complications. Left Ventricle Normal left ventricular cavity size. There is normal left ventricular wall thickness. The left ventricular systolic function is normal. The visually estimated ejection fraction is between 65-70%. Diastolic function is indeterminate on the basis of available data. Even with contrast, difficult to assess wall motion. Possible hypokinesis in the basal inferior/inferoseptal wall. Prior Study Comparison No significant change compared to prior study dated: 08/09/2022. Similar wall motion abnormality reported 2020. Measurements 2D Linear Measurements IVSd: 1.13 0.6-0.9/0.6-1.0 cm LVIDd: 4.48 3.9-5.3/4.2-5.9 cm LVIDd Index: 2.72 2.4-3.2/2.2-3.1 cm/m2 LVIDs: 2.47 2.0-3.6 cm LVPWd: 1.08 0.7-1.1 cm LV Mass: 217.88 67-162/88-224 g LV Mass Index: 132.05 43-95/49-115 g/m2 2D Systolic Function EF 4C: 67.30 >55% Mitral Valve MV Pk E: 1.09 E'Lateral: 10.90 E/E' Lat: 10.00 Diastolic Function MV Pk E: 1.09 E' Laterial: 10.90 E/E' Lat: 10.00 Tricuspid Valve TR Pk Octaviano: 2.40 TR Pk Grad: 23.00 Updated in Other Vendor System with Status of Final Yg Rayo MD electronically signed on 08/13/2022 1:21:34 PM with status of Final
[2022-08-13 08:36] LABS: VBG Base Excess -7.7 mmol/L; VBG HCO3 16 mmol/L (22-26); VBG pCO2 27 mmHg; VBG pH 7.37 (7.32-7.43); VBG pO2 59 mmHg
[2022-08-13 08:36] LABS: Venous Blood Gas Refer to POC result
[2022-08-13 08:49] LABS: Venous Blood Gas Refer to POC result
[2022-08-13 08:54] LABS: B Type Natriuretic Peptide 403 pg/mL (<100)
[2022-08-13] MEDS: Heparin Sodium,Porcine 5,000 UNIT/ML VIAL 2400 UNIT IVPUSH (09:00)
[2022-08-13] MEDS: Insulin Lispro 100 UNIT/ML 3 ML VIAL SUBCUT ×2 (09:23→12:45)
[2022-08-13] MEDS: Nystatin Powder 15 GM BOTTLE 1 APPL TOPICAL (09:24)
[2022-08-13 10:19] LABS: Troponin-I High Sensitivity 1310.7 ng/L (<3.5-17.0)
[2022-08-13 11:49] LABS: Glucose, Whole Blood 219 mg/dL (60-115)
--- NOTE | 2022-08-13 13:40 | PM.DS ---
DS: Providers Provider Date of Service: 08/13/22 Date of admission: 08/09/22 09:08 Primary care physician: Nae Jackson DO Consults: 08/11/22 15:16 Consult to Wound Care Routine Consulting Provider: Robert Roy Reason for consultation: left heel unstageable? 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 Luke DS: Diagnosis Discharge Diagnosis (1) Blister of heel: Status: Acute (2) Lactic acidosis: Status: Acute (3) Acute renal failure: Status: Acute (4) Symptomatic bradycardia: Status: Acute (5) Cardiogenic shock: Status: Acute (6) Junctional bradycardia: Status: Acute (7) Paroxysmal atrial flutter: Status: Acute (8) Urinary retention with incomplete bladder emptying: Status: Acute (9) Type 2 diabetes mellitus with unspecified complications: Status: Acute (10) Atherosclerotic cardiovascular disease: Status: Acute (11) Ascending aorta dilatation: Status: Chronic (12) GERD (gastroesophageal reflux disease): Status: Acute (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: Status: Acute (14) HLD (hyperlipidemia): Status: Acute (15) Diastolic dysfunction: Status: Acute (16) Chest pain: Status: Acute (17) CAD (coronary artery disease): Status: Acute (18) S/P CABG x 3: Status: Acute (19) Non-ST elevation (NSTEMI) myocardial infarction: Status: Acute (20) Sick sinus syndrome: Status: Acute (21) Monoarticular arthritis: Status: Acute DS: Summary Hospital Course Hospital Course: 87-year-old female who is alert and oriented and conversational brought in with profound weakness an uric markedly hypotensive in a junctional bradycardia rate in the low 40s clearly low-flow state consistent with symptomatic bradycardia and she had been on up to that point metoprolol at 150 mg daily which was stopped and to help to diminish beta deandra tissue levels we gave her IV insulin and dextrose as well as Intralipid infusion and supported her blood pressure and heart rate to a degree with dopamine and she has since remained dopamine dependent to a degree and she started to show signs of sinus recovery with AV conduction with that her blood pressure of course was bolstered and her urine output returned and the ATN began to reverse She then 1 morning had an episode of left chest discomfort with dyspnea became tachypneic with diaphragmatic effort troponin peaked in the 3 thousands and she for the 1st time she also developed a right bundle branch block and 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 and since that time she had this waxing waning right bundle branch block and then 2 days of stability in between and she went into atrial flutter with slow response still requiring dopamine for support because his heart rate dropped so did blood pressure in urine output and we were going to do permanent pacing and once lead placement was there start amiodarone but with this morning's episode of instability she spontaneously converted back to sinus rhythm with one-to-one conduction mostly with the right bundle branch block morphology blood pressure running at 01:10 systolic on 6 micrograms/kilogram of dopamine and with this 2nd unstable episode despite being on heparin and having been loaded now for several days on Plavix and aspirin it was discussed with the on-call processor inspector in agreement for transfer to [facility] for possible cardiac catheterization and then eventually permanent pacing Here she has also been noted to have a low-grade fever no particular elevation of white count or left shift and and she has severe severe left elbow tenderness she can not tolerate passive rotation she can tolerate even so much is touching the joint and concerned about the monoarticular arthritis being septic even though she is not hot and red in that area so she is having today so that fluid will be pending in our lab and she has had a very slow downward drifting hemoglobin currently 9.3 while on the heparin and she does have some guaiac positivity but certainly no significant or active bleed just simply note this Time Spent with Patient Time attestation: Total time spent providing and/or coordinating discharge services: Discharge coordination time: Greater than 30 minutes Quality: Safe Use of Opioids Does Pt have an Active Cancer Diagnosis on the Problem List?: No Quality: Stroke Does the patient have a stroke diagnosis?: No Physical Exam Vital Signs: Vital Signs: Last Vital Signs Temp 100.4 F 08/13/22 12:00 Pulse 92 08/13/22 12:00 Resp 20 08/13/22 12:00 BP 102/57 L 08/13/22 12:00 Pulse Ox 99 08/13/22 12:00 O2 Del Method 08/13/22 12:00 O2 Flow Rate 15 08/13/22 12:00 BMI result Body Mass Index 26.0 In the project controls specialist she was clearly in respiratory distress with diaphragmatic effort marked tachypnea and tachycardia that now she is just awake alert comfortable no pain no dyspnea Skin is warm well perfused with no acrocyanosis Chest clear bilaterally no adventitious sounds Bedside echo showed a waxing waning posterior wall motion abnormality moderately calcified aortic valve but non critically stenosed and compensatory hypercontractile anterior septal distribution DS: Data Data Completed and Pending Labs on day of discharge: Laboratory Results - last 24 hr 08/12/22 08/12/22 08/12/22 16:14 18:28 20:06 WBC RBC Hgb Hct MCV MCH MCHC RDW Plt Count MPV Immature Gran % (Auto) Neut % (Auto) Lymph % (Auto) [place] % (Auto) Eos % (Auto) Baso % (Auto) Lymph # (Auto) [place] # (Auto) Eos # (Auto) Baso # (Auto) Abs Immat Gran (auto) Absolute Neuts (auto) Absolute Nucleated RBC Nucleated RBC % (auto) aPTT Heparin Protocol 63.8 VBG pH VBG pCO2 VBG pO2 VBG HCO3 VBG O2 Saturation VBG Base Excess Sodium Potassium Chloride Carbon Dioxide Anion Gap BUN Creatinine Estim Creat Clear Calc Estimated GFR POC Glucose 224 H 272 H Random Glucose Lactic Acid Lactic Acid F/U @ 2Hr Calcium Phosphorus Magnesium Total Bilirubin AST ALT Alkaline Phosphatase Troponin I High Sens B-Natriuretic Peptide Total Protein Albumin Urine Color Urine Appearance Urine pH Ur Specific [place] Urine Protein Urine Glucose (UA) Urine Ketones Urine Blood Urine Nitrite Ur Leukocyte Esterase Urine RBC Urine WBC Ur Squamous Epith Cells Urine Bacteria Hyaline Casts 08/12/22 08/12/22 08/12/22 20:47 21:36 23:32 WBC RBC Hgb Hct MCV MCH MCHC RDW Plt Count MPV Immature Gran % (Auto) Neut % (Auto) Lymph % (Auto) [place] % (Auto) Eos % (Auto) Baso % (Auto) Lymph # (Auto) [place] # (Auto) Eos # (Auto) Baso # (Auto) Abs Immat Gran (auto) Absolute Neuts (auto) Absolute Nucleated RBC Nucleated RBC % (auto) aPTT Heparin Protocol VBG pH VBG pCO2 VBG pO2 VBG HCO3 VBG O2 Saturation VBG Base Excess Sodium Potassium Chloride Carbon Dioxide Anion Gap BUN Creatinine Estim Creat Clear Calc Estimated GFR POC Glucose Random Glucose Lactic Acid 2.1 H* Lactic Acid F/U @ 2Hr 1.3 Calcium Phosphorus Magnesium Total Bilirubin AST ALT Alkaline Phosphatase Troponin I High Sens B-Natriuretic Peptide Total Protein Albumin Urine Color Yellow Urine Appearance Clear Urine pH 5.5 Ur Specific [place] 1.020 Urine Protein Trace Urine Glucose (UA) >=1000 H Urine Ketones 15 Urine Blood Negative Urine Nitrite Negative Ur Leukocyte Esterase Negative Urine RBC 0-2 Urine WBC 11-20 H Ur Squamous Epith Cells 0-2 Urine Bacteria None Seen Hyaline Casts 3-5 08/13/22 08/13/22 08/13/22 05:45 05:45 05:45 WBC 10.4 RBC 3.33 L Hgb 9.3 L Hct 26.9 L MCV 80.8 MCH 27.9 MCHC 34.6 RDW 13.8 Plt Count 206 MPV 10.4 Immature Gran % (Auto) 0.9 H Neut % (Auto) 72.2 Lymph % (Auto) 14.5 L [place] % (Auto) 10.0 Eos % (Auto) 2.0 Baso % (Auto) 0.4 Lymph # (Auto) 1.5 [place] # (Auto) 1.0 Eos # (Auto) 0.2 Baso # (Auto) 0.0 Abs Immat Gran (auto) 0.09 H Absolute Neuts (auto) 7.5 Absolute Nucleated RBC 0.000 Nucleated RBC % (auto) 0.0 aPTT Heparin Protocol VBG pH VBG pCO2 VBG pO2 VBG HCO3 VBG O2 Saturation VBG Base Excess Sodium 135 Potassium 3.7 Chloride 105 Carbon Dioxide 16 L Anion Gap 18 BUN 12 Creatinine 1.04 Estim Creat Clear Calc 32.7 Estimated GFR 50 POC Glucose Random Glucose 306 H Lactic Acid Lactic Acid F/U @ 2Hr Calcium 8.4 Phosphorus 2.8 Magnesium 1.5 L Total Bilirubin 0.6 AST 17 ALT 27 Alkaline Phosphatase 68 Troponin I High Sens B-Natriuretic Peptide 427 H Total Protein 5.8 L Albumin 3.1 L Urine Color Urine Appearance Urine pH Ur Specific [place] Urine Protein Urine Glucose (UA) Urine Ketones Urine Blood Urine Nitrite Ur Leukocyte Esterase Urine RBC Urine WBC Ur Squamous Epith Cells Urine Bacteria Hyaline Casts 08/13/22 08/13/22 08/13/22 05:45 05:48 07:32 WBC RBC Hgb Hct MCV MCH MCHC RDW Plt Count MPV Immature Gran % (Auto) Neut % (Auto) Lymph % (Auto) [place] % (Auto) Eos % (Auto) Baso % (Auto) Lymph # (Auto) [place] # (Auto) Eos # (Auto) Baso # (Auto) Abs Immat Gran (auto) Absolute Neuts (auto) Absolute Nucleated RBC Nucleated RBC % (auto) aPTT Heparin Protocol 50.6 L D VBG pH 7.43 VBG pCO2 24 VBG pO2 36 VBG HCO3 16 L VBG O2 Saturation 62.0 VBG Base Excess -5.8 Sodium Potassium Chloride Carbon Dioxide Anion Gap BUN Creatinine Estim Creat Clear Calc Estimated GFR POC Glucose 291 H Random Glucose Lactic Acid Lactic Acid F/U @ 2Hr Calcium Phosphorus Magnesium Total Bilirubin AST ALT Alkaline Phosphatase Troponin I High Sens B-Natriuretic Peptide Total Protein Albumin Urine Color Urine Appearance Urine pH Ur Specific [place] Urine Protein Urine Glucose (UA) Urine Ketones Urine Blood Urine Nitrite Ur Leukocyte Esterase Urine RBC Urine WBC Ur Squamous Epith Cells Urine Bacteria Hyaline Casts 08/13/22 08/13/22 08/13/22 08:28 08:31 11:45 WBC RBC Hgb Hct MCV MCH MCHC RDW Plt Count MPV Immature Gran % (Auto) Neut % (Auto) Lymph % (Auto) [place] % (Auto) Eos % (Auto) Baso % (Auto) Lymph # (Auto) [place] # (Auto) Eos # (Auto) Baso # (Auto) Abs Immat Gran (auto) Absolute Neuts (auto) Absolute Nucleated RBC Nucleated RBC % (auto) aPTT Heparin Protocol VBG pH 7.37 VBG pCO2 27 VBG pO2 59 VBG HCO3 16 L VBG O2 Saturation 86.0 VBG Base Excess -7.7 Sodium Potassium Chloride Carbon Dioxide Anion Gap BUN Creatinine Estim Creat Clear Calc Estimated GFR POC Glucose 219 H Random Glucose Lactic Acid Lactic Acid F/U @ 2Hr Calcium Phosphorus Magnesium Total Bilirubin AST ALT Alkaline Phosphatase Troponin I High Sens 1310.7 H* B-Natriuretic Peptide 403 H Total Protein Albumin Urine Color Urine Appearance Urine pH Ur Specific [place] Urine Protein Urine Glucose (UA) Urine Ketones Urine Blood Urine Nitrite Ur Leukocyte Esterase Urine RBC Urine WBC Ur Squamous Epith Cells Urine Bacteria Hyaline Casts 08/13/22 11:50 WBC RBC Hgb Hct MCV MCH MCHC RDW Plt Count MPV Immature Gran % (Auto) Neut % (Auto) Lymph % (Auto) [place] % (Auto) Eos % (Auto) Baso % (Auto) Lymph # (Auto) [place] # (Auto) Eos # (Auto) Baso # (Auto) Abs Immat Gran (auto) Absolute Neuts (auto) Absolute Nucleated RBC Nucleated RBC % (auto) aPTT Heparin Protocol VBG pH VBG pCO2 VBG pO2 VBG HCO3 VBG O2 Saturation VBG Base Excess Sodium Potassium Chloride Carbon Dioxide Anion Gap BUN Creatinine Estim Creat Clear Calc Estimated GFR POC Glucose Random Glucose Lactic Acid Lactic Acid F/U @ 2Hr Calcium Phosphorus Magnesium Total Bilirubin AST ALT Alkaline Phosphatase Troponin I High Sens 3425.2 H* D B-Natriuretic Peptide Total Protein Albumin Urine Color Urine Appearance Urine pH Ur Specific [place] Urine Protein Urine Glucose (UA) Urine Ketones Urine Blood Urine Nitrite Ur Leukocyte Esterase Urine RBC Urine WBC Ur Squamous Epith Cells Urine Bacteria Hyaline Casts Preliminary micro results at discharge 08/12/22 09:21 Blood Culture - Preliminary Blood - Venous No growth after 24 hours. 08/12/22 09:21 Blood Culture - Preliminary Blood - Venous No growth after 24 hours. 08/09/22 03:23 Blood Culture - Preliminary Blood - Venous No growth after 48 hours. Discharge Plan Discharge Anticipated Discharge Date/Time: 08/13/22 13:50 Patient Disposition: Xfer Acute Care Hospital Discharge Diagnosis: Symptomatic bradycardia Paroxysmal atrial flutter Status post acute renal failure NSTEMI posterior wall Status post coronary bypass grafting Mild aortic stenosis Acute left elbow arthritis Guaiac positivity Referrals: [facility] [Outside] - 1 Week Physician,Unknown J [Physician] - 1 Week Discharge Medications: No Action amlodipine 10 mg tablet 10 mg PO QAM 90 Days Qty: 90 3RF metformin 500 mg Tablet 500 mg PO BID insulin lispro [Humalog U-100 Insulin] 100 unit/mL Solution 1 sliding scale dose SUBCUT USEASDIRECTD atorvastatin 20 mg tablet 1 tab PO BEDTIME cetirizine 10 mg tablet 1 tab PO QAM metoprolol succinate 50 mg tablet extended release 24 hr 150 mg PO DAILY donepezil 10 mg tablet 1 tab PO DAILY (DME) FreeStyle Lite Strips Strip MISCELLANEOUS TID aspirin 81 mg tablet,delayed release (DR/EC) 1 tab PO DAILY levothyroxine 150 mcg tablet 1 tab PO QAM gabapentin 100 mg capsule 2 cap PO TID fluticasone propionate 50 mcg/actuation spray,suspension 2 spray intranasal DAILY sertraline 50 mg tablet 1 tab PO QAM bupropion HCl 300 mg tablet extended release 24 hr 1 tab PO QAM quetiapine 50 mg tablet 1 tab PO QPM cholecalciferol (vitamin D3) 50 mcg (2,000 unit) tablet 1 tab PO QAM (DME) lancets [TRUEplus Lancets] 33 gauge misc MISCELLANEOUS TID Discharge Orders: Discharge Order (Routine); Ordered 08/13/22 Ordered By: Robert Roy Activity on Discharge: Rest with bed elevated Stand Alone Forms: Patient Portal Discharge page Care Plan Goals: 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
--- NOTE | 2022-08-13 14:06 | MHC.CM.PN ---
Pt requiring cardiac intervention and will transfer to [facility] today pending bed availability and ALS transport. has consulted w/family who are aware and in agreement w/plan.
== END 2022-08-13 14:55 | disposition short-term general hospital (02) | DRG 280 ==
LOC: HO.ED 22:32 → HO.EDOVER 08-09 09:25 → HO.ICU 08-09 11:34
PROVIDERS: Physician Assistant; Physician Assistant Medical; Admitting Provider Internal Medicine Cardiovascular Disease; Emergency Provider Emergency Medicine Emergency Medical Services; PCP Family Medicine; Visit Provider Internal Medicine Cardiovascular Disease
DX: I49.5 Sick sinus syndrome (principal); N17.0 Acute kidney failure with tubular necrosis; I21.4 Non-ST elevation (NSTEMI) myocardial infarction; R57.0 Cardiogenic shock; E87.2 Acidosis; I13.0 Hypertensive heart and chronic kidney disease with heart failure and stage 1 through stage 4 chronic kidney disease, or unspecified chronic kidney disease; N18.4 Chronic kidney disease, stage 4 (severe); I50.32 Chronic diastolic (congestive) heart failure; E87.1 Hypo-osmolality and hyponatremia; K55.8 Other vascular disorders of intestine; I25.10 Atherosclerotic heart disease of native coronary artery without angina pectoris; E11.42 Type 2 diabetes mellitus with diabetic polyneuropathy; E86.0 Dehydration; E03.9 Hypothyroidism, unspecified; E78.5 Hyperlipidemia, unspecified; D63.1 Anemia in chronic kidney disease; I95.9 Hypotension, unspecified; F03.90 Unspecified dementia, unspecified severity, without behavioral disturbance, psychotic disturbance, mood disturbance, and anxiety; I77.819 Aortic ectasia, unspecified site; R33.9 Retention of urine, unspecified; R23.4 Changes in skin texture; M19.022 Primary osteoarthritis, left elbow; E87.5 Hyperkalemia; Z20.822 Contact with and (suspected) exposure to COVID-19; Z95.1 Presence of aortocoronary bypass graft; Z79.4 Long term (current) use of insulin; Z79.82 Long term (current) use of aspirin; Z79.84 Long term (current) use of oral hypoglycemic drugs; Z79.890 Hormone replacement therapy; Z79.899 Other long term (current) drug therapy
CPT/HCPCS: 20605; 36415; 71045; 73070; 73502; 74176; 77002; 80048; 80051; 80053; 81001; 82077; 82272; 82310; 82550; 82565; 82803; 82947; 83605; 83690; 83735; 83880; 84100; 84145; 84443; 84478; 84484; 84520; 85025; 85027; 85610; 85652; 85730; 87040; 87070; 87073; 87076; 87086; 87147; 87185; 87205; 87635; 89060; 93005; 93306; 93308; 94640; 96361; 96365; 96366; 96367; 96375; 96376; 99285; C1758; J0282; J0461; J0696; J1170; J1265; J1610; J1885; J2185; J2543; J3010; J3370; J3475; Q9957

== ENCOUNTER 2022-08-30 06:39 | Outpatient (REF) | payer OTHER, SELFPAY ==
[2022-08-30 06:41] LABS: MANUAL DIFF FLAG NO
[2022-08-30 07:16] LABS: Basophils Absolute Auto 0.1 X10*3/uL (0.0-0.2); Basophils Percent Auto 1.5 % (0-2); Eosinophils Absolute Auto 0.6 X10*3/uL (0.0-0.4); Eosinophils Percent Auto 9.1 % (0-4); Hematocrit 29.5 % (37.0-47.0); Hemoglobin 9.4 g/dl (12.0-16.0); Imm Gran Abs Auto 0.02 X10*3/uL (0.00-0.03); Imm Gran Pct Auto 0.3 % (0.0-0.4); Lymphocytes Absolute Auto 1.9 X10*3/uL (1.2-4.9); Lymphocytes Percent Auto 28.6 % (20-40); Mean Corpuscular HGB Conc 31.9 g/dl (31.0-35.0); Mean Corpuscular Hemoglobin 27.1 pg (27.0-33.0); Mean Platelet Volume 10.7 fL (9.4-12.3); Monocytes Absolute Auto 0.5 X10*3/uL (0.1-1.2); Monocytes Percent Auto 7.6 % (2-11); Neutrophils Absolute Auto 3.6 x10*3/uL (2.0-8.3); Neutrophils Percent Auto 52.9 % (45-73); Platelet Count 332 X10*3/uL (160-400); Red Blood Count 3.47 X10*6/uL (4.20-5.50); Red Cell Distribution Width 14.4 % (11.0-16.0); White Blood Count 6.7 X10*3/uL (4.8-10.8)
[2022-08-30 07:28] LABS: Alanine Aminotransferase 24 U/L (0-31); Albumin Level 3.7 g/dL (3.5-5.0); Alkaline Phosphatase 108 U/L (39-117); Anion Gap 18 (12-20); Aspartate Amino Transferase 29 U/L (5-31); Bilirubin Total 0.4 mg/dL (0.0-1.0); Blood Urea Nitrogen 24 mg/dL (9-16); Calcium 9.1 mg/dL (8.4-10.2); Carbon Dioxide 21 mmol/L (22-29); Chloride 103 mmol/L (96-108); Estimated Glomerular Filt Rate 27; Glucose Random 175 mg/dL (60-115); Potassium 5.1 mmol/L (3.3-5.1); Sodium 137 mmol/L (135-145); Total Protein 6.9 g/dL (6.5-8.0)
[2022-08-30 07:51] LABS: Free T4 (Free Thyroxine) 1.28 ng/dL (0.71-1.85); Thyroid Stimulating Hormone 5.84 uIU/mL (0.32-4.0)
== END 2022-08-30 06:40 | disposition home or self-care (01) ==
LOC: HO.MMNH3L 06:39
PROVIDERS: Visit Provider Family Medicine
DX: E11.8 Type 2 diabetes mellitus with unspecified complications (principal); J44.1 Chronic obstructive pulmonary disease with (acute) exacerbation; I10 Essential (primary) hypertension
CPT/HCPCS: 36415; 80053; 84439; 84443; 85025

== ENCOUNTER 2022-09-06 06:29 | Outpatient (REF) | payer OTHER, SELFPAY ==
[2022-09-06 06:44] LABS: Hematocrit 31.2 % (37.0-47.0); Mean Corpuscular HGB Conc 32.1 g/dl (31.0-35.0); Mean Corpuscular Volume 84.1 fL (80.0-98.0); Platelet Count 249 X10*3/uL (160-400); Red Blood Count 3.71 X10*6/uL (4.20-5.50); Red Cell Distribution Width 14.4 % (11.0-16.0); White Blood Count 6.6 X10*3/uL (4.8-10.8)
[2022-09-06 07:29] LABS: Anion Gap 17 (12-20); Blood Urea Nitrogen 26 mg/dL (9-16); Calcium 9.6 mg/dL (8.4-10.2); Carbon Dioxide 22 mmol/L (22-29); Chloride 103 mmol/L (96-108); Estimated Glomerular Filt Rate 38; Glucose Random 120 mg/dL (60-115); Potassium 4.9 mmol/L (3.3-5.1); Sodium 137 mmol/L (135-145)
== END 2022-09-06 06:30 | disposition home or self-care (01) ==
LOC: HO.MMNH3L 06:29
PROVIDERS: Visit Provider Family Medicine
DX: E11.8 Type 2 diabetes mellitus with unspecified complications (principal); J44.1 Chronic obstructive pulmonary disease with (acute) exacerbation; I10 Essential (primary) hypertension
CPT/HCPCS: 36415; 80048; 85027

== ENCOUNTER 2022-09-13 06:59 | Outpatient (REF) | payer OTHER, SELFPAY ==
[2022-09-13 07:40] LABS: Hematocrit 35.3 % (37.0-47.0); Hemoglobin 11.4 g/dl (12.0-16.0); Mean Corpuscular HGB Conc 32.3 g/dl (31.0-35.0); Mean Corpuscular Hemoglobin 26.8 pg (27.0-33.0); Mean Corpuscular Volume 83.1 fL (80.0-98.0); Mean Platelet Volume 10.7 fL (9.4-12.3); Platelet Count 238 X10*3/uL (160-400); Red Blood Count 4.25 X10*6/uL (4.20-5.50); Red Cell Distribution Width 14.1 % (11.0-16.0); White Blood Count 7.1 X10*3/uL (4.8-10.8)
[2022-09-13 07:51] LABS: Anion Gap 17 (12-20); Blood Urea Nitrogen 19 mg/dL (9-16); Calcium 9.2 mg/dL (8.4-10.2); Carbon Dioxide 22 mmol/L (22-29); Chloride 103 mmol/L (96-108); Estimated Glomerular Filt Rate 40; Glucose Random 151 mg/dL (60-115); Potassium 5.2 mmol/L (3.3-5.1); Sodium 137 mmol/L (135-145)
== END 2022-09-13 07:00 | disposition home or self-care (01) ==
LOC: HO.MMNH3L 06:59
PROVIDERS: Visit Provider Family Medicine
DX: E11.8 Type 2 diabetes mellitus with unspecified complications (principal); J44.1 Chronic obstructive pulmonary disease with (acute) exacerbation; I10 Essential (primary) hypertension
CPT/HCPCS: 36415; 80048; 85027

== ENCOUNTER 2022-09-20 06:11 | Outpatient (REF) | payer OTHER, SELFPAY ==
[2022-09-20 06:31] LABS: MANUAL DIFF FLAG NO
[2022-09-20 06:54] LABS: Basophils Absolute Auto 0.1 X10*3/uL (0.0-0.2); Basophils Percent Auto 1.4 % (0-2); Eosinophils Absolute Auto 0.6 X10*3/uL (0.0-0.4); Eosinophils Percent Auto 10.1 % (0-4); Hemoglobin 10.1 g/dl (12.0-16.0); Imm Gran Abs Auto 0.01 X10*3/uL (0.00-0.03); Imm Gran Pct Auto 0.2 % (0.0-0.4); Lymphocytes Absolute Auto 1.9 X10*3/uL (1.2-4.9); Lymphocytes Percent Auto 32.5 % (20-40); Mean Corpuscular HGB Conc 31.6 g/dl (31.0-35.0); Mean Corpuscular Volume 82.5 fL (80.0-98.0); Mean Platelet Volume 10.8 fL (9.4-12.3); Monocytes Absolute Auto 0.6 X10*3/uL (0.1-1.2); Monocytes Percent Auto 10.8 % (2-11); Neutrophils Absolute Auto 2.6 x10*3/uL (2.0-8.3); Platelet Count 205 X10*3/uL (160-400); Red Blood Count 3.88 X10*6/uL (4.20-5.50); Red Cell Distribution Width 13.7 % (11.0-16.0); White Blood Count 5.8 X10*3/uL (4.8-10.8)
[2022-09-20 07:05] LABS: Anion Gap 16 (12-20); Blood Urea Nitrogen 19 mg/dL (9-16); Calcium 9.6 mg/dL (8.4-10.2); Carbon Dioxide 25 mmol/L (22-29); Chloride 102 mmol/L (96-108); Estimated Glomerular Filt Rate 41; Glucose Random 196 mg/dL (60-115); Potassium 4.5 mmol/L (3.3-5.1); Sodium 138 mmol/L (135-145)
== END 2022-09-20 06:12 | disposition home or self-care (01) ==
LOC: HO.MMNH3L 06:11
PROVIDERS: Visit Provider Family Medicine
DX: E11.8 Type 2 diabetes mellitus with unspecified complications (principal); J44.1 Chronic obstructive pulmonary disease with (acute) exacerbation; I10 Essential (primary) hypertension
CPT/HCPCS: 36415; 80048; 85025

== ENCOUNTER 2022-09-27 05:46 | Outpatient (REF) | payer OTHER, SELFPAY ==
[2022-09-27 06:25] LABS: Hematocrit 34.8 % (37.0-47.0); Hemoglobin 11.3 g/dl (12.0-16.0); Mean Corpuscular HGB Conc 32.5 g/dl (31.0-35.0); Mean Corpuscular Hemoglobin 26.4 pg (27.0-33.0); Mean Corpuscular Volume 81.3 fL (80.0-98.0); Mean Platelet Volume 10.6 fL (9.4-12.3); Platelet Count 251 X10*3/uL (160-400); Red Blood Count 4.28 X10*6/uL (4.20-5.50); Red Cell Distribution Width 13.7 % (11.0-16.0); White Blood Count 8.3 X10*3/uL (4.8-10.8)
[2022-09-27 06:47] LABS: Anion Gap 19 (12-20); Blood Urea Nitrogen 18 mg/dL (9-16); Calcium 9.5 mg/dL (8.4-10.2); Carbon Dioxide 22 mmol/L (22-29); Chloride 100 mmol/L (96-108); Estimated Glomerular Filt Rate 39; Glucose Random 135 mg/dL (60-115); Potassium 4.7 mmol/L (3.3-5.1); Sodium 136 mmol/L (135-145)
== END 2022-09-27 05:47 | disposition home or self-care (01) ==
LOC: HO.MMNH3L 05:46
PROVIDERS: Visit Provider Family Medicine
DX: E11.8 Type 2 diabetes mellitus with unspecified complications (principal); J44.1 Chronic obstructive pulmonary disease with (acute) exacerbation; I10 Essential (primary) hypertension
CPT/HCPCS: 36415; 80048; 85027

== ENCOUNTER 2022-10-21 11:12 | Emergency (ER) | payer OTHER, SELFPAY ==
--- NOTE | ~2022-10-21 | XR_ITS ---
EXAMINATION: XR CHEST CLINICAL INFORMATION: Weakness COMPARISON: August 13, 2022 TECHNIQUE: AP portable view of the chest was obtained. FINDINGS: There is chronic elevation of the right hemidiaphragm. Patient status post median sternotomy and CABG. Heart normal size. No evidence of pulmonary edema. No pneumothorax or significant pleural effusion identified. There is calcific tendinitis of both shoulders. XR/XR chest 1V IMPRESSION: No acute disease.
[2022-10-21 11:20] VITALS: BP 144/84; PULSE 64; O2SAT 99; BMI 21.9
[2022-10-21 11:21] VITALS: BP 175/84; PULSE 69; RESP 14; TEMP 36.4; O2SAT 97
--- NOTE | 2022-10-21 11:39 | ECG_ITS ---
Test Reason : weakness Blood Pressure : / mmHG Vent. Rate : 067 BPM Atrial Rate : 067 BPM P-R Int : 232 ms QRS Dur : 170 ms QT Int : 486 ms P-R-T Axes : 063 -85 018 degrees QTc Int : 513 ms Sinus rhythm with sinus arrhythmia with 1st degree A-V block Left axis deviation Right bundle branch block Abnormal ECG When compared with ECG of 13-AUG-2022 07:49, Sinus rhythm has replaced Atrial fibrillation Vent. rate has decreased BY 37 BPM QRS duration has increased Referred By: Elif Avila Electronically Signed By:Mark Polanco
--- NOTE | 2022-10-21 11:39 | ED_ITS ---
HPI - Altered Mental Status General Chief Complaint: Altered Mental Status Stated Complaint: AMS Time Seen by Provider: 10/21/22 11:39 Source: patient, EMS and old records reviewed Mode of arrival: EMS Limitations: altered mental status History of Present Illness HPI narrative: He will female with history of depression, sick sinus syndrome s/p PPM, paroxysmal aflutter, CAD s/p CABG x3, hx cardiogenic shock, CKD, HFpEF, DM2 w/ polyneuropathy, HTN, HLD presents to the ER for evaluation of generalized weakness and altered mental status for the last 3 days. Patient states she has felt weak and unsteady on her feet for several days now. She reports difficulty completing her bladder emptying and starting a urine stream. She denies any pain and has not noticed any blood in her urine. She denies any abdominal pain, nausea, vomiting. She feels constipated. She denies any fever or chills. Her family reports she is significantly weaker than usual and more confused than usual. No fevers at home. They are concerned about a recurrent UTI. MD complaint: altered mental status Onset (ago): day(s) Timing confirmed by: family member Severity: moderate Consistency of symptoms: getting Worse Related Data Home Medications Medication Instructions Recorded Confirmed aspirin 81 mg tablet,delayed 1 tab PO DAILY 06/18/22 10/21/22 release blood sugar diagnostic (FreeStyle 06/18/22 06/18/22 Lite Strips) bupropion HCl 300 mg 24 hr tablet, 1 tab PO QAM 06/18/22 10/21/22 extended release cetirizine 10 mg tablet 1 tab PO QAM 06/18/22 10/21/22 donepezil 10 mg tablet 1 tab PO DAILY 06/18/22 10/21/22 fluticasone propionate 50 2 spray intranasal DAILY PRN 06/18/22 10/21/22 mcg/actuation nasal Allergy Symptoms spray,suspension gabapentin 100 mg capsule 100 mg PO TID 06/18/22 10/21/22 lancets 33 gauge (TRUEplus Lancets) 06/18/22 06/18/22 levothyroxine 150 mcg tablet 1 tab PO QAM 06/18/22 10/21/22 quetiapine 50 mg tablet 1 tab PO QPM 06/18/22 10/21/22 sertraline 50 mg tablet 1 tab PO QAM 06/18/22 10/21/22 metformin 500 mg tablet 500 mg PO BID 08/09/22 10/21/22 acetaminophen 325 mg tablet 650 mg PO Q8H PRN Pain 10/21/22 10/21/22 amiodarone 200 mg tablet 1 tab PO DAILY 10/21/22 10/21/22 atorvastatin 80 mg tablet 1 tab PO BEDTIME 10/21/22 10/21/22 cholecalciferol (vitamin D3) 50 50 mcg PO DAILY 10/21/22 10/21/22 mcg (2,000 unit) tablet docusate sodium 100 mg capsule 1 cap PO BID PRN Constipation 10/21/22 10/21/22 furosemide 20 mg tablet 20 mg PO DAILY PRN Weight Gain 10/21/22 10/21/22 insulin degludec 100 unit/mL (3 5 unit subcut DAILY 10/21/22 10/21/22 mL) subcutaneous pen (Tresiba FlexTouch U-100 insulin) isosorbide mononitrate 30 mg 1 tab PO DAILY 10/21/22 10/21/22 tablet,extended release 24 hr Previous Rx's Medication Instructions Recorded cefuroxime axetil 250 mg tablet 250 mg PO BID 7 days #14 tabs 10/21/22 Allergies Allergy/AdvReac Type Severity Reaction Status Date / Time No Known Allergies Allergy Verified 06/10/22 11:13 [No Known Allergies*] Review of Systems Review of Systems: Constitutional: No Fever, No Chills ENT/Mouth: No sore throat, No Rhinorrhea Cardiovascular: No Chest Pain, No SOB, No Orthopnea, No Edema Respiratory: No Cough, No Sputum, No Wheezing, No dyspnea Gastrointestinal: No Nausea, No Vomiting, No Diarrhea, No abdominal Pain, +Const ipation Genitourinary: No Dysuria, + Urinary Frequency, No Hematuria, +difficulty urinating Musculoskeletal: No joint pain, No Myalgias Skin: No Skin Lesions, No rash Neuro: + Weakness, No Numbness, No Dizziness, No Headache Psych: No Anxiety/Panic, No Depression Heme/Lymph: No Bruising, No Lymphadenopathy PMFSH Past Medical History Medical History CAD (coronary artery disease) Chest pain Depression Diastolic dysfunction HLD (hyperlipidemia) HTN (hypertension) Hypothyroidism Peptic ulcer disease Postoperative atrial fibrillation Tubular adenoma Type 2 diabetes mellitus with polyneuropathy Surgical History History of esophagogastroduodenoscopy (EGD) Hx of colonoscopy S/P CABG x 3 (~09/2013) Family History Family History Father CVD (cardiovascular disease) Mother No problems noted. Social History Social History Household Members: Children Housing: Assisted Living Facility Unable to assess alcohol history related to: Unable to respond Alcohol intake: former Patient Tobacco Use Status: Never used Tobacco Smoked in Last 30 Days: No Use of substances other than those prescribed or required for medical reasons: Unknown Advance Directives: Yes Advance Directives on File: Yes Advance Directives Date on File: 01/29/22 service: No Current occupational status: disabled Physical Exam ED Vital Signs: Vital Signs - 24 hr 10/21/22 11:21 10/21/22 13:43 10/21/22 17:42 Temperature 97.6 F 97.6 F 97.4 F Pulse Rate 69 66 75 Respiratory Rate 14 19 12 Blood Pressure 175/84 H 138/70 162/94 H Pulse Oximetry 97 95 98 Oxygen Delivery Method Room Air Room Air Room Air 10/21/22 20:12 10/21/22 23:40 10/22/22 02:05 Temperature 97.5 F 97.5 F 97.8 F Pulse Rate 68 9 L 62 Respiratory Rate 21 H 14 14 Blood Pressure 140/77 H 161/79 H 162/82 H Pulse Oximetry 98 100 97 Oxygen Delivery Method Room Air Room Air Room Air 10/22/22 05:24 10/22/22 05:24 10/22/22 07:49 Temperature 97.7 F 97.9 F Pulse Rate 77 70 Respiratory Rate 16 14 Blood Pressure 169/66 H 166/117 H Pulse Oximetry 97 92 Oxygen Delivery Method Room Air Room Air 10/22/22 08:47 Temperature 98.0 F Pulse Rate 71 Respiratory Rate 18 Blood Pressure 158/88 H Pulse Oximetry 96 Oxygen Delivery Method Room Air BMI result Body Mass Index 21.9 Course Course Course Narrative: 87 y/o Norwegian-speaking female with history of dementia, PAF, SSS, hx cardiogenic shock, DM2, GERD, recurrent UTIs, who presents with generalized weakness and concern for UTI. Afebrile, hypertensive on arrival. Appears well. Labs and UA pending. Reevaluation(s) Reevaluation #1: Patient remains afebrile. Straight cath urine is indicative of infection. WBC only 10.9. Bun/Cr 20/1.48 from 18/1.28 about a month ago. Lactic acid is normal. Will give 1 dose IV rocephin. Troponin 108.6 without any new ishemic changes. Has NSTEMI in Jul with trops in the 3400 range. Will trend in 3 hours to see if there is a delta to raise concern for ACS. Reevaluation #2: Troponin trended down. Spoke with the patient's son Jori who she lives with at home. He would like her to be seen by PT and placed to a possible acute rehab. He states she was just in once recently. Physician observation started at 16:50. Patient placed in physician observation because patient is awaiting PT evaluation for the possible need of short term rehab. At the time observation was started patient's vital signs were stable. Patient is alert and oriented. Neuro exam is non-focal. CV: RRR and lungs are clear. Will continue to monitor. Med rec has been ordered and Ceftin order to continue tomorrow morning for treatment of UTI. Consultations Consultation #1: PT Consultation #2: case management Medications Administered Generic Name Dose Route Start Last Admin Trade Name Freq PRN Reason Stop Dose Admin Cefuroxime Axetil 250 mg 10/22/22 09:00 10/22/22 08:40 Cefuroxime Axetil 250 Mg Tablet PO 250 mg BID SARAH Administration Discontinued Medications Generic Name Dose Route Start Last Admin Trade Name Freq PRN Reason Stop Dose Admin Ceftriaxone Sodium 1 gm/ 50 mls @ 100 mls/hr 10/21/22 13:00 10/21/22 14:00 Sodium Chloride IV 10/21/22 13:29 Infused ONCE ONE Infusion MDM - Altered Mental Status Lab Data Result diagrams: 10/21/22 12:22 10/21/22 12:22 Labs: Lab Results 10/21/22 10/21/22 10/21/22 Range/Units 12:21 12: 12: WBC (4.8-10.8) X10*3/uL RBC (4.20-5.50) X10*6/uL Hgb (12.0-16.0) g/dl Hct (37.0-47.0) % MCV (80.0-98.0) fL MCH (27.0-33.0) pg MCHC (31.0-35.0) g/dl RDW (11.0-16.0) % Plt Count (160-400) X10*3/uL MPV (9.4-12.3) fL Immature Gran % (Auto) (0.0-0.4) % Neut % (Auto) (45-73) % Lymph % (Auto) (20-40) % [place] % (Auto) (2-11) % Eos % (Auto) (0-4) % Baso % (Auto) (0-2) % Lymph # (Auto) (1.2-4.9) X10*3/uL [place] # (Auto) (0.1-1.2) X10*3/uL Eos # (Auto) (0.0-0.4) X10*3/uL Baso # (Auto) (0.0-0.2) X10*3/uL Abs Immat Gran (auto) (0.00-0.03) X10*3/uL Absolute Neuts (auto) (2.0-8.3) x10*3/uL Absolute Nucleated RBC (0.0-0.012) X10*3/uL Nucleated RBC % (auto) (0.0-0.2) /100WBC Sodium (135-145) mmol/L Potassium (3.3-5.1) mmol/L Chloride (96-108) mmol/L Carbon Dioxide (22-29) mmol/L Anion Gap (12-20) BUN (9-16) mg/dL Creatinine (0.5-1.4) mg/dL Estim Creat Clear Calc Estimated GFR Random Glucose (60-115) mg/dL Lactic Acid 2.0 (0.5-2.0) mmol/L Calcium (8.4-10.2) mg/dL Magnesium (1.6-2.6) mg/dL Total Bilirubin (0.0-1.0) mg/dL Direct Bilirubin (0.0-0.5) mg/dL AST (5-31) U/L ALT (0-31) U/L Alkaline Phosphatase (39-117) U/L Troponin I High Sens 108.6 H* D (<3.5-17.0) ng/L B-Natriuretic Peptide 90 (<100) pg/mL Total Protein (6.5-8.0) g/dL Albumin (3.5-5.0) g/dL Urine Color Urine Appearance Urine pH (5.0-9.0) Ur Specific Mccar[place] (1.005-1.025) Urine Protein (Neg-Trace) mg/dL Urine Glucose (UA) (Negative) mg/dL Urine Ketones (Negative) mg/dL Urine Blood (Negative) Urine Nitrite (Negative) Ur Leukocyte Esterase (Negative) Urine RBC (0-2) /HPF Urine WBC (0-5) /HPF Ur Squamous Epith Cells (0-2) /HPF Urine Bacteria (None Seen) Hyaline Casts (0-2) /LPF Urine Yeast Influenza Type A (PCR) (Negative) Influenza Type B (PCR) (Negative) RSV RNA Qual (PCR) (Negative) SARS-CoV-2 RNA (RT-PCR) (Negative) 10/21/22 10/21/22 10/21/22 Range/Units 12:22 12: 12:44 WBC 6.2 (4.8-10.8) X10*3/uL RBC 4.54 (4.20-5.50) X10*6/uL Hgb 11.7 L (12.0-16.0) g/dl Hct 36.3 L (37.0-47.0) % MCV 80.0 (80.0-98.0) fL MCH 25.8 L (27.0-33.0) pg MCHC 32.2 (31.0-35.0) g/dl RDW 13.8 (11.0-16.0) % Plt Count 236 (160-400) X10*3/uL MPV 9.8 (9.4-12.3) fL Immature Gran % (Auto) 0.3 (0.0-0.4) % Neut % (Auto) 53.5 (45-73) % Lymph % (Auto) 32.6 (20-40) % [place] % (Auto) 8.8 (2-11) % Eos % (Auto) 4.2 H (0-4) % Baso % (Auto) 0.6 (0-2) % Lymph # (Auto) 2.0 (1.2-4.9) X10*3/uL [place] # (Auto) 0.6 (0.1-1.2) X10*3/uL Eos # (Auto) 0.3 (0.0-0.4) X10*3/uL Baso # (Auto) 0.0 (0.0-0.2) X10*3/uL Abs Immat Gran (auto) 0.02 (0.00-0.03) X10*3/uL Absolute Neuts (auto) 3.3 (2.0-8.3) x10*3/uL Absolute Nucleated RBC 0.000 (0.0-0.012) X10*3/uL Nucleated RBC % (auto) 0.0 (0.0-0.2) /100WBC Sodium 136 (135-145) mmol/L Potassium 4.3 (3.3-5.1) mmol/L Chloride 102 (96-108) mmol/L Carbon Dioxide 27 (22-29) mmol/L Anion Gap 11 L (12-20) BUN 20 H (9-16) mg/dL Creatinine 1.48 H (0.5-1.4) mg/dL Estim Creat Clear Calc 23.1 Estimated GFR 33 Random Glucose 227 H (60-115) mg/dL Lactic Acid (0.5-2.0) mmol/L Calcium 9.4 (8.4-10.2) mg/dL Magnesium 1.8 (1.6-2.6) mg/dL Total Bilirubin 0.3 (0.0-1.0) mg/dL Direct Bilirubin < 0.2 (0.0-0.5) mg/dL AST 34 H (5-31) U/L ALT 45 H (0-31) U/L Alkaline Phosphatase 107 (39-117) U/L Troponin I High Sens (<3.5-17.0) ng/L B-Natriuretic Peptide (<100) pg/mL Total Protein 7.3 (6.5-8.0) g/dL Albumin 4.1 (3.5-5.0) g/dL Urine Color Urine Appearance Urine pH (5.0-9.0) Ur Specific M[place] (1.005-1.025) Urine Protein (Neg-Trace) mg/dL Urine Glucose (UA) (Negative) mg/dL Urine Ketones (Negative) mg/dL Urine Blood (Negative) Urine Nitrite (Negative) Ur Leukocyte Esterase (Negative) Urine RBC (0-2) /HPF Urine WBC (0-5) /HPF Ur Squamous Epith Cells (0-2) /HPF Urine Bacteria (None Seen) Hyaline Casts (0-2) /LPF Urine Yeast Influenza Type A (PCR) NEGATIVE (Negative) Influenza Type B (PCR) NEGATIVE (Negative) RSV RNA Qual (PCR) NEGATIVE (Negative) SARS-CoV-2 RNA (RT-PCR) NEGATIVE (Negative) 10/21/22 10/21/22 Range/Units 12:44 15:52 WBC (4.8-10.8) X10*3/uL RBC (4.20-5.50) X10*6/uL Hgb (12.0-16.0) g/dl Hct (37.0-47.0) % MCV (80.0-98.0) fL MCH (27.0-33.0) pg MCHC (31.0-35.0) g/dl RDW (11.0-16.0) % Plt Count (160-400) X10*3/uL MPV (9.4-12.3) fL Immature Gran % (Auto) (0.0-0.4) % Neut % (Auto) (45-73) % Lymph % (Auto) (20-40) % [place] % (Auto) (2-11) % Eos % (Auto) (0-4) % Baso % (Auto) (0-2) % Lymph # (Auto) (1.2-4.9) X10*3/uL [place] # (Auto) (0.1-1.2) X10*3/uL Eos # (Auto) (0.0-0.4) X10*3/uL Baso # (Auto) (0.0-0.2) X10*3/uL Abs Immat Gran (auto) (0.00-0.03) X10*3/uL Absolute Neuts (auto) (2.0-8.3) x10*3/uL Absolute Nucleated RBC (0.0-0.012) X10*3/uL Nucleated RBC % (auto) (0.0-0.2) /100WBC Sodium (135-145) mmol/L Potassium (3.3-5.1) mmol/L Chloride (96-108) mmol/L Carbon Dioxide (22-29) mmol/L Anion Gap (12-20) BUN (9-16) mg/dL Creatinine (0.5-1.4) mg/dL Estim Creat Clear Calc Estimated GFR Random Glucose (60-115) mg/dL Lactic Acid (0.5-2.0) mmol/L Calcium (8.4-10.2) mg/dL Magnesium (1.6-2.6) mg/dL Total Bilirubin (0.0-1.0) mg/dL Direct Bilirubin (0.0-0.5) mg/dL AST (5-31) U/L ALT (0-31) U/L Alkaline Phosphatase (39-117) U/L Troponin I High Sens 77.0 H* (<3.5-17.0) ng/L B-Natriuretic Peptide (<100) pg/mL Total Protein (6.5-8.0) g/dL Albumin (3.5-5.0) g/dL Urine Color Yellow Urine Appearance Cloudy Urine pH 5.5 (5.0-9.0) Ur Specific [place] 1.015 (1.005-1.025) Urine Protein Negative (Neg-Trace) mg/dL Urine Glucose (UA) 250 H (Negative) mg/dL Urine Ketones Negative (Negative) mg/dL Urine Blood Small (1+) H (Negative) Urine Nitrite Negative (Negative) Ur Leukocyte Esterase Large (3+) H (Negative) Urine RBC 6-10 H (0-2) /HPF Urine WBC >50 H (0-5) /HPF Ur Squamous Epith Cells 0-2 (0-2) /HPF Urine Bacteria 1+ (None Seen) Hyaline Casts 0-2 (0-2) /LPF Urine Yeast Present Influenza Type A (PCR) (Negative) Influenza Type B (PCR) (Negative) RSV RNA Qual (PCR) (Negative) SARS-CoV-2 RNA (RT-PCR) (Negative) Critical Care Time Critical Care Time Critical Care Time: No Discharge Plan Discharge Clinical Impression: Acute UTI, Generalized weakness Patient Disposition: Still a Patient Instructions: Urinary Tract Infection in Older Adults (ED) Prescriptions: New cefuroxime axetil 250 mg tablet 250 mg PO BID 7 Days Qty: 14 0RF No Action metformin 500 mg Tablet 500 mg PO BID cetirizine 10 mg tablet 1 tab PO QAM donepezil 10 mg tablet 1 tab PO DAILY (DME) FreeStyle Lite Strips Strip MISCELLANEOUS TID aspirin 81 mg tablet,delayed release (DR/EC) 1 tab PO DAILY levothyroxine 150 mcg tablet 1 tab PO QAM gabapentin 100 mg capsule 100 mg PO TID fluticasone propionate 50 mcg/actuation spray,suspension 2 spray intranasal DAILY PRN (Reason: Allergy Symptoms) sertraline 50 mg tablet 1 tab PO QAM bupropion HCl 300 mg tablet extended release 24 hr 1 tab PO QAM quetiapine 50 mg tablet 1 tab PO QPM (DME) lancets [TRUEplus Lancets] 33 gauge misc MISCELLANEOUS TID atorvastatin 80 mg tablet 1 tab PO BEDTIME acetaminophen 325 mg Tablet 650 mg PO Q8H PRN (Reason: Pain) amiodarone 200 mg tablet 1 tab PO DAILY isosorbide mononitrate 30 mg tablet extended release 24 hr 1 tab PO DAILY docusate sodium 100 mg capsule 1 cap PO BID PRN (Reason: Constipation) furosemide 20 mg Tablet 20 mg PO DAILY PRN (Reason: Weight Gain) cholecalciferol (vitamin D3) 50 mcg (2,000 unit) Tablet 50 mcg PO DAILY insulin degludec [Tresiba FlexTouch U-100] 100 unit/mL (3 mL) Insulin Pen 5 unit SUBCUT DAILY
[2022-10-21 12:27] LABS: MANUAL DIFF FLAG NO
[2022-10-21 12:28] LABS: Basophils Percent Auto 0.6 % (0-2); Eosinophils Absolute Auto 0.3 X10*3/uL (0.0-0.4); Eosinophils Percent Auto 4.2 % (0-4); Hematocrit 36.3 % (37.0-47.0); Hemoglobin 11.7 g/dl (12.0-16.0); Imm Gran Abs Auto 0.02 X10*3/uL (0.00-0.03); Imm Gran Pct Auto 0.3 % (0.0-0.4); Lymphocytes Percent Auto 32.6 % (20-40); Mean Corpuscular HGB Conc 32.2 g/dl (31.0-35.0); Mean Corpuscular Hemoglobin 25.8 pg (27.0-33.0); Mean Platelet Volume 9.8 fL (9.4-12.3); Monocytes Absolute Auto 0.6 X10*3/uL (0.1-1.2); Monocytes Percent Auto 8.8 % (2-11); Neutrophils Absolute Auto 3.3 x10*3/uL (2.0-8.3); Neutrophils Percent Auto 53.5 % (45-73); Platelet Count 236 X10*3/uL (160-400); Red Blood Count 4.54 X10*6/uL (4.20-5.50); Red Cell Distribution Width 13.8 % (11.0-16.0); White Blood Count 6.2 X10*3/uL (4.8-10.8)
[2022-10-21 12:49] LABS: B Type Natriuretic Peptide 90 pg/mL (<100)
[2022-10-21 12:52] LABS: Troponin-I High Sensitivity 108.6 ng/L (<3.5-17.0)
[2022-10-21 12:54] LABS: Appearance Urine Cloudy; Color Urine Yellow; Glucose Urine UA 250 mg/dL (Negative); Leukocyte Esterase Urine Large (3+) (Negative); Nitrite Urine Negative (Negative); PH 5.5 (5.0-9.0); Specific Gravity - Urine 1.015 (1.005-1.025); UMIC TRIGGER UACC YES; Urine Blood Small (1+) (Negative); Urine Ketones Negative (Negative); Urine Protein Negative (Neg-Trace)
[2022-10-21 13:03] LABS: Alanine Aminotransferase 45 U/L (0-31); Albumin Level 4.1 g/dL (3.5-5.0); Alkaline Phosphatase 107 U/L (39-117); Anion Gap 11 (12-20); Aspartate Amino Transferase 34 U/L (5-31); Bilirubin Direct < 0.2 mg/dL (0.0-0.5); Bilirubin Total 0.3 mg/dL (0.0-1.0); Blood Urea Nitrogen 20 mg/dL (9-16); Calcium 9.4 mg/dL (8.4-10.2); Carbon Dioxide 27 mmol/L (22-29); Chloride 102 mmol/L (96-108); Creatinine Clr Calc Pharmacy 23.1; Estimated Glomerular Filt Rate 33; Glucose Random 227 mg/dL (60-115); Magnesium 1.8 mg/dL (1.6-2.6); Potassium 4.3 mmol/L (3.3-5.1); Sodium 136 mmol/L (135-145); Total Protein 7.3 g/dL (6.5-8.0)
[2022-10-21 13:04] LABS: Bacteria Urine 1+ (None Seen); Hyaline Casts Urine 0-2 /LPF (0-2); Squamous Epithelial Cell Urine 0-2 /HPF (0-2); UACC Culture Trigger YES; WBC Urine >50 /HPF (0-5)
[2022-10-21] MEDS: cefTRIAXone sodium 1 GM in 0.9 % Sodium Chloride 50 ML IV (13:25)
[2022-10-21 13:35] LABS: Influenza A PCR NEGATIVE (Negative); Influenza B PCR NEGATIVE (Negative); Resp Syncy Virus RNA Qual PCR NEGATIVE (Negative); SARS COV2 PCR INHOUSE NEGATIVE (Negative)
[2022-10-21 13:43] VITALS: BP 138/70; PULSE 66; RESP 19; TEMP 36.4; O2SAT 95
[2022-10-21 17:42] VITALS: BP 162/94; PULSE 75; RESP 12; TEMP 36.3; O2SAT 98
--- NOTE | 2022-10-21 17:44 | PC.NURSE ---
Provider aware of BP
--- NOTE | 2022-10-21 18:00 | PHA.MEDREC ---
Pharmacy Consult ? Medication Reconciliation Pharmacy has completed the medication reconciliation. Attempted to call son, but phone kept ringing. Patient is a med box patient at [facility]. Received list of active medicaitons. [address]la[address], LeniD
[2022-10-21 20:12] VITALS: BP 140/77; PULSE 68; RESP 21; TEMP 36.4; O2SAT 98
--- NOTE | 2022-10-21 21:50 | PC.NURSE ---
PT RESTING COMFORTABLY ON STRETCHER. NO APPARENT DISTRESS. PROVIDED SANDWICH AND DIET JESUS SILVERIO BECAUSE PATIENT STATES SHE NEVER GOT DINNER. WILL OBTAIN POC. CASE MANAGEMENT AND [employer]BON CAPTURE POWER PLANT OPERATOR IN ROOM ASSESSING PATIENT NOW.
--- NOTE | 2022-10-21 22:45 | MHC.CM.ED ---
Met with patient. Alert, orientated. Able to answer most CM questions. Cannot remember PCP or facilities she has been in for STR. Attempted to call HCP/son José Antonio Ortiz) Angelique [phone]), with whom she lives [address], not accepting calls and unable to leave a message. No other contact info available. Uses a walker and cane. 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 Pt has CCA. [employer] x3. PT is pending. D/C plan is STR. Son is requesting STR. Referrals placed in [place] and locally. CM to follow for discharge planning.
[2022-10-21 23:40] VITALS: BP 161/79; PULSE 9; RESP 14; TEMP 36.4; O2SAT 100
[2022-10-22] VITALS (8 sets, daily range): BP systolic 136–169; BP diastolic 65–117; PULSE 62–77; RESP 14–18; TEMP 36.4–37.2; O2SAT 92–97
--- NOTE | 2022-10-22 06:06 | PC.NURSE ---
pt changed, linens changed. pt resting comfortably at this time.
--- NOTE | 2022-10-22 08:57 | PC.NURSE ---
P.T at bedside for evaluation . patient aware of plan of care .
[2022-10-22] MEDS: Aspirin Enteric Coated 81 MG TABLET.DR PO (11:03)
[2022-10-22] MEDS: Gabapentin 100 MG CAPSULE PO ×3 (11:03→20:54)
[2022-10-22] MEDS: Sertraline HCL 50 MG TABLET PO (11:03)
[2022-10-22] MEDS: Amiodarone HCL 200 MG TABLET PO (11:03)
[2022-10-22] MEDS: metFORMIN HCl 500 MG TABLET PO ×2 (11:03→20:54)
[2022-10-22] MEDS: Loratadine 10 MG TABLET PO (11:03)
[2022-10-22] MEDS: Isosorbide Mononitrate 30 MG TAB.ER.24H PO (11:03)
[2022-10-22] MEDS: Cholecalciferol (Vitamin D3) 25 MCG TABLET 50 MCG PO (11:04)
[2022-10-22] MEDS: buPROPion HCl XL 300 MG TAB.ER.24H PO (11:04)
[2022-10-22 11:40] LABS: Anion Gap 18 (12-20); Blood Urea Nitrogen 16 mg/dL (9-16); Calcium 9.4 mg/dL (8.4-10.2); Carbon Dioxide 21 mmol/L (22-29); Chloride 103 mmol/L (96-108); Creatinine Clr Calc Pharmacy 26.5; Estimated Glomerular Filt Rate 39; Glucose Random 222 mg/dL (60-115); Potassium 4.4 mmol/L (3.3-5.1); Sodium 138 mmol/L (135-145)
[2022-10-22] MEDS: Levothyroxine Sodium 150 MCG TABLET PO (12:13)
--- NOTE | 2022-10-22 13:21 | MHC.CM.ED ---
Patient remains in ER. Physical therapy eval completed. Short term rehab is recommended. Patient has been to [facility] in the past and patient's son, Jori, requested referral there. Referral made. [facility] doesn't have a bed to offer. At this time, [facility], [facility], [facility], [facility], [facility], [facility], [place], [facility], [facility], [facility] and [facility] can offer beds. Attempted to speak with patient's son/Jori, via telephone at [phone]. Phone is not accepting calls at this time. Spoke with patient's other son, George via telephone at [phone]. George states patient has been to [facility] in the past and did not receive good care there. She has been at [facility] and she liked it there. George states Jori might be using patient's phone at his telephone. George would like to accept patient bed at [facility]. He will make his brother aware of this. [facility] has been asked to go for insurance auth. Left a voicemail for Jori via telephone explaining [facility] & [facility] were not able to offer a bed, that George would be contacting him and that [facility] has been asked to go for insurance auth. Continue to monitor for d/c needs.
[2022-10-22 13:36] LABS: Glucose, Whole Blood 208 mg/dL (60-115)
[2022-10-22] MEDS: Atorvastatin Calcium 80 MG TABLET PO (20:54)
[2022-10-22] MEDS: QUEtiapine Fumarate 50 MG TABLET PO (20:54)
[2022-10-23] VITALS: BP 137/60; PULSE 67; RESP 16; TEMP 36.7; O2SAT 96
--- NOTE | 2022-10-23 | ECG_ITS ---
Test Reason : chest pain Blood Pressure : / mmHG Vent. Rate : 064 BPM Atrial Rate : 064 BPM P-R Int : 234 ms QRS Dur : 168 ms QT Int : 482 ms P-R-T Axes : 063 -79 017 degrees QTc Int : 497 ms Sinus rhythm with 1st degree A-V block Left axis deviation Right bundle branch block Abnormal ECG When compared with ECG of 21-OCT-2022 12:25, No significant change was found Referred By: Elif Avila Electronically Signed By:Mark Polanco
--- NOTE | 2022-10-23 00:07 | PC.NURSE ---
Pt has purewick. Checked patient for wetness on pad and pad is dry. Gave patient a warm blanket.
[2022-10-23 02:00] VITALS: BP 134/62; PULSE 66; RESP 16; TEMP 36.6; O2SAT 96
[2022-10-23 06:00] VITALS: BP 160/80; PULSE 72; RESP 16; TEMP 36.4; O2SAT 98
[2022-10-23] MEDS: Levothyroxine Sodium 150 MCG TABLET PO (06:23)
--- NOTE | 2022-10-23 06:44 | PC.NURSE ---
This land mobile radio technician drained patients purewick container, boost patient with help from an RN. Patient was dry.
[2022-10-23] MEDS: Amiodarone HCL 200 MG TABLET PO (08:04)
[2022-10-23] MEDS: metFORMIN HCl 500 MG TABLET PO ×2 (08:04→20:31)
[2022-10-23] MEDS: Sertraline HCL 50 MG TABLET PO (08:04)
[2022-10-23] MEDS: Isosorbide Mononitrate 30 MG TAB.ER.24H PO (08:04)
[2022-10-23] MEDS: Loratadine 10 MG TABLET PO (08:05)
[2022-10-23] MEDS: Aspirin Enteric Coated 81 MG TABLET.DR PO (08:05)
[2022-10-23] MEDS: Cholecalciferol (Vitamin D3) 25 MCG TABLET 50 MCG PO (08:05)
[2022-10-23] MEDS: Gabapentin 100 MG CAPSULE PO ×3 (08:06→20:31)
[2022-10-23] MEDS: Insulin Glargine,Hum.rec.anlog 100 UNIT/ML 10 ML VIAL SUBCUT (08:06)
[2022-10-23] MEDS: buPROPion HCl XL 300 MG TAB.ER.24H PO (08:24)
[2022-10-23] MEDS: Donepezil HCl 10 MG TABLET PO (08:24)
[2022-10-23 09:30] VITALS: BP 107/63; PULSE 64; RESP 16; TEMP 36.3; O2SAT 95
--- NOTE | 2022-10-23 09:49 | PC.NURSE ---
medicated as ordered, ate breakfast, watching tv, nad
[2022-10-23 15:31] VITALS: BP 126/70; PULSE 69; RESP 18; TEMP 36.4; O2SAT 97
[2022-10-23] MEDS: QUEtiapine Fumarate 50 MG TABLET PO (20:31)
[2022-10-23] MEDS: Atorvastatin Calcium 80 MG TABLET PO (20:31)
--- NOTE | 2022-10-23 20:33 | PC.NURSE ---
Pt reporting chest pain, different than earlier. This RN performed EKG on pt, Dr. Samayoa reviewed and saw no changes from earlier. Pt state chest pain has semi-resolved at this time.
[2022-10-23 20:35] VITALS: BP 155/77; PULSE 64; RESP 17; TEMP 36.4; O2SAT 98
--- NOTE | 2022-10-23 23:21 | PC.NURSE ---
pt positioned on back. resting quietly at this time
[2022-10-24] VITALS (7 sets, daily range): BP systolic 114–184; BP diastolic 49–91; PULSE 62–81; RESP 14–18; TEMP 36.2–36.6; O2SAT 96–97
--- NOTE | 2022-10-24 04:24 | PC.NURSE ---
pt had a purewick in but whoever put it in had it wrong the pt had tape on her but the purewick was paced wrong her bed was soak, so i cleaned her up replace purewick and canister, she is all set
--- NOTE | 2022-10-24 04:31 | PC.NURSE ---
encyclopedia research worker reports to this rn that pt stated it's hard to swallow . pt was drinking juice at this time. no choking, no s/s of aspiration. SpO2 96% RA. pt head of bed elevated. Dr. Nguyen Notified, no new orders at this time.
[2022-10-24] MEDS: Levothyroxine Sodium 150 MCG TABLET PO (06:11)
--- NOTE | 2022-10-24 06:12 | PC.NURSE ---
this rn medicated pt according to a mar. pt able to take po meds.
[2022-10-24] MEDS: Isosorbide Mononitrate 30 MG TAB.ER.24H PO (09:20)
[2022-10-24] MEDS: Loratadine 10 MG TABLET PO (09:20)
[2022-10-24] MEDS: Cholecalciferol (Vitamin D3) 25 MCG TABLET 50 MCG PO (09:20)
[2022-10-24] MEDS: metFORMIN HCl 500 MG TABLET PO ×2 (09:20→20:51)
[2022-10-24] MEDS: Sertraline HCL 50 MG TABLET PO (09:20)
[2022-10-24] MEDS: Gabapentin 100 MG CAPSULE PO ×3 (09:20→20:51)
[2022-10-24] MEDS: Insulin Glargine,Hum.rec.anlog 100 UNIT/ML 10 ML VIAL SUBCUT (09:20)
[2022-10-24] MEDS: Aspirin Enteric Coated 81 MG TABLET.DR PO (09:20)
[2022-10-24] MEDS: Amiodarone HCL 200 MG TABLET PO (09:20)
[2022-10-24] MEDS: buPROPion HCl XL 300 MG TAB.ER.24H PO (09:21)
[2022-10-24 09:28] LABS: Glucose, Whole Blood 178 mg/dL (60-115)
--- NOTE | 2022-10-24 13:54 | MHC.CM.ED ---
Patient remains in ER. Waiting for [facility] to obtain insurance auth. Continue to monitor for d/c needs.
--- NOTE | 2022-10-24 15:14 | PC.NURSE ---
Received report from PAUL Stahl. Pt is resting comfortably on stretcher at this time. This RN changed pt gown and linens, and administered afternoon medications per JAN. Pt states she has 2/10 neck pain that has been going on for 2 days. Pt declines medications or ice pack for neck
[2022-10-24] MEDS: Acetaminophen 325 MG TABLET 650 MG PO (17:57)
--- NOTE | 2022-10-24 20:08 | PC.NURSE ---
Pt is up eating dinner at this time
[2022-10-24] MEDS: Atorvastatin Calcium 80 MG TABLET PO (20:51)
[2022-10-24] MEDS: QUEtiapine Fumarate 50 MG TABLET PO (20:51)
--- NOTE | 2022-10-24 23:52 | PC.NURSE ---
Pt incontinent of stool. This RN cleaned pt and changed linens. Replaced pts purewick, it is suctioning properly with no apparent issues. Pt states she has 2/10 neck pain, consistent with the neck pain occuring over the past few days. Pt now getting ready for sleep
[2022-10-25] MEDS: Acetaminophen 325 MG TABLET 650 MG PO ×2 (01:49→10:17)
[2022-10-25 03:58] VITALS: RESP 17
[2022-10-25] MEDS: Levothyroxine Sodium 150 MCG TABLET PO (05:48)
[2022-10-25 05:50] VITALS: BP 152/66; PULSE 62; RESP 18; TEMP 36.4; O2SAT 99
[2022-10-25 07:21] LABS: Glucose, Whole Blood 121 mg/dL (60-115)
[2022-10-25 08:05] VITALS: BP 161/75; PULSE 66; RESP 16; TEMP 36.6; O2SAT 97
[2022-10-25] MEDS: Aspirin Enteric Coated 81 MG TABLET.DR PO (08:07)
[2022-10-25] MEDS: Isosorbide Mononitrate 30 MG TAB.ER.24H PO (08:07)
[2022-10-25] MEDS: metFORMIN HCl 500 MG TABLET PO (08:08)
[2022-10-25] MEDS: Gabapentin 100 MG CAPSULE PO (08:08)
[2022-10-25] MEDS: Amiodarone HCL 200 MG TABLET PO (08:08)
[2022-10-25] MEDS: buPROPion HCl XL 300 MG TAB.ER.24H PO (08:09)
[2022-10-25] MEDS: Cholecalciferol (Vitamin D3) 25 MCG TABLET 50 MCG PO (08:09)
[2022-10-25] MEDS: Insulin Glargine,Hum.rec.anlog 100 UNIT/ML 10 ML VIAL SUBCUT (08:09)
[2022-10-25] MEDS: Loratadine 10 MG TABLET PO (08:09)
[2022-10-25] MEDS: Sertraline HCL 50 MG TABLET PO (08:09)
[2022-10-25] MEDS: Donepezil HCl 10 MG TABLET PO (08:09)
--- NOTE | 2022-10-25 08:18 | PC.NURSE ---
report taken from varghese freeman pt here for case mgmt placement r/t weakness, inability to ambulate. per previous shift rn, pending dispo to [facility]. pt is alert and oriented x2, pleasant. denies complaints at this time. iv removed. pt ate 100% breakfast on own, took hs medications without issue. rr even/unlabored, speaking in full clear sentences. vss. wctm for dc needs.
--- NOTE | 2022-10-25 11:59 | MHC.CM.ED ---
Addendum entered by Senia Stoner 10/25/22 14:14: Insurance auth has been obtained by [facility]. Repeat Covid swab is negative. Patient can leave at 230pm. [place] MACKENZIE booked. Patient, Demario MILLER and Shaunna PIMENTEL aware. Left voicemail for Jori at [phone] explaining discharge plan. Spoke with patient's son, George via telephone [phone]. Discharge plan explained. Original Note: Patient remains in ER. Patient will transport to [facility] via [facility] when insurance auth has been obtained from [facility]. T/W spoke with Cheryl at [facility]. They recently changed their policy for STR approval. It is a longer process now. Continue to monitor for d/c needs.
[2022-10-25 13:28] LABS: COVID-19 Test Negative (Negative); IDNOW Serial# 16C4AD1C
[2022-10-25 13:58] LABS: Glucose, Whole Blood 109 mg/dL (60-115)
== END 2022-10-25 14:47 | disposition skilled nursing facility (03) ==
PROVIDERS: Nurse Practitioner Family; Physician Assistant; Physician Assistant Medical; Emergency Provider Emergency Medicine; PCP Family Medicine
DX: N39.0 Urinary tract infection, site not specified (principal); R53.1 Weakness; F03.90 Unspecified dementia, unspecified severity, without behavioral disturbance, psychotic disturbance, mood disturbance, and anxiety; Z20.822 Contact with and (suspected) exposure to COVID-19; E11.22 Type 2 diabetes mellitus with diabetic chronic kidney disease; I13.0 Hypertensive heart and chronic kidney disease with heart failure and stage 1 through stage 4 chronic kidney disease, or unspecified chronic kidney disease; N18.9 Chronic kidney disease, unspecified; I50.30 Unspecified diastolic (congestive) heart failure; I48.92 Unspecified atrial flutter; Z87.440 Personal history of urinary (tract) infections; Z95.1 Presence of aortocoronary bypass graft; Z79.82 Long term (current) use of aspirin; Z79.899 Other long term (current) drug therapy; Z79.4 Long term (current) use of insulin; Z79.02 Long term (current) use of antithrombotics/antiplatelets
CPT/HCPCS: 0241U; 36415; 51701; 71045; 80048; 80076; 81001; 82947; 83605; 83735; 83880; 84484; 85025; 87040; 87086; 87635; 93005; 96365; 97161; 99285; J0696

== ENCOUNTER → 2022-12-07 13:14 | Outpatient (BNVA) | payer OTHER, SELFPAY | PROVIDERS: PCP Family Medicine; Visit Provider Internal Medicine | DX: I25.10 Atherosclerotic heart disease of native coronary artery without angina pectoris (principal); I77.810 Thoracic aortic ectasia; I35.0 Nonrheumatic aortic (valve) stenosis; I45.9 Conduction disorder, unspecified; I48.0 Paroxysmal atrial fibrillation; I10 Essential (primary) hypertension; E11.8 Type 2 diabetes mellitus with unspecified complications | CPT/HCPCS: 99212 ==

== ENCOUNTER 2023-06-08 12:35 | Outpatient (AMB) | payer OTHER, SELFPAY ==
[2023-06-08 12:50] VITALS: BP 120/62; PULSE 90
--- NOTE | 2023-06-08 12:50 | A.OFFVIS_ITS ---
Intake Vital Signs 06/08/23 12:50 Height 5 ft 2 in BMI Reason not done Patient refused/unable BP 120/62 Blood Pressure Location Lt brachial Position Sitting Pulse 90 Intake Visit Reasons: 6 mth f/up Intake Note: 6 month follow up Assistant Manager Retail Required: No Accompanied by: Self / Same As Patient Allergies No Known Allergies [No Known Allergies*] Allergy (Verified 06/08/23 12:54) Medication List - Last Reconciled 06/08/23 by Yg Rayo MD acetaminophen 650 mg PO Q8H PRN apixaban (Eliquis) 2.5 mg PO BID atorvastatin 80 mg PO BEDTIME blood sugar diagnostic (FreeStyle Lite Strips) bupropion HCl 1 tab PO QAM cholecalciferol (vitamin D3) 50 mcg PO DAILY docusate sodium 1 cap PO BID PRN fluticasone propionate 50 mcg/actuation 2 sprays intranasal DAILY PRN gabapentin 100 mg PO TID insulin degludec (Tresiba FlexTouch U-100 insulin) 5 units subcut DAILY lancets (TRUEplus Lancets) levothyroxine 150 mcg PO QAM metformin 500 mg PO BID metoprolol succinate ER 12.5 mg PO DAILY ondansetron HCl 4 mg PO Q8H PRN sennosides (senna) 8.6 mg PO DAILY PRN sertraline 1 tab PO QAM HPI HPI Comments History of Present Illness Details Talita returns for follow-up regarding coronary disease and history of bypass surgery. Around August 2022, it seems that she was initially admitted to [facility] with some combination of infection/NSTEMI hypotension and other comorbidities. Then she got transferred to [facility] for cardiac catheterization but however, that did not materialize as it was felt that she was too frail for the same. Her meds were optimized and then discharged home. Discussed with patient using foreign exchange clerk. She states that she is doing fine. No complaints like angina or shortness of breath or in fact anything cardiac sounding. She comes in a wheelchair. States does not walk much. 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 Social History Household Members: Children Housing: Assisted Living Facility Unable to assess alcohol history related to: Unable to respond Alcohol intake: former Patient Tobacco Use Status: Never used Tobacco Advance Directives Date on File: 01/29/22 service: No Current occupational status: disabled Review of Systems Const Denies weakness ENT Denies dizziness Card Denies chest pain, Denies chest pain with activity, Denies syncope, Denies rapid heart rate, Denies pedal edema, Denies edema, Denies leg edema, Denies lightheadedness, Denies palpitations, Denies dyspnea, Denies dyspnea on exertion and Denies orthopnea Resp Denies cough, Denies dyspnea and Denies dyspnea on exertion GI Denies hematochezia and Denies change in stool character Musc Denies abnormal gait, Denies muscle cramps, Denies muscle weakness, Denies numbness, Denies radiating pain into limb and Denies tingling Neuro Denies abnormal gait, Denies dizziness, Denies syncope, Denies numbness, Denies tingling and Denies weakness Endo Denies palpitations Physical Exam Vital Signs: Last Vital Signs Pulse 90 06/08/23 12:50 BP 120/62 06/08/23 12:50 Const General: comfortable and no acute distress Orientation/consciousness: patient oriented x3 HEENT Other: Unremarkable Head: Yes normal to inspection Neck Neck: Yes normal visual inspection Chest Chest palpation & inspection: normal inspection of the chest Resp Auscultation: clear to auscultation bilaterally Cardio Palpation: normal PMI Heart sounds: S1 normal heart sound present, S2 normal heart sound present, no gallops, no murmurs and no rubs GI Palpation (GI): Soft to palpation Back/Spine/Pelvis Other: unremarkable Skin General skin exam: no rashes or lesions noted Neuro General: patient oriented x3 Extrem General: Yes normal to inspection Psych Mental Status: mental status grossly normal Assessment & Plan Assessment & Plan (1) Atherosclerotic cardiovascular disease: Code(s): I25.10 - Atherosclerotic heart disease of [place] coronary artery without angina pectoris Plan: History of CABG. Recently thought to have demand related NSTEMI. Apparently, was transferred to [facility] but did not undergo catheterization as it was felt that will not help her quality of life. Agree with this. She has no angina at all. Medical management only. (2) Ascending aorta dilatation: Code(s): I77.810 - Thoracic aortic ectasia Plan: In the most recent echocardiogram, ascending aortic size was 4.2 cm. At her ag e, suspect she will ever be a candidate even if it enlarges. (3) Non-rheumatic aortic stenosis: Code(s): I35.0 - Nonrheumatic aortic (valve) stenosis Plan: Thought to have low-flow low gradient moderate aortic stenosis. Check echocardiogram for follow-up. (4) Heart block: Code(s): I45.9 - Conduction disorder, unspecified Plan: Last EKG with first-degree heart block. Can be monitored periodically. (5) Paroxysmal atrial fibrillation: Code(s): I48.0 - Paroxysmal atrial fibrillation Plan: Remains in sinus. Beta-blockers/anticoagulation. (6) Type 2 diabetes mellitus with unspecified complications: Code(s): E11.8 - Type 2 diabetes mellitus with unspecified complications Plan: On insulin, Trulicity, metformin. (7) Essential hypertension: Code(s): I10 - Essential (primary) hypertension Plan: Blood pressure well within normal range. Orders: Orders CA echo transthoracic complete 6 Months I35.0 - Nonrheumatic aortic (valve) stenosis Coding Level of Care Code Est Pt Level 4 (36132) Diagnoses Atherosclerotic cardiovascular disease I25.10 Ascending aorta dilatation I77.810 Non-rheumatic aortic stenosis I35.0 Heart block I45.9 Paroxysmal atrial fibrillation I48.0 Type 2 diabetes mellitus with unspecified complications E11.8 Essential hypertension I10
== END 2023-06-08 13:13 | disposition home or self-care (01) ==
PROVIDERS: Visit Provider Internal Medicine
DX: I25.10 Atherosclerotic heart disease of native coronary artery without angina pectoris (principal); I77.810 Thoracic aortic ectasia; I35.0 Nonrheumatic aortic (valve) stenosis; I45.9 Conduction disorder, unspecified; I48.0 Paroxysmal atrial fibrillation; E11.8 Type 2 diabetes mellitus with unspecified complications; I10 Essential (primary) hypertension
CPT/HCPCS: 99214

== ENCOUNTER → 2023-06-08 12:35 | Outpatient (BNVA) | payer OTHER, SELFPAY | PROVIDERS: Visit Provider Internal Medicine | DX: I25.10 Atherosclerotic heart disease of native coronary artery without angina pectoris (principal); I10 Essential (primary) hypertension; I77.810 Thoracic aortic ectasia; I35.0 Nonrheumatic aortic (valve) stenosis; I45.9 Conduction disorder, unspecified; I48.0 Paroxysmal atrial fibrillation; I11.9 Hypertensive heart disease without heart failure; Z95.1 Presence of aortocoronary bypass graft; Z99.3 Dependence on wheelchair; Z79.4 Long term (current) use of insulin | CPT/HCPCS: 99212 ==

== ENCOUNTER → 2023-12-16 14:27 | Outpatient (REF) | payer OTHER, SELFPAY ==
--- NOTE | 2023-12-16 14:32 | CA_ITS ---
Transthoracic Echocardiogram Patient (Last, First, Middle): Talita Merino, Gender: Female Date of : 1935 Age: 88 Procedure Date: 12/16/2023 Procedure Type: Transthoracic Echocardiogram Location: OP Height: 157.48 cm Weight: 56.25 kg BSA: 1.56 m2 Heart Rate: 77 bpm BP: 100 / 70 mmHg Vehicle Damage Appraiser: ROOPA Referring MD: Yg Rayo MD Symptoms: I35.0 - Nonrheumatic aortic (valve) stenosis Study Quality: Fair ECG Rhythm: Sinus Conclusions: - Normal left ventricular size and systolic function. There is mildly increased left ventricular wall thickness. The visually estimated ejection fraction is between 55-60%. - E/E prime ratio is between 8 and 15 consistent with indeterminate filling pressures. - There is moderate septal asymmetric hypertrophy. - Normal right ventricular cavity size. There is moderately decreased right ventricular systolic function. - There is mild to moderate aortic valve stenosis. The peak aortic velocity is 1.46 m/s. The aortic valve area is 1.40 cm2. There is no aortic valve regurgitation. SVI- 28, low stroke volume and gradients may have been underestimated. Findings Left Ventricle Normal left ventricular size and systolic function. There is mildly increased left ventricular wall thickness. The visually estimated ejection fraction is between 55-60%. Abnormal diastolic function is noted. Spectral Doppler is indicative of an impaired relaxation filling pattern. E/E prime ratio is between 8 and 15 consistent with indeterminate filling pressures. There is moderate septal asymmetric hypertrophy. Right Ventricle Normal right ventricular cavity size. There is moderately decreased right ventricular systolic function. Atria The left atrium is normal in size. Aortic Valve There is a normal trileaflet aortic valve. There is moderate calcification of the aortic valve. There is mild to moderate aortic valve stenosis. The peak aortic velocity is 1.46 m/s. The aortic valve area is 1.40 cm2. There is no aortic valve regurgitation. SVI- 28, low stroke volume and gradients may have been underestimated. Mitral Valve The mitral valve appears normal. There is mild mitral valve regurgitation. There is no mitral valve stenosis. Pulmonic Valve The pulmonic valve is normal. There is no pulmonic valve regurgitation. Tricuspid Valve Normal tricuspid valve structure. There is mild tricuspid valve regurgitation. Normal right atrial pressure. There is no evidence of pulmonary hypertension. Great Vessels There is mild dilatation of the ascending aorta measuring 4.00 cm. The visualized portions of the pulmonary artery and branches are normal. Venous The inferior vena cava is normal in size and collapses greater than 50% with inspiration. Pericardium/Pleural There is no evidence of pericardial effusion. Prior Study Comparison No significant change compared to prior study dated: 08/13/2022. Measurements 2D Linear Measurements IVSd: 1.34 0.6-0.9/0.6-1.0 cm LVIDd: 3.54 3.9-5.3/4.2-5.9 cm LVIDd Index: 2.27 2.4-3.2/2.2-3.1 cm/m2 LVIDs: 2.66 2.0-3.6 cm LVPWd: 1.03 0.7-1.1 cm LA Diam: 3.40 2.7-3.8/3.0-4.0 cm LAIDs Index: 2.18 1.5-2.3 cm/m2 LV Mass: 168.55 67-162/88-224 g LV Mass Index: 108.04 43-95/49-115 g/m2 LVOT Diam: 2.10 3.0+(-)1.3 cm 2D Systolic Function EF 4C: 58.40 >55% EF 2C: 51.60 >55% EF BiP: 57.30 >55% Mitral Valve MV Pk E: 0.75 MV PK A: 0.84 MV Decel Time: 204.00 E/A: 0.90 E'Lateral: 7.62 E'Medial: 4.35 E/E' Med: 17.20 E/E' Lat: 9.80 PHT: 60.00 MVA PHT: 3.67 Decel Spencer: 3.68 Aortic Valve AoV Pk Octaviano: 1.46 AoV Mn Octaviano: 1.09 AoV VTI: 0.29 AoV Pk Grad: 9.00 Aov Mn Grad: 5.00 DALTON Cont.VTI: 1.40 LVOT LVOT Pk Octaviano: 0.55 LVOT Mn Octaviano: 0.40 LVOT VTI: 0.12 LVOT Pk Grad: 1.00 LVOT Mn Grad: 1.00 LVOT Diam: 2.10 LVOT Area: 3.46 Diastolic Function MV Pk E: 0.75 MV Pk A: 0.84 E/A: 0.90 E'Medial: 4.35 E/E' Med: 17.20 E' Laterial: 7.62 E/E' Lat: 9.80 Right Ventricle TAPSE (mm): 10.40 Tricuspid Valve TR Pk Octaviano: 2.35 TR Pk Grad: 22.00 RVSP: 25.00 Great Vessels Aorta Sinus of Valsalva: 3.50 2.0-3.5 cm Ao Asc: 4.00 2.1-3.4 cm Pulmonary Valve PV Pk Octaviano: 0.76 Peak PV Grad: 2.00 Updated in Other Vendor System with Status of Final Mark Polanco MD electronically signed on 12/17/2023 6:41:13 PM with status of Final
== END ==
LOC: HO.CARD 14:27
PROVIDERS: PCP Family Medicine; Visit Provider Internal Medicine
DX: I35.0 Nonrheumatic aortic (valve) stenosis (principal)
CPT/HCPCS: 93306

== ENCOUNTER → 2023-12-16 14:32 | Outpatient (BNV) | payer OTHER, SELFPAY | PROVIDERS: PCP Family Medicine; Visit Provider Internal Medicine Cardiovascular Disease | DX: I35.0 Nonrheumatic aortic (valve) stenosis (principal) | CPT/HCPCS: 93306 ==

== ENCOUNTER 2024-01-25 13:06 | Outpatient (AMB) | payer OTHER, SELFPAY ==
--- NOTE | 2024-01-25 13:15 | A.OFFVIS_ITS ---
Intake Vital Signs 01/25/24 13:16 Height 5 ft 2 in BMI Reason not done Patient refused/unable BP 130/66 Blood Pressure Location Lt brachial Position Sitting Pulse 79 Intake Visit Reasons: Follow up post echocardiogram Intake Note: follow up Line Installation Supervisor Required: No Accompanied by: Daughter Allergies No Known Allergies [No Known Allergies*] Allergy (Verified 01/25/24 13:19) Medication List - Last Reconciled 01/25/24 by Yg Rayo MD acetaminophen 650 mg PO Q8H PRN apixaban (Eliquis) 2.5 mg PO BID ascorbic acid (vitamin C) ER 500 mg PO DAILY aspirin (Adult Aspirin Regimen) 81 mg PO DAILY atorvastatin 40 mg PO DAILY blood sugar diagnostic (FreeStyle Lite Strips) cetirizine (All Day Allergy (cetirizine)) 10 mg PO DAILY PRN cholecalciferol (vitamin D3) 50 mcg PO DAILY docusate sodium 1 cap PO BID PRN ferrous sulfate 325 mg PO DAILY fluticasone propionate 50 mcg/actuation 2 sprays intranasal DAILY PRN gabapentin 100 mg PO TID insulin glargine (Lantus Solostar U-100 Insulin) units subcut insulin lispro (Humalog KwikPen (U-100) Insulin) subcut lancets (TRUEplus Lancets) levothyroxine 125 mcg PO DAILY liraglutide (Victoza 3-Carlos) mg subcut metoprolol succinate ER 12.5 mg PO DAILY nitroglycerin 0.4 mg sublingual Q5M PRN ondansetron HCl 4 mg PO Q8H PRN pantoprazole 20 mg PO DAILY sennosides (senna) 8.6 mg PO DAILY PRN sertraline (Zoloft) 50 mg PO DAILY HPI HPI Comments History of Present Illness Details Talita returns for follow-up regarding coronary disease and history of bypass surgery. She is quite frail and stays correction. Here with his daughter. It seems that for the most part she is getting along fine. Occasionally gets some chest pains somewhat randomly. She states she gets it when she thinks up for children or family. Not clear what it is. Angina is possible but can not be definitive. She had NSTEMI hospitalization 2021 but not intervened due to age and comorbidities. 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 Social History Household Members: Children Housing: Assisted Living Facility Unable to assess alcohol history related to: Unable to respond Alcohol intake: former Comment: 1:1 sitter Patient Tobacco Use Status: Never used Tobacco Advance Directives Date on File: 01/29/22 service: No Current occupational status: disabled Review of Systems Const Denies weakness ENT Denies dizziness Card Denies chest pain with activity, Denies syncope, Denies rapid heart rate, Denies pedal edema, Denies edema, Denies leg edema, Denies lightheadedness, Denies palpitations, Denies dyspnea, Denies dyspnea on exertion and Denies orthopnea Resp Denies cough, Denies dyspnea and Denies dyspnea on exertion GI Denies hematochezia and Denies change in stool character Musc Denies abnormal gait, Denies muscle cramps, Denies muscle weakness, Denies numbness, Denies radiating pain into limb and Denies tingling Neuro Denies abnormal gait, Denies dizziness, Denies syncope, Denies numbness, Denies tingling and Denies weakness Endo Denies palpitations Physical Exam Vital Signs: Last Vital Signs Pulse 79 01/25/24 13:16 BP 130/66 01/25/24 13:16 Office Procedures EKG Details: EKG with sinus rhythm at 79/Min; incomplete right bundle-branch block pattern; PACs with aberrant conduction; top normal MA 200 millisecond; [place]. [id number], Complete Assessment & Plan Assessment & Plan (1) Atherosclerotic cardiovascular disease: Code(s): I25.10 - Atherosclerotic heart disease of [place] coronary artery without angina pectoris Plan: History of CABG. Seems mostly stable these days. If necessary, use nitroglycerin. Can stop aspirin as she is also on Eliquis. (2) Non-rheumatic aortic stenosis: Code(s): I35.0 - Nonrheumatic aortic (valve) stenosis Plan: Ficz-sn-bhchcobl aortic stenosis on the last echocardiogram. Even if it gets significantly worse, unlikely to be a candidate for TAVR. (3) Ascending aorta dilatation: Code(s): I77.810 - Thoracic aortic ectasia Plan: Low-level dilatation at around 4 cm. Unlikely that she will ever qualify for any surgery even if it gets significantly enlarged. (4) Heart block: Code(s): I45.9 - Conduction disorder, unspecified Plan: First-degree heart block and incomplete right bundle-branch block. Can be monitored periodically. (5) Paroxysmal atrial fibrillation: Code(s): I48.0 - Paroxysmal atrial fibrillation Plan: Remains in sinus. Beta-blockers/anticoagulation. Stop Aspirin. Plan Discussed with daughter who came for appointment. Coding Level of Care Code Est Pt Level 4 (40968) Diagnoses Atherosclerotic cardiovascular disease I25.10 Non-rheumatic aortic stenosis I35.0 Ascending aorta dilatation I77.810 Heart block I45.9 Paroxysmal atrial fibrillation I48.0 CPT Codes EKG - CPT: 87658-[id number], Complete ([id number])
[2024-01-25 13:16] VITALS: BP 130/66; PULSE 79
== END 2024-01-25 13:46 | disposition home or self-care (01) ==
PROVIDERS: PCP Family Medicine; Visit Provider Internal Medicine
DX: I25.10 Atherosclerotic heart disease of native coronary artery without angina pectoris (principal); I35.0 Nonrheumatic aortic (valve) stenosis; I77.810 Thoracic aortic ectasia; I45.9 Conduction disorder, unspecified; I48.0 Paroxysmal atrial fibrillation
CPT/HCPCS: 93010; 99214

== ENCOUNTER → 2024-01-25 13:06 | Outpatient (BNVA) | payer OTHER, SELFPAY | PROVIDERS: PCP Family Medicine; Visit Provider Internal Medicine | DX: I25.10 Atherosclerotic heart disease of native coronary artery without angina pectoris (principal); I77.810 Thoracic aortic ectasia; I35.0 Nonrheumatic aortic (valve) stenosis; I45.9 Conduction disorder, unspecified; I48.0 Paroxysmal atrial fibrillation | CPT/HCPCS: 93005; 99212 ==

== ENCOUNTER 2024-05-22 11:05 | Outpatient (REF) | payer OTHER, SELFPAY ==
[2024-05-22 13:15] LABS: Hematocrit 36.3 % (37.0-47.0); Hemoglobin 11.8 g/dl (12.0-16.0); Mean Corpuscular HGB Conc 32.5 g/dl (31.0-35.0); Mean Corpuscular Hemoglobin 27.4 pg (27.0-33.0); Mean Corpuscular Volume 84.4 fL (80.0-98.0); Mean Platelet Volume 9.9 fL (9.4-12.3); Platelet Count 328 X10*3/uL (160-400); White Blood Count 5.9 X10*3/uL (4.8-10.8)
[2024-05-22 13:34] LABS: Estimated Average Glucose 174 mg/dL; Hemoglobin A1c % 7.7 % (<6.0)
[2024-05-22 13:44] LABS: Alanine Aminotransferase 29 U/L (0-31); Albumin Level 3.9 g/dL (3.5-5.0); Alkaline Phosphatase 125 U/L (39-117); Anion Gap 13 (12-20); Aspartate Amino Transferase 35 U/L (5-31); Bilirubin Direct 0.1 mg/dL (0.0-0.5); Bilirubin Total 0.4 mg/dL (0.0-1.0); Blood Urea Nitrogen 25 mg/dL (9-16); Calcium 9.8 mg/dL (8.4-10.2); Carbon Dioxide 22 mmol/L (22-29); Chloride 107 mmol/L (96-108); Cholesterol 89 mg/dL (<200); Estimated Glomerular Filt Rate 36; Glucose Random 204 mg/dL (60-115); HDL Cholesterol 30 mg/dL (>40); Iron 65 mcg/dL (30-160); LDL Cholesterol Calculated 34 mg/dL (<100); Magnesium 1.8 mg/dL (1.6-2.6); Percent Iron Saturation 24 % (15-50); Potassium 4.6 mmol/L (3.3-5.1); Sodium 137 mmol/L (135-145); Total Iron Binding Capacity 267 mcg/dL (228-428); Triglycerides 125 mg/dL (<150); Unsaturated Iron Binding 202 ug/dL
[2024-05-22 14:03] LABS: Ferritin 182 ng/mL (10-250); Free T4 (Free Thyroxine) 1.15 ng/dL (0.71-1.85); Thyroid Stimulating Hormone 3.11 uIU/mL (0.32-4.0); Vitamin D 25-OH Total 32.3 ng/mL (>30)
[2024-05-22 14:38] LABS: Folate 7.6 ng/mL (> or = 4.0); Vitamin B12 646 pg/mL (200-900)
== END 2024-05-22 11:06 | disposition home or self-care (01) ==
LOC: HO.HHCL 11:05
PROVIDERS: Visit Provider Family Medicine
DX: E11.69 Type 2 diabetes mellitus with other specified complication (principal); Z79.4 Long term (current) use of insulin
CPT/HCPCS: 36415; 80048; 80061; 80076; 82306; 82607; 82728; 82746; 83036; 83540; 83735; 84439; 84443; 85027

== ENCOUNTER 2024-06-29 16:06 | Outpatient (REF) | payer OTHER, SELFPAY | END 2024-06-29 16:07 | disposition home or self-care (01) | LOC: HO.HHCLNP 16:06 | PROVIDERS: Visit Provider Registered Nurse | DX: R46.89 Other symptoms and signs involving appearance and behavior (principal); R30.0 Dysuria | CPT/HCPCS: 87086; 87088; 87186 ==

== ENCOUNTER 2024-07-11 08:50 | Outpatient (AMB) | payer OTHER, SELFPAY ==
--- NOTE | 2024-07-11 09:19 | A.OFFVIS_ITS ---
Intake Visit Reasons: VT/ pt wants oates removed Intake Note: Patient is Present for possible Voiding Trial Antibiotic Allergy: None Blood Thinner: Delores Patient is present with Granddaughter for possible Voiding Trial. Juan Alberto mentioned that she was previously in the care of a custodial(Does not know name of Facility) She states that there is confusion on when the catheter was placed initially. She mentions that her PCP was not aware of catheter and has received no orders for Catheter placement. Granddaughter states that in custodial Talita had recurrent UTI that was no initially treated and caused patient to be septic. She states that she is her sole vaccinator at this moment due to failed care Her grandmother received at [facility]. She would like to have catheter removed today and be evaluated for any possible infections that she may have. Date of Catheter placement is unknown. Granddaughter states that she is aware that she does have Urinary Retention issues. Recent A1C- 7.7 (05/22/2024) Recent Urine Culture - 06/29/2024- Klebsiella Pneumoniae Relocation Counselor: Relocation Counselor Present Accompanied by: Granddaughter Allergies No Known Allergies [No Known Allergies*] Allergy (Verified 07/12/24 09:05) Medication List - Last Reconciled 07/11/24 by Jian Wilson RN acetaminophen 650 mg PO Q8H PRN apixaban (Eliquis) 2.5 mg PO BID atorvastatin 40 mg PO DAILY blood sugar diagnostic (FreeStyle Lite Strips) cetirizine (All Day Allergy (cetirizine)) 10 mg PO DAILY PRN docusate sodium 1 cap PO BID PRN fluticasone propionate 50 mcg/actuation 2 sprays intranasal DAILY PRN gabapentin 100 mg PO TID insulin glargine (Lantus Solostar U-100 Insulin) units subcut lancets (TRUEplus Lancets) levothyroxine 125 mcg PO DAILY metoprolol succinate ER 12.5 mg PO DAILY nitroglycerin 0.4 mg sublingual Q5M PRN pantoprazole 20 mg PO DAILY semaglutide (Ozempic) mg subcut sennosides (senna) 8.6 mg PO DAILY PRN sertraline (Zoloft) 50 mg PO DAILY HPI Comments Details: Talita is an 89-year-old female who is here with her granddaughter for new patient evaluation due to chronic Oates in place. The patient's granddaughter states that her mother was in a custodial for about 2 years and has had the Oates catheter in place since that time. In April she was hospitalized for UTI sepsis and was discharged home with a Oates catheter. There is a visiting nurse that changes the Oates catheter. She states that recent visit with her PCP referred her to Urology to evaluate if the Oates needs to remain or if it can be removed. I will remove the Oates today and have Talita a follow-up tomorrow to check bladder scan. If the patient is unable to urinate in 8 hours will have the visiting nurse replace a Oates. [facility] Medical History Peptic ulcer disease Depression Hypothyroidism Tubular adenoma Chest pain HLD (hyperlipidemia) Postoperative atrial fibrillation Diastolic dysfunction CAD (coronary artery disease) HTN (hypertension) Type 2 diabetes mellitus with polyneuropathy Surgical History History of esophagogastroduodenoscopy (EGD) Hx of colonoscopy S/P CABG x 3 (~09/2013) Family History Father CVD (cardiovascular disease) Mother No problems noted. Social History Household Members: Children Housing: Assisted Living Facility Unable to assess alcohol history related to: Unable to respond Alcohol intake: former Comment: 1:1 sitter Patient Tobacco Use Status: Never used Tobacco Advance Directives Date on File: 01/29/22 service: No Current occupational status: disabled Review of Systems Const All systems reviewed & are unremarkable except as noted in HPI and below Reports no additional complaints Eyes Reports no additional complaints ENT Reports no additional complaints Card Reports no additional complaints Resp Reports no additional complaints GI Reports no additional complaints Reports as per HPI Musc Reports no additional complaints Skin/Breast Reports system reviewed and no additional complaints, except as documented Neuro Reports no additional complaints Psych Reports no additional complaints Endo Reports no additional complaints Adolph/Lymph Reports no additional complaints Aller/Immun Reports no additional complaints Physical Exam Const General: cooperative, healthy appearing and no acute distress Orientation/consciousness: patient oriented x3 HEENT Head: Yes normal to inspection, Yes normocephalic and Yes atraumatic Eyes Conjunctivae: conjunctivae normal Neck Neck: Yes normal visual inspection and Yes trachea midline Chest Chest palpation & inspection: normal inspection of the chest Resp Effort & Inspection: normal respiratory effort Cardio Rate: regular rate GI Inspection: Yes normal to inspection Palpation (GI): Soft to palpation General: No no CVA tenderness External Female Exam: normal external appearance Speculum Exam - Vagina: vagina atrophic Back/Spine/Pelvis Back: No no CVA tenderness Skin General skin exam: no rashes or lesions noted Neuro General: patient oriented x3 Extrem General: No edema Psych Appearance: grossly normal Office Procedures Bladder/Catheter Procedure Details: Per Dr. Rudd, remove oates catheter. 16 yakut oates with 10 ml balloon deflated and removed without complications. Patient tolerated well. Educated patient and family to drink plenty of water and call the office if unable to void in 6 hours. Bladder scan scheduled for tomorrow. Dr. Rudd also gave one time verbal order for ciprofloxacin 500 mg tablet. Cipro 500 mg administered. Family understood plan. Procedure code (CPT) selection complete Assessment & Plan Assessment & Plan (1) Recurrent UTI: Code(s): N39.0 - Urinary tract infection, site not specified Category: Medical (2) Functional urinary incontinence: Code(s): R39.81 - Functional urinary incontinence Category: Medical (3) Urinary retention: Code(s): R33.9 - Retention of urine, unspecified Category: Medical Plan I will remove the Oates today and have Talita a follow-up tomorrow to check bladder scan. If the patient is unable to urinate in 8 hours will have the visiting nurse replace a Oates. Orders: Orders AMB Bladder/Catheter Procedure 07/11/24 R33.9 - Retention of urine, unspecified Patient Instructions: The patient had an opportunity to ask questions regarding treatment plan. The patient expressed understanding and agreement with the above treatment plan. The patient is aware they should contact our office by phone for worsening of their current condition or the appearance of new symptoms. Compliance is enco uraged with any medications and followup testing that is ordered. It is a privilege to be allowed the opportunity to participate in the urologic care of your patient. If you have any questions or concerns regarding treatment for the above conditions please do not hesitate to contact me. The office telephone contact is [phone]. This note is constructed in part using voice recognition software. While every effort has been made to ensure accuracy biology manager errors may have been included. Yours sincerely, Johnna Pena MD Coding Level of Care Code New Pt Level 4 (35281) Diagnoses Recurrent UTI N39.0 Functional urinary incontinence R39.81 Urinary retention R33.9
== END 2024-07-11 10:02 | disposition home or self-care (01) ==
LOC: HO.HUSH 08:50
PROVIDERS: PCP Family Medicine; Visit Provider Urology
DX: N39.0 Urinary tract infection, site not specified (principal); R39.81 Functional urinary incontinence; R33.9 Retention of urine, unspecified
CPT/HCPCS: 99204

== ENCOUNTER → 2024-07-11 08:50 | Outpatient (BNVA) | payer OTHER, SELFPAY | PROVIDERS: PCP Family Medicine; Visit Provider Urology | DX: N39.0 Urinary tract infection, site not specified (principal); R39.81 Functional urinary incontinence; R33.9 Retention of urine, unspecified; Z96.0 Presence of urogenital implants | CPT/HCPCS: 99202 ==

== ENCOUNTER 2024-07-12 09:00 | Outpatient (AMB) | payer OTHER, SELFPAY ==
--- NOTE | 2024-07-12 09:03 | A.OFFVIS_ITS ---
Intake Visit Reasons: Bladder scan Intake Note: Patient is Present for bladder scan Antibiotic Allergy: None Blood Thinner: Eliquis meds: none today's PVR: 0ML'S Nursing Unit Manager Required: No Machine Coremaker: Machine Coremaker Present Accompanied by: Granddaughter Allergies No Known Allergies [No Known Allergies*] Allergy (Verified 07/12/24 09:05) HPI Comments Details: 07/12/24--Talita returns today with her granddaughter who states that she has been urinating no complaints of dysuria. Urinalysis is leukocyte negative blood negative. Bladder scan PVR 0 mL. Plan for follow-up in 3 months to re-evaluate voiding function. Review of chart 07/11/24--Talita is an 89-year-old female who is here with her granddaughter for new patient evaluation due to chronic Woo in place. The patient's granddaughter states that her mother was in a assisted for about 2 years and has had the Woo catheter in place since that time. In April she was hospitalized for UTI sepsis and was discharged home with a Woo catheter. There is a visiting nurse that changes the Woo catheter. She states that recent visit with her PCP referred her to Urology to evaluate if the Woo needs to remain or if it can be removed. I will remove the Woo today and have Talita a follow-up tomorrow to check bladder scan. If the patient is unable to urinate in 8 hours will have the visiting nurse replace a Woo. [facility] Medical History Peptic ulcer disease Depression Hypothyroidism Tubular adenoma Chest pain HLD (hyperlipidemia) Postoperative atrial fibrillation Diastolic dysfunction CAD (coronary artery disease) HTN (hypertension) Type 2 diabetes mellitus with polyneuropathy Surgical History History of esophagogastroduodenoscopy (EGD) Hx of colonoscopy S/P CABG x 3 (~09/2013) Family History Father CVD (cardiovascular disease) Mother No problems noted. Social History Household Members: Children Housing: Assisted Living Facility Unable to assess alcohol history related to: Unable to respond Alcohol intake: former Comment: 1:1 sitter Patient Tobacco Use Status: Never used Tobacco Advance Directives Date on File: 01/29/22 service: No Current occupational status: disabled Review of Systems Const All systems reviewed & are unremarkable except as noted in HPI and below Reports no additional complaints Eyes Reports no additional complaints ENT Reports no additional complaints Card Reports no additional complaints Resp Reports no additional complaints GI Reports no additional complaints Reports as per HPI Musc Reports no additional complaints Skin/Breast Reports system reviewed and no additional complaints, except as documented Neuro Reports no additional complaints Psych Reports no additional complaints Endo Reports no additional complaints Adolph/Lymph Reports no additional complaints Aller/Immun Reports no additional complaints Office Procedures Post Void Residual Post Residual Void Post Void Residual (PVR): 0 [id number] Void Residual by ultrasound Results AMB Urinalysis, Automated UA Leukoctes 0 Andrei/uL Last Edit by MELISSA Menendez on 07/12/24 09:20 UA Nitrite Negative Last Edit by MELISSA Menendez on 07/12/24 09:20 UA Urobilinogen 0.2 mg/dL Last Edit by MELISSA Menendez on 07/12/24 09:2 0 UA Protein 15 mg/dL Last Edit by MELISSA Menendez on 07/12/24 09:20 UA pH 6.0 Last Edit by Caleb Cagle CCM on 07/12/24 09:20 UA Blood 0 Nicolás/uL Last Edit by MELISSA Menendez on 07/12/24 09:20 UA Specific [place] 1.015 Last Edit by MELISSA Menendez on 07/12/24 09: 20 UA Ketone Negative Last Edit by MELISSA Menendez on 07/12/24 09:20 UA Bilirubin 0 mg/dL Last Edit by MELISSA Menendez on 07/12/24 09:20 UA Glucose 0 mg/dL Last Edit by Caleb Cagle CCM on 07/12/24 09:20 Results Reviewed Results Reviewed: Laboratory Last Values Urine pH (Auto) 6.0 07/12/24 09:19 Specific [place] (Auto) 1.015 07/12/24 09:19 Urine Protein (Auto) 15 mg/dL 07/12/24 09:19 Glucose (UA)(Auto) 0 mg/dL 07/12/24 09:19 Urine Ketones (Auto) Negative 07/12/24 09:19 Urine Blood (Auto) 0 Nicolás/uL 07/12/24 09:19 Urine Nitrite (Auto) Negative 07/12/24 09:19 Urine Bilirubin (Auto) 0 mg/dL 07/12/24 09:19 Urine Urobilinogen (Auto) 0.2 mg/dL 07/12/24 09:19 Leukocyte Esterase (Auto) 0 Andrei/uL 07/12/24 09:19 Assessment & Plan Assessment & Plan (1) Recurrent UTI: Code(s): N39.0 - Urinary tract infection, site not specified Category: Medical (2) Functional urinary incontinence: Code(s): R39.81 - Functional urinary incontinence Category: Medical Plan Monitor bladder PVR Follow-up in 3 months Orders: Orders AMB Urinalysis Automated Today Z13.9 - Encounter for screening, unspecified Patient Instructions: The patient had an opportunity to ask questions regarding treatment plan. The patient expressed understanding and agreement with the above treatment plan. The patient is aware they should contact our office by phone for worsening of their current condition or the appearance of new symptoms. Compliance is encouraged with any medications and followup testing that is ordered. It is a privilege to be allowed the opportunity to participate in the urologic care of your patient. If you have any questions or concerns regarding treatment for the above conditions please do not hesitate to contact me. The office telephone contact is [phone]. This note is constructed in part using voice recognition software. While every effort has been made to ensure accuracy home companion errors may have been included. Yours sincerely, Johnna Pena MD Coding Level of Care Code Est Pt Level 2 (53359) Diagnoses Recurrent UTI N39.0 Functional urinary incontinence R39.81 CPT Codes Post Residual Void - PVR CPT Code: 32876-Rlnu Void Residual by ultrasound ([id number])
== END 2024-07-12 09:40 | disposition home or self-care (01) ==
LOC: HO.HUSH 09:00
PROVIDERS: PCP Family Medicine; Visit Provider Urology
DX: N39.0 Urinary tract infection, site not specified (principal); R39.81 Functional urinary incontinence; Z13.9 Encounter for screening, unspecified
CPT/HCPCS: 99212

== ENCOUNTER → 2024-07-12 09:00 | Outpatient (BNVA) | payer OTHER, SELFPAY | PROVIDERS: PCP Family Medicine; Visit Provider Urology | DX: N39.0 Urinary tract infection, site not specified (principal); R39.81 Functional urinary incontinence | CPT/HCPCS: 51798; 81003; 99212 ==

== ENCOUNTER 2024-07-26 14:01 | Outpatient (AMB) | payer OTHER, SELFPAY ==
[2024-07-26 14:02] VITALS: BP 132/76; PULSE 77
--- NOTE | 2024-07-26 14:02 | MHC.OFFVIS ---
Vital Signs 07/26/24 14:02 Height 5 ft 2 in BMI Reason not done Patient refused/unable BP 132/76 Blood Pressure Location Lt brachial Position Sitting Pulse 77 Pulse Source Pulse Oximeter Intake Visit Reasons: 6 mth f/up Executive Producer Promos Required: Yes Executive Producer Promos Services: Executive Producer Promos Offered & Declined Executive Producer Promos Name: Sravanthi-eduardo translate Accompanied by: Grand Child Allergies No Known Allergies [No Known Allergies*] Allergy (Verified 07/12/24 09:05) Medication List - Last Reconciled 07/26/24 by Yg Rayo MD acetaminophen 650 mg PO Q8H PRN apixaban (Eliquis) 2.5 mg PO BID atorvastatin 40 mg PO DAILY blood sugar diagnostic (FreeStyle Lite Strips) cetirizine (All Day Allergy (cetirizine)) 10 mg PO DAILY PRN docusate sodium 1 cap PO BID PRN fluticasone propionate 50 mcg/actuation 2 sprays intranasal DAILY PRN gabapentin 300 mg PO BEDTIME insulin glargine (Lantus Solostar U-100 Insulin) 20 units subcut lancets (TRUEplus Lancets) levothyroxine 125 mcg PO DAILY metoprolol succinate ER 12.5 mg PO DAILY nitroglycerin 0.4 mg sublingual Q5M PRN pantoprazole 20 mg PO DAILY semaglutide (Ozempic) mg subcut sennosides (senna) 8.6 mg PO DAILY PRN sertraline (Zoloft) 50 mg PO DAILY HPI Comments Details: Talita returns for follow-up regarding coronary disease and history of bypass surgery- around 2012. She is coming in a wheelchair. Very frail. Currently, living with her granddaughter. Granddaughter states that she still gets some chest pains off and on, and that she gives her nitroglycerin. Then she gets full relief. Could be anginal symptoms but not definitive. Otherwise, many comorbidities but seems to be getting along okay. She did have an NSTEMI in 2021 but not intervene because of age and comorbidities. [facility] Medical History Peptic ulcer disease Depression Hypothyroidism Tubular adenoma Chest pain HLD (hyperlipidemia) Postoperative atrial fibrillation Diastolic dysfunction CAD (coronary artery disease) HTN (hypertension) Type 2 diabetes mellitus with polyneuropathy Surgical History History of esophagogastroduodenoscopy (EGD) Hx of colonoscopy S/P CABG x 3 (~09/2013) Family History Father CVD (cardiovascular disease) Mother No problems noted. Social History Household Members: Children Housing: Assisted Living Facility Unable to assess alcohol history related to: Unable to respond Alcohol intake: former Comment: 1:1 sitter Patient Tobacco Use Status: Never used Tobacco Advance Directives Date on File: 01/29/22 service: No Current occupational status: disabled Review of Systems Const Denies chills, Denies fatigue, Denies fever(s), Denies weight gain and Denies weight loss ENT Denies dizziness Card Reports chest pain, Denies leg edema, Denies lightheadedness, Denies palpitations, Denies dyspnea on exertion, Denies orthopnea and Denies other Resp Denies cough and Denies dyspnea on exertion GI Denies hematochezia and Denies change in stool character Musc Denies abnormal gait, Denies muscle weakness, Denies numbness, Denies radiating pain into limb and Denies tingling Neuro Denies abnormal gait, Denies dizziness, Denies numbness and Denies tingling Endo Denies fatigue and Denies palpitations Physical Exam Vital Signs: Last Vital Signs Pulse 77 07/26/24 14:02 BP 132/76 07/26/24 14:02 Const General: comfortable and no acute distress Orientation/consciousness: patient oriented x3 HEENT Other: Unremarkable Head: Yes normal to inspection Neck Neck: Yes normal visual inspection Chest Chest palpation & inspection: normal inspection of the chest Resp Auscultation: clear to auscultation bilaterally Cardio Palpation: normal PMI Heart sounds: S1 normal heart sound present, S2 normal heart sound present, no gallops, no murmurs and no rubs GI Palpation (GI): Soft to palpation Back/Spine/Pelvis Other: unremarkable Skin General skin exam: no rashes or lesions noted Neuro General: patient oriented x3 Extrem General: Yes normal to inspection Psych Mental Status: mental status grossly normal Assessment & Plan Assessment & Plan (1) Atherosclerotic cardiovascular disease: Code(s): I25.10 - Atherosclerotic heart disease of [place] coronary artery without angina pectoris Category: Medical Plan: History of CABG. Occasional chest pains could be anginal, but not definitive. Okay to use sublingual nitroglycerin as needed. Due to age, frailty and comorbidities will hold off on any aggressive workup. Patient as well as granddaughter would like that as well. If any persistent chest pains, advised to seek emergency help. (2) Non-rheumatic aortic stenosis: Code(s): I35.0 - Nonrheumatic aortic (valve) stenosis Category: Medical Plan: Bnxs-[id number] aortic stenosis on the last echocardiogram. Even if it gets significantly worse, unlikely to be a candidate for TAVR. (3) Ascending aorta dilatation: Code(s): I77.810 - Thoracic aortic ectasia Category: Medical Plan: Low-level dilatation at around 4 cm. Unlikely that she will ever qualify for any surgery even if it gets significantly enlarged. (4) Heart block: Code(s): I45.9 - Conduction disorder, unspecified Category: Medical Plan: First-degree heart block and incomplete right bundle-branch block. Can be monitored periodically. (5) Paroxysmal atrial fibrillation: Code(s): I48.0 - Paroxysmal atrial fibrillation Category: Medical Plan: Remains in sinus. Beta-blockers/anticoagulation. Plan Discussed with granddaughter who brought her here. Coding Level of Care Code Est Pt Level 4 (73028) Diagnoses Atherosclerotic cardiovascular disease I25.10 Non-rheumatic aortic stenosis I35.0 Ascending aorta dilatation I77.810 Heart block I45.9 Paroxysmal atrial fibrillation I48.0
== END 2024-07-26 14:22 | disposition home or self-care (01) ==
PROVIDERS: PCP Family Medicine; Visit Provider Internal Medicine
DX: I25.10 Atherosclerotic heart disease of native coronary artery without angina pectoris (principal); I35.0 Nonrheumatic aortic (valve) stenosis; I77.810 Thoracic aortic ectasia; I45.9 Conduction disorder, unspecified; I48.0 Paroxysmal atrial fibrillation
CPT/HCPCS: 99214

== ENCOUNTER → 2024-07-26 14:01 | Outpatient (BNVA) | payer OTHER, SELFPAY | PROVIDERS: PCP Family Medicine; Visit Provider Internal Medicine | DX: I25.10 Atherosclerotic heart disease of native coronary artery without angina pectoris (principal); I10 Essential (primary) hypertension; I35.0 Nonrheumatic aortic (valve) stenosis; I77.810 Thoracic aortic ectasia; I45.9 Conduction disorder, unspecified; I48.0 Paroxysmal atrial fibrillation; R54 Age-related physical debility; Z95.1 Presence of aortocoronary bypass graft; Z99.3 Dependence on wheelchair | CPT/HCPCS: 99212 ==

== ENCOUNTER 2024-09-10 10:36 | Outpatient (AMB) | payer OTHER, SELFPAY ==
[2024-09-10 10:40] VITALS: BP 100/62; PULSE 67
--- NOTE | 2024-09-10 10:40 | MHC.OFFVIS ---
Vital Signs 09/10/24 10:40 Height 5 ft 2 in BMI Reason not done Patient refused/unable BP 100/62 Blood Pressure Location Lt brachial Position Sitting Pulse 67 Intake Visit Reasons: ED follow up/chest pain/pain left arm Agency Sales Development Associate Required: Yes Agency Sales Development Associate Services: Agency Sales Development Associate Offered & Declined Agency Sales Development Associate Name: Sravanthi-granddaughter Accompanied by: Grand Child Allergies No Known Allergies [No Known Allergies*] Allergy (Verified 07/12/24 09:05) Medication List - Last Reconciled 09/10/24 by Yg Rayo MD acetaminophen 650 mg PO Q8H PRN amlodipine 5 mg PO DAILY apixaban (Eliquis) 2.5 mg PO BID atorvastatin 40 mg PO DAILY blood sugar diagnostic (FreeStyle Lite Strips) carvedilol 6.25 mg PO BID cetirizine (All Day Allergy (cetirizine)) 10 mg PO DAILY PRN docusate sodium 1 cap PO BID PRN fluticasone propionate 50 mcg/actuation 2 sprays intranasal DAILY PRN gabapentin 300 mg PO BEDTIME insulin glargine (Lantus Solostar U-100 Insulin) 20 units subcut isosorbide mononitrate ER 30 mg PO DAILY lancets (TRUEplus Lancets) levothyroxine 125 mcg PO DAILY lisinopril 5 mg PO DAILY nitroglycerin 0.4 mg sublingual Q5M PRN pantoprazole 20 mg PO DAILY semaglutide (Ozempic) mg subcut sennosides (senna) 8.6 mg PO DAILY PRN sertraline (Zoloft) 50 mg PO DAILY HPI Comments Details: Talita returns for follow-up regarding coronary disease and history of bypass surgery- around 2012. She is coming in a wheelchair. Very frail. Currently, living with her granddaughter. She continues to get anginal-type chest pains. In fact, she was not [facility] over the weekend. Meds have been adjusted including addition of long-acting nitrates. She states she is also on amlodipine now. It seems that they discussed about cardiac catheterization but patient did not want anything done and hence she was discharged home. Since discharge, no new chest pain episodes in the last 24 hours. Of note, she did have an NSTEMI, 2021 but not intervened because of age and comorbidities. [facility] Medical History Peptic ulcer disease Depression Hypothyroidism Tubular adenoma Chest pain HLD (hyperlipidemia) Postoperative atrial fibrillation Diastolic dysfunction CAD (coronary artery disease) HTN (hypertension) Type 2 diabetes mellitus with polyneuropathy Surgical History History of esophagogastroduodenoscopy (EGD) Hx of colonoscopy S/P CABG x 3 (~09/2013) Family History Father CVD (cardiovascular disease) Mother No problems noted. Social History Household Members: Children Housing: Assisted Living Facility Unable to assess alcohol history related to: Unable to respond Alcohol intake: former Comment: 1:1 sitter Patient Tobacco Use Status: Never used Tobacco Advance Directives Date on File: 01/29/22 service: No Current occupational status: disabled Review of Systems Const Denies chills, Denies fatigue, Denies fever(s), Denies weight gain and Denies weight loss ENT Denies dizziness Card Denies chest pain, Denies leg edema, Denies lightheadedness, Denies palpitations, Denies dyspnea on exertion, Denies orthopnea and Denies other Resp Denies cough and Denies dyspnea on exertion GI Denies hematochezia and Denies change in stool character Musc Denies abnormal gait, Denies muscle weakness, Denies numbness, Denies radiating pain into limb and Denies tingling Neuro Denies abnormal gait, Denies dizziness, Denies numbness and Denies tingling Endo Denies fatigue and Denies palpitations Physical Exam Vital Signs: Last Vital Signs Pulse 67 09/10/24 10:40 BP 100/62 09/10/24 10:40 Const General: comfortable and no acute distress Orientation/consciousness: patient oriented x3 HEENT Other: Unremarkable Head: Yes normal to inspection Neck Neck: Yes normal visual inspection Chest Chest palpation & inspection: normal inspection of the chest Resp Auscultation: clear to auscultation bilaterally Cardio Palpation: normal PMI Heart sounds: S1 normal heart sound present, S2 normal heart sound present, no gallops, no murmurs and no rubs GI Palpation (GI): Soft to palpation Back/Spine/Pelvis Other: unremarkable Skin General skin exam: no rashes or lesions noted Neuro General: patient oriented x3 Extrem General: Yes normal to inspection Psych Mental Status: mental status grossly normal Office Procedures EKG Details: EKG with underlying sinus rhythm, 67/Min; sinus arrhythmias; leftward axis; incomplete right bundle-branch block pattern [id number], Complete Assessment & Plan Assessment & Plan (1) Atherosclerotic cardiovascular disease: Code(s): I25.10 - Atherosclerotic heart disease of [place] coronary artery without angina pectoris Category: Medical Plan: History of CABG. Admitted to [facility] but did not want any invasive studies. Hence meds have been optimized. On long-acting nitrates/amlodipine. Add Ranexa. (2) Non-rheumatic aortic stenosis: Code(s): I35.0 - Nonrheumatic aortic (valve) stenosis Category: Medical Plan: Albi-rz-gaizrnwm aortic stenosis on the last echocardiogram. Even if it gets significantly worse, unlikely to be a candidate for TAVR. (3) Ascending aorta dilatation: Code(s): I77.810 - Thoracic aortic ectasia Category: Medical Plan: Low-level dilatation at around 4 cm. Unlikely that she will ever qualify for any surgery even if it gets significantly enlarged. (4) Heart block: Code(s): I45.9 - Conduction disorder, unspecified Category: Medical Plan: First-degree heart block and incomplete right bundle-branch block. Can be monitored periodically. (5) Paroxysmal atrial fibrillation: Code(s): I48.0 - Paroxysmal atrial fibrillation Category: Medical Plan: Remains in sinus. Beta-blockers/anticoagulation. Plan Discussed with granddaughter. Medications: New ranolazine ER 500 mg PO BID 180 tabs 3RF 90 days Coding Level of Care Code Est Pt Level 4 (17139) Diagnoses Atherosclerotic cardiovascular disease I25.10 Non-rheumatic aortic stenosis I35.0 Ascending aorta dilatation I77.810 Heart block I45.9 Paroxysmal atrial fibrillation I48.0 CPT Codes EKG - CPT: 36253-[id number], Complete ([id number])
== END 2024-09-10 12:27 | disposition home or self-care (01) ==
PROVIDERS: PCP Family Medicine; Visit Provider Internal Medicine
DX: I25.10 Atherosclerotic heart disease of native coronary artery without angina pectoris (principal); I35.0 Nonrheumatic aortic (valve) stenosis; I77.810 Thoracic aortic ectasia; I45.9 Conduction disorder, unspecified; I48.0 Paroxysmal atrial fibrillation
CPT/HCPCS: 93010; 99214

== ENCOUNTER → 2024-09-10 10:36 | Outpatient (BNVA) | payer OTHER, SELFPAY | PROVIDERS: PCP Family Medicine; Visit Provider Internal Medicine | DX: I25.119 Atherosclerotic heart disease of native coronary artery with unspecified angina pectoris (principal); I35.0 Nonrheumatic aortic (valve) stenosis; I77.810 Thoracic aortic ectasia; I45.9 Conduction disorder, unspecified; I48.0 Paroxysmal atrial fibrillation | CPT/HCPCS: 93005; 99212 ==

== ENCOUNTER 2024-10-11 14:09 | Outpatient (AMB) | payer OTHER, SELFPAY ==
--- NOTE | 2024-10-10 21:36 | MHC.OFFVIS ---
Intake Visit Reasons: 3m follow up Intake Note: Patient is present for 3M F/U Urology Medication:NONE Antibiotic Allergy:NONE Blood Thinner:[employer] Writer Required: No Allergies No Known Allergies [No Known Allergies*] Allergy (Verified 10/11/24 14:12) Medication List - Last Reconciled 10/11/24 by Johnna Pena MD acetaminophen 650 mg PO Q8H PRN amlodipine 5 mg PO DAILY apixaban (Eliquis) 2.5 mg PO BID atorvastatin 40 mg PO DAILY blood sugar diagnostic (FreeStyle Lite Strips) cetirizine (All Day Allergy (cetirizine)) 10 mg PO DAILY PRN docusate sodium 1 cap PO BID PRN fluticasone propionate 50 mcg/actuation 2 sprays intranasal DAILY PRN gabapentin 300 mg PO BEDTIME insulin glargine (Lantus Solostar U-100 Insulin) 20 units subcut isosorbide mononitrate ER 30 mg PO DAILY lancets (TRUEplus Lancets) levothyroxine 125 mcg PO DAILY lisinopril 5 mg PO DAILY metoprolol tartrate 12.5 mg (1/2 x 25 mg) PO BID nitroglycerin 0.4 mg sublingual Q5M PRN pantoprazole 20 mg PO DAILY ranolazine ER 500 mg PO BID 90 days semaglutide (Ozempic) mg subcut sennosides (senna) 8.6 mg PO DAILY PRN sertraline (Zoloft) 50 mg PO DAILY HPI Comments Details: 10/10/24--Divina is here for 3 month FU due to recurrent UTI's and functional UI. She is with her granddaughter who states Talita has been doing much better, she is able to make it to the bathroom without leaking. No repeat UTI symptoms. Plan fu prn. Review of chart 07/12/24--Talita returns today with her granddaughter who states that she has been urinating no complaints of dysuria. Urinalysis is leukocyte negative blood negative. Bladder scan PVR 0 mL. Plan for follow-up in 3 months to re-evaluate voiding function. 07/11/24--Talita is an 89-year-old female who is here with her granddaughter for new patient evaluation due to chronic Woo in place. The patient's granddaughter states that her mother was in a long-term for about 2 years and has had the Woo catheter in place since that time. In April she was hospitalized for UTI sepsis and was discharged home with a Woo catheter. There is a visiting nurse that changes the Woo catheter. She states that recent visit with her PCP referred her to Urology to evaluate if the Woo needs to remain or if it can be removed. I will remove the Woo today and have Talita a follow-up tomorrow to check bladder scan. If the patient is unable to urinate in 8 hours will have the visiting nurse replace a Woo. FORMERLY [facility], [facility] Medical History Peptic ulcer disease Depression Hypothyroidism Tubular adenoma Chest pain HLD (hyperlipidemia) Postoperative atrial fibrillation Diastolic dysfunction CAD (coronary artery disease) HTN (hypertension) Type 2 diabetes mellitus with polyneuropathy Surgical History History of esophagogastroduodenoscopy (EGD) Hx of colonoscopy S/P CABG x 3 (~09/2013) Family History Father CVD (cardiovascular disease) Mother No problems noted. Social History Household Members: Children Housing: Assisted Living Facility Unable to assess alcohol history related to: Unable to respond Alcohol intake: former Comment: 1:1 sitter Patient Tobacco Use Status: Never used Tobacco Advance Directives Date on File: 01/29/22 service: No Current occupational status: disabled Review of Systems Const All systems reviewed & are unremarkable except as noted in HPI and below Reports no additional complaints Eyes Reports no additional complaints ENT Reports no additional complaints Card Reports no additional complaints Resp Reports no additional complaints GI Reports no additional complaints Reports as per HPI Musc Reports no additional complaints Skin/Breast Reports system reviewed and no additional complaints, except as documented Neuro Reports no additional complaints Psych Reports no additional complaints Endo Reports no additional complaints Adolph/Lymph Reports no additional complaints Aller/Immun Reports no additional complaints Results AMB Urinalysis, Automated UA Leukoctes 0 Andrei/uL Last Edit by MELISSA Menendez on 10/11/24 14:29 UA Nitrite Negative Last Edit by MELISSA Menendez on 10/11/24 14:29 UA Urobilinogen 0.2 mg/dL Last Edit by MELISSA Menendez on 10/11/24 14:29 UA Protein 15 mg/dL Last Edit by MELISSA Menendez on 10/11/24 14:29 UA pH 6.0 Last Edit by MELISSA Menendez on 10/11/24 14:29 UA Blood 0 Nicolás/uL Last Edit by MELISSA Menendez on 10/11/24 14:29 UA Specific [place] 1.020 Last Edit by MELISSA Menendez on 10/11/24 14:29 UA Ketone Negative Last Edit by MELISSA Menendez on 10/11/24 14:29 UA Bilirubin 0 mg/dL Last Edit by MELISSA Menendez on 10/11/24 14:29 UA Glucose 0 mg/dL Last Edit by MELISSA Menendez on 10/11/24 14:29 Results Reviewed Results Reviewed: Laboratory Last Values Urine pH (Auto) 6.0 10/11/24 14:28 Specific [place] (Auto) 1.020 10/11/24 14:28 Urine Protein (Auto) 15 mg/dL 10/11/24 14:28 Glucose (UA)(Auto) 0 mg/dL 10/11/24 14:28 Urine Ketones (Auto) Negative 10/11/24 14:28 Urine Blood (Auto) 0 Nicolás/uL 10/11/24 14:28 Urine Nitrite (Auto) Negative 10/11/24 14:28 Urine Bilirubin (Auto) 0 mg/dL 10/11/24 14:28 Urine Urobilinogen (Auto) 0.2 mg/dL 10/11/24 14:28 Leukocyte Esterase (Auto) 0 Nadrei/uL 10/11/24 14:28 Assessment & Plan Assessment & Plan (1) Recurrent UTI: Code(s): N39.0 - Urinary tract infection, site not specified Category: Medical (2) Functional urinary incontinence: Code(s): R39.81 - Functional urinary incontinence Category: Medical Plan FU prn Orders: Orders AMB Urinalysis Automated 10/11/24 Z13.9 - Encounter for screening, unspecified Patient Instructions: The patient had an opportunity to ask questions regarding treatment plan. The patient expressed understanding and agreement with the above treatment plan. The patient is aware they should contact our office by phone for worsening of their current condition or the appearance of new symptoms. Compliance is encouraged with any medications and followup testing that is ordered. It is a privilege to be allowed the opportunity to participate in the urologic care of your patient. If you have any questions or concerns regarding treatment for the above conditions please do not hesitate to contact me. The office telephone contact is [phone]. This note is constructed in part using voice recognition software. While every effort has been made to ensure accuracy associate professor of economics errors may have been included. Yours sincerely, Johnna Pena MD Coding Level of Care Code Est Pt Level 3 (38895) Diagnoses Recurrent UTI N39.0 Functional urinary incontinence R39.81
== END 2024-10-11 14:43 | disposition home or self-care (01) ==
PROVIDERS: PCP Family Medicine; Visit Provider Urology
DX: N39.0 Urinary tract infection, site not specified (principal); R39.81 Functional urinary incontinence
CPT/HCPCS: 99213

== ENCOUNTER → 2024-10-11 14:09 | Outpatient (BNVA) | payer OTHER, SELFPAY | PROVIDERS: PCP Family Medicine; Visit Provider Urology | DX: N39.0 Urinary tract infection, site not specified (principal); R39.81 Functional urinary incontinence | CPT/HCPCS: 81003; 99212 ==

== ENCOUNTER 2025-01-22 10:21 | Outpatient (AMB) | payer OTHER, SELFPAY ==
--- NOTE | 2025-01-22 10:23 | MHC.OFFVIS ---
Vital Signs 01/22/25 10:24 Height 5 ft 2 in Weight 111 lb 15.917 oz BMI 20.5 BP 124/58 L Blood Pressure Location Rt brachial Position Sitting Pulse 77 Pulse Source Monitor Intake Visit Reasons: 6m follow up Manager Mail Required: Yes Manager Mail Services: Manager Mail Offered & Declined Manager Mail Name: Granddaughter will interpret Accompanied by: Grand Child Allergies No Known Allergies [No Known Allergies*] Allergy (Verified 10/11/24 14:12) Medication List - Last Reconciled 01/22/25 by Yg Rayo MD acetaminophen 650 mg PO Q8H PRN apixaban (Eliquis) 2.5 mg PO BID atorvastatin 40 mg PO DAILY blood sugar diagnostic (FreeStyle Lite Strips) cetirizine (All Day Allergy (cetirizine)) 10 mg PO DAILY PRN docusate sodium 1 cap PO BID PRN fluticasone propionate 50 mcg/actuation 2 sprays intranasal DAILY PRN gabapentin 300 mg PO BEDTIME insulin glargine (Lantus Solostar U-100 Insulin) 20 units subcut isosorbide mononitrate ER 30 mg PO DAILY lancets (TRUEplus Lancets) levothyroxine 125 mcg PO DAILY metoprolol tartrate 25 mg PO BID nitroglycerin 0.4 mg sublingual Q5M PRN pantoprazole 20 mg PO DAILY ranolazine ER 1,000 mg PO BID semaglutide (Ozempic) mg subcut sennosides (senna) 8.6 mg PO DAILY PRN sertraline (Zoloft) 50 mg PO DAILY HPI Comments Details: Talita returns for follow-up regarding coronary disease and history of bypass surgery- around 2012. She is coming in a wheelchair. Very frail. Currently, living with her granddaughter. She was getting anginal-type chest pains but nothing recently. Meds have been adjusted several times including addition of long-acting nitrates, Ranexa, beta-blockers among others. In the past, cardiac catheterization has been discussed but because of age and frailty as well as patient preference not pursued. In the last few months, granddaughter states that she has not had any angina. In fact has been doing okay although she has had hospitalizations to [facility] for other reasons. Of note, she did have an NSTEMI, 2022 but not intervened because of age and comorbidities. ON LICENSE OF [facility] Medical History Peptic ulcer disease Depression Hypothyroidism Tubular adenoma Chest pain HLD (hyperlipidemia) Postoperative atrial fibrillation Diastolic dysfunction CAD (coronary artery disease) HTN (hypertension) Type 2 diabetes mellitus with polyneuropathy Surgical History History of esophagogastroduodenoscopy (EGD) Hx of colonoscopy S/P CABG x 3 (~09/2013) Family History Father CVD (cardiovascular disease) Mother No problems noted. Social History Household Members: Children Housing: Assisted Living Facility Unable to assess alcohol history related to: Unable to respond Alcohol intake: former Comment: 1:1 sitter Patient Tobacco Use Status: Never used Tobacco Advance Directives Date on File: 01/29/22 service: No Current occupational status: disabled Review of Systems Const Denies chills, Denies fatigue, Denies fever(s), Denies weight gain and Denies weight loss ENT Denies dizziness Card Denies chest pain, Denies leg edema, Denies lightheadedness, Denies palpitations, Denies dyspnea on exertion, Denies orthopnea and Denies other Resp Denies cough and Denies dyspnea on exertion GI Denies hematochezia and Denies change in stool character Musc Denies abnormal gait, Denies muscle weakness, Denies numbness, Denies radiating pain into limb and Denies tingling Neuro Denies abnormal gait, Denies dizziness, Denies numbness and Denies tingling Endo Denies fatigue and Denies palpitations Physical Exam Vital Signs: Last Vital Signs Pulse 77 01/22/25 10:24 BP 124/58 L 01/22/25 10:24 BMI result Body Mass Index 20.5 Const General: comfortable and no acute distress Orientation/consciousness: patient oriented x3 HEENT Other: Unremarkable Head: Yes normal to inspection Neck Neck: Yes normal visual inspection Chest Chest palpation & inspection: normal inspection of the chest Resp Auscultation: clear to auscultation bilaterally Cardio Palpation: normal PMI Heart sounds: S1 normal heart sound present, S2 normal heart sound present, no gallops, no murmurs and no rubs GI Palpation (GI): Soft to palpation Back/Spine/Pelvis Other: unremarkable Skin General skin exam: no rashes or lesions noted Neuro General: patient oriented x3 Extrem General: Yes normal to inspection Psych Mental Status: mental status grossly normal Assessment & Plan Assessment & Plan (1) Atherosclerotic cardiovascular disease: Code(s): I25.10 - Atherosclerotic heart disease of [place] coronary artery without angina pectoris Category: Medical Plan: History of CABG. NSTEMI, treated medically in 2021. Recurring angina but nothing recently. Seems to be on reasonable therapy. On beta-blockers, long-acting nitrates, Ranexa. No changes made. It seems isosorbide mononitrate is being held at times because of low blood pressure. Depending on angina/blood pressure trends, may resume. Discussed. (2) Non-rheumatic aortic stenosis: Code(s): I35.0 - Nonrheumatic aortic (valve) stenosis Category: Medical Plan: [id number] aortic stenosis on the last echocardiogram. Even if it gets significantly worse, unlikely to be a candidate for TAVR. (3) Ascending aorta dilatation: Code(s): I77.810 - Thoracic aortic ectasia Category: Medical Plan: Low-level dilatation at around 4 cm. Unlikely that she will ever qualify for any surgery even if it gets significantly enlarged. (4) Heart block: Code(s): I45.9 - Conduction disorder, unspecified Category: Medical Plan: First-degree heart block and incomplete right bundle-branch block. Can be monitored periodically. (5) Paroxysmal atrial fibrillation: Code(s): I48.0 - Paroxysmal atrial fibrillation Category: Medical Plan: Remains in sinus. Beta-blockers/anticoagulation. Plan Discussed with granddaughter who came for appointment. Medications: Changed From metoprolol tartrate 12.5 mg (1/2 x 25 mg) PO BID 45 tabs 3RF To metoprolol tartrate 25 mg PO BID From ranolazine ER 500 mg PO BID 90 days 180 tabs 3RF To ranolazine ER 1,000 mg PO BID Coding Level of Care Code Est Pt Level 4 (06796) Complex EM visit Add On G2211 Diagnoses Atherosclerotic cardiovascular disease I25.10 Non-rheumatic aortic stenosis I35.0 Ascending aorta dilatation I77.810 Heart block I45.9 Paroxysmal atrial fibrillation I48.0
[2025-01-22 10:24] VITALS: BP 124/58; PULSE 77; BMI 20.5
--- OUTSIDE RECORDS SUMMARY | 2025-01-22 12:31 | XMS_ITS | Encounter Summary ---
Author Organization [employer] Address [address] [place] [address] [place] [address] Care Team Providers Care Grades 6 Through 8 Teacher Name Role Phone Nae Jackson DO Primary Care Provider + [phone] Reason for Referral * Consultation (Routine) - Closed Specialty Diagnoses / Procedures Referred By Mallika reyes Referred To Contact Urology Diagnoses Recurrent UTI Keyonna Mukherjee FNP [address] [place] [address] Phone: tel: fax: [facility] [address] [place], [place] Phone: tel: fax: Referral ID Status Reason Start Date Expiration Date V isits Requested Visits Authorized [id number] Closed Specialty Services Required 12/31/2024 12/31/2025 1 1 Reason for Visit * Reason Comments hospital discharge Encounter Details Date Type Department Care Team (Late st Contact Info) Description 12/28/2024 1:30 PM EST Office Visit [facility] [address], [place] [phone] Keyonna Mukherjee FNP [address] [place] [address] Recurrent UTI (Primary Dx); BEATRIS (acute kidney injury) (CMS/HCC); Dementia with other behavioral disturbance, unspecified dementia severity, unspecified dementia type (CMS/HCC) Social History Tobacco Use Types Packs/Day Years Used Date Smoking Tobacco: Never Smokeless Tobacco: Never Tobacco Cessation:Counseling Given: Not Answered Alcohol Use Standard Drinks/Week Comments Never 0 (1 standard drink = 0.6 oz pur e alcohol) Depression Answer Date Recorded Patient Health Questionnaire-9 Score 15 12/24/2024 Patient Health Questionnaire-9 Score 15 12/24/2024 Last PHQ-9: Questionnaire Data Not on file 0 12/24/2024 Housing Stability Answer Date Recorded What is your housing situation today? I have sejal jackman 05/22/[address] you li ve. Do you have problems with any of the following? None of the above 05/22/2024 Food Insecurity Answer Date Recorded Within the past 12 months, y ou worried that your food would run out before you got money to buy more: Never True 05/22/2024 Within the past 12 months,th e food you bought just didn't last and you didn't have enough money to get more: Never True 12/2023 Transportation Answer Date Recorded In the past 12 months, has l ack of transportation kept you from medical appts, meetings, work or from getting things needed for daily living? No 05/22/2024 Utilities Answer Date Recorded In the past 12 months, has t he electric, gas, oil or water company threatened to shut off services in your home? No 05/22/2024 Depression Answer Date Recorded Patient Health Questionnaire-2 Score 6 12/24/2024 Internet Access Answer Date Recorded Internet Access Q1 Yes 07/20/2024 Internet Access Q2 Not on file 07/20/2024 Comments Unknown Sex and Gender Information Value Date Recorded Sex Assigned at Female 09/20/2022 10:14 AM EDT Legal Sex Female 10:14 AM EDT Gender Identity Female 09/20/2022 10:14 AM EDT Sexual Orientation Straight 09/20/2022 10 :14 AM EDT documented as of this encounter Last Filed Vital Signs Vital Sign Reading Time Taken Comments Blood Pressure 129/71 12/28/2024 1:37 PM EST Pulse 67 12/28/2024 1:37 PM EST Temperature 36.4 ??C (97.6 ??F) 12/28/2024 1:37 PM ES T Respiratory Rate 20 12/28/2024 1:37 PM EST Oxygen Saturation 98% 12/28/2024 1:37 PM EST Inhaled Oxygen Concentration - - Weight 52.6 kg (116 lb) 12/28/2024 1:37 PM EST Height 149.9 cm (4' 11 ) 12/28/2024 1:37 PM EST Body Mass Index 23.43 12/28/2024 1:37 PM EST documented in this encounter Progress Notes * [facility], ORDER ENTRY - 12/28/2024 1:30 PM EST SUBJECTIVE: Talita Merino is a 89 y.o. year old female with three-vessel CAD s/p hypertension, hyperlipidemia, IDDM, PAF (on Eliquis), CKD, stable angina, well controlled T2DM, Presents with granddaughter who is primary manager critical care. [facility] (11/29/24-12/02/24) Patient presented for evaluation of AMS. Recently treated for UTI with cefpodoxime. Found to have metabolic encephalopathy in the setting of UTI which revealed enterococcus. Abx changed to amoxicillin. Found to have BEATRIS, received NaCl and lisinopril held, resumed on discharge. Renal function returned to baseline. PT recommended home with services and patient was discharged home. - Today granddaughter reports primary concern is patients ongoing cognitive decline. Dementia worsening x 6 months. Reports current sx are at baseline. -- confusion in familiar places, difficulty with word finding, talking to the television. Granddaughter is CHIEF INNOVATION OFFICER but needs more support - Patient appetite improving since discharge - NO chills, denies worsening incontinence, urinary odor, dysuria or delirium Patient Active Problem List Diagnosis Aortic root dilatation (CMS/HCC) Atrial fibrillation (CMS/HCC) Coronary artery disease Diverticulosis Essential hypertension Hyperlipidemia Hypothyroidism Mild intermittent asthma Major depression, recurrent, chronic (CMS/HCC) Stage 3b chronic kidney disease (CMS/HCC) Tubular adenoma of colon Type 2 diabetes mellitus (CMS/HCC) Chronic anticoagulation Sick sinus syndrome (CMS/HCC) History of non-ST elevation myocardial infarction (NSTEMI) History of COVID-19 Chronic obstructive pulmonary disease, unspecified (CMS/HCC) Chronic pain syndrome Anemia Anxiety Diastolic dysfunction Cerebral microvascular disease Irritable bowel syndrome Degenerative disc disease, lumbar History of peptic ulcer disease Chronic low back pain Review of Systems Constitutional: Negative for fever. HENT: Negative. Respiratory: Negative for shortness of breath. Cardiovascular: Negative for chest pain. Gastrointestinal: Negative for abdominal pain. Genitourinary: Negative. Neurological: Negative for dizziness and weakness. Psychiatric/Behavioral: Positive for hallucinations and sleep disturbance. OBJECTIVE: Vitals: 12/28/24 1337 BP: 129/71 Pulse: 67 Resp: 20 Temp: 97.6 ??F (36.4 ??C) SpO2: 98% Physical Exam Constitutional: General: She is not in acute distress. Appearance: Normal appearance. HENT: Head: Normocephalic and atraumatic. Right Ear: External ear normal. Left Ear: External ear normal. Nose: Nose normal. Eyes: Conjunctiva/sclera: Conjunctivae normal. Cardiovascular: Rate and Rhythm: Normal rate and regular rhythm. Heart sounds: Normal heart sounds. Pulmonary: Effort: Pulmonary effort is normal. Breath sounds: Normal breath sounds. Skin: General: Skin is warm and dry. Neurological: General: No focal deficit present. Mental Status: She is alert and oriented to person, place, and time. Psychiatric: Attention and Perception: She is inattentive. Mood and Affect: Mood normal. Behavior: Behavior normal. Cognition and Memory: Cognition is impaired. ASSESSMENT/PLAN 1. Recurrent UTI (Primary) - Hx of multiple hospitalization for AMS s/t UTI - Previously followed by [facility] urology Dr. Pena. Last seen 09/2024 at which time plan to follow up as needed PRN - 06/2024- normal PVR - Will refer back to urology - Referral to Urology; Future - Referral to Urology 2. BEATRIS (acute kidney injury) ([facility]) - Creatinine 2.1 in ED-->returned to baseline 1.3 at discharge - Has resumed lisinopril - Recheck renal function Basic Metabolic Panel; Future - Basic Metabolic Panel - 3. Dementia with other behavioral disturbance, unspecified dementia severity, unspecified dementia type ([facility]) - Forms team to reach out to granddaughter to review adult foster care as possible option versus increase in CHIEF INNOVATION OFFICER hours - Given patient age, co-morbidities will hold off on neurology referral at this time and schedule follow up with PCP for advanced care planning/dementia - Patient rx'd seroquel 25mg at bedtime for sleep disturbance--> advised OK to increased to 1.5 tablets if needed Follow Up: 1 month PCP Current Outpatient Medications on File Prior to Visit Medication Sig Dispense Refill Acetaminophen Extra Strength 500 MG tablet Take 2 tablets by mouth every 8 (eight) hours if needed (headache). 60 tablet 0 atorvastatin (Lipitor) 40 MG tablet TAKE 1 TABLET BY MOUTH EVERY DAY 30 tablet 3 Blood Glucose Monitoring Suppl (FreeStyle [place] Lite) w/Device kit USE DIRECTED TO TEST BLOOD SUGAR TWICE DAILY Blood Pressure Monitoring (Omron 3 Series BP Monitor) device CHECK BLOOD PRESSURE DIRECTED 1 each 0 cetirizine (ZyrTEC) 10 MG tablet Take 1 tablet (10 mg) by mouth Once per day. 30 tablet 11 cholecalciferol (Vitamin D-3) 25 MCG (1000 UT) tablet Take 1 tablet by mouth every other day. (Patient not taking: Reported on 12/27/2024) clotrimazole (Lotrimin) 1 % cream Apply topically 2 times daily. 30 g 5 Diclofenac Sodium 1 % gel Apply 2 g topically if needed in the morning, at noon, in the evening, and at bedtime (pain). 150 g 3 docusate sodium (Colace) 100 MG capsule TAKE 1 CAPSULE BY MOUTH TWICE DAILY IN THE MORNING AND AT BEDTIME NEEDED FOR CONSTIPATION 60 capsule 3 Eliquis 2.5 MG tablet TAKE 1 TABLET BY MOUTH TWICE DAILY 60 tablet 3 ferrous sulfate 325 (65 Fe) MG tablet Take 325 mg by mouth Once per day. (Patient not taking: Reported on 12/27/2024) fluticasone (Flonase Allergy Relief) 50 MCG/ACT nasal spray Administer 2 sprays into each nostril Once per day. 16 g 11 gabapentin (Neurontin) 300 MG capsule Take 1 capsule (300 mg) by mouth at bedtime. 30 capsule 11 glucose blood (FREESTYLE LITE) test strip TEST BLOOD SUGAR 3 TIMES A DAY 100 each 11 glucose-vitamin C 4-6 GM-MG oral gel Chew 2-4tabs PO as needed for hypoglycemia isosorbide mononitrate ER (Imdur) 30 MG 24 hr tablet Take 1 tablet (30 mg) by mouth Once per day. Do not crush or chew. 90 tablet 3 Lancets 33G misc Use to test blood sugar three times a day 100 each 11 Lantus SoloStar 100 UNIT/ML pen INJECT 20 UNITS SUBCUTANEOUSLY EVERY DAY 15 mL 1 levothyroxine (Synthroid, Levoxyl) 125 MCG tablet TAKE 1 TABLET BY MOUTH EVERY DAY IN THE MORNING BEFORE BREAKFAST 30 tablet 3 losartan (Cozaar) 25 MG tablet Take 1 tablet (25 mg) by mouth Once per day. 30 tablet 11 metoprolol tartrate (Lopressor) 25 MG tablet Take 1 tablet by mouth 2 times daily. nitroglycerin (Nitrostat) 0.[address] 1 tablet (0.4 mg) under the tongue every 5 (five) minutes if needed for chest pain. 90 tablet 0 Ozempic, 0.25 or 0.5 MG/DOSE, 2 MG/3ML solution pen-injector INJECT 0.5 MG SUBCUTANEOUSLY EVERY 7 DAYS IN THE ABDOMEN, THIGHS, OR UPPER ARM, ROTATE INJECTION SITES. pantoprazole (ProtoNix) 20 MG EC tablet TAKE 1 TABLET BY MOUTH EVERY DAY BEFORE BREAKFAST 30 tablet3 pen needle 32G x 4 mm misc Use as instructed 100 each 3 QUEtiapine (SEROquel) 25 MG tablet Take 0.5-1 tablets (12.5-25 mg) by mouth if needed at bedtime (Agitation and/or Insomnia). 30 tablet 0 ranolazine (Ranexa) 500 MG 12 hr tablet Take 2 tablets by mouth 2 times daily. senna (Senokot) 8.6 MG tablet TAKE 2 TABLETS BY MOUTH EVERY DAY NEEDED FOR CONSTIPATION 60 tablet 3 sertraline (Zoloft) 50 MG tablet TAKE 1 TABLET BY MOUTH EVERY DAY 30 tablet 0 Spacer/Aero-Holding Chambers (AeroChamber MV) inhaler USE DIRECTED 1 each 0 Ventolin HFA 108 (90 Base) MCG/ACT inhaler INHALE 2 PUFFS BY MOUTH EVERY 4 HOURS NEEDED FOR WHEEZING OR SHORTNESS OF BREATH 18 g 1 [DISCONTINUED] sertraline (Zoloft) 50 MG tablet Take 1 tablet (50 mg) by mouth Once per day. 30 tablet 1 [DISCONTINUED] Spacer/Aero-Holding Chambers (AeroChamber MV) inhaler Use as instructed 1 each 0 No current facility-administered medications on file prior to visit. Wallisian Translation: provided by patient's daughter with her consent documented in this encounter Plan of Treatment Upcoming Encounters Date Type Department Care Team ([facility] st Contact Info) Description 02/13/2025 9:30 AM EDT Office Visit [facility] [address] [place] [address] Nae Jackson DO [address] [place] [address] Scheduled Orders Name Type Priority Associated Diagnoses Orde r Schedule Basic Metabolic Panel Lab Routine BEATRIS (acute kidney injury) (CMS/HCC) Expected: 12/31/2024 (Approximate), Expires: 12/31/2025 Scheduled Referrals Name Type Priority Associated Diagnoses Orde r Schedule Referral to Urology Outpatient Referral Routine Recurrent UTI Expected: 12/31/2024 (Approximate), Expires: 12/31/2025 documented as of this encounter Visit Diagnoses Diagnosis Recurrent UTI- Primary Urinary tract infection, site not specified BEATRIS (acute kidney injury) (CMS/HCC) Dementia with other behavioral disturbance, unspecified dementia severity, unspecified dementia type ([facility]) documented in this encounter Additional Health Concerns Assessment Noted Time PHQ-9 Depression Total Score: 15 025 10:37 AM EST documented as of this encounter Care Teams Grades 6 Through 8 Teacher Relationship Specialty Start Date End Date Nae Jackson DO [address] [place] [address] PCP - General Family Medicine 11/02/12 [facility] 05/28/24 documented as of this encounter
--- OUTSIDE RECORDS SUMMARY | 2025-01-22 12:31 | XMS_ITS | Encounter Summary ---
Author Organization [email or web address] Address [address] [place] [address] Care Team Providers Care Gallery Intern Name Role Phone Renetta Nae Primary Care Provider + [phone] Encounter Details Date Type Department Care Team (Latest Contact Info) Description 12/28/2024 Travel Social History Tobacco Use Types Packs/Day Years Used Date Smoking Tobacco: Never Smokeless Tobacco: Never Alcohol Use Standard Drinks/Week Comments Never 0 [...] AM EDT documented as of this encounter Plan of Treatment Upcoming Encounters Date Type Department Care Team (Late st Contact Info) Description 02/13/2025 9:30 AM EDT Office Visit [facility] [address] [place] [address] Nae Jackson DO [address] [place] [address] documented as of this encounter Visit Diagnoses Not on filedocumented in this encounter Additional Health Concerns Assessment Noted Time PHQ-9 Depression Total Score: 15 025 10:37 AM EST documented as of this encounter Care Teams Gallery Intern Relationship Specialty Start Date End Date Nae Jackson DO [address] [place] [address] PCP - General Family Medicine 11/02/12 [employer] 05/28/24 documented as of this encounter
--- OUTSIDE RECORDS SUMMARY | 2025-01-22 12:31 | XMS_ITS | Continuity of Care Document ---
Author Organization [employer] [facility], [place] - [facility] Address [address] [place] [address] Care Team Providers Care Vending Machine Assembler Name Role Phone HIM [facility] OTHER [facility] OTHER [phone] [facility] Primary Care Provider [phone] Assessment Encounter Date Assessment Date Assessment LastModified by Organization Details LastModified Time 01/01/2025 01/01/2025 service called for hypotension found 89 cindy with hx CAD afib HTN hypothyroidism T2DM COPD CKD reported 1 x episode low BP requiring f/up BP check and clinical evaluation VS 98 138/69 58 98%RA not ill appearing per report #Hypotension isolated, self resolved return to primary team vkudesia Not available 01/01/2025 22:46:27 Plan of Treatment Reminders Order Date Submit Date Provider Last Modified By Organization Details Last Modified Time Details Appointments None record ed. Lab None record ed. Referral None record ed. Procedures None record ed. Surgeries None record ed. Imaging None record ed. Medication Orders None record ed. Patient TargetsNo targets recorded. Patient InstructionsNo instructions recorded. Reason for Referral None Reported. Medical Equipment None Reported. Allergies No known drug allergies Medications Name Sig Start Date Stop Date Status Note LastModified by Organization Details LastModified Time Santyl 250 unit/gram topical ointment active Not Available Not Available Not Available isosorbide dinitrate 10 mg tablet TAKE 1 TABLET BY MOUTH THREE TIMES A DAY active Not Available Not Available Not Available atorvastatin 40 mg tablet TAKE 1 TABLET BY MOUTH EVERY DAY active Not Available Not Available No t Available carvedilol 6.25 mg tablet TAKE 1 TABLET BY MOUTH TWICE DAILY WITH BREAKFAST AND WITH DINNER active Not Available Not Available No t Available cetirizine 10 mg tablet TAKE 1 TABLET BY MOUTH EVERY DAY active Not Available Not Available No t Available cefpodoxime 100 mg tablet Take 1 tablet every 12 hours by oral route for 7 days. active Not Available Not Available Not Available sulfamethoxa zole 400 mg-trimethop rim 80 mg tablet TAKE 1 TABLET BY MOUTH TWICE DAILY FOR 3 DAYS active Not Available Not Available No t Available senna 8.6 mg tablet TAKE 2 TABLETS BY MOUTH EVERY DAY NEEDED FOR CONSTIPATIO N active Not Available Not Available No t Available isosorbide mononitrate ER 30 mg tablet,exten ded release 24 hr TAKE 1 TABLET BY MOUTH EVERY DAY active Not Available Not Available No t Available amlodipine 5 mg tablet TAKE 1 TABLET BY MOUTH EVERY DAY active Not Available Not Available No t Available acetaminophe n 500 mg tablet TAKE 2 TABLETS BY MOUTH EVERY 8 HOURS NEEDED HEADACHE active Not Available Not Available No t Available acetaminophe n ER 650 mg tablet,exten ded release TAKE 1 TABLET BY MOUTH EVERY 8 HOURS NEEDED FOR MILD PAIN active Not Available Not Available No t Available pantoprazole 20 mg tablet,delay ed release TAKE 1 TABLET BY MOUTH EVERY DAY BEFORE BREAKFAST active Not Available Not Available No t Available ceftriaxone 1 gram solution for injection Take 1 g by injection route. 2023 active Not Available Not Available Not Avai lable cephalexin 500 mg capsule TAKE 1 CAPSULE BY MOUTH FOUR TIMES A DAY active Not Available Not Available Not Available levothyroxin e 125 mcg tablet TAKE 1 TABLET BY MOUTH EVERY MORNING BEFORE BREAKFAST active Not Available Not Available No t Available levothyroxin e 150 mcg tablet active Not Available Not Available Not Available losartan 25 mg tablet TAKE 1 TABLET BY MOUTH ONCE DAILY active Not Available Not Available No t Available nitroglyceri n 0.4 mg sublingual tablet TAKE 1 TABLET UNDER TONGUE EVERY 5 MINUTES NEEDED CHEST PAIN active Not Available Not Available N ot Available docusate sodium 100 mg capsule TAKE 1 CAPSULE BY MOUTH TWICE DAILY IN THE MORNING AND AT BEDTIME NEEDED FOR CONSTIPATIO N active Not Available Not Available No t Available gabapentin 300 mg capsule TAKE 1 CAPSULE BY MOUTH AT BEDTIME active Not Available Not Available No t Available lisinopril 5 mg tablet TAKE 1 TABLET BY MOUTH EVERY DAY active Not Available Not Available No t Available gabapentin 100 mg capsule TAKE 1 CAPSULE BY MOUTH THREE TIMES DAILY active Not Available Not Available Not Available sodium chloride 0.9 % intravenous solution Inject 500 mL by intravenous route. 2023 active Not Available Not Available Not Avai lable colchicine 0.6 mg tablet active Not Available Not Available Not Available fluticasone propionate 50 mcg/actuatio n nasal spray,suspen carmel INSTILL 2 SPRAYS IN EACH NOSTRIL ONCE DAILY active Not Available Not Available N ot Available clotrimazole 1 % topical cream APPLY TO THE AFFECTED AREA(S) TWICE DAILY active Not Available Not Available Not Available sertraline 50 mg tablet TAKE 1 TABLET BY MOUTH EVERY DAY active Not Available Not Available No t Available doxycycline hyclate 100 mg tablet TAKE 1 TABLET BY MOUTH TWICE DAILY WITH A FULL GLASS OF WATER FOR 7 DAYS, Do not lie down for 30 minutes after taking active Not Available Not Available No t Available Ventolin HFA 90 mcg/actuatio n aerosol inhaler INHALE 2 PUFFS BY MOUTH EVERY 4 HOURS NEEDED FOR WHEEZING OR SHORTNESS OF BREATH active Not Available Not Available No t Available metoprolol tartrate 25 mg tablet TAKE 1/2 TABLET (12.5 MG) BY MOUTH TWICE DAILY IN THE MORNING AND EVENING active Not Available Not Available No t Available ranolazine ER 500 mg tablet,exten ded release,12 hr TAKE 1 TABLET BY MOUTH TWICE DAILY active Not Available Not Available No t Available FreeStyle Lite Strips USE DIRECTED TO TEST BLOOD SUGAR THREE TIMES DAILY active Not Available Not Available Not Available Lantus Solostar U-100 Insulin 100 unit/mL (3 mL) subcutaneous pen INJECT 20 UNITS SUBCUTANEOU SLY EVERY DAY active Not Available Not Available No t Available Humalog KwikPen (U-100) Insulin 100 unit/mL subcutaneous active Not Available Not Available Not Available FreeStyle [place] Lite kit USE DIRECTED TO TEST BLOOD SUGAR TWICE DAILY active Not Available Not Available No t Available diclofenac 1 % topical gel APPLY 2 GRAMS TOPICALLY 4 TIMES A DAY IN THE MORNING, AT NOON, IN THE EVENING, AND AT BEDTIME NEEDED FOR PAIN active Not Available Not Available No t Available blood pressure test kit-large cuff USE TO CHECK BLOOD PRESSURE DIRECTED active Not Available Not Available No t Available BD AutoShield Duo Pen Needle 30 gauge x /16 active Not Available Not Available Not Available TRUEplus Lancets 33 gauge USE TO TEST BLOOD SUGAR THREE TIMES DAILY active Not Available Not Available No t Available Eliquis 2.5 mg tablet TAKE 1 TABLET BY MOUTH TWICE DAILY active Not Available Not Available No t Available Victoza 3-Carlos 0.6 mg/0.1 mL (18 mg/3 mL) subcutaneous pen injector active Not Available Not Available Not Available colchicine 0.6 mg capsule TAKE 1 CAPSULE BY MOUTH EVERY DAY FOR 7 DAYS active Not Available Not Available No t Available Pentips Pen Needle 32 gauge x 5/32 USE DIRECTED ONCE DAILY active Not Available Not Available N ot Available Compact Space Chamber active Not Available Not Available Not Available Ozempic 0.25 mg or 0.5 mg (2 mg/3 mL) subcutaneous pen injector INJECT 0.5 MG SUBCUTANEOU SLY EVERY 7 DAYS IN THE ABDOMEN, THIGHS, OR UPPER ARM, ROTATE INJECTION SITES. active Not Available Not Available No t Available Vitals Date Recorded Oxygen saturation Oxygen saturation in Arterial blood by Pulse oximetry Heart rate Body height Body weight Respiratory rate Body temperature Systolic blood pressure Diastolic blood pressure Provider Name and Address Organization Details Last Updated DateTime 98 % 98 % 58 /min 152.4 cm 89287 g 14 /min 98 [degF] 138 mm[Hg] 69 mm[Hg] Not Available [facility] - production 21:15:58 Social History None recorded. Functional Status None recorded. Mental Status None recorded. Family History Nothing Reported. Medical History No medical history recorded. Gynecological HistoryNo gynecological history recorded. Obstetrics History GPAL:G 0 P 0 0 0 0 Past Encounters Encounter ID Performer Location Encounter Start Date Encounter Closed Date Diagnosis/Indication Diagnosis SNOMED-CT Code Diagnosis ICD10 Code Diagnosis Note [id number] Reji Lopez MD Main - [facility] [address] [place] [address] [phone] 01/01/2025 21:15:56 01/01/2025 23:04:09 Low blood pressure 58767740 I95.9 Health Concerns Section Related Observation LastModified by Organization Detai ls LastModified Time None Recorded Concern Status LastModified by Organization Details LastModified Time None Recorded Payers Encounter Date Sequence Insurance Name Policy Number Policy Vital Covered Member ID Vital Member ID Guarantor Name 01/01/2025 1 [facility] - DOS ON OR AFTER 2023 - DUAL ELIGIBLE - SENIOR LIVING OPTIONS AND ONE CARE (MEDICARE REPLACEMENT/ADV ANTAGE - HMO) Talita Merino [id number] Talita Merino Notes Date Note Type Note Provider Name and Address Organization Details Recorded Time 01/01/2025 text/html HPI: Call received to [facility] regarding patients low blood pressure, 76/49. Patient seen in PCP office on 12/28 and BP was WNL. Granddaughter reports BP was low because patient was sleep when OT arrived in the home and took BP. Granddaughter reports patient is at baseline and SBP is now in the 140's. Granddaughter reports she would like to continue pushing fluids to see if BP continues to improve however PCP would like patient to go to ED to r/o UTI/sepsis as patient was recently admitted to [facility] and also had c/o of nocturia at recent office visit. Granddaughter is not agreeable to ED visit. Per recent discharge from [facility] 11/29-12/02: Patient presented for evaluation of AMS. Recently treated for UTI with cefpodoxime. Found to have metabolic encephalopathy in the setting of UTI which revealed enterococcus. Abx changed to amoxicillin. Found to have BEATRIS, received NaCl and lisinopril held, resumed on discharge. Renal function returned to baseline. PT recommended home with services and patient was discharged home. PCP would like human resources advisor visit to evaluate patient and to have urine collected/tested. .................... .................... .................... .................... .................... .................... .................... . CRC Nurse Triage Notes (Mary Gomes - PAUL): Chief Complaints: Hypotension, Urinary symptoms PMH: Coronary Artery Disease, Arrhythmias (e.g., Atrial Fibrillation), Hypertension, Hypothyroidism, Diabetes Mellitus Type 2, COPD/Asthma, Asthma, Chronic Kidney Disease, Depression, Anemia, Myocardial Infarction PMH Reviewed at 01/01/2025 - 18:23 Allergies Reviewed at 01/01/2025 - 18:23 Comments: CRC RN does not need additional information to process visit -Shasta MILLER .................... .................... .................... .................... .................... .................... .................... . Plant Maintenance Mechanic Note From Huber Escalante: Pt in bed. Caregiver reports patient was falling asleep due to time of day on arrival. Caregiver confused as to reason for visit. Caregiver reports occupational therapist took blood pressure and found it low today. Visit was scheduled. Caregiver reports no complaints of, burning or difficult urination. Denies foul odors, concentrated urine or straining. caregiver report she is familiar with patient subtle signs of infection, non-present. Patient pink warm and dry denies complaints. Negative increase work of breathing positive full sentences. Lung sounds clear. Negative CVA tenderness, abdomen, soft, non-tender. Negative edema. [facility] advises caregiver and patient to call back if complaint develops. Red flags, patient education discussed. .................... .................... .................... .................... .................... .................... .................... . [facility] Consulted: Reji Lopez .................... .................... .................... .................... .................... .................... .................... . Disposition: Fulfilled Reji Lopez MD [address] [place] [address],[address], [place], [address], JOSE A - [facility] 01/01/2025 22:46:37 OBGyn Episode No OBEpisode recorded.
--- OUTSIDE RECORDS SUMMARY | 2025-01-22 12:31 | XMS_ITS | Encounter Summary ---
Author Organization [employer] Address [address] [place] [address] [place] [address] Care Team Providers Care Pressure Controller Name Role Phone Nae Jackson DO Primary Care Provider + [phone] Reason for Visit * Reason Onset Date Comments Nurse Triage 01/01/2025 Encounter Details Date Type Department Care Team ([facility] st Contact Info) Description 01/01/2025 Telephone [facility] MEDICINE [address] [place], [place] [phone] Nae Jackson DO [address] [place], [place] [phone] Nurse Triage Social History Tobacco Use Types Packs/Day Years [...] AM EDT documented as of this encounter Miscellaneous Notes * Telephone Encounter - Hayde Taveras RN - 01/02/2025 8:39 AM EST [facility]. During visit granddaughter denied any concerns of patient having UTI s/s and BP was 138/69. [facility] reported hypotension episode (reported by OT) was isolated and self resolved. No further f/u needed at this time. * Telephone Encounter - Hayde Taveras RN - 01/01/2025 2:49 PM EST PCP reports the patient needs to go to the ED to r/o UTI/sepsis especially d/t nocturia s/s. RN called granddaughter [phone] however phone number is not working. TC returned to Angelique with [facility] [phone] to inquire if they have alternative phone number to granddaughter however RN was informed granddaughters phone is not working at this time. RN was advised by Angelique that a VNA is going to see the patient shortly and advised RN to call VNA at [phone]-[phone] to inform of ED recommendation in order for her to notify the family. RN called Kadi at [phone] however Kadi is not atthe patients house of yet to be able to confirm granddaughter is home and message can be relayed. Kadi recommended RN call back in 10 mins to confirm message was relayed. RN will call back. TC placed to [facility] [phone] who reports she is with the patient and the granddaughter who is veryupset regarding ED recommendation. Granddaughter speaking over the VNA and reports she just got home from school and does not have time to bring the patient to the ED. Granddaughter reports she cannot go to the ED as she is exhausted and has to p/u her child. Granddaughter reports the patient can go via ambulance but she is not going to meet the patient at the hospital either and reports the patient cannot be at the ED alone. Per VNA, the patient appears to be at baseline and reports she is notconcerned. Granddaughter reports the paitents low BP was because the patient was sleeping and OT arrived and took her BP before she was up. Granddaughter reports the patient is now up and her BP is improved (still on lower end 107/67 ) and granddaughter wants to push fluids and monitor patient this evening rather than bring patient to ED. A also reports she called her steel division supervisor who agrees with POC. A reports her shift is over and advised RN call sherry at [phone] to further dis cuss POC. RN consulted with PCP who reports patient should still seek ED. PCP reports patient will need to becatheterized to obtain urine sample which we will discuss if this is possible with A tomorrow. However in the mean time, patient should receive metoprolol dose and HOLD losartan in the morning. TC placed to [facility] at alternative number however female answered the phone and stated she is NOT patients granddaughter and does not know the patient. TC returned to [facility] to confirm granddaughter phone number, RN was advised the phone number to call is [phone], A apologized for confusion. RN called [facility] to confirm they can cath patient for urine sample. RN was informed they should be able to. RN called daughter [phone] to inform of provider plan regarding metoprolol and losartan and to notify of [facility] referral however sherry did not answer. RN left requesting CB to red team nurses. RN will place [facility] referral and f/u tomorrow. * Telephone Encounter - Leta Singh RN - 01/01/2025 12:58 PM EST No interpreter translator needed as this tag writer speaks [place] Citizen. Call returned to Talita Merino for triage below.No answer LVM to return call to [facility] triage line [phone]. Call to Angelique with ICP. Advised unable to reach patient via telephone 76/49 HR 63, sitting position.Patient denied any CP, SOB , dizziness or RUIZ. Family was educated on signs and symptoms to seek ER care. Juaquin Merino notified her Superior at [facility] and was told no need for ER transport. Granddaughter reports SBP of 140 today prior to meds. Granddaughter reports having low BP readings after morning medsconsistently. No recent med changes at last visit on 12/28/24. Advised will forward to team nurses tofollow up with family regarding HTN management. Angelique does inform tag writer that current contact for Granddaughter is out of service. This tag writer unable to find alt Ec number. Does have patient portal access. Sent portal message requesting a return call to clinic. Forwarded message to PCP and team for review and follow up with patient and caregivers. * Telephone Encounter - Josefa Emerson - 01/01/2025 11:44 AM EST Tc from Angelique with [facility] to report: Symptoms: Low Blood Pressure - Caller Reports, Breathing Trouble Outcome: Schedule an urgent appointment (within 1 hour) or talk to a nurse or provider soon Reason: Caller denied all higher acuity questions The caller accepted this outcome. [phone] pt ([place] Citizen) documented in this encounter Plan of Treatment Upcoming Encounters Date Type Department Care Team (Late st Contact Info) Description 02/13/2025 9:30 AM EDT Office Visit [facility] [address] [facility] [place] [address] Nae Jackson DO [address] [place] [address] documented as of this encounter Visit Diagnoses Not on filedocumented in this encounter Additional Health Concerns Assessment Noted Time PHQ-9 Depression Total Score: 15 025 10:37 AM EST documented as of this encounter Care Teams Pressure Controller Relationship Specialty Start Date End Date Nae Jackson DO [address] [facility] [place] [address] PCP - General Family Medicine 11/02/12 [employer] 05/28/24 documented as of this encounter
--- OUTSIDE RECORDS SUMMARY | 2025-01-22 12:31 | XMS_ITS | Encounter Summary ---
Author Organization [employer] Address [address] [place] [id number] Care Team Providers Care Food Service Steward Name Role Phone Nae Jackson DO Primary Care Provider [phone] Reason for Visit * Reason Onset Date Comments Hospital Follow-up 09/04/2024 Medication Question 09/04/2024 Encounter Details Date Type Department Care Team ([facility] st Contact Info) Description 09/04/2024 Telephone [facility] MEDICINE [address] [place], [place] [phone] Nae Jackson DO [address] [place], [place] [phone] Hospital Follow-up; Medication Question Social History Tobacco Use Types Packs/Day Years Used Date Smoking Tobacco: Never Smokeless Tobacco: Never Alcohol Use Standard Drinks/Week Comments Never 0 (1 standard drink = 0.6 oz pur e alcohol) Depression Answer Date Recorded Patient Health Questionnaire-9 Score 2 05/22/2024 Patient Health Questionnaire-9 Score 2 05/22/2024 Last PHQ-9: Questionnaire Data Not on file 0 05/22/2024 Housing Stability Answer Date Recorded What is [...] Answer Date Recorded Patient Health Questionnaire-2 Score 0 05/22/2024 Internet Access Answer Date Recorded Internet Access [...] encounter Miscellaneous Notes * Telephone Encounter - Blas Diaz - 09/04/2024 10:48 AM EDT Tc from Bethel Carmen ( grandchild) reporting pt being admitted Hospital: [facility] Date of admission: 07/30/24 ? Discharge date: weekend of 07/30/24 ? ( Caller unsure) Diagnosed: chest pain Grandchild states pt is running out of medication [facility] prescribed. Lisinopril 5 mg ( take one daily) Amlodipine Besylate 5mg ( once a day ) Corvedilol 6.25 mg ( take 1 tablet by mouth twice a day ) documented in this encounter Plan of Treatment Upcoming Encounters Date Type Department Care Team (Late st Contact Info) Description 02/13/2025 9:30 AM EDT Office Visit [facility] MEDICINE [address] [place] [address] Nae Jackson DO [address] [place], [place] [phone] documented as of this encounter Visit Diagnoses Not on filedocumented in this encounter Additional Health Concerns Assessment Noted Time PHQ-9 Depression Total Score: 2 05/22/20 9:29 AM EDT documented as of this encounter Care Teams Food Service Steward Relationship Specialty Start Date End Date Nae Jackson DO [address] [place] [address] PCP - General Family Medicine 11/02/12 [employer] 05/28/24 documented as of this encounter
--- OUTSIDE RECORDS SUMMARY | 2025-01-22 12:31 | XMS_ITS | Encounter Summary ---
Author Organization [employer] Address [address] [facility] 7 [place] [address] Care Team Providers Care After School Counselor Name Role Phone Nae Jackson DO Primary Care Provider + [phone] Encounter Details Date Type Department Care Team (Late st Contact Info) Description 12/25/2024 Telephone [facility] MEDICINE [address] [place], [place] [phone] Sunni Sparks, PharmD [address] [place] [address] Social History Tobacco Use Types Packs/Day Years [...] encounter Miscellaneous Notes * Telephone Encounter - Sunni Sparks PharmD - 12/25/2024 10:01 AM EST FYI to PCP - patient discharged from [facility] - Hypertension and [facility] - Diabetes effective today. Patient has had >3 consecutive canceled/no showed pharmacy visits and thus will be removed from the outreach list per existing workflow. Her CDTM referral was sent in May 2024 but since that time, BP and BG control have improved significantly and she no longer meets criteria for CDTM enrollment. If upon further discussion, you feel patient would benefit from pharmacy services (restart [facility]?), please issue a new referral for medication management (MTM). Thank you. documented in this encounter Plan of Treatment Upcoming Encounters Date Type Department Care Team (Late st Contact Info) Description 02/13/2025 9:30 AM EDT Office Visit [facility] MEDICINE [address] [place], [place] [phone] Nae Jackson DO [address] [place] [address] documented as of this encounter Visit Diagnoses Not on filedocumented in this encounter Additional Health Concerns Assessment Noted Time PHQ-9 Depression Total Score: 15 025 10:37 AM EST documented as of this encounter Care Teams After School Counselor Relationship Specialty Start Date End Date Nae Jackson DO [address] [place] [address] PCP - General Family Medicine 11/02/12 [employer] 05/28/24 documented as of this encounter
--- OUTSIDE RECORDS SUMMARY | 2025-01-22 12:31 | XMS_ITS | Encounter Summary ---
Author Organization [employer] Address [address] [facility] 7 [place] [address] Care Team Providers Care Caterpillar Mechanic Name Role Phone Nae Jackson DO Primary Care Provider + [phone] Reason for Visit * Reason Onset Date Comments Med Refill 12/24/2024 Encounter Details Date Type Department Care Team ([facility] st Contact Info) Description 12/24/2024 Refill [facility] [address] [place] [address] Nae Jackson DO [address] [place] [address] Behavior concern Social History Tobacco Use Types Packs/Day Years [...] encounter Miscellaneous Notes * Telephone Encounter - Nae Small LPN - 12/24/2024 12:00 PM EST PCP out. Next appointment 12/28/24. documented in this encounter Plan of Treatment Upcoming Encounters Date Type Department Care Team (Late st Contact Info) Description 02/13/2025 9:30 AM EDT Office Visit [facility] [address] [place] [address] Nae Jackson DO [address] [place] [address] documented as of this encounter Visit Diagnoses Diagnosis Behavior concern documented in this encounter Additional Health Concerns Assessment Noted Time PHQ-9 Depression Total Score: 15 025 10:37 AM EST documented as of this encounter Care Teams Caterpillar Mechanic Relationship Specialty Start Date End Date Nae Jackson DO [address] [place] [id number] PCP - General Family Medicine 11/02/12 [employer] 05/28/24 documented as of this encounter
--- OUTSIDE RECORDS SUMMARY | 2025-01-22 12:31 | XMS_ITS | Encounter Summary ---
Author Organization [facility] [employer] Address [address] [place] [address] 7 [place] [address] Care Team Providers Care Drug Room Clerk Name Role Phone Nae Jackson DO Primary Care Provider + [phone] Reason for Visit * Reason Onset Date Comments NTTS 01/02/2025 Encounter Details Date Type Department Care Team ([facility] st Contact Info) Description 01/02/2025 Telephone [facility] [address] [place], [place] [phone] Hayde Taveras, RN [address] [place] [address] NTTS Social History Tobacco Use Types Packs/Day Years [...] Encounter - Hayde Taveras RN - 01/02/2025 3:28 PM EST RN received NTTS from 01/01/25 stating: Returning a missed call from the nurse concerning my blood pressure . No further f/u needed. Patient was seen by [facility] yesterday evening. Patient to f/u PRN. documented in this encounter Plan of Treatment Upcoming Encounters Date Type Department Care Team (Late st Contact Info) Description 02/13/2025 9:30 AM EDT Office Visit [facility] [address] [place] [address] Nae Jackson DO [address] [place] [address] documented as of this encounter Visit Diagnoses Not on filedocumented in this encounter Additional Health Concerns Assessment Noted Time PHQ-9 Depression Total Score: 15 025 10:37 AM EST documented as of this encounter Care Teams Drug Room Clerk Relationship Specialty Start Date End Date Nae Jackson DO [address] [place] [address] PCP - General Family Medicine 11/02/12 [employer] 05/28/24 documented as of this encounter
--- OUTSIDE RECORDS SUMMARY | 2025-01-22 12:31 | XMS_ITS | Encounter Summary ---
Author Organization [employer] Address [address] [place] [address] [place] [address] Care Team Providers Care Senior Receptionist Name Role Phone Nae Jackson DO Primary Care Provider + [phone] Reason for Visit * Reason Onset Date Comments FYI 01/04/2025 Encounter Details Date Type Department Care Team ([facility] st Contact Info) Description 01/04/2025 Telephone [facility]INE [address] [place], [place] [phone] Nae Jackson DO [address] [place], [place] [phone] Social History Tobacco Use Types Packs/Day Years [...] Telephone Encounter - Hayde Taveras RN - 01/04/2025 10:12 AM EST Noted. * Telephone Encounter - Yonatan Syed - 01/04/2025 10:04 AM EST Tc from [facility] (Ocupational Therapist) calling in to state that pt declined therapy on 01/03/2025. [facility] states that they are looking to discharge pt the following week due to pt declining therapy and not doing activities. documented in this encounter Plan of Treatment Upcoming Encounters Date Type Department Care Team (Late st Contact Info) Description 02/13/2025 9:30 AM EDT Office Visit [facility] MED[facility]INE [address] [place], [place] [phone] Nae Jackson DO [address] [place] [address] documented as of this encounter Visit Diagnoses Not on filedocumented in this encounter Additional Health Concerns Assessment Noted Time PHQ-9 Depression Total Score: 15 025 10:37 AM EST documented as of this encounter Care Teams Senior Receptionist Relationship Specialty Start Date End Date Nae Jackson DO [address] [place] [address] PCP - General Family Medicine 11/02/12 [email or web address] 05/28/24 documented as of this encounter
--- OUTSIDE RECORDS SUMMARY | 2025-01-22 12:31 | XMS_ITS | Encounter Summary ---
Author Organization [employer] Address [address] [facility] 7 [place] [address] Care Team Providers Care Data Center Engineer Name Role Phone Nae Jackson DO Primary Care Provider + [phone] Encounter Details Date Type Department Care Team (Late st Contact Info) Description 12/31/2024 Orders Only [facility] [address] [place], [place] [phone] Nae Jackson DO [address] [place], [place] [phone] Social History Tobacco Use Types Packs/Day Years [...] Description 02/13/2025 9:30 AM EDT Office Visit [facility] [address] [place] [address] Nae Jackson DO [address] [place] [address] documented as of this encounter Visit Diagnoses Not on filedocumented in this encounter Additional Health Concerns Assessment Noted Time PHQ-9 Depression Total Score: 15 025 10:37 AM EST documented as of this encounter Care Teams Data Center Engineer Relationship Specialty Start Date End Date Nae Jackson DO [address] [place] [address] PCP - General Family Medicine 11/02/12 [email or web address] 05/28/24 documented as of this encounter
--- OUTSIDE RECORDS SUMMARY | 2025-01-22 12:31 | XMS_ITS | Encounter Summary ---
Author Organization [employer] Address [address] [place] [address] [place] [address] Care Team Providers Care Board Layer Name Role Phone Nae Jackson DO Primary Care Provider [phone] Reason for Visit * Reason Onset Date Comments Hospital Follow-up 12/12/2024 Encounter Details Date Type Department Care Team ([facility] st Contact Info) Description 12/12/2024 Telephone [facility] [address] [place], [place] [phone] Nae Jackson DO [address] [place], [place] [phone] Hospital Follow-up Social History Tobacco Use Types Packs/Day Years [...] encounter Miscellaneous Notes * Telephone Encounter - Tarik Bennett - 12/12/2024 12:08 PM EST Tc from pt requesting a HDF appt. Hospital: [facility] Date of admission: 11/29/24 Discharge date: 12/03/24 Diagnosed: UTI *Send message to [facility] documented in this encounter Plan of Treatment Upcoming Encounters Date Type Department Care Team (Late st Contact Info) Description 02/13/2025 9:30 AM EDT Office Visit [facility] [address] [place] [address] Nae Jackson DO [address] [place] [address] documented as of this encounter Visit Diagnoses Not on filedocumented in this encounter Additional Health Concerns Assessment Noted Time PHQ-9 Depression Total Score: 2 05/22/20 24 9:29 AM EDT documented as of this encounter Care Teams Board Layer Relationship Specialty Start Date End Date Nae Jackson DO [address] [place] [address] PCP - General Family Medicine 11/02/12 [email or web address] 05/28/24 documented as of this encounter
--- OUTSIDE RECORDS SUMMARY | 2025-01-22 12:32 | XMS_ITS | Clinical Summary ---
Author Organization [employer] Address [address] [place] [address] 7 [place] [address] Care Team Providers Care Biofuels Research Scientist Name Role Phone Renetta Nae Primary Care Provider + [phone] Allergies No known active allergies Medications * This document contains information received from the source organization and may not represent a complete record from that organization. glucose-vitami n C 4-6 GM-MG oral gel Chew 2-4tabs PO as needed for hypoglycemia Active Blood Glucose Monitoring Suppl (FreeStyle [place] Lite) w/Device kit USE DIRECTED TO TEST BLOOD SUGAR TWICE DAILY Active cholecalcifero l (Vitamin D-3) 25 MCG (1000 UT) tablet Take 1 tablet by mouth every other day. Active ferrous sulfate 325 (65 Fe) MG tablet Take 325 mg by mouth Once per day. Active cetirizine (ZyrTEC) 10 MG tablet Take 1 tablet (10 mg) by mouth Once per day. 30 tablet 024 2024 Active fluticasone (Flonase Allergy Relief) 50 MCG/ACT nasal spray Administer 2 sprays into each nostril Once per day. 16 g 024 2024 Active glucose blood (FREESTYLE LITE) test stripIndicatio ns:Type 2 diabetes mellitus with other specified complication, with long-term current use of insulin ([facility]) TEST BLOOD SUGAR 3 TIMES A DAY 100 each 11 Active pen needle 32G x 4 mm misc Use as instructed 100 each 3 024 2024 Active gabapentin (Neurontin) 300 MG capsule Take 1 capsule (300 mg) by mouth at bedtime. 30 capsule 11 024 2024 Active Diclofenac Sodium 1 % gel Apply 2 g topically if needed in the morning, at noon, in the evening, and at bedtime (pain). 150 g 3 Active Lancets 33G miscIndication s:Type 2 diabetes mellitus without complication, with long-term current use of insulin ([facility]) Use to test blood sugar three times a day 100 each Active clotrimazole (Lotrimin) 1 % creamIndicatio ns:Tinea pedis, unspecified laterality Apply topically 2 times daily. 30 g 5 Active Ozempic, 0.25 or 0.5 MG/DOSE, 2 MG/3ML solution pen-injector INJECT 0.5 MG SUBCUTANEOUSLY EVERY 7 DAYS IN THE ABDOMEN, THIGHS, OR UPPER ARM, ROTATE INJECTION SITES. Active Blood Pressure Monitoring (Omron 3 Series BP Monitor) device CHECK BLOOD PRESSURE DIRECTED 1 each Active nitroglycerin (Nitrostat) 0.4 MG SL tabletIndicati ons:Coronary artery disease of [place] heart with stable angina pectoris, unspecified vessel or lesion type ([facility]) Place 1 tablet (0.4 mg) under the tongue every 5 (five) minutes if needed for chest pain. 90 tablet Active Acetaminophen Extra Strength 500 MG tabletIndicati ons:Chronic low back pain, unspecified back pain laterality, unspecified whether sciatica present Take 2 tablets by mouth every 8 (eight) hours if needed (headache). 60 tablet Active Lantus SoloStar 100 UNIT/ML pen INJECT 20 UNITS SUBCUTANEOUSLY EVERY DAY 15 mL 1 Active metoprolol tartrate (Lopressor) 25 MG tablet Take 1 tablet by mouth 2 times daily. Active senna (Senokot) 8.6 MG tablet TAKE 2 TABLETS BY MOUTH EVERY DAY NEEDED FOR CONSTIPATION 60 tablet 3 Active docusate sodium (Colace) 100 MG capsule TAKE 1 CAPSULE BY MOUTH TWICE DAILY IN THE MORNING AND AT BEDTIME NEEDED FOR CONSTIPATION 60 capsule 3 Active atorvastatin (Lipitor) 40 MG tablet TAKE 1 TABLET BY MOUTH EVERY DAY 30 tablet 3 Active levothyroxine (Synthroid, Levoxyl) 125 MCG tablet TAKE 1 TABLET BY MOUTH EVERY DAY IN THE MORNING BEFORE BREAKFAST 30 tablet 3 Active pantoprazole (ProtoNix) 20 MG EC tablet TAKE 1 TABLET BY MOUTH EVERY DAY BEFORE BREAKFAST 30 tablet 3 Active Eliquis 2.5 MG tablet TAKE 1 TABLET BY MOUTH TWICE DAILY 60 tablet 3 Active losartan (Cozaar) 25 MG tablet Take 1 tablet (25 mg) by mouth Once per day. 30 tablet 11 024 2024 Active Ventolin HFA 108 (90 Base) MCG/ACT inhaler INHALE 2 PUFFS BY MOUTH EVERY 4 HOURS NEEDED FOR WHEEZING OR SHORTNESS OF BREATH 18 g 1 Active isosorbide mononitrate ER (Imdur) 30 MG 24 hr tablet Take 1 tablet (30 mg) by mouth Once per day. Do not crush or chew. 90 tablet 3 024 2024 Active Spacer/Aero-Ho lding Chambers (AeroChamber MV) inhaler USE DIRECTED 1 each 025 2025 Active sertraline (Zoloft) 50 MG tabletIndicati ons:Behavior concern TAKE 1 TABLET BY MOUTH EVERY DAY 30 tablet Active QUEtiapine (SEROquel) 25 MG tablet Take 1-1.5 tablets (25-37.5 mg) by mouth if needed at bedtime (Agitation and/or Insomnia). 45 tablet 2 025 2025 Active ranolazine (Ranexa) 500 MG 12 hr tablet Take 2 tablets (1,000 mg) by mouth 2 times daily. 120 tablet 3 025 2025 Active sertraline (Zoloft) 50 MG tabletIndicati ons:Behavior concern Take 1 tablet (50 mg) by mouth Once per day. 30 tablet 1 024 2024 Discontinued(R eorder (will not trigger notification to Pharmacy)) ranolazine (Ranexa) 500 MG 12 hr tablet Take 2 tablets by mouth 2 times daily. 024 2024 Discontinued(R eorder (will not trigger notification to Pharmacy)) Spacer/Aero-Ho lding Chambers (AeroChamber MV) inhaler Use as instructed 1 each 024 2024 Discontinued(R eorder (will not trigger notification to Pharmacy)) QUEtiapine (SEROquel) 25 MG tablet Take 0.5-1 tablets (12.5-25 mg) by mouth if needed at bedtime (Agitation and/or Insomnia). 30 tablet 025 2024 Discontinued(R eorder (will not trigger notification to Pharmacy)) Active Problems Problem Noted Date Diagnosed Date Chronic anticoagulation 05/22/2024 History of non-ST elevation myocardial infarctio n (NSTEMI) 05/22/2024 Diastolic dysfunction 05/22/2024 Cerebral microvascular disease 05/22/2024 Irritable bowel syndrome 05/22/2024 Degenerative disc disease, lumbar 05/22/2024 History of peptic ulcer disease 05/22/2024 Chronic low back pain 05/22/2024 History of COVID-19 10/25/2023 Overview (05/22/2024): Problem added by Discern Expert Stage 3b chronic kidney disease 10/25/2022 Sick sinus syndrome 08/27/2022 Chronic obstructive pulmonary disease, unspecifi ed 08/27/2022 Chronic pain syndrome 08/27/2022 Anemia 08/27/2022 Anxiety 08/27/2022 Aortic root dilatation 09/12/2015 Atrial fibrillation 09/12/2015 Coronary artery disease 09/12/2015 Assessment & Plan (11/27/2024 2:03 PM EST): ACS ruled out during hospital stay with serial troponins Continue Metoprolol 25mg BID Return to original dose of Imdur ER 30mg daily Diverticulosis 09/12/2015 Essential hypertension 09/12/2015 Assessment & Plan (11/27/2024 2:05 PM EST): Medications adjusted during hospital stay, med rec updated D'C Amlodipine Increase Ranolazine and Metoprolol Continue Imdur 30mg, and Losartan 25mg BID Consider EKG at next visit to measure QT F/U 12/04/24 as planned with CDTM for BP management and check ER precautions discussed Hyperlipidemia 09/12/2015 Hypothyroidism 09/12/2015 Mild intermittent asthma 09/12/2015 Major depression, recurrent, chronic 09/12/2015 Assessment & Plan (12/24/2024 12:06 PM EST): During IBH Consult Talita presenting with depressed mood, Tearful, crying spells , hopelessness, irritable mood, loss of interests/pleasure , sense of isolation/loneliness , isolating, change in appetite or weight reduce appetite, changes in sleep difficulty falling asleep and difficulty staying asleep , psychomotor retardation, fatigue/loss of energy, worthlessness, inappropriate/excessive guilt , difficulty concentrating, indecisiveness; for a period of 0-6 mo, for most or all symptoms in the context of illness or family illness. Patient reported experiencing severe depression. She was accompanied by her granddaughter who also is her MOLD MAKER HELPER. Talita's short-term and recent memory is not good. She's experiencing some loss of memory. Although, her long-term memory appears intact (Mini Mental Exam completed during session). Talita feels safe at home and receives positive support from her family. Currently taking medication for her sleeping problem prescribed by her PCP. clinician engaged patient with active/reflective listening. Reviewed and assessed for risk, current stressors and protective factors using open-ended questions. Further evaluation needed to rule out neurocognitive disorders. Pt will follow- up with PCP regarding next steps for treatment (neurologist/psychiatrist). clinician will provide follow-up BE's to assess sxs and give additional support during next medical appointment. Tubular adenoma of colon 09/12/2015 Type 2 diabetes mellitus 09/12/2015 Resolved Problems Problem Noted Date Diagnosed Date Resolved Date Change in mole 05/04/2018 05/22/2024 Epidermoid cyst of skin 05/04/2018 07/0 12/2023 Globus sensation 05/04/2018 05/22/2024 Encounters * This document contains information received from the source organization and may not represent a complete record from that organization. Date Type Department Care Team Description 01/04/[address] [address] Nae Jackson DO FYI 01/02/[address] [address] Hayde Taveras, RN NTTS 01/01/[address] [address] Nae Jackson DO Nurse Triage 12/31/2024 Orders Only [address] [address] Nae Jackson DO 12/28/2024 1:30 PM EST Office Visit [address] [address] YazKeyonna dodson, NAYE Recurrent UTI (Primary Dx); BEATRIS (acute kidney injury) ([facility]); Dementia with other behavioral disturbance, unspecified dementia severity, unspecified dementia type ([facility]) 12/28/2024 Travel 12/25/[address] [address] Sunni Sparks, PharmD 12/24/2024 Refill [facility] [address] [place], [place] [phone] Nae Jackson DO Behavior concern 12/20/2024 Travel 12/12/[address] [address] Nae Jackson DO Transition Of Care (Tcm) (HDF- scheduled and SDOH screening negative and Tobacco screening negative) 12/12/2024 Patient Outreach [address] [phone] Nae Jackson DO Transition Of Care (Tcm) (HDF- Unscheduled LVM) 12/12/[address] [address] Nae Jackson DO Hospital Follow-up 12/11/[address] [phone] Nae Jackson DO Verbal Orders 11/30/2024 Telephone [facility] [place] [address] Cristopher JOSE A Deras No Show 11/30/2024 Telephone [facility] [place] [address] Lise Soriano MD No Show 11/28/2024 Telephone [facility] [place] [address] Nae Jackson, Medication Question 11/20/2024 9:45 AM EST Office Visit [facility] [place] [address] Lise Soriano MD Essential hypertension (Primary Dx); Recurrent UTI; Hospital discharge follow-up; Coronary artery disease of [place] heart with stable angina pectoris, unspecified vessel or lesion type ([facility]) 11/20/2024 Travel 11/19/2024 Telephone [facility] [place] [address] Nae Jackson DO Nurse Triage 11/12/2024 Telephone [facility] [place] [address] Nae Jackson DO orders needed 11/12/2024 Refill [facility] [place] [address] Nae Jackson DO 11/05/2024 Telephone [facility] [place] [address] Nae Jackson DO Nurse Triage 11/05/2024 Telephone [facility] [place] [address] Nae Jackson DO Appointment Request 10/24/2024 10:30 AM EST Office Visit [facility] [place] [address] Nae Jackson DO Dry cough (Primary Dx); Onychomycosis; Nightmares; Need for COVID-19 vaccine 10/24/2024 Travel 10/24/2024 Telephone [facility] [place] [address] Nae Jackson DO Nurse Triage 10/24/2024 Refill [facility] [address] [place] [address] Magui Christine MD from Last 3 Months Immunizations Name Administration Dates Next Due Hep B, adult 09/02/2016,09/12/2015,02/03/2015 Influenza High-dose Quadriva lent Preservative Free 08/29/2020 Influenza injectable quadriv alent IIV4 with preservative 09/02/2016 Influenza injectable quadriv alent preservative free 10/10/2019,08/14/2015 Influenza, High Dose Seasona l, Preservative Free 09/07/2024,09/05/2018,08/08/2017 Influenza, IIV3, injectable 08/08/2020, 4,09/06/2011 Influenza, Split (incl. wilder fied surface antigen) 09/28/2012 Moderna Covid-19 Vaccine 12+ 02/19/2021,01/23/20 21 PPD Test 09/07/2020,08/31/2020 Pfizer Covid-19 Vaccine 12+ 10/24/2024, 4,02/10/2022 Pfizer Covid-19 Vaccine 12+ virgil-sucrose (Benjamin Cap) 02/10/2022 Pneumococcal Conjugate PCV 13 08/22/2018, 015 Pneumococcal Conjugate PCV 20 05/22/2024 Pneumococcal Polysaccharide PPSV23 07/16/2013, TD (adult), 2 Lf tetanus tox oid, preservative free, adsorbed 11/23/1999 Tdap 05/22/2024,07/16/2013 Zoster, live 04/06/2010 Social History Tobacco Use Types Packs/Day Years [...] Orientation Straight 09/20/2022 10 :14 AM EDT Last Filed Vital Signs Vital Sign Reading [...] Mass Index 23.43 12/28/2024 1:37 PM EST Plan of Treatment Upcoming Encounters Date Type Department Care Team (Late st Contact Info) Description 02/13/2025 9:30 AM EDT Office Visit [facility] [address] [place] [phone] Nae Jackson [address] [place] [address] Health Maintenance Due Date Last Done Comments Diabetes: Foot Exam 1945 Eye Exam 1945 Alcohol/Substance Use Screening 1947 RSV Patients and Patients Aged 60 years or older (1 - 1-dose 75+ series) 2010 Zoster Vaccines (2 of 3) 06/01/2010 04/06/2010 Diabetes: Urine Protein Screening 05/21/2022 05/21/2021, 08/13/2020 Diabetes: Hemoglobin A1C 12/08/2024 024, 05/22/2024, 05/22/2024, Additional history exists Lipid Panel 05/22/2025 05/22/2024, 05/21/2021 Depression Monitoring (PHQ-9) 06/23/2025 12/24/2024, 12/24/2024 SDOH Screening 12/12/2025 12/12/2024 Depression Screening 12/24/2025 12/24/2024, 12/24/19 25 Tobacco Screening 12/31/2025 12/31/2024 DTaP/Tdap/Td Vaccines (3 - Td or Tdap) 05/22/2034 05/22/2024, 07/16/2013, 11/23/1999 Hepatitis B Vaccines Completed 09/02/2016, 09/12/2015, 02/03/2015 Pneumococcal Vaccine: 50+ Years Completed 05/22/2024, 08/22/2018, 09/12/2015, Additional history exists Influenza Vaccine Completed 09/07/2024, , 08/08/2020, Additional history exists COVID-19 Vaccine Completed 10/24/2024, 12/2023, 07/15/2022, Additional history exists HIB Vaccines Aged Out No longer eligi ble based on patient's age to complete this topic HPV Vaccines Aged Out No longer eligi ble based on patient's age to complete this topic Hepatitis A Vaccines Aged Out No long er eligible based on patient's age to complete this topic IPV Vaccines Aged Out No longer eligi ble based on patient's age to complete this topic Meningococcal Vaccine Aged Out No [place] haley eligible based on patient's age to complete this topic RSV under 20 months Aged Out No longe r eligible based on patient's age to complete this topic Rotavirus Vaccines Aged Out No longer eligible based on patient's age to complete this topic Procedures Procedure Name Priority Date/Time Associated Diagnosis Comments POCT URINALYSIS DIPSTICK Routine 11/20/2024 11:27 AM EST Recurrent UTI POCT GLYCATED HEMOGLOBIN, TOTAL Routine 09/07/2024 10:59 AM EDT Type 2 diabetes mellitus with other specified complication, with long-term current use of insulin ([facility]) LIPID PANEL, STANDARD Routine 05/22/2024 11:06 AM EDT Type 2 diabetes mellitus with other specified complication, with long-term current use of insulin ([facility]) ZZZ HISTORICAL MICROALBUMIN, RANDOM Routine 05/21/2021 12:06 PM EDT from Last 3 Months or Most Recently Relevant to Health Maintenance Results * (ABNORMAL) POCT Urinalysis (11/20/2024 11:27 AM EST) Color, UA Yellow Clarity, UA Cloudy Glucose, UA Negative Bilirubin, UA Negative Ketones, UA Negative Spec Grav, UA 1.020 Blood, UA Positive(A) Negative, None Detected Comment:Moderate pH, UA 6.0 Protein, UA 2+ 125++ Comment:100mg/dL Urobilinogen, UA 0.2 Leukocytes, UA Many(A) Negative, Rare, Trace Comment:Large Nitrite, UA Negative Negative, None Detected Appearance, UA cloudy QC Media Lot # [id number] Lot# Expiration Date Urine 11/20/2024 11:2 7 AM EST Lise Soriano MD POINT OF CARE TEST ENTER/EDIT ORDERABLES Final Result * (ABNORMAL) POCT HGB A1C (09/07/2024 10:59 AM EDT) Hemoglobin A1C 7.2(A) 4.0 - 6.0 % QC Media Lot # [id number] Lot# Expiration Date [id number] Blood 09/07/2024 10:5 9 AM EDT Nae Jackson DO POINT OF CARE TEST ENTER/MOOKIE T ORDERABLES Final Result * (ABNORMAL) Lipid Panel, Standard (05/22/2024 11:06 AM EDT) Triglycerides 125 <150 mg/dL [facility] Comment:Desirable Triglyceri de: less than 150 mg/dLBorderline High Triglyceride 150-199 mg/dLHigh Triglyceride: 200-499 mg/dLVery High Triglyceride: greater than or equal to 5OO mg/dL Cholesterol 89 <200 mg/dL [facility] Comment:Desirable Cholestero l: less than 200 mg/dLBorderline High Cholesterol: 200-239 mg/dLHigh Cholesterol: greater than 239 mg/dL LDL Cholesterol Calculated 34 <100 mg/dL [facility] Comment:Desirable LDL: less than 100 mg/dLNear Optimal/Above Optimal LDL: 110- 129 mg/dLBorderline High LDL: 130-159 mg/dLHigh LDL: 160-189 mg/dLVery High LDL: greater than or equal to 190 mg/dL HDL Cholesterol 30(L) >40 mg/dL [facility] Comment:Desirable HDL: great er than 40 mg/dL Note: This HDL assay may give artificially low results in patients with liver disease. Blood Venous blood specimen / Unknown 05/22/2024 11:06 AM EDT 05/22/2024 1:02 PM EDT Nae Jackson DO LAB BLOOD ORDERABLES Final R esult [facility] [address] [place], [place] [id number] [phone] * MICROALBUMIN, RANDOM (05/21/2021 12:06 PM EDT) Creatinine Urine 88.09 mg/dL [facility] Microalbum/Creati nine Ratio Ur 42.0 ug/mg cr [facility] Comment: ?Albumin/Creatinine Ratio Reference Ranges: ? Normal: < 30 ug/mg creatinine ? Microalbuminuria: ??30 - 300 ug/mg creatinine Clinical Albuminuria: ??> 300 ug/mg creatinine Microalbumin Urine 37.0 mg/L [facility] 05/21/2021 12:0 6 PM EDT us Nae Jackson DO HISTORICAL/NON ORDERABLE LAB S Final Result [facility] [address] from Last 3 Months or Most Recently Relevant to Health Maintenance Insurance [facility] Care Teams Biofuels Research Scientist Relationship Specialty Start Date End Date Nae Jackson DO [address] [place] [id number] PCP - General Family Medicine 11/02/12 [employer] 05/28/24
== END 2025-01-22 10:45 | disposition home or self-care (01) ==
PROVIDERS: PCP Family Medicine; Visit Provider Internal Medicine
DX: I25.10 Atherosclerotic heart disease of native coronary artery without angina pectoris (principal); I35.0 Nonrheumatic aortic (valve) stenosis; I77.810 Thoracic aortic ectasia; I45.9 Conduction disorder, unspecified; I48.0 Paroxysmal atrial fibrillation
CPT/HCPCS: 99214; G2211

== ENCOUNTER → 2025-01-22 10:21 | Outpatient (BNVA) | payer OTHER, SELFPAY | PROVIDERS: PCP Family Medicine; Visit Provider Internal Medicine | DX: I25.10 Atherosclerotic heart disease of native coronary artery without angina pectoris (principal); I35.0 Nonrheumatic aortic (valve) stenosis; I77.810 Thoracic aortic ectasia; I45.9 Conduction disorder, unspecified; I48.0 Paroxysmal atrial fibrillation | CPT/HCPCS: 99212 ==

== ENCOUNTER 2025-02-21 13:25 | Outpatient (AMB) | payer OTHER, SELFPAY ==
--- NOTE | 2025-02-21 12:24 | MHC.OFFVIS ---
Intake Visit Reasons: recurrent UTI Intake Note: Patient is present for recurrent UTI Urology Medication:none Antibiotic Allergy:none Blood Thinner:Eliquis PVR:0ml Fire Hydrant Mechanic Required: No Aluminum Sheet Cutter: Aluminum Sheet Cutter Present Accompanied by: Granddaughter Allergies No Known Allergies [No Known Allergies*] Allergy (Verified 02/21/25 13:28) HPI Comments Details: 02/21/25--Talita is here for 3 month FU due to recurrent UTI's and functional UI. 10/10/24--Talita is here for 3 month FU due to recurrent UTI's and functional UI. She is with her granddaughter who states Talita has been doing much better, she is able to make it to the bathroom without leaking. No repeat UTI symptoms. Plan fu prn. 07/12/24--Talita returns today with her granddaughter who states that she has been urinating no complaints of dysuria. Urinalysis is leukocyte negative blood negative. Bladder scan PVR 0 mL. Plan for follow-up in 3 months to re-evaluate voiding function. 07/11/24--Talita is an 89-year-old female who is here with her granddaughter for new patient evaluation due to chronic Woo in place. The patient's granddaughter states that her mother was in a longterm for about 2 years and has had the Woo catheter in place since that time. In April she was hospitalized for UTI sepsis and was discharged home with a Woo catheter. There is a visiting nurse that changes the Woo catheter. She states that recent visit with her PCP referred her to Urology to evaluate if the Woo needs to remain or if it can be removed. I will remove the Woo today and have Talita a follow-up tomorrow to check bladder scan. If the patient is unable to urinate in 8 hours will have the visiting nurse replace a Woo. [facility] Medical History Peptic ulcer disease Depression Hypothyroidism Tubular adenoma Chest pain HLD (hyperlipidemia) Postoperative atrial fibrillation Diastolic dysfunction CAD (coronary artery disease) HTN (hypertension) Type 2 diabetes mellitus with polyneuropathy Surgical History History of esophagogastroduodenoscopy (EGD) Hx of colonoscopy S/P CABG x 3 (~09/2013) Family History Father CVD (cardiovascular disease) Mother No problems noted. 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
--- OUTSIDE RECORDS SUMMARY | 2025-02-21 14:39 | XMS_ITS | Data Portability ---
Author Organization [employer] [place] in - [facility] Address [address] [place] [address] Care Team Providers Care Customer Acquisition Manager Name Role Phone HIM [facility] OTHER [facility] Primary Care Provider Assessment Encounter Date Assessment Date Assessment LastModified by Organization Details LastModified Time 11/05/2024 11/05/2024 I provided real -time medical direction via phone for this encounter, and was available for additional phone based assistance as needed. I have reviewed and agree with the Assessment and Plan as documented by the Production Gear Cutter. We discussed the diagnostic uncertainty of home visits and the risk associated with this. In this case the patient and I felt this to be an acceptable and reasonable amount of risk given the benefit of avoiding an ED visit. The patient/granddajian knox who is her caregiver given the opportunity to ask questions. Advised to keep well-hydrated orally, and to follow-up with PCP regarding slightly worsening renal function/dehydra tion. The granddaughter has already reached out to the PCP for follow-up -also advised if develops CP/severe SOB/turning blue/uncontrolle d n/v/d /severe AMS/ syncope/ hi fever to call 911-lennie magana verbalized understanding of instructions [email or web address] Not available 11/05/2024 12:34:40 01/01/2025 01/01/2025 service called for hypotension found [...] Details Last Modified Time Details Appointments None recorded. Lab culture, urine 2023 024 CARLOS [facility] (Centralized Electronic Ordering - All Locations), Patient Can Go To The Location Of Their Choice, [id number] 06:08:10 urinalysis, dipstick 2023 [email or web address] 0 [facility], [address] [place] [address], [phone] 4 12:02:47 BMP, serum or plasma 2023 [email or web address] 0 [facility], [address] [place] [address], [id number] 12:36:57 BMP, serum or plasma 2023 [email or web address] 0 [facility], [address] [place] [address], [phone] 12:36:57 Referral None recorded. Procedures None recorded. Surgeries None recorded. Imaging None recorded. Medication Orders sodium chloride 0.9 % intravenous solution 2023 [email or web address] 0 Not available 12:05:05 ceftriaxone 1 gram solution for injection 2023 [email or web address] 0 Not available 12:36:57 cefpodoxime 100 mg tablet 2023 [facility], [address] [place] [address], [phone], 16:18:39 Patient TargetsNo targets recorded. Patient InstructionsNo instructions recorded. Reason for Referral None Reported. Results Created Date Observation Date Name Description Value Unit Range Abnormal Flag Note LastModifiedBy Organization Detail LastModifiedTime 11/05/2011/09/2024 URINE CULTU RE,CO MPREH ENSIV E urine culture,comp rehensive Final report abnormal Not Available [facility] ([facility]) [address] [facility] [address], [place], [address], 11/09/2024 12:06:04 11/05/2011/09/2024 URINE CULTU RE,CO MPREH ENSIV E result 1 Klebsi mandie pneumo niae abnormal Great er than 100,0 00 colon y formi ng units per mL Cefaz anupam <=4 ug/mL Cefaz anupam with an GINO <=16 predi cts susce ptibi lity to the oral agent s cefac liz, cefdi celeste, cefpo doxim e, cefpr ozil, cefur oxime , cepha lexin , and lorac arbef when used for thera py of uncom plica arabella urina ry tract infec tions due to E. coli, Klebs iella pneum oniae , and Prote us mirab ilis. Not Available [facility] ([facility]) [address] [facility] [address], [place], [address], 11/09/2024 12:06:04 11/05/2011/09/2024 URINE CULTU RE,CO MPREH ENSIV E antimicrobia l susceptibili ty Commen t S = Susce ptibl e; I = Inter media te; R = Resis tant P = Posit nick; N = Negat nick MICS are expre ssed in micro grams per mL Antib iotic RSLT# 1 RSLT# 2 RSLT# 3 RSLT# 4 Amoxi cilli n/Cla vulan ic Acid S Ampic illin R Cefaz anupam S Cefep keyla S Ceftr iaxon e S Cefur oxime S Cipro floxa nirmal S Ertap enem S Genta micin S Imipe nem S Levof loxac in S Merop enem S Nitro furan toin S Piper acill in/Ta zobac neville S Tetra cycli ne S Tobra mycin S Trime thopr im/Davis lfa S Not Available [facility] ([facility]) [address] [facility], [place], [address], 11/09/2024 12:06:04 11/05/20 24 11/05/2024 BMP, serum or plasm a CRE 1.8 Not Available [facility] [address], [phone], 11/05/2024 12:26:09 11/05/20 24 11/05/2024 BMP, serum or plasm a K+ 4.5 on redraw Not Available [facility] [address] [place] [address], [phone], 11/05/2024 12:26:09 11/05/20 24 11/05/2024 BMP, serum or plasm a K+ 5.1 Not Available [facility] [address], [phone], 11/05/2024 12:02:53 11/05/20 24 11/05/2024 urina lysis , dipst ick Leukocytes 3+ Not Available [facility] [address] [place] [address], [phone], 11/05/2024 12:01:41 11/05/20 24 11/05/2024 urina lysis , dipst ick Nitrite negati ve Not Available [facility] [address] [place] [address], [phone], 11/05/2024 12:01:41 11/05/20 24 11/05/2024 urina lysis , dipst ick Specific [place] 1.010 Not Available [facility] [address] [place] [address], [address], 11/05/2024 12:01:41 11/05/20 24 11/05/2024 urina lysis , dipst ick Ketone neg Not Available [facility] [address], [address], 11/05/2024 12:01:41 11/05/20 24 11/05/2024 urina lysis , dipst ick Appearance Clear Not Available [facility] [address] [place] [address], [phone], 11/05/2024 12:01:41 11/05/20 24 11/05/2024 urina lysis , dipst ick Color Yellow Not Available [facility] [address], [phone], 11/05/2024 12:01:41 Result Notes None recorded. Medical Equipment None Reported. Allergies No known [...] Not Available Not Available Not Available FreeStyle [place] Lite kit USE DIRECTED TO TEST BLOOD [...] Available Pentips Pen Needle 32 gauge x USE DIRECTED ONCE DAILY active Not Available Not Available N ot Available Compact Space Chamber active Not Available Not Available Not Available Ozempic 0.25 mg or 0.5 mg (2 mg/3 mL) subcutaneous pen injector INJECT 0.5 MG SUBCUTANEOU SLY EVERY 7 DAYS IN THE ABDOMEN, THIGHS, OR UPPER ARM, ROTATE INJECTION SITES. active Not Available Not Available No t Available Vitals Date Recorded Body weight Body height Body temperature Oxygen saturation Oxygen saturation in Arterial blood by Pulse oximetry Respiratory rate Heart rate Systolic blood pressure Diastolic blood pressure Provider Name and Address Organization Details Last Updated DateTime 4 51845.9 6 g 157.48 cm 98.4 [degF] 97 % 97 % 18 /min 72 /min 118 mm[Hg] 69 mm[Hg] Not Available [employer] 4 11:55:03 Date Recorded Heart rate Oxygen saturation Oxygen saturation in Arterial blood by Pulse oximetry Respiratory rate Body temperature Systolic blood pressure Diastolic blood pressure Provider Name and Address Organization Details Last Updated DateTime 5 58 /min 98 % 98 % 16 /min 98.2 [degF] 115 mm[Hg] 70 mm[Hg] Not Available [employer] 5 14:27:43 Date Recorded Oxygen saturation Oxygen saturation in Arterial blood by Pulse oximetry Heart rate Body height Body weight Respiratory rate Body temperature Systolic blood pressure Diastolic blood pressure Provider Name and Address Organization Details Last Updated DateTime 5 98 % 98 % 58 /min 152.4 cm 23741 g 14 /min 98 [degF] 138 mm[Hg] 69 mm[Hg] Not Available [facility] 5 21:15:58 Social History None recorded. Functional Status None recorded. Mental Status None recorded. Family History Nothing Reported. Medical History No medical history recorded. Gynecological HistoryNo gynecological history recorded. Obstetrics History GPAL:G 0 P 0 0 0 0 Past Encounters Encounter ID Performer Location Encounter Start Date Encounter Closed Date Diagnosis/Indication Diagnosis SNOMED-CT Code Diagnosis ICD10 Code Diagnosis Note [id number] Joann Figueroa MD [facility] [address] [place] [phone] 11/05/2024 11:54:59 11/05/2024 14:45:17 Transient altered mental status 277981364 R41.82 Will give some IV hydration, discussed with shana hutchins to push p.o. fluids. Since patient typically presents this way with UTIs and she has 3+ leukocytes on a clean voided specimen, will cover with antibiotic s. -cover with cephalospo rin and 100 mg cefpodoxim e due to renal function. Advised would call back if urine culture indicated the need for another antibiotic . Allergies and pharmacy reviewed [id number] Que Garcia MD [facility] [address] [place] [phone] 11/29/2024 14:27:41 11/29/2024 20:12:18 Delirium co-occurrent with dementia [id number] F05 As noted, we were called to see this patient regarding concerns of hypotensio n, delirium, and tremors. Evaluation in the field was performed by my media marketing manager colleague, as noted above, I provided real-time direction and supervisio n for this visit. The evaluation revealed low-normal bp, severe delirium which is not typical, and resting tremor with periodic myoclonic jerks. Pt recently treated with cefpodoxim e and ceftriaxon e for klebsiella UTI. Impression :Delirium, with high concern for serious underlying cause, particular ly sirs/sepsi s given hypotensio n, among others. Plan:ER referral as delirium increases mortality risk 4x and the cause is unknown for this We discussed the situation and I recommende d referral to the emergency department . This was based on concern for serious underlying cause. [id number] Reji Lopez MD [facility] [address] [place] [phone] 01/01/2025 21:15:56 01/01/2025 23:04:09 Low blood pressure 11781067 I95.9 Health Concerns Section Related Observation LastModified by Organization Detai ls LastModified Time None Recorded Concern Status LastModified by Organization Details LastModified Time None Recorded Advance Directives Directive None Recorded Payers Encounter Date Sequence Insurance Name Policy Number Policy Vital Covered Member ID Vital Member ID Guarantor Name 11/05/2024 1 [facility] - DOS ON OR AFTER 2023 - DUAL ELIGIBLE - ALF OPTIONS AND ONE CARE (MEDICARE REPLACEMENT/ADV ANTAGE - HMO) Talita Merino [id number] Talita Merino 11/29/2024 1 [facility] - DOS ON OR AFTER 2023 - DUAL ELIGIBLE - ALF OPTIONS AND ONE CARE (MEDICARE REPLACEMENT/ADV ANTAGE - HMO) Talita Merino [id number] Talita Merino 01/01/2025 1 [facility] - DOS ON OR AFTER 2023 - DUAL ELIGIBLE - ALF OPTIONS AND ONE CARE (MEDICARE REPLACEMENT/ADV ANTAGE - HMO) Talita Merino [id number] Talita Merino Notes Date Note Type Note Provider Name and Address Organization Details Recorded Time 11/05/2024 text/html HPI: Call returned to Talita Merino to triage below. Reports pt having difficulty with sleep over weekend since Tuesday. Pt does have odor to urine. No blood in urine. No fever, N/V. No pain reported. Pt having hallucinations. Per granddaughter this is not patient baseline. Pt was at [facility] 10/27/24-10/29/24 for Chest pain. Pt started on isosorbide DM and metoprolol 25mg BID, ranzolidine 1000mg daily. Pt meds discontinued were amlodipine. Granddaughter advised to seek ER for evaluation. Granddaughter declines states she can't sit in an ER . Advised can send [facility] but still may be referred to ER if pt requires further medical care. Confirmed pt demographics and allergies. .................... .................... .................... .................... .................... .................... .................... . [facility] Nurse Triage Notes (Hannah Valenzuela - RN): Chief Complaints: Urinary symptoms, Altered mental status PMH: Coronary Artery Disease, Arrhythmias (e.g., Atrial Fibrillation), Hypertension, Hypothyroidism, Diabetes Mellitus Type 2, COPD/Asthma Comments: HPI reviewed- NE Production Gear Cutter Organization Information for Anastacio Jon Granados [employer] Legal Name: [employer] Address: [address] [place] [address], Sound Cutter: Hector Moore MD CLIA No.: [id number] Production Gear Cutter POC Test Results from Jon Chaves [employer] Urine Dipstick (11:30:51) Urine leukocytes: +++ JOSE Urine nitrites: - NIT Urine urobilinogen: - URO Urine protein: - PRO Urine pH: 5.0 pH Urine blood: - BLO Urine specific gravity: 1.010 SG Urine ketones: - KET Urine bilirubin: - LEFTY Urine glucose: - GLU iSTAT Chem8+ (11:46:33) Na: 135 mEq/L K: 5.1 mEq/L Cl: 102 mEq/L iCa: 1.16 mmol/L TCO2: 24 mmol/L Glu: 104 mg/dL BUN: 24 mg/dL Crea: 1.7 mg/dL Hct: 35 % Hb: 11.9 g/dL A iSTAT Chem8+ (12:10:27) Na: 134 mEq/L K: 4.5 mEq/L Cl: 101 mEq/L iCa: 1.16 mmol/L TCO2: 20 mmol/L Glu: 126 mg/dL BUN: 19 mg/dL Crea: 1.8 mg/dL Hct: 34 % Hb: 11.6 g/dL A .................... .................... .................... .................... .................... .................... .................... . Production Gear Cutter Note From Jon Chaves[facility] Pt presents with granddaughter at home. Granddaughter reports 2 days of altered mental status, particularly occurring at night. Last night pt was awake most of the night complaining of insects that were not present. Odor noted with urine in commode as well. V/S taken as listed. Pt afebrile. Pt was able to provide sample which was positive for leukocytes. Abdomen soft and non tender with no CVA tenderness noted. Pt has no complaints at was mentating well during exam. Consulted with [facility] Figueroa who ordered blood draw and IV. Potassium initially showing high on labs however lower on repeat test. Pt given 500 cc of normal saline and 1 g of IV ceftriaxone. Reviewed red flags for ED. Pt education provided. [facility] Orders: culture, urine: Performed .................... .................... .................... .................... .................... .................... .................... . [facility] Consulted: Joann Figueroa .................... .................... .................... .................... .................... .................... .................... . Disposition: Fulfilled Joann Figueroa MD [address] [place] [address],[address], [place], [address], [employer] 11/05/2024 13:58:37 11/29/2024 text/html [facility] Nurse Triage Notes (Trina Melara - RN): Reason For Request: Pt's granddaughter reporting convulsions and low blood pressure(90/57)>curr ently being treated for UTI> Denies: Unable to void greater than 5 hours Erection that will not go away after 2 hours Fall or trauma that results in urinary incontinence in the setting of pain Fall or injury that results in incontinence in the absence of pain Lower back pain either unilateral or bilateral, unable to void, painful urination -hematuria Chief Complaints: Urinary symptoms, Hypotension PMH: Coronary Artery Disease, Arrhythmias (e.g., Atrial Fibrillation), Hypertension, Hypothyroidism, Diabetes Mellitus Type 2, COPD/Asthma PMH Reviewed at 11/29/2024:44 Allergies Reviewed at 11/29/2024:44 Comments: Warehouse Puller verified the name//address and phone number. Pts family calling. She has a PCP appt on Tuesday. Her Bp is 90/57 and she has increased her fluids and she rechecked her BP is now 110/67. She is having new twitching . She was treated for a UTI in oct and was given antibiotics and was having confusion. She went to PCP and they changed her antibiotic and completed the course of meds last evening. She is still having episodes confusion. She denies any SOB/ CP. She has a h/o CABG in the past. Her whole body is twitching , denies any fever/ chills. Her BP is normally higher as she is being treated for HTN. She did recently have a change in her Medication for her BP and her confusion started . BP normally is 130-150's. She had a change from her isosorbide mononitrate to isosorbide dinitrate but was changed backs. She is refusing medications at times , which is new for her. HEr baseline she is sweet and cooperative Education provided on the response time and the Patient was advised to monitor reported s/s and seek emergency treatment if needed .................... .................... .................... .................... .................... .................... .................... . Production Gear Cutter Note From Adilson Rivera: Dispatched to a pt residence of an 89 year old female for urinary symptoms and convulsions. Upon arrival patients animal sticker told this medic that the patient had had a low pressure, and was just finishing up being treated for a urinary tract infection. Pt had started with this infection 2 weeks ago and had been on two antibiotics to treat the infection. Newspaper Managing Editor denies foul smelling of discolored urine. Newspaper Managing Editor reports that pt has had increased confusion, and could not answer basic questions. Patient denied any chest pain or shortness of breath. On assessment, patients vital signs were in normal ranges, but patient was tremulous. [facility] was contacted and after relaying the medics findings the MD wanted the patient transferred to the hospital. 911 was contacted and came to pick the pt up. Vital signs- BP-115/70, Pulse-58, rr-16, Temp 98 oral, O2-98 % room air. Pt was alert but confused to person, place, things. .................... .................... .................... .................... .................... .................... .................... . [facility] Consulted: Varinder Garcia .................... .................... .................... .................... .................... .................... .................... . Disposition: Fulfilled Que Garcia MD [address] [place] [address],[address] [place], [place], [address], [employer] 11/29/2024 19:45:38 01/01/2025 text/html HPI: Call received to [facility] regarding patients low blood pressure, 76/49. [...] UTI/sepsis as patient was recently admitted to [facility] and also had c/o of nocturia at recent office visit. Granddaughter is not agreeable to ED visit. Per recent discharge from [facility] 11/29-12/02: Patient presented for evaluation of AMS. Recently treated for UTI with cefpodoxime. Found to have metabolic encephalopathy in the setting of UTI which revealed enterococcus. Abx changed to amoxicillin. Found to have EBATRIS, received NaCl and lisinopril held, resumed on discharge. Renal function returned to baseline. PT recommended home with services and patient was discharged home. PCP would like media marketing manager visit to evaluate patient and to have urine collected/tested. .................... .................... .................... .................... .................... .................... .................... . [facility] Nurse Triage Notes (Mary Gomes - RN): Chief Complaints: Hypotension, Urinary symptoms PMH: Coronary Artery Disease, Arrhythmias (e.g., Atrial Fibrillation), Hypertension, Hypothyroidism, Diabetes Mellitus Type 2, COPD/Asthma, Asthma, Chronic Kidney Disease, Depression, Anemia, Myocardial Infarction PMH Reviewed at 01/01/2025 - 18:23 Allergies Reviewed at 01/01/2025 - 18:23 Comments: CRC RN does not need additional information to process visit -Shasta MILLER .................... .................... .................... .................... .................... .................... .................... . Production Gear Cutter Note From Huber Escalante: Pt in bed. [...] CVA tenderness, abdomen, soft, non-tender. Negative edema. [facility] advises caregiver and patient to call back if complaint develops. Red flags, patient education discussed. .................... .................... .................... .................... .................... .................... .................... . [facility] Consulted: Reji Lopez .................... .................... .................... .................... .................... .................... .................... . Disposition: Fulfilled Reji Lopez MD [address] [facility],[address], [place], [address], [employer] 01/01/2025 22:46:37 OBGyn Episode No OBEpisode recorded.
--- OUTSIDE RECORDS SUMMARY | 2025-02-21 14:39 | XMS_ITS | Clinical Summary ---
Author Organization [employer] Address [address] [place] [address] 7 [place] [address] Care Team Providers Care Flight Superintendent Name Role Phone Renetta Nae Primary Care Provider + [phone] Allergies No known active allergies Medications * This document contains information received from the source organization and may not represent a complete record from that organization. glucose-vitami n C 4-6 GM-MG oral gel Chew 2-4tabs PO as needed for hypoglycemia Active Blood Glucose Monitoring Suppl (FreeStyle [place] Lite) w/Device kit USE DIRECTED TO TEST [...] complication, with long-term current use of insulin ([facility]) TEST BLOOD SUGAR 3 TIMES A DAY [...] complication, with long-term current use of insulin ([facility]) Use to test blood sugar three times a day 100 each 11 Active clotrimazole (Lotrimin) 1 % creamIndicatio ns:Tinea [...] MG SL tabletIndicati ons:Coronary artery disease of [place] heart with stable angina pectoris, unspecified vessel or lesion type ([facility]) Place 1 tablet (0.4 mg) under the [...] tablet by mouth 2 times daily. Active Eliquis 2.5 MG tablet TAKE 1 [...] (AeroChamber MV) inhaler USE DIRECTED 1 each 2025 Active QUEtiapine (SEROquel) 25 MG tablet Take [...] MOUTH EVERY DAY 30 tablet 3 Active senna (Senokot) 8.6 MG tablet TAKE 2 TABLETS BY MOUTH EVERY DAY NEEDED FOR CONSTIPATION 60 tablet 3 Active pantoprazole (ProtoNix) 20 MG EC tablet TAKE 1 TABLET BY MOUTH EVERY DAY BEFORE BREAKFAST 30 tablet 3 Active docusate sodium (Colace) 100 MG capsule TAKE 1 CAPSULE BY MOUTH TWICE DAILY IN THE MORNING AND AT BEDTIME NEEDED FOR CONSTIPATION 60 capsule 3 Active levothyroxine (Synthroid, Levoxyl) 125 MCG tablet TAKE 1 TABLET BY MOUTH EVERY MORNING BEFORE BREAKFAST 30 tablet 3 Active atorvastatin (Lipitor) 40 MG tablet TAKE 1 TABLET BY MOUTH EVERY DAY 30 tablet 3 Active senna (Senokot) 8.6 MG tablet TAKE 2 TABLETS BY MOUTH EVERY DAY NEEDED FOR CONSTIPATION 60 tablet 3 024 2024 Discontinued docusate sodium (Colace) 100 MG capsule TAKE 1 CAPSULE BY MOUTH TWICE DAILY IN THE MORNING AND AT BEDTIME NEEDED FOR CONSTIPATION 60 capsule 3 024 2024 Discontinued atorvastatin (Lipitor) 40 MG tablet TAKE 1 TABLET BY MOUTH EVERY DAY 30 tablet 3 024 2024 Discontinued levothyroxine (Synthroid, Levoxyl) 125 MCG tablet TAKE 1 TABLET BY MOUTH EVERY DAY IN THE MORNING BEFORE BREAKFAST 30 tablet 3 024 2024 Discontinued pantoprazole (ProtoNix) 20 MG EC tablet TAKE 1 TABLET BY MOUTH EVERY DAY BEFORE BREAKFAST 30 tablet 3 024 2024 Discontinued sertraline (Zoloft) 50 MG tabletIndicati ons:Behavior concern TAKE 1 TABLET BY MOUTH EVERY DAY 30 tablet 025 2024 Discontinued(R eorder (will [...] by her granddaughter who also is her MATE CHIEF. Talita's short-term and recent memory is not [...] organization. Date Type Department Care Team Description 02/21/2025 Refill [facility] [place] [address] Nae Jackson DO 02/13/2025 Refill [facility] [place] [address] Nae Jackson DO Behavior concern 02/06/[address] [place] [address] Nae Jackson DO FYI 01/04/[address] [place] [address] Nae Jackson DO FYJj 01/02/[address] [place] [address] Hayde Taveras, RN NTTS 01/01/[address] [address] Nae Jackson DO Nurse Triage 12/31/2024 Orders Only [address] [address] Nae Jackson DO 12/28/2024 1:30 PM EST Office Visit [address] [place] [address] [facility] Recurrent UTI (Primary Dx); BEATRIS (acute kidney injury) ([facility]); Dementia with other behavioral disturbance, unspecified dementia severity, unspecified dementia type ([facility]) 12/28/2024 Travel 12/25/[address] [address] Sunni Sparks, PharmD 12/24/2024 Refill [facility] [address] [place] [address] Nae Jackson DO Behavior concern 12/20/2024 Travel 12/12/2024 Telephone [facility] [address] [place] [address] Nae Jackson DO Transition Of Care (Tcm) (HDF- scheduled and SDOH screening negative and Tobacco screening negative) 12/12/2024 Patient Outreach [address] [address] Nae Jackson DO Transition Of Care (Tcm) (HDF- Unscheduled LVM) 12/12/[address] [address] Nae Jackson DO Hospital Follow-up 12/11/[address] [address] Nae Jackson DO Verbal Orders 11/30/[address] [address] Augusta Nicholas [place] No Show 11/30/[address] [address] Lise Soriano MD No Show 11/28/[address] [phone] Nae Jackson DO Medication Question from Last 3 Months Immunizations Name Administration [...] Care Team (Late st Contact Info) Description 02/28/2025 1:00 PM EDT Medication Management [facility] [address] [place], [place] [phone] Sunni Sparks, PharmD [address] [place], [place] [phone] Health Maintenance Due Date Last Done Comments Diabetes: Foot Exam 1945 Eye Exam 1945 Alcohol/Substance Use Screening 1947 RSV Patients and Patients Aged 60 years or older (1 - 1-dose 75+ series) 2010 Zoster Vaccines (2 of 3) 06/01/2010 04/06/2010 Diabetes: Urine Protein Screening 05/21/2022 05/21/2021, 08/13/2020 Diabetes: Hemoglobin A1C 12/08/202409/07/2 024, 05/22/2024, 05/22/2024, Additional history exists Lipid [...] Name Priority Date/Time Associated Diagnosis Comments POCT GLYCATED HEMOGLOBIN, TOTAL Routine 09/07/2024 10:59 AM EDT Type 2 diabetes mellitus with other specified complication, with long-term current use of insulin ([facility]) LIPID PANEL, STANDARD Routine 05/22/2024 11:06 AM EDT Type 2 diabetes mellitus with other specified complication, with long-term current use of insulin ([facility]) ZZZ HISTORICAL MICROALBUMIN, RANDOM Routine 05/21/2021 12:06 PM EDT from Last 3 Months or Most Recently Relevant to Health Maintenance Results * (ABNORMAL) POCT HGB A1C (09/07/2024 10:59 AM EDT) Hemoglobin A1C 7.2(A) 4.0 - 6.0 % QC Media Lot # [id number] Lot# Expiration Date [id number] Blood 09/07/2024 10:5 9 AM EDT Nae Jackson DO POINT OF CARE TEST ENTER/MOOKIE T ORDERABLES Final Result * (ABNORMAL) Lipid Panel, Standard (05/22/2024 11:06 AM EDT) Triglycerides 125 <150 mg/dL [facility] Comment:Desirable Triglyceri de: less than 150 mg/dLBorderline High Triglyceride 150-199 mg/dLHigh Triglyceride: 200-499 mg/dLVery High Triglyceride: greater than or equal to 5OO mg/dL Cholesterol 89 <200 mg/dL [facility] Comment:Desirable Cholestero l: less than 200 mg/dLBorderline High Cholesterol: 200-239 mg/dLHigh Cholesterol: greater than 239 mg/dL LDL Cholesterol Calculated 34 <100 mg/dL [facility] Comment:Desirable LDL: less than 100 mg/dLNear Optimal/Above Optimal LDL: 110- 129 mg/dLBorderline High LDL: 130-159 mg/dLHigh LDL: 160-189 mg/dLVery High LDL: greater than or equal to 190 mg/dL HDL Cholesterol 30(L) >40 mg/dL [facility] Comment:Desirable HDL: great er than 40 mg/dL Note: This HDL assay may give artificially low results in patients with liver disease. Blood Venous blood specimen / Unknown 05/22/2024 11:06 AM EDT 05/22/2024 1:02 PM EDT Nae Jackson DO LAB BLOOD ORDERABLES Final R esult [facility] [address] [place] [phone] * MICROALBUMIN, RANDOM (05/21/2021 12:06 PM EDT) Creatinine Urine 88.09 mg/dL [facility] Microalbum/Creati nine Ratio Ur 42.0 ug/mg cr [facility] Comment: ?Albumin/Creatinine Ratio Reference Ranges: ? Normal: < 30 ug/mg creatinine ? Microalbuminuria: ??30 - 300 ug/mg creatinine Clinical Albuminuria: ??> 300 ug/mg creatinine Microalbumin Urine 37.0 mg/L [facility] 05/21/2021 12:0 6 PM EDT Nae Jackson DO HISTORICAL/NON ORDERABLE LAB S Final Result [facility] [address] from Last 3 Months or Most Recently Relevant to Health Maintenance [place] [address] [place] [address] - [employer] Care Teams Flight Superintendent Relationship Specialty Start Date End Date Nae Jackson DO [address] [place] [phone] PCP - General Family Medicine 11/02/12 [employer] 05/28/24
--- OUTSIDE RECORDS SUMMARY | 2025-02-21 14:39 | XMS_ITS | Encounter Summary ---
Author Organization [employer] Address [address] [place] [address] [place] [address] Care Team Providers Care Golf Instructor Name Role Phone Nae Jackson DO Primary Care Provider + [phone] Reason for Visit * Reason Comments Med Refill Encounter Details Date Type Department Care Team ([facility] st Contact Info) Description 02/21/2025 Refill [facility] [address] [place], [place] [phone] Nae Jackson DO [address] [place], [place] [phone] Social History Tobacco Use Types Packs/Day Years [...] Description 02/28/2025 1:00 PM EDT Medication Management [facility] [address] [place] [address] Sunni Sparks, PharmD [address] [place] [address] documented as of this encounter Visit Diagnoses Not on filedocumented in this encounter Additional Health Concerns Assessment Noted Time PHQ-9 Depression Total Score: 15 025 10:37 AM EST documented as of this encounter Care Teams Golf Instructor Relationship Specialty Start Date End Date Nae Jackson DO [address] [place] [address] PCP - General Family Medicine 11/02/12 [employer] 05/28/24 documented as of this encounter
--- OUTSIDE RECORDS SUMMARY | 2025-02-21 14:39 | XMS_ITS | Encounter Summary ---
Author Organization [employer] Address [address] [place] [address] [place] [address] Care Team Providers Care Club Attendant Name Role Phone Nae Jackson DO Primary Care Provider Reason for Visit * Reason Onset Date Comments Hospital Follow-up 09/04/2024 Medication Question 09/04/2024 Encounter Details Date Type Department Care Team ([facility] st Contact Info) Description 09/04/[address] [facility] [address] [place], [place] [phone] Nae Jackson DO [address] [place], [place] [phone] Hospital Follow-up; Medication Question Social History Tobacco [...] ( grandchild) reporting pt being admitted Hospital: [facility] Date of admission: 07/30/24 ? Discharge date: weekend of 07/30/24 ? ( Caller unsure) Diagnosed: chest pain Grandchild states pt is running out of medication [facility] prescribed. Lisinopril 5 mg ( take one daily) Amlodipine Besylate 5mg ( once a day ) Corvedilol 6.25 mg ( take 1 tablet by mouth twice a day ) documented in this encounter Plan of Treatment Upcoming Encounters Date Type Department Care Team (Late st Contact Info) Description 02/28/2025 1:00 PM EDT Medication Management [facility] [address] [place], [place] [phone] Sunni Sparks, PharmD [address] [place], [place] [phone] documented as of this encounter Visit Diagnoses Not on filedocumented in this encounter Additional Health Concerns Assessment Noted Time PHQ-9 Depression Total Score: 2 05/22/20 9:29 AM EDT documented as of this encounter Care Teams Club Attendant Relationship Specialty Start Date End Date Nae Jackson DO [address] [place] [address] PCP - General Family Medicine 11/02/12 [employer] 05/28/24 documented as of this encounter
--- OUTSIDE RECORDS SUMMARY | 2025-02-21 14:39 | XMS_ITS | Encounter Summary ---
Author Organization [employer] Address [address] [place] [address] [place] [address] Care Team Providers Care Nylon Mender Name Role Phone Nae Jackson DO Primary Care Provider [phone] Reason for Visit * Reason Onset Date Comments Hospital Follow-up 12/12/2024 Encounter Details Date Type Department Care Team ([facility] st Contact Info) Description 12/12/2024 Telephone [facility] [address] [place], [place] [phone] Nae Jackson DO [address] [place], [place] [phone] Hospital Follow-up Social History Tobacco Use Types [...] from pt requesting a HDF appt. Hospital: [facility] Date of admission: 11/29/24 Discharge date: 12/03/24 Diagnosed: UTI *Send message to [place] Clinical Care Coordinators documented in this encounter Plan of Treatment Upcoming Encounters Date Type Department Care Team (Late st Contact Info) Description 02/28/2025 1:00 PM EDT Medication Management [facility] [address] [place] [address] Sunni Sparks, PharmD [address] [place] [address] documented as of this encounter Visit Diagnoses Not on filedocumented in this encounter Additional Health Concerns Assessment Noted Time PHQ-9 Depression Total Score: 2 05/22/20 24 9:29 AM EDT documented as of this encounter Care Teams Nylon Mender Relationship Specialty Start Date End Date Nae Jackson DO [address] [place] [address] PCP - General Family Medicine 11/02/12 [employer] 05/28/24 documented as of this encounter
== END 2025-02-21 14:18 | disposition home or self-care (01) ==
LOC: HO.HUSH 13:25
PROVIDERS: PCP Family Medicine; Visit Provider Urology
DX: Z13.9 Encounter for screening, unspecified (principal)